=== PATIENT | female | born 1985 | race Caucasian/White ===

== ENCOUNTER 2022-03-28 14:36 | Outpatient (CLI) | payer MEDICAID, SELFPAY ==
[2022-03-28 21:49] LABS: Albumin* 4.8 g/dL (3.3-5.0); Chloride* 103 mmol/L (96-114)
[2022-03-28 21:50] LABS: Potassium* 4.4 mmol/L (3.6-5.1); Sodium* 138 mmol/L (135-149)
[2022-03-28 21:52] LABS: Alanine Aminotransferase* 16 U/L (4-35); Alkaline Phosphatase* 58 U/L (40-150); Aspartate Amino Transferase* 19 U/L (12-35); Bilirubin Total* 0.3 mg/dL (0.1-1.5); Blood Urea Nitrogen* 13 mg/dL (5-24); Carbon Dioxide* 23 mmol/L (20-32); Creatinine* 0.5 mg/dL (0.5-1.5); Estimated Glomerular Filt Rate 125 ml/min; Glucose* 78 mg/dL (60-115); Total Protein* 7.4 g/dL (6.0-8.3)
[2022-03-28 21:53] LABS: Calcium* 9.5 mg/dL (8.4-10.6)
== END 2022-03-28 14:37 | disposition home or self-care (01) ==
PROVIDERS: PCP Family Medicine; Visit Provider Family Medicine
DX: E03.9 Hypothyroidism, unspecified (principal); Z79.899 Other long term (current) drug therapy
CPT/HCPCS: 80053; 84439; 84443

== ENCOUNTER 2023-05-28 10:12 | Outpatient (CLI) | payer MEDICAID, SELFPAY ==
--- OUTSIDE RECORDS SUMMARY | 2023-05-28 10:17 | XMS_ITS | Encounter Summary ---
Author Name Unknown Organization [facility] Address [address], [place] [address] Care Team Providers Care Ergonomic Specialist Name Role Phone Heydi Sutton MD Primary Care Provider Encounter Details Date Type Department Care Team Description 12/19/2022 hayden Avalos [phone] Social History Tobacco Use Types Packs/Day Years Used Date Smoking Tobacco: Former Cigarettes Smokeless Tobacco: Never Alcohol Use Standard Drinks/Week Comments Yes 0 (1 standard drink = 0.6 oz pur e alcohol) binge drinker Estimated Date of Delivery Comme nts Yes 06/10/2021 Sex and Gender Information Value Date Recorded Sex Assigned at Not on file Gender Identity Not on file Sexual Orientation Not on file documented as of this encounter Progress Notes * HAYDEN HEREDIA PROVIDER - 12/19/2022 8:27 PM CDT hayden Treatment Plan Diagnosis Sinusitis Visit Date December 19, 2022 Ángel Jayson Date of : 87 Provider Grace Moore, Nurse Practitioner Note From Provider Prem Neal, I?? sorry to hear that you are not feeling well. I??e sent a prescription for an antibiotic to your pharmacy. To help relieve your symptoms while your antibiotics start to work, I recommend taking 800 mg of ibuprofen every 8 hours around the clock for the next 3 days. I also recommend taking over the counter Mucinex and drinking extra fluids to promote drainage. Please read through the treatment plan I??e put together for you below for additional instructions. If you have any questions or concerns, please submit a Follow Up Request at any time. Feel better soon! JOHN Edwards Treatment Plan Since you have a bacterial infection, let?? try an antibiotic. I??e also included an antifungal medication in case you develop a yeast infection. I sent your prescriptions to [facility]. I??e also listed a few of the best ways to soothe your discomfort. If your symptoms don't improve after 4 days, or if you have questions, select Help to Request a Follow-up and we'll adjust your treatment for free. Order(s) amoxicillin-pot clavulanate 875-125 mg tablet Take 1 tablet oral twice a day for 7 days Note: Refills: None fluconazole 150 mg tablet Take 1 tablet by mouth single dose as directed Note: Repeat in 3 days if symptoms persist Refills: None Sent To: [facility] [address] [place], [place] [id number] Treatment Plan Self Care Tip Topics Inflammation Relief with Ibuprofen Avoid Decongestants and Antihistamines Warm Packs Steam Therapy Humidify Yeast Infection Next Steps What to Expect Our goal is to treat the infection and to reduce the inflammation of your sinus tissues to promote drainage. This will make you feel better quickly. If you follow the recommendations I made on the Treatment tab, your symptoms should begin to improve in 4 days of following this treatment plan. If your symptoms haven?? improved after 4 days, select Help to Request a Follow-up and we??l discuss nextsteps. What to Watch Out For Give us a call immediately if you experience: ??? Vision changes ??? Redness and swelling of the eyes or face ??? Increasing congestion ??? Worsening pain ??? High fevers My Conditions, Orders, Allergies as of December 19, 2022 Standard condition list Anxiety Underactive Thyroid (Hypothyroid) Current orders fluconazole (fluconazole) amoxicillin-pot clavulanate (amoxicillin-pot clavulanate) fluconazole (fluconazole) Allergies None [facility] Information [facility] We are an online clinic open 08/12. If you have any questions or comments about this visit, please call or email [email or web address] documented in this encounter Plan of Treatment Upcoming Encounters Date Type Department Care Team Description 07/23/2023 10:20 AM HAND STRIPER Appointment [facility] [address] [address] [place] [address] Cyril Stokes, [facility] [address] [address] documented as of this encounter Visit Diagnoses Not on filedocumented in this encounter Care Teams Ergonomic Specialist Relationship Specialty Start Date End Date Heydi Sutton MD [address] [place] [address] PCP - General Family Practice 09/22/11 documented as of this encounter
--- OUTSIDE RECORDS SUMMARY | 2023-05-28 10:17 | XMS_ITS | Encounter Summary ---
Author Name Unknown Organization [facility] Address [address], [place] [address] Care Team Providers Care Philosophy And Religion Instructor Name Role Phone Heydi Sutton MD Primary Care Provider [phone] Reason for Visit * Reason Comments Problem Focused Exam Encounter Details Date Type Department Care Team Description 09/02/2022 Telephone [address] [place] [address] Zakia Bynum, [address] [place] [address] [place] [address] Problem Focused Exam Social History Tobacco Use Types Packs/Day Years [...] on file documented as of this encounter Plan of Treatment Upcoming Encounters Date Type Department Care Team Description 07/23/2023 10:20 AM DRENCHER Appointment [address] [place] [address] Cyril Stokes, [address] [address] documented as of this encounter Visit Diagnoses Not on filedocumented in this encounter Care Teams Philosophy And Religion Instructor Relationship Specialty Start Date End Date Heydi Sutton MD [address] [place] [address] PCP - General Family Practice 09/22/11 documented as of this encounter
--- OUTSIDE RECORDS SUMMARY | 2023-05-28 10:17 | XMS_ITS | Encounter Summary ---
Author Name Unknown Organization [facility] Address [address] [address] Care Team Providers Care Manager Star Name Role Phone Heydi Sutton MD Primary Care Provider [phone] Reason for Visit * Reason Comments Problem Focused Exam Filling fell out lo wer left Encounter Details Date Type Department Care Team Description 09/19/2022 10:50 AM CDT Office Visit [facility] [address] [place] [address] Kamilah Brunner DDS [address] [place] [address] Problem Focused Exam (Filling fell out lower left) Social History Tobacco Use Types Packs/Day Years [...] on file documented as of this encounter Last Filed Vital Signs Vital Sign Reading Time Taken Comments Blood Pressure - - Pulse 72 09/19/2022 10:50 AM CDT Temperature - - Respiratory Rate - - Oxygen Saturation - - Inhaled Oxygen Concentration - - Weight - - Height - - Body Mass Index - - documented in this encounter Progress Notes * Kamilah Brunner DDS - 09/19/2022 10:50 AM CDT DENTAL PROBLEM FOCUS VISIT NOTE Subjective Ángel is a 37 y.o. female who presents for Problem Focused Exam (Filling fell out lower left) Chief Complaint: filling came out lower left gumline Pain Assessment: Current level of pain: 0/10 Worst pain level associated with this problem: 0/10 Location of pain: Mandibular left Nature of pain: N/A Eliciting factors: Cold Duration: N/A Alleviating factors: N/A Swelling: None Objective/Assessment The following information was reviewed with the patient: Medical history, Dental history, and Radiographs Diagnosis: Dental caries extending into inner half of enamel layer (primary encounter diagnosis) Prognosis: #20 Favorable Plan: give pt 2 options: (1) leave #20 as it is (2) op #20. Due to sensitivity, pt elects OP #20. Consent: I discussed the Dental findings, Prognosis, Treatment options, Risks and complications associated with procedure, and Billing/Treatment estimate with the patient. All questions answered and they expressed understanding. Procedural Pause: Patient identify verified: Yes Treatment plan/site verified with the patient Instruments/equipment verified: Yes Any medication/allergy contraindications: No Completed Procedures: ANESTHESIA: Topical with 20% benzocaine 1.0 carpules 2% lidocaine with 1:100,000 epinephrine was administered with infiltration in #20 No adverse side effects observed. Anesthesia was administered by Kamilah Brunner DDS COMPOSITE BAHAI, #20: Prepared with complete caries removal Isolated area with high speed suction and cotton rolls. Liner/Varnish/Base: N/A Bonding with Scotchbond [place] material Preparation filled with composite material : Shade: A2 Polishing adjuncts: richie Verified occlusion, contacts, margins, and aesthetics POST-OP INSTRUCTIONS: Patient was advised of normal post-operative instructions and the need to exercise care because of the risk of fracture Care was assisted by Francine LANE Next Planned Visit: Recall No Medications ordered this encounter Kamilah Brunner DDS 09/19/2022, 12:26 PM documented in this encounter Plan of Treatment Upcoming Encounters Date Type Department Care Team Description 07/23/2023 10:20 AM NONPROFIT DIRECTOR Appointment [facility] [address] [place] [address] [place] [address] Cyril Stokes, [facility] [address] [address] documented as of this encounter Procedures Procedure Name Priority Date/Time Associated Diagnosis Comments 20 B RESIN-BASED COMPOSITE-1 SURFACE-POSTERIO Routine 09/19/2022 10:50 AM CDT Dental caries extending into inner half of enamel layer FILM-PERIAPICAL FIRST Routine 09/19/2022 10:50 AM CDT Dental caries extending into inner half of enamel layer LIMITED ORAL EVALUATION Routine 09/20/19 10:50 AM CDT Dental caries extending into inner half of enamel layer documented in this encounter Visit Diagnoses Diagnosis Dental caries extending into inner half of enamel layer- Primary documented in this encounter Care Teams Manager Star Relationship Specialty Start Date End Date Heydi Sutton MD [address] [place] [address] PCP - General Family Practice 09/22/11 documented as of this encounter
--- OUTSIDE RECORDS SUMMARY | 2023-05-28 10:17 | XMS_ITS | Clinical Summary ---
Author Name Unknown Organization [facility] Address [place], [place] [address] Care Team Providers Care Bedspread Cutter Name Role Phone Flavia Antonio MD Primary Care Provider [phone] Allergies Active Allergy Reactions Criticality Noted Date Comments Fluoxetine Other - Describe In Comment Field 08/23/2018 Makes her very drowsy during the day. Makes her very drowsy during the day. Makes her very drowsy during the day. Medications Medication Sig Dispensed Refills Start Date End Date Status levothyroxine (SYNTHROID) 150 mcg tablet Take 125 mcg by mouth once daily. 0 01/13/2016 Active vit/iron fum/folic ac ( 1 + 1 ORAL) Take 1 tablet by mouth once daily. 0 Active naltrexone (REVIA) 50 mg tablet Take 1 tablet (50 mg total) by mouth daily. 0 09/12/2020 Active ondansetron (ZOFRAN) 4 mg tablet Take 1 tablet (4 mg) by mouth daily as needed for nausea 0 01/07/2021 Active metoclopramide HCl (REGLAN) 5 mg tablet Take 1 tablet by mouth 3 times daily as needed. 0 12/18/2020 Active Drysol 20 % external solution Apply topically At Bedtime 0 07/13/2021 Active labetaloL (TRANDATE) 100 mg tablet Take 100 mg by mouth 2 times daily. 0 05/30/2021 Active omeprazole (PRILOSEC) 40 mg Delayed-Release capsule Take 1 capsule (40 mg) by mouth daily 0 05/09/2021 Active Levothyroxine 125 mcg cap 1 tablet in the morning on an empty stomach 0 Active ondansetron (ZOFRAN ODT) 4 mg disintegrating tabletIndications:Vomi ting, unspecified vomiting type, unspecified whether nausea present Place 1 Tablet (4 mg) on the tongue every 6 hours if needed for Nausea/Vomiting. 10 Tablet 0 08/08/2022 Active fluconazole (DIFLUCAN) 150 mg tabletIndications:Acut e vaginitis Take 1 tablet every 72 hours if symptoms for up to 3 doses 3 Tablet 0 12/30/2022 Active Active Problems Problem Noted Date Diagnosed Date Dichorionic diamniotic twin in second trimester 06/13/2019 Threatened labor, second trimester 06/13 Contraception 10/23/2010 PCOS (polycystic ovarian syndrome) 09/03/2010 Overview: US dated: 08/30/10 showed polycystic ovaries Reports hx of irregular menses Vitamin D deficiency 08/29/2009 Anxiety state, unspecified 06/19/2009 Hypothyroid Cramping affecting , antepartum Encounters Date Type Department Care Team Description 03/07/2023 8:11 AM CDT - 03/07/2023 8:22 AM CDT Emergency [facility] [address] [place] [address] Russ Mancini MD Dysfunction of Eustachian tube, unspecified laterality (Primary Dx) Discharge Disposition: Home Self Care from Last 3 Months Immunizations Name Administration Dates Next Due Human Papilloma Virus Vaccine 09/18/2010, 010,05/19/2009 Influenza, IIV3 (Age >=3 years) 01/18/2009 Tdap 08/28/2009 Family History Medical History Relation Name Comments Diabetes Father Heart Disease Father Other Father CHF Good Health Mother Stroke Paternal Aunt 1 Diabetes Paternal Aunt 2 Heart Disease Paternal Grandfather Thyroid Disease Paternal Grandmother Relation Name Status Comments Father Mother Paternal Aunt 1 Paternal Aunt 2 Paternal Grandfather Paternal Grandmother Social History Tobacco Use Types Packs/Day Years Used Date Smoking Tobacco: Former Cigarettes 0.5 10 Smokeless Tobacco: Never Tobacco Cessation:Counseling Given: Not Answered Comments:not since Alcohol Use Standard Drinks/Week Comments Yes 0 (1 standard drink = 0.6 oz pur e alcohol) Sex and Gender Information Value Date Recorded Sex Assigned at Not on file Gender Identity Not on file Sexual Orientation Not on file Obstetrics History Para Term AB IAB SAB Ectopic Multiple Livin g Live Births 4 3 3 0 0 0 0 0 0 3 3 Date Outcome GA Total Labor Labor/2nd/3rd Weight Sex Delivery Anes PTL Paola A1 A5 Name Cl in 11/25 Term 38w 4d F Vag None N Kristin ng Complications:None 08/27 Term M Vag Epidu ral Kristin ng Complications:None 12/16 Term M Vag Epidu ral Kristin ng Complications:None Comments:adopted out Last Filed Vital Signs Vital Sign Reading Time Taken Comments Blood Pressure 118/82 03/07/2023 8:14 AM CDT Pulse 84 03/07/2023 8:14 AM CDT Temperature 36.8 ??C (98.3 ??F) 03/07/2023 8:14 AM CD T Respiratory Rate 16 03/07/2023 8:14 AM CDT Oxygen Saturation 98% 03/07/2023 8:14 AM CDT Inhaled Oxygen Concentration - - Weight 61.2 kg (135 lb) 03/07/2023 8:14 AM CDT Height 152.4 cm (5') 03/07/2023 8:14 AM CDT Body Mass Index 26.37 03/07/2023 8:14 AM CDT Plan of Treatment Health Maintenance Due Date Last Done Comments Depression screening for age 12+ 1998 HIV for age 15-65 2001 Hepatitis C screening for ag e 18-79 2004 Pap test for age 21-65 05/08/2013 0, 12/07/2009, 08/28/2009 BMI (ht and wt on same day) for age 18+ 01/01/2018 01/01/2017, 07/23/2016, 01/21/2016 Tetanus booster 08/29/2019 08/28/2009 COVID-19 vaccine series ( season) 2023 07/29/2021, 06/26/2021 Influenza for age 9-49 01/16/2023 01/18/2009 Tdap Completed 08/28/2009 Pneumococcal series for age 6-64 Aged Out No longer eligible b ased on patient's age to complete this topic Advance Directives Latest Code Status on File Code Status Date Activated Date Inactivated Comments Full Code 08/27/2008 10:53 PM 08/28/2008 3:49 PM Code Status History Code Status Date Activated Date Inactivated Comments Full Code 08/27/2008 3:00 PM 08/27/2008 7:51 PM Care Teams Bedspread Cutter Relationship Specialty Start Date End Date Flavia Antonio MD [address] [facility] [place] [address] PCP - General 12/30/22
--- OUTSIDE RECORDS SUMMARY | 2023-05-28 10:17 | XMS_ITS | Encounter Summary ---
Author Name Unknown Organization [facility] Address [address], [place] [address] Care Team Providers Care Condenser Setter Name Role Phone Heydi Sutton MD Primary Care Provider [phone] Reason for Visit * Reason Comments Problem Focused Exam Chipped upper front Encounter Details Date Type Department Care Team Description 05/06/2023 3:40 PM EAR FLAP BINDER Office Visit [facility] [address] [place] [address] Kamilah Brunner DDS [address] [place] [address] Problem Focused Exam (Chipped upper front ) Social History Tobacco Use Types Packs/Day Years [...] as of this encounter Progress Notes * Kamilah Brunner DDS - 05/06/2023 3:40 PM CST DENTAL PROBLEM FOCUS VISIT NOTE Eddie Neal is a 37 y.o. female who presents for Problem Focused Exam (Chipped upper front ) Chief Complaint: pt presents with cc of chipped upper front tooth about two weeks ago. No pain justfeels sharp to her tongue Pain Assessment: Current level of pain: 0/10 Worst pain level associated with this problem: 0/10 Location of pain: N/A Nature of pain: N/A Eliciting factors: N/A Duration: N/A Alleviating factors: N/A Swelling: None Objective/Assessment The following information was reviewed with the patient: Medical history, Dental history, and Radiographs. Radiographic Interpretation: #8 Widening of PDL space Clinical Tests Loc Cold Hot Percussion Apical Palp ation Cusps + to Tooth Sleuth Perio Probing (mm) Mobility EPT #8 + N/A - - N/A N/A Grade 0 N/A Diagnosis: Fracture of tooth enamel and dentin (primary encounter diagnosis) Prognosis: #8 Questionable due to fracture risk Plan: Recommend OP for now and ask pt to use this tooth with caution. I discussed the Dental findings, Prognosis, Treatment options, and Risks and complications associated with procedure with the patient. All questions answered and they expressed understanding. Procedural Pause: Patient identity verified: Yes Treatment plan/site verified with the patient: Yes Instruments/equipment verified: Yes Any medication/allergy contraindications: No Completed Procedures: ANESTHESIA: None used, procedure was minimally invasive. COMPOSITE JAINISM, #8: Prepared with minimal removal of tooth structure Isolated area with high speed suction and cotton rolls. Liner/Varnish/Base: N/A Bonding with Scotchbond [place] material Preparation filled with composite material : Shade: A1 Polishing adjuncts: albin burs, soflex discs Verified occlusion, contacts, margins, and aesthetics POST-OP INSTRUCTIONS: Patient was advised of normal post-operative instructions and the need to exercise care because of the risk of fracture Care was assisted by DOMINGO Kaur Next Planned Visit: hygiene recall No Medications ordered this encounter Kamilah Brunner DDS 05/06/2023, 4:56 PM FLAP BINDER documented in this encounter Plan of Treatment Upcoming Encounters Date Type Department Care Team Description 07/23/2023 10:20 AM EAR FLAP BINDER Appointment [facility] [address] [place] [address] Cyril Stokes, [address] [address] documented as of this encounter Procedures Procedure Name Priority Date/Time Associated Diagnosis Comments 8 FI COMPOSITE- ANTERIOR W/ INCISAL ANGLE Routine 05/06/2023 3:40 PM EAR FLAP BINDER Fracture of tooth enamel and dentin FILM-PERIAPICAL FIRST Routine 05/06/2023 3:40 PM EAR FLAP BINDER Fracture of tooth enamel and dentin LIMITED ORAL EVALUATION Routine 05/06/2023 3:40 P M EAR FLAP BINDER Fracture of tooth enamel and dentin documented in this encounter Visit Diagnoses Diagnosis Fracture of tooth enamel and dentin- Primary documented in this encounter Care Teams Condenser Setter Relationship Specialty Start Date End Date Heydi Sutton MD [address] [place] [address] PCP - General Family Practice 09/22/11 documented as of this encounter
--- OUTSIDE RECORDS SUMMARY | 2023-05-28 10:17 | XMS_ITS | Encounter Summary ---
Author Name Unknown Organization [facility] Address [address] [place] [address] Care Team Providers Care Entry Level Financial Analyst Name Role Phone Heyid Sutton MD Primary Care Provider [phone] Reason for Visit * Reason Comments Problem Focused Exam Lower left tooth pa in Encounter Details Date Type Department Care Team Description 10/01/2022 Telephone [address] [address] [place] [address] Unassigned, Provider [address] [place] [address] Problem Focused Exam (Lower left tooth pain) Social History Tobacco Use Types Packs/Day Years [...] Department Care Team Description 07/23/2023 10:20 AM CELL TENDER HELPER Appointment [facility] [address] [place] [address] Cyril Stokes, [address] [address] documented as of this encounter Visit Diagnoses Not on filedocumented in this encounter Care Teams Entry Level Financial Analyst Relationship Specialty Start Date End Date Heydi Sutton MD [address] [place] [address] PCP - General Family Practice 09/22/11 documented as of this encounter
--- OUTSIDE RECORDS SUMMARY | 2023-05-28 10:17 | XMS_ITS | Encounter Summary ---
Author Name Unknown Organization [facility] Address [address], [place] [address] Care Team Providers Care Harvest Worker Fruit Name Role Phone Heydi Sutton MD Primary Care Provider [phone] Reason for Visit * Reason Comments Cosmetic Procedure Panni Encounter Details Date Type Department Care Team Description 11/27/2022 Telephone [facility] [address], [address] [place], [place] [id number] Ector Ambrose MD [address] [place] [id number] Cosmetic Procedure (Panni ) Social History Tobacco Use Types Packs/Day [...] on file documented as of this encounter Nursing Notes * Paola Fam LPN - 11/27/2022 3:56 PM CDT I called Ángel after discussing with Dr. Ambrose. Patient inquired about appeal for diastasis but does not have symptoms per exam with Dr. Ambrose. We wrote a new quote for only the skin removal/panniculectomy. Discussed with patient. She has additional questions about how she might look after surgery. She is considering panniculectomy only verses full abdominoplasty and will let us know. Paola Valadez LPN 11/27/2022, 3:58 PM * Paty Mckeon - 11/27/2022 12:47 PM CDT Patient called back with questions regarding new quote. Please call back when able. Thank you. * Paola Fam LPN - 11/27/2022 12:21 PM CDT LVM for Ángel. Discuss new quote for panni, and see if she has questions about the differences inthe procedures. Of note, insurance has denied both panniculectomy and diastasis recti repair. She will be straight cosmetic for either surgery she selects. Paola Fam LPN 11/27/2022, 12:23 PM documented in this encounter Plan of Treatment Upcoming Encounters Date Type Department Care Team Description 07/23/2023 10:20 AM CAR REPAIRER APPRENTICE Appointment [facility] [address] [place] [address] Cyril Stokes, [address] [address] documented as of this encounter Visit Diagnoses Not on filedocumented in this encounter Care Teams Harvest Worker Fruit Relationship Specialty Start Date End Date Heydi Sutton MD [address] [place] [address] PCP - General Family Practice 09/22/11 documented as of this encounter
--- OUTSIDE RECORDS SUMMARY | 2023-05-28 10:17 | XMS_ITS | Encounter Summary ---
Author Name Unknown Organization [facility] Address [address] [address] Care Team Providers Care Inspector Repairer Name Role Phone Heydi Sutton MD Primary Care Provider [phone] Encounter Details Date Type Department Care Team Description 05/18/2023 hayden Avalos [phone] Social History Tobacco Use Types Packs/Day Years [...] Progress Notes * HAYDEN HEREDIA PROVIDER - 05/18/2023 12:21 PM CST Hayden Treatment Plan Diagnosis Acute Bronchitis Visit Date May 18, 2023 Ángel Tyler Date of : 87 Provider Selina Unger, Nurse Practitioner Note From Provider Derrick Neal. Let?? get you feeling better! Based on your current symptoms, your cough is caused by a virus, otherwise known as bronchitis. This condition can make you feel pretty miserable but the good news is it will go away on its own without antibiotics. I??e listed the best way to help with your symptoms in the treatment plan below. Make sure to read your treatment plan below for instructions to manage your symptoms. If your symptoms don?? start to improve in the next few days, please select Help in your treatment plan to Request a Follow Up and we??l re-evaluate your symptoms. Feel better soon! JOHN Marks Treatment Plan Let?? help you get some relief from your cough with a prescription strength medication to soothe your discomfort. Though a great cough remedy for adults, this prescription is not safe for children and should be kept out of reach. I sent your prescription to [facility]. I??e also listed a few of the best ways to treat your symptoms and some additional self-care tips. Because this infection is viral, an antibiotic won?? be effective at helping your cough or treating the virus. If your symptoms don?? improve after a week, or if you have questions, select Help to Request a Follow-up andwe??l discuss your next steps for free. Order(s) benzonatate 100 mg capsule Take 2 capsule oral at bedtime as needed for 10 days Note: Swallow capsules whole. Keep out of reach of children. Refills: None Sent To: [facility] [address] [place] [id number] Treatment Plan Self Care Tip Topics You??e Contagious Reducing Nasal Pressure and Mucus Relief Cough Expectorant for Thinning Mucus Cough Suppressant for Rest Throat Pain Relief Drink Water to Thin Mucus What to Expect Let?? work to relieve your cough and get you feeling better while your body fights off this viral infection. To manage symptoms, follow the recommendations in the Treatment tab and take the listed medications. Keep in mind, it takes time for your immune system to kick a virus. In most cases, your symptoms should start to improve in about a week, but it can take up to 3 weeks to fully recover. If your symptoms don?? improve after a week, select Help to Request a Follow-up and we??l discuss next steps for free. What to Watch Out For Give us a call immediately if you experience: ??? Shortness of breath ??? Wheezing that affects daily activities (walking, dressing, bathing) ??? Chest tightness or pain with deep breaths ??? High fevers ??? Worsening cough ??? Weakness ??? Loss of appetite ??? Body Aches My Conditions, Orders, Allergies as of May 18, 2023 Standard condition list Anxiety Underactive Thyroid (Hypothyroid) Current orders benzonatate (benzonatate) levothyroxine (levothyroxine) Wellbutrin SR (bupropion HCl) naltrexone (bulk) (naltrexone (bulk)) Allergies None [facility] Information [facility] by [employer] We are an online clinic open 08/12. If you have any questions or comments about this visit, please call or email [email or web address]. RAL DISTRICT LAW CLERK documented in this encounter Plan of Treatment Upcoming Encounters Date Type Department Care Team Description 07/23/2023 10:20 AM FEDERAL DISTRICT LAW CLERK Appointment [place] [address] [place] [address] Cyril Stokes, [address] [address] documented as of this encounter Visit Diagnoses Diagnosis Acute bronchitis, unspecified documented in this encounter Care Teams Inspector Repairer Relationship Specialty Start Date End Date Heydi Sutton MD [address] [place] [address] PCP - General Family Practice 09/22/11 documented as of this encounter
--- OUTSIDE RECORDS SUMMARY | 2023-05-28 10:17 | XMS_ITS | Encounter Summary ---
Author Name Unknown Organization [facility] Address [address], [place] [address] Care Team Providers Care Master [place] Name Role Phone Heydi Sutton MD Primary Care Provider [phone] Reason for Visit * Reason Comments DENTAL FRACTURE--ED UF #8 Encounter Details Date Type Department Care Team Description 05/05/2023 Telephone [facility] [address] [place] [address] [place] [address] Kamilah Brunner DDS [address] [place] [id number] DENTAL FRACTURE--ED (UF #8) Social History Tobacco Use Types Packs/Day Years [...] Department Care Team Description 07/23/2023 10:20 AM ENGRAVER STEEL PLATE Appointment [facility] [address] [place] [address] [place] [address] Cyril Stokes, [address] [address] documented as of this encounter Visit Diagnoses Not on filedocumented in this encounter Care Teams Master [place] Relationship Specialty Start Date End Date Heydi Sutton MD [address] [facility] [place] [address] PCP - General Family Practice 09/22/11 documented as of this encounter
--- OUTSIDE RECORDS SUMMARY | 2023-05-28 10:17 | XMS_ITS | Encounter Summary ---
Author Name Unknown Organization [facility] Address [address], [place] [address] Care Team Providers Care Hyperbaric Nurse Name Role Phone Heydi Sutton MD Primary Care Provider [phone] Reason for Referral * Dental (Routine) - New Request Specialty Diagnoses / Procedures Referred By Les cabrera Referred To Contact Diagnoses Symptomatic irreversible pulpitis Zakia Bynum DDS [address] [place] [address] Referral ID Status Reason Start Date Expiration Date V isits Requested Visits Authorized [id number] New Request 10/03/2022 01/02/2024 1 1 Scheduling Instructions Your clinician has recommended an appointment with an oral surgeon within [facility]. You may call one of the clinics below to schedule an appointment. [place] - [phone] [facility] [phone] [facility] [phone] Question Answer Reason for Visit: Extraction Department: [place] Oral Surgery Appointment Urgency: Urgent Tooth/Teeth 19 Treatment Requested extract #19 Last PA film 10/03/2022 Comments Please extract #19. Zakia Bynum DDS 10/03/2022, 1:20 PM Reason for Visit * Reason Comments Problem Focused Exam Toothache lower lef t Encounter Details Date Type Department Care Team Description 10/03/2022 12:50 PM CDT Office Visit [facility] [address] [place] [address] Zakia Bynum, DDS [address] [place] [address] Problem Focused Exam (Toothache lower left ) Social History Tobacco Use Types Packs/Day [...] as of this encounter Progress Notes * Zakia Bynum, DDChristopher - 10/03/2022 12:50 PM CDT DENTAL PROBLEM FOCUS VISIT NOTE Eddie Neal is a 37 y.o. female who presents for Problem Focused Exam (Toothache lower left ) Chief Complaint: I have had a toothache on the bottom left for a while. It has been waking me up aswell. I can't even touch it on the cheek side at all. Pain Assessment: Current level of pain: 6/10 Worst pain level associated with this problem: 8/10 Location of pain: Mandibular left Nature of pain: Sharp, Throbbing Eliciting factors: Cold, touching Duration: Awake at night Alleviating factors: Taking OTC pain killers Swelling: None Objective/Assessment The following information was reviewed with the patient: Medical history, Dental history, and Radiographs. 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 I discussed the Dental findings, Prognosis, Treatment options, Risks and complications associated with procedure, and Billing/Treatment estimate with the patient. All questions answered and they expressed understanding. Procedural Pause: Patient identity verified: Yes Treatment plan/site verified with the patient: Yes Instruments/equipment verified: Yes Any medication/allergy contraindications: No Completed Procedures: ANESTHESIA: None used, procedure was minimally invasive. Limited Oral Exam #19 painful when touch buccal surface (erosion). Symptoms indicate RCT is needed. Patient opts to have #19 extracted. Referred pt to [facility] to extract #19. Discussed possible future MNRPD to replace missing teeth. Care was assisted by DOMINGO Sheldon 10/03/2022, 1:17 PM Zakia Bynum DDS 10/03/2022, 2:17 PM Next Planned Visit: [facility] extract #19 documented in this encounter Plan of Treatment Upcoming Encounters Date Type Department Care Team Description 07/23/2023 10:20 AM LATHE TURNER Appointment [facility] [address] [place] [address] Cyril Stokes, [address] [address] Scheduled Referrals Name Type Priority Associated Diagnoses Orde r Schedule Oral Surgery Consult Referral Routine Symptomatic irreversible pulpitis Ordered: 10/03/2022 documented as of this encounter Procedures Procedure Name Priority Date/Time Associated Diagnosis Comments 19 FILM-PERIAPICAL FIRST Routine 10/03/2022 12:50 PM CDT Symptomatic irreversible pulpitis 19 LIMITED ORAL EVALUATION Routine 10/03/2022 12:50 PM CDT Symptomatic irreversible pulpitis documented in this encounter Visit Diagnoses Diagnosis Symptomatic irreversible pulpitis- Primary Extraction of tooth needed documented in this encounter Care Teams Hyperbaric Nurse Relationship Specialty Start Date End Date Heydi Sutton MD [address] [place] [address] PCP - General Family Practice 09/22/11 documented as of this encounter
--- OUTSIDE RECORDS SUMMARY | 2023-05-28 10:17 | XMS_ITS | Encounter Summary ---
Author Name Unknown Organization [facility] Address [address], [place] [address] Care Team Providers Care Biztalk Developer Name Role Phone Heydi Sutton MD Primary Care Provider [phone] Reason for Visit * Reason Comments NEW MEMBER VISIT EMILY VS SHER LUONG * Consult/Transfer Care (Routine) - New Request Specialty Diagnoses / Procedures Referred By Les cabrera Referred To Contact Plastic Surgery Diagnoses Excessive and redundant skin and subcutaneous tissue Candidiasis of skin and nail Procedures ABDOMINOPLASTY, MINI (PANNICULECTOMY) Referral ID Status Reason Start Date Expiration Date V isits Requested Visits Authorized [id number] New Request 09/17/2022 12/17/2023 1 1 Encounter Details Date Type Department Care Team Description 11/03/2022 2:30 PM CDT Office Visit [facility] [address], [address] [place], [place] [id number] Ector Ambrose MD [address] [place] [id number] Abdominal pannus (HRC) (Primary Dx) Social History Tobacco Use Types Packs/Day Years [...] Taken Comments Blood Pressure - - Pulse - - Temperature - - Respiratory Rate - - Oxygen Saturation - - Inhaled Oxygen Concentration - - Weight 76.7 kg (169 lb) 11/03/2022 2:37 PM CDT Height 152.4 cm (5') 11/03/2022 2:37 PM CDT Body Mass Index 33.01 11/03/2022 2:37 PM CDT documented in this encounter Patient Instructions * Patient Instructions* Araceli Stokes LPN - 11/03/2022 2:30 PM CDT With any procedure there is a small but inherent risk of acquiring infection including, but not limited to, the novel coronavirus (COVID-19). Please be aware that there is a potential for your procedure or surgery to be postponed, or possibly canceled, if you should test positive for COVID-19. There is also a potential for postponement of your procedure if there is a significant reduction in resources required to safely perform your procedure. Important information to know before your surgery You will be scheduled for abdominoplasty (pending insurance coverage). You will receive a phone call from your surgeon's office regarding the date, and location of your surgery. Please allow up to 6 weeks to be contacted. For certain types of surgeries, such as workers compensation, this may take longer. Once you know your surgery date, please contact your primary care physician to schedule a preoperative history and physical. This must be done within 30 days of your surgery. This will ensure that you are medically ready to have your surgery and anesthesia. If your Primary Physician is located outside of our [facility], please have your PrimaryPhysician fax your Pre-operative History and Physical form to our [facility] as soon as possible. [facility] Fax#: [phone] [facility] [place] Fax#: [phone] The Same Day Surgery Nurses will call you 1-3 days prior to surgery to inform you what time you should arrive for your surgery. If they do not reach you, please call if your surgery isat [facility] or [phone] for the [facility] at [address] [place] [address] on the 4th floor. We prefer that you do not take any ibuprofen, aspirin, naprosyn type products, or vitamin E seven days before your surgery. If you are taking aspirin, Coumadin, Plavix or other blood thinners for medical reasons, please consult with your prescribing physician to ensure that it is safe for you to stop. Do not take any herbal medications two weeks before your surgery. Young children and adults should not smoke, eat, or drink after midnight the night before surgery. This includes chewing gum. If you eat or drink anything after midnight, your surgery will be canceled. For infants under the age of 6 months, consult with the Surgery Nurse. No use of hair products such as hair spray, gel, mousse, etc, on the day of surgery. Please remove all jewelry including piercings. If you are having an outpatient procedure, you will not be able to drive yourself home. Please arrange for transportation and arrange for help at home the day of the surgery. If you are staying in the hospital, please arrange for transportation for the day you will be discharged. Contact Information for Post Operative Care [facility], between the hours of 8am-5pm. After hours call [phone] and ask for the on-call Plastic and Hand Surgery resident or call the [facility] at [phone]. Washing your skin before surgery It???s important to prepare your skin for surgery to reduce the risk of a surgical wound infection. Please take a shower the night before and the morning of your surgery. Please follow these steps during your showers: The night before your surgery: Take a shower, washing your body as usual. Apply plenty of Hibiclens*, a special can cleaner, to a clean, wet washcloth. Wash from your neck to your feet. Be sure to rinse off all the soap. Avoid getting Hibiclens* in your eyes, nose, ears, or mouth. If Hibiclens* is not available, use an antibacterial soap such as Dial instead. Apply plenty of Hibiclens* to a wet washcloth. Gently lather the area of your body where you will have the surgery for 5 minutes. Do not scrub your skin with a brush. Do not shave any hair from your body. Wash your hair with your usual shampoo. You can do this either in the evening or in the morning. Dry your body with a newly washed towel. Wear newly washed clothing and sleep in newly washed bedding. The morning of your surgery: Take another shower following the steps above. Dry your body with a newly washed towel. Do not apply deodorant, lotions, or creams. Wear newly washed clothing. *Hibiclens is Chlorhexidine, an antiseptic that you rub on your skin. It destroys germs on the skin. It is used before surgery to reduce the risk of infection. Before using it, tell your doctor if you have any other medical conditions, especially skin problems or allergies, or if you are or nursing. Department of Plastic and Hand Surgery If you have any questions, please call [phone] PAIN MEDICATION POLICY The Department of Plastic and Hand Surgery recognizes that appropriate pain management is an important part of your surgical and recovery process. It is, therefore, important that you are aware of our policies regarding dispensing prescriptive (narcotic) pain medications. This department does not prescribe narcotic pain medication in anticipation of surgery or for most non-surgical conditions. Your primary care physician should manage your pain medication needs until surgery. Following surgery, you will be discharged with an appropriate prescription for pain medication depending on the severity of your surgery or injury. This prescription should last until your fir st postoperative appointment. Pain medication must be taken as prescribed. Patients should not takemore than the prescribed amount of medication without consulting the nurse practitioner, physician pastoral assistant or physician of [facility]. The amount of narcotic pain medication prescribed is related to your surgical procedure or injury and is only one part of your pain management program. Other important parts of pain control include nonsteroidal anti-inflammatory agents (NSAIDS: ibuprofen, Naprosyn, Celebrex, aspirin), ice, elevation, and rest. Your ability to use NSAIDS may be altered depending on other health conditions and should be discussed with your surgeon. Relaxation techniques such as deep breathing and visualization have been shown to significantly improve pain. A handout is available in our office explaining how to do relaxation techniques. Our Plastic Surgeons will manage your postoperative pain for a period of one to six weeks followingyour surgery depending on the type of the procedure done. If you have a history of chronic pain, consultation with the pain clinic, physical therapist, or pain psychologist may be considered. If you have been receiving narcotic pain medication from another physician prior to your surgery or injury, you will need to return to that physician for further medical management. REFILL Policy for Prescriptions Pain management will be addressed during your physician visit. Should you need a refill between office visits, you will need to allow twenty-four hours for this to occur. Please call during clinic hours only and before noon on Fridays. We do not refill prescriptions over the weekend. Under no circumstances will your prescription be refilled on a walk in basis in the clinic or during weekend hours. Additionally, medications are the patient???s responsibility - we will not replace lost or stolen prescriptions or medications. RISKS of Narcotic Medications We are concerned about your overall health and the potentially negative effects of narcotic medications on it. In addition to lack of effectiveness for some types of pain, the side effects of narcotics include nausea, constipation, upset stomach, sexual dysfunction, depression, fatigue, increased sensitivity to pain, addition, and drug tolerance. Extended Recovery Patient Information What is extended recovery? Extended recovery is ordered by your doctor when the doctor thinks you need more time to safely recover. This recovery may be from an outpatient surgery or a radiology procedure. Your doctor expects that you will need more than 4-6 hours. When would I need extended recovery? The most common reasons for an extended recovery include: Not being able to urinate. Not being able to keep down solid foods or liquids. You need an IV (giving you fluids into a vein). Uncontrolled pain. Unexpected surgical bleeding. Abnormal vital signs such as blood pressure or heart rate. Not being able to safely move around. Cardiac or respiratory monitoring. (Keeping track of your heart and breathing). Your doctor will monitor your recovery and determine a plan of care. Department of Plastic and Hand Surgery documented in this encounter Progress Notes * Ector Ambrose MD - 11/03/2022 2:30 PM CDT SURGICAL CONSULT REASON FOR CONSULTATION: Panniculectomy SUBJECTIVE: Ángel Tyler is a 37 y.o. female who is interested in an panniculectomy to address the excessskin after gastric sleeve procedure. She lost greater than 70 lb after surgery in February 2020. Herweight has been stable. With the weight loss, she is developed rashes in the skin folds. She is interested in improving her abdominal contour. She had f multiple pregnancies, including with twins. She reports some back pain. She recently had a hysterectomy. The following portions of the patient's history were reviewed and updated as appropriate: allergies, current medications, family history, medical history, social history, surgical history and problemlist. Past Medical History: Diagnosis Date Hypothyroidism (HRC) Obesity (HRC) Past Surgical History: Procedure Laterality Date Gastric sleeve 02/2020 HYSTERECTOMY N/A 06/2022 Outpatient Medications Prior to Visit Medication Sig acetaminophen (TYLENOL) 325 MG tablet Take 650 mg by mouth. (Patient not taking: Reported on 12/12/2020) acetaminophen-codeine (TYLENOL NO. 3) 300-30 MG tablet Take 1-2 Tablets by mouth every 4 hours as needed. (Patient not taking: Reported on 12/12/2020) aspirin, enteric-coated 81 MG enteric coated tablet Take 81 mg by mouth. (Patient not taking: Reported on 12/12/2020) buPROPion (WELLBUTRIN XL) 150 MG 24 hour release tablet Take 1 Tablet (150 mg) by mouth daily. buPROPion (WELLBUTRIN XL) 300 MG 24 hour release tablet Take 300 mg by mouth. (Patient not taking: Reported on 12/12/2020) diclofenac (VOLTAREN) 50 MG enteric coated tablet Take 1 Tablet by mouth two times a day. (Patient not taking: Reported on 12/12/2020) divalproex ER (DEPAKOTE ER) 250 MG 24 hour release tablet Take 250 mg by mouth daily at bedtime. atbedtime (Patient not taking: Reported on 12/12/2020) docusate sodium (COLACE) 100 MG capsule Take 100 mg by mouth. (Patient not taking: Reported on 12/12/2020) hydrOXYzine pamoate (VISTARIL) 50 MG capsule Take 50 mg by mouth. (Patient not taking: Reported on 12/12/2020) ibuprofen (MOTRIN) 200 MG tablet Take 400 mg by mouth every 6 hours as needed for Pain. (Patient not taking: Reported on 12/12/2020) levothyroxine (SYNTHROID) 150 MCG tablet Take 1 Tablet by mouth daily. naltrexone (REVIA) 50 MG tablet Take by mouth. ondansetron (ZOFRAN) 8 MG tablet Take by mouth. (Patient not taking: Reported on 01/07/2022) Lnlckmob-Bjd-Zl-FA ( VITAMINS) 0.8 MG Take 1 Each by mouth. (Patient not taking: Reported on 01/07/2022) raNITIdine (ZANTAC) 150 MG tablet Take 150 mg by mouth. (Patient not taking: Reported on 01/07/2022) No facility-administered medications prior to visit. Allergies: Fluoxetine, Hydrocodone, and Tramadol Family History Problem Relation Age of Onset Cataract Paternal Grandmother Hypertension Paternal Grandmother Thyroid Disorder Paternal Grandmother Cancer, Ovary Sister 27 Diabetes, Type II Father Hyperlipidemia Father PGM Hypertension Father Diabetes Father Heart disorder Father Coronary Artery Disease Father 43 Hypertension Mother Heart disorder Paternal Grandfather Glaucoma Negative Family History Macular Degeneration Negative Family History Social History Tobacco Use Smoking status: Former Packs/day: 0.50 Types: Cigarettes Smokeless tobacco: Never Substance Use Topics Alcohol use: Yes Comment: binge drinker Review of Systems: Pertinent items are noted in HPI. PHYSICAL EXAM: Vital Signs: Ht 5' (1.524 m) Wt 169 lb (76.7 kg) BMI 33.01 kg/m?? Gen: 37 y.o. female in NAD. Alert and oriented, normal affect. HEENT: Moist mucous membranes. No thrush. No icterus. Lymphatic: No cervical or supraclavicular lymphadenopathy. Abdomen: Soft, non-distended. The abdominal pannus reaches the top of her mons pubis. There are signs of irritation along the skin folds. Skin quality is fair with bcum-ny-ezkxacgx striae and there are no obvious hernias. There are well healed laparoscopic incisions Skin: No lesions or rashes Extremities: No edema. ASSESSMENT: Mrs. Tyler would benefit from a panniculectomy. We discussed the procedure including the plannedincisions. We also reviewed the typical postoperative course including the possibility of drain placement, activity restrictions for a minimum of 2-4 weeks and the requirement for compression garments. All her questions were answered to the best of my abilities. She is interested in having a rectus plication but is aware this is not typically covered by insurance; therefore, a conley quote will be given to the patient for that portion of the surgery. Discussed the risks, benefits, alternatives, and the necessity of other members of the healthcare team participating in the procedure. All questions answered and consent given. Specific risks and benefits include but are not limited to DVT/PE, bleeding, infection, seroma, and poor wound healing/scarring. Also the possible need for further surgery was also discussed. I personally spent over half of a total 30 minutes face to face with the patient in counseling and discussion and/or coordination of care as described above. Ector Ambrose MD-PhD Follow-up: Pre surgery visit Surgical Procedure: Panniculectomy with possible rectus diastasis repair Anesthesia Planned: General Surgeon: Ector Ambrose MD-PhD Primary Care Provider: Heydi Sutton MD documented in this encounter Nursing Notes * Rose Marie Rahman [facility] - 11/03/2022 2:30 PM CDT Ángel Maria T Tyler [phone] -female - Telephone Information: -Where can patient be contacted during the day? [phone](cell) [facility] - -Regional Education Manager: -H&P Location: [facility] Date: Time: -Allergies: Latex: NO Tape: NO is allergic to fluoxetine, hydrocodone, and tramadol. -Health Issues: SEE EPIC Patient Active Problem List Diagnosis Hypothyroidism (HRC) Class 3 severe obesity due to excess calories without serious comorbidity with body mass index (BMI) of 40.0 to 44.9 in adult (HRC) Hyperhidrosis Methamphetamine abuse (HRC) Sleep disturbance Chronic upper back pain PCOS (polycystic ovarian syndrome) Pre-conception counseling Female infertility associated with anovulation Lower back pain Pain in thoracic spine (HRC) Anxiety (HRC) Screening for malignant neoplasm of cervix CAREPLAN: CONTROLLED SUBSTANCE Chronic nonintractable headache Desire for Irregular menstrual cycle Other specified circulatory system disorders Sprain and strain of other specified sites of shoulder and upper arm Vitamin D deficiency (HRC) Aspiration pneumonia (HRC) Opioid overdose (HRC) -Estimated body mass index is 33.01 kg/m?? as calculated from the following: Height as of this encounter: 5' (1.524 m). Weight as of this encounter: 169 lb (76.7 kg). -Diabetic: No -Sleep Apnea: No -Pacemaker: No -Active TB: No -Blood Thinners: No -Prosthetic Device: no -Any Implantable Devices: no -Has implantable lead system (AICD- automatic implantable cardioverter- defibrillator): no -Cardiac Stent Placed < 1 year: No -Central nervous system/neuromuscular disease: No -Coagulation disorder (Factor V deficiency, Von Willebrand's): No -Difficulty with anesthesia (excluding N/V): No -Emphysema/COPD: No -Heart blocks/uncontrolled hypertension/valvular disease: No -Malignant Hyperthermia History: No -MA/CVA within last 6 months: No - at time of surgery: No -Severe pulmonary disease (home oxygen included): No -Unstable Angina history: No -Vented: No -Does patient require specialized care or equipment: no -PreOp Educated: Yes Initials: JNChristopher Date: 11/03/2022 Photos were obtained today. Rose Marie Rahman CMA 11/03/2022, 3:24 PM documented in this encounter Plan of Treatment Upcoming Encounters Date Type Department Care Team Description 07/23/2023 10:20 AM EAP COUNSELOR Appointment [address] [address] Cyril Stokes, [address] [address] documented as of this encounter Visit Diagnoses Diagnosis Abdominal pannus (HRC)- Primary Localized adiposity documented in this encounter Care Teams Biztalk Developer Relationship Specialty Start Date End Date Heydi Sutton MD [address] [place] [address] PCP - General Family Practice 09/22/11 documented as of this encounter
--- OUTSIDE RECORDS SUMMARY | 2023-05-28 10:17 | XMS_ITS | Encounter Summary ---
Author Name Unknown Organization [facility] Address [address], [place] [address] Care Team Providers Care Inbound Ingredient Logistics Specialist Name Role Phone Heydi Sutton MD Primary Care Provider [phone] Encounter Details Date Type Department Care Team Description 08/27/2022 hayden Avalos [phone] Social History Tobacco Use Types Packs/Day Years [...] Progress Notes * HAYDEN HEREDIA PROVIDER - 08/27/2022 5:56 PM CDT hayden Treatment Plan Diagnosis Bacterial Vaginosis (BV) Visit Date August 27, 2022 Ángel Whitmanon Date of : 87 Provider Stef Nelson, Physician Game Bird Farmer Note From Provider Prem Neal! I am sorry to hear that you are having symptoms of BV. I have sent an antibiotic to your pharmacy for you. If you have any questions or concerns, please do not hesitate to reach out. Takecare, and have a great night!Anthony,MATILDE Finch Treatment Plan Let?? try an oral antibiotic for your bacterial vaginosis. I sent a prescription to [facility]. Make sure to take all of the antibiotic prescribed, according to the directions, even if yoursymptoms resolve after a few doses. I??e also listed a few of the best ways to soothe your discomfort and some additional self-care tips to promote healing. If your symptoms don?? improve after 4 days, or if you have questions, please select Help to Request a Call Back and we'll talk about your next steps for free. Order(s) metronidazole 500 mg tablet Take 1 tablet oral twice a day as directed for 7 days Note: Refills: None Sent To: [facility] [address] [place], [place] [id number] Treatment Plan Self Care Tip Topics Avoid Douching Does My Partner Need Treatment? Get Tested Risk Factors What to Expect If you follow the recommendations I made on the Treatment tab, your symptoms should improve in about 4 days. If your symptoms don?? improve after 4 days, or if you have questions, please select Help to Request a Call Back and we'll help determine your next step for free. What to Watch Out For Give us a call if you experience: ??? Shaking chills ??? High fever ??? Severe pain in your back, abdomen or pelvis ??? Frequent, painful urination ??? Blood in the urine ??? Painful intercourse My Conditions, Orders, Allergies as of August 27, 2022 Standard condition list Anxiety Underactive Thyroid (Hypothyroid) Current orders metronidazole (metronidazole) fluconazole (fluconazole) Allergies None Vital Juice Newsletter Information [facility] [employer] We are an online clinic open 08/12. If you have any questions or comments about this visit, please call or email [email or web address] documented in this encounter Plan of Treatment Upcoming Encounters Date Type Department Care Team Description 07/23/2023 10:20 AM NUTRITION COUNSELOR Appointment [facility] [address] [place] [address] [place] [address] Cyril Stokes, [facility] [address] [place] [id number] documented as of this encounter Visit Diagnoses Not on filedocumented in this encounter Care Teams Inbound Ingredient Logistics Specialist Relationship Specialty Start Date End Date Heydi Sutton MD [address] [facility] [id number] [address] PCP - General Family Practice 09/22/11 documented as of this encounter
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
--- OUTSIDE RECORDS SUMMARY | 2023-05-28 10:18 | XMS_ITS | Encounter Summary ---
Author Name Unknown Organization [facility] Address [address] [address] Care Team Providers Care Dental Assisting Instructor Name Role Phone Heydi Sutton MD Primary Care Provider [phone] Encounter Details Date Type Department Care Team Description 11/02/2017 Emergency Room External to [facility] SINUS CONGESTION Social History Tobacco Use Types Packs/Day Years Used Date Smoking Tobacco: Former Cigarettes Smokeless Tobacco: Never Alcohol Use Standard Drinks/Week Comments Yes 0 (1 standard drink = 0.6 oz pur e alcohol) occ Sex and Gender Information Value Date Recorded Sex Assigned at Not on file Gender Identity Not on file Sexual Orientation Not on file documented as of this encounter Plan of Treatment Upcoming Encounters Date Type Department Care Team Description 07/23/2023 10:20 AM FIELD CONTACT PERSON Appointment [address] [address] Cyril Stokes, [address] [address] documented as of this encounter Visit Diagnoses Not on filedocumented in this encounter Care Teams Dental Assisting Instructor Relationship Specialty Start Date End Date Heydi Sutton MD [address] [place] [address] PCP - General Family Practice 09/22/11 documented as of this encounter
--- OUTSIDE RECORDS SUMMARY | 2023-05-28 10:18 | XMS_ITS | Encounter Summary ---
Author Name Unknown Organization [facility] Address [address], [place] [address] Care Team Providers Care Land Inspector Name Role Phone Heydi Sutton MD Primary Care Provider [phone] Encounter Details Date Type Department Care Team Description 01/01/2017 Emergency Room External to [facility] LEG SWELLING Social History Tobacco Use Types Packs/Day Years [...] Department Care Team Description 07/23/2023 10:20 AM ACQUISITIONS EDITOR Appointment [address] [address] Cyril Stokes, [address] [address] documented as of this encounter Visit Diagnoses Not on filedocumented in this encounter Care Teams Land Inspector Relationship Specialty Start Date End Date Heydi Sutton MD [address] [place] [address] PCP - General Family Practice 09/22/11 documented as of this encounter
--- OUTSIDE RECORDS SUMMARY | 2023-05-28 10:18 | XMS_ITS | Encounter Summary ---
Author Name Unknown Organization [facility] Address [address] [address] Care Team Providers Care Rn Liaison Name Role Phone Heydi Sutton MD Primary Care Provider [phone] Encounter Details Date Type Department Care Team Description 12/17/2015 Outside Hospital External to [facility] HISTORY AND PHYSICAL Social History Tobacco Use Types Packs/Day Years Used Date Smoking Tobacco: Former Cigarettes Smokeless Tobacco: Never Alcohol Use Standard Drinks/Week Comments Yes 0 (1 standard drink = 0.6 oz pur e alcohol) occ Comments Yes Sex and Gender Information Value Date Recorded Sex Assigned at Not on file Gender Identity Not on file Sexual Orientation Not on file documented as of this encounter Plan of Treatment Upcoming Encounters Date Type Department Care Team Description 07/23/2023 10:20 AM DIE FINISHER Appointment [facility] [address] [address] Cyril Stokes, [address] [address] documented as of this encounter Visit Diagnoses Not on filedocumented in this encounter Care Teams Rn Liaison Relationship Specialty Start Date End Date Heydi Sutton MD [address] [place] [address] PCP - General Family Practice 09/22/11 documented as of this encounter
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
--- OUTSIDE RECORDS SUMMARY | 2023-05-28 10:18 | XMS_ITS | Encounter Summary ---
Author Name Unknown [facility] Address [address] [address] Care Team Providers Care Call Center Trainer Name Role Phone Heydi Sutton MD Primary Care Provider Encounter Details Date Type Department Care Team Description 01/21/2016 Emergency Room External to [facility] SINUS PRESSURE Social History Tobacco Use Types Packs/Day Years [...] Department Care Team Description 07/23/2023 10:20 AM NATURAL GAS FIELD PROCESSING SUPERVISOR Appointment [address] [address] Cyril Stokes, [address] [address] documented as of this encounter Visit Diagnoses Not on filedocumented in this encounter Care Teams Call Center Trainer Relationship Specialty Start Date End Date Heydi Sutton MD [address] [place] [address] PCP - General Family Practice 09/22/11 documented as of this encounter
--- OUTSIDE RECORDS SUMMARY | 2023-05-28 10:18 | XMS_ITS | Encounter Summary ---
Author Name Unknown [facility] Address [address], [place] [address] Care Team Providers Care Seo Analyst Name Role Phone Heydi Sutton MD Primary Care Provider [phone] Encounter Details Date Type Department Care Team Description 07/23/2016 Emergency Room External to [facility] EAR PAIN AND SINUS PRESSURE Social History Tobacco Use Types [...] Department Care Team Description 07/23/2023 10:20 AM PLANT EQUIPMENT ENGINEER Appointment [facility] [place] [address] [place] [address] Cyril Stokes, [address] [address] documented as of this encounter Visit Diagnoses Not on filedocumented in this encounter Care Teams Seo Analyst Relationship Specialty Start Date End Date Heydi Sutton MD [address] [place] [address] PCP - General Family Practice 09/22/11 documented as of this encounter
--- OUTSIDE RECORDS SUMMARY | 2023-05-28 10:18 | XMS_ITS | Encounter Summary ---
Author Name Unknown Organization [facility] Address [address], [place] [address] Care Team Providers Care Disability Liaison Officer Name Role Phone Heydi Sutton MD Primary Care Provider [phone] Encounter Details Date Type Department Care Team Description 06/17/2018 Correspondence [facility] [address] [facility] [place], [place] [id number] Heydi Sutton MD [address] [place] [address] [facility] ATTENDING PHYSICIANS STATEMENT Social History Tobacco Use Types Packs/Day Years [...] Department Care Team Description 07/23/2023 10:20 AM CHEF FRENCH Appointment [facility] [address] [place] [address] [place] [address] Cyril Stokes, [address] [address] documented as of this encounter Visit Diagnoses Not on filedocumented in this encounter Care Teams Disability Liaison Officer Relationship Specialty Start Date End Date Heydi Sutton MD [address] [place] [address] PCP - General Family Practice 09/22/11 documented as of this encounter
--- OUTSIDE RECORDS SUMMARY | 2023-05-28 10:18 | XMS_ITS | Encounter Summary ---
Author Name Unknown Organization [facility] Address [address], [place] [address] Care Team Providers Care Tie Binder Name Role Phone Heydi Sutton MD Primary Care Provider [phone] Encounter Details Date Type Department Care Team Description 08/25/2022 hayden Avalos [phone] Social History Tobacco Use Types Packs/Day Years [...] Progress Notes * HAYDEN HEREDIA PROVIDER - 08/25/2022 7:27 AM CDT hayden Treatment Plan Diagnosis Yeast Infection Visit Date August 25, 2022 Ángel Jayson Date of : 87 Provider Lizet Barbour, Physician Telephone Repairer Note From Provider Prem Neal! I sent a prescription for an oral anti-fungal pill to your pharmacy. Your prescription will contain two tablets. Take one tablet today. One pill clears up an infection for most women. If you still have symptoms 72 hours after taking the first pill, take the second pill at that time. Please review the treatment plan for additional care instructions and tips. If you have questions or concerns, select Help from your treatment plan and Request a Callback. Be well! MATILDE Hinds Treatment Plan Let?? treat your yeast infection with an antifungal medication. I sent a prescription to [facility]. Most people?? symptoms will improve with just one pill. If your symptoms haven?? improved within3 days, take the second pill included with your prescription. If you still continue to experience symptoms or have questions, please select Help to Request a Call Back and we??l chat about possible next steps??ree of charge. Order(s) fluconazole 150 mg tablet Take 1 tablet by mouth single dose as directed Note: Repeat in 3 days if symptoms persist Refills: None Sent To: [facility] [address] [place] [address] Treatment Plan Self Care Tip Topics Common Risk Factors for Yeast Infections What to Expect Your symptoms should start to improve over the next 3 days. For more information about how to take your prescribed medication and how to Request a Call Back if needed, follow the recommendations in the Treatment Tab. What to Watch Out For Give us a call if you experience: ??? Shaking chills ??? High fever ??? Odor with vaginal discharge ??? Frequent, painful urination ??? Blood in the urine ??? Severe pain in your back, abdomen or pelvis My Conditions, Orders, Allergies as of August 25, 2022 Standard condition list Anxiety Underactive Thyroid (Hypothyroid) Current orders fluconazole (fluconazole) Allergies None Glassful Information [facility] [employer] We are an online clinic open 08/12. If you have any questions or comments about this visit, please call or email [email or web address] documented in this encounter Plan of Treatment Upcoming Encounters Date Type Department Care Team Description 07/23/2023 10:20 AM CONTRACT GRAPHIC DESIGNER Appointment [facility] [address] [place] [address] [place] [address] Cyril Stokes, [facility] [address] [address] documented as of this encounter Visit Diagnoses Not on filedocumented in this encounter Care Teams Tie Binder Relationship Specialty Start Date End Date Heydi Sutton MD [address] [place] [address] PCP - General Family Practice 09/22/11 documented as of this encounter
--- OUTSIDE RECORDS SUMMARY | 2023-05-28 10:18 | XMS_ITS | Encounter Summary ---
Author Name Unknown Organization [facility] Address [address] [address] Care Team Providers Care Lithograph Press Operator Tinware Name Role Phone Heydi Sutton MD Primary Care Provider [phone] Encounter Details Date Type Department Care Team Description 07/18/2018 Outside Hospital External to CRISIS SOCIAL WORK ASSESSMEN T Social History Tobacco Use Types Packs/Day Years [...] Department Care Team Description 07/23/2023 10:20 AM UNHAIRING MACHINE OPERATOR Appointment [facility] [place] [address] [place] [address] Cyril Stokes, [address] [address] documented as of this encounter Visit Diagnoses Not on filedocumented in this encounter Care Teams Lithograph Press Operator Tinware Relationship Specialty Start Date End Date Heydi Sutton MD [address] [place] [address] PCP - General Family Practice 09/22/11 documented as of this encounter
--- OUTSIDE RECORDS SUMMARY | 2023-05-28 10:18 | XMS_ITS | Encounter Summary ---
Author Name Unknown Organization [facility] Address [address] [address] Care Team Providers Care Hydrology Professor Name Role Phone eHydi Sutton MD Primary Care Provider [phone] Encounter Details Date Type Department Care Team Description 06/07/2015 Emergency Room External to [facility], Provider HEADACHE, SORE THROAT, VAGINAL DISCHARGE Social History Tobacco Use Types Packs/Day Years [...] Department Care Team Description 07/23/2023 10:20 AM FIRE EXTINGUISHER SPRINKLER INSPECTOR Appointment [facility] [address] [place] [address] [place] [address] Cyril Stokes, [address] [address] documented as of this encounter Visit Diagnoses Not on filedocumented in this encounter Care Teams Hydrology Professor Relationship Specialty Start Date End Date Heydi Sutton MD [address] [place] [address] PCP - General Family Practice 09/22/11 documented as of this encounter
--- OUTSIDE RECORDS SUMMARY | 2023-05-28 10:18 | XMS_ITS | Encounter Summary ---
Author Name Unknown Organization [facility] Address [address], [place] [address] Care Team Providers Care Ecommerce Merchandising Manager Name Role Phone Heydi Sutton MD Primary Care Provider [phone] Encounter Details Date Type Department Care Team Description 11/07/2018 Refill Order [facility] [address] [place] [address] Yg Cedillo MD [address] [place] [address] Social History Tobacco Use Types Packs/Day Years [...] Department Care Team Description 07/23/2023 10:20 AM ORDNANCE HANDLER Appointment [facility] [address] [place] [address] [place] [address] Cyril Stokes, [address] [address] documented as of this encounter Visit Diagnoses Diagnosis Encounter for long-term (current) use of medications- Primary Encounter for long-term (current) use of other medications documented in this encounter Care Teams Ecommerce Merchandising Manager Relationship Specialty Start Date End Date Heydi Sutton MD [address] [place] [address] PCP - General Family Practice 09/22/11 documented as of this encounter
--- OUTSIDE RECORDS SUMMARY | 2023-05-28 10:18 | XMS_ITS | Encounter Summary ---
Author Name Unknown Organization [facility] Address [address] [address] Care Team Providers Care Tree Trimming Line Technician Name Role Phone Heydi Sutton MD Primary Care Provider [phone] Encounter Details Date Type Department Care Team Description 12/17/2015 Outside Hospital External to [facility] DELIVERY NOTE Social History Tobacco Use Types Packs/Day Years [...] Care Team Description 07/23/2023 10:20 AM PLANT PHYSIOLOGY TEACHER Appointment [facility] [address] [address] Cyril Stokes, [address] [address] documented as of this encounter Visit Diagnoses Not on filedocumented in this encounter Care Teams Tree Trimming Line Technician Relationship Specialty Start Date End Date Heydi Sutton MD [address] [place] [address] PCP - General Family Practice 09/22/11 documented as of this encounter
--- OUTSIDE RECORDS SUMMARY | 2023-05-28 10:18 | XMS_ITS | Encounter Summary ---
Author Name Unknown Organization [facility] Address [address], [place] [address] Care Team Providers Care Cutter Operator Helper Name Role Phone Heydi Sutton MD Primary Care Provider [phone] Encounter Details Date Type Department Care Team Description 12/17/2015 Outside Hospital External to VAGINAL DELIVERY NOTE Social History Tobacco Use Types [...] Department Care Team Description 07/23/2023 10:20 AM DERRICKMAN HELPER Appointment [facility] [address] [address] Cyril Stokes, [address] [address] documented as of this encounter Visit Diagnoses Not on filedocumented in this encounter Care Teams Cutter Operator Helper Relationship Specialty Start Date End Date Heydi Sutton MD [address] [place] [address] PCP - General Family Practice 09/22/11 documented as of this encounter
--- OUTSIDE RECORDS SUMMARY | 2023-05-28 10:18 | XMS_ITS | Encounter Summary ---
Author Name Unknown Organization [facility] Address [address], [place] [address] Care Team Providers Care Campus Security Director Name Role Phone Heydi Sutton MD Primary Care Provider [phone] Encounter Details Date Type Department Care Team Description 04/07/2016 Emergency Room Security Contact - Dimple Gandhi [facility], Provider PINK EYE Social History Tobacco Use Types Packs/Day Years [...] Department Care Team Description 07/23/2023 10:20 AM WEB DEVELOPMENT DIRECTOR Appointment [facility] [place] [address] [place] [address] Cyril Stokes, [facility] [address] [place] [address] documented as of this encounter Visit Diagnoses Not on filedocumented in this encounter Care Teams Campus Security Director Relationship Specialty Start Date End Date Heydi Sutton MD [address] [place] [address] PCP - General Family Practice 09/22/11 documented as of this encounter
--- OUTSIDE RECORDS SUMMARY | 2023-05-28 10:18 | XMS_ITS | Encounter Summary ---
Author Name Unknown Organization [facility] Address [address] [address] Care Team Providers Care Advertising Inserter Name Role Phone Heydi Sutton MD Primary Care Provider [phone] Encounter Details Date Type Department Care Team Description 12/28/2017 Emergency Room External to [facility] PALPITATIONS Social History Tobacco Use Types Packs/Day Years [...] Department Care Team Description 07/23/2023 10:20 AM SIDING MECHANIC Appointment [address] [address] Cyril Stokes, [address] [address] documented as of this encounter Visit Diagnoses Not on filedocumented in this encounter Care Teams Advertising Inserter Relationship Specialty Start Date End Date Heydi Sutton MD [address] [place] [address] PCP - General Family Practice 09/22/11 documented as of this encounter
--- OUTSIDE RECORDS SUMMARY | 2023-05-28 10:18 | XMS_ITS | Encounter Summary ---
Author Name Unknown Organization [facility] Address [address] [address] Care Team Providers Care Senior Php Web Developer Name Role Phone Heydi Sutton MD Primary Care Provider [phone] Encounter Details Date Type Department Care Team Description 10/09/2015 Emergency Room External to RT GREATER TOE PAIN Social History Tobacco Use Types Packs/Day Years [...] Department Care Team Description 07/23/2023 10:20 AM CERTIFIED BREASTFEEDING EDUCATOR Appointment [facility] [address] [address] Cyril Stokes, [address] [address] documented as of this encounter Visit Diagnoses Not on filedocumented in this encounter Care Teams Senior Php Web Developer Relationship Specialty Start Date End Date Heydi Sutton MD [address] [place] [address] PCP - General Family Practice 09/22/11 documented as of this encounter
--- OUTSIDE RECORDS SUMMARY | 2023-05-28 10:18 | XMS_ITS | Encounter Summary ---
Author Name Unknown Organization [facility] Address [address] [address] Care Team Providers Care Alliance Manager Name Role Phone Heydi Sutton MD Primary Care Provider [phone] Encounter Details Date Type Department Care Team Description 07/15/2022 hayden Avalos [phone] Social History Tobacco Use Types Packs/Day Years [...] Progress Notes * HAYDEN HEREDIA PROVIDER - 07/15/2022 3:19 PM CST hayden Treatment Plan Diagnosis Sinusitis Visit Date July 15, 2022 Ángel Tyler Date of : 87 Provider Stef Nelson, Physician Ram Car Operator Note From Provider Prem Neal! I?? sorry to hear that you are [...] you have any questions or concerns, please Request a Callback at any time. Take care Shalena, and feel better soon!Stef Cruz PA-C Treatment Plan Since you have a bacterial infection, let?? try an antibiotic. I??e prescribed high dose amoxicillin, which the latest evidence recommends as the best and safest antibiotic to clear up your bacterialinfection faster. I??e also included an antifungal medication in case you develop a yeast infection. I sent your prescriptions to [facility]. I??e also listed a few self-care tips to sootheyour symptoms. If your symptoms don't improve after 4 days, or if you have questions, select Help to Request a Call Back and we'll adjust your treatment for free. Order(s) amoxicillin 500 mg capsule Take 2 capsule three times a day as directed for 7 days Note: Refills: None fluconazole 150 mg tablet Take 1 tablet by mouth single dose as directed Note: Repeat in 3 days if symptoms persist Refills: None Sent To: [facility] [address] [place], [place] [id number] Treatment Plan Self Care Tip Topics Inflammation Relief with Ibuprofen Avoid Decongestants and Antihistamines Cough Expectorant Relieve Facial Pressure with Nasal Steroids Warm Packs Steam Therapy Yeast Infection Prescription What to Expect Our goal is to [...] 4 days, select Help to Request a Call Back and we??l call you back to adjust your treatment for free. What to Watch Out For Give us a call immediately if you experience: ??? Vision changes ??? Redness and swelling of the eyes or face ??? Increasing congestion ??? Worsening pain ??? High fevers My Conditions, Orders, Allergies as of July 15, 2022 Standard condition list Anxiety Underactive Thyroid (Hypothyroid) Current orders fluconazole (fluconazole) amoxicillin (amoxicillin) Allergies None [facility] [employer] We are an online clinic open 08/12. If you have any questions or comments about this visit, please call or email [email or web address] ROOM COURIER documented in this encounter Plan of Treatment Upcoming Encounters Date Type Department Care Team Description 07/23/2023 10:20 AM MAILROOM COURIER Appointment [facility] [address] [place] [address] Cyril Stokes, [address] [address] documented as of this encounter Visit Diagnoses Not on filedocumented in this encounter Care Teams Alliance Manager Relationship Specialty Start Date End Date Heydi Sutton MD [address] [place] [address] PCP - General Family Practice 09/22/11 documented as of this encounter
--- OUTSIDE RECORDS SUMMARY | 2023-05-28 10:18 | XMS_ITS | Encounter Summary ---
Author Name Unknown Organization [facility] Address [address], [place] [address] Care Team Providers Care Manager Fiber Name Role Phone Heydi Sutton MD Primary Care Provider [phone] Encounter Details Date Type Department Care Team Description 06/24/2018 Correspondence [facility] [address] [facility]. [place], [place] [phone] Heydi Stuton MD [address] [place], [place] [id number] MEDICAL STATEMENT Social History Tobacco Use Types Packs/Day [...] Department Care Team Description 07/23/2023 10:20 AM UPS DRIVER Appointment [facility] [address] [place] [address] [place] [address] Cyril Stokes, [address] [address] documented as of this encounter Visit Diagnoses Not on filedocumented in this encounter Care Teams Manager Fiber Relationship Specialty Start Date End Date Heydi Sutton MD [address] [facility] [place] [address] PCP - General Family Practice 09/22/11 documented as of this encounter
--- OUTSIDE RECORDS SUMMARY | 2023-05-28 10:18 | XMS_ITS | Encounter Summary ---
Author Name Unknown Organization [facility] Address [address] [address] Care Team Providers Care Software Installer Name Role Phone Heydi Sutton MD Primary Care Provider [phone] Reason for Visit * Reason Comments Dental Hygiene none Dental Exam none Encounter Details Date Type Department Care Team Description 07/07/2022 9:40 AM TREATMENT SUPERVISOR Office Visit [facility] [address] [place] [address] [place] [address] [address] [address] Dental Hygiene (none); Dental Exam (none) Social History Tobacco Use Types Packs/Day Years [...] on file documented as of this encounter Patient Instructions * Patient Instructions* Kanika Willis RDH - 07/07/2022 9:40 AM TREATMENT SUPERVISOR Your next hygiene recall is due 07/07/2023 YOUR PERSONAL DENTAL RISK REPORT CARIES (TOOTH DECAY) PERIODONTAL (GUM) DISEASE ORAL CANCER low MOD high LOW mod high LOW elevated ^ ^ ^ Risk Level: MODERATE Risk Factors: Caries (tooth decay) in the last two years. How to Reduce Your Risk: Hygiene recall at 6 to 12 months. Rinse with fluoride rinse once to twice daily at times other than when brushing. Instruction from dental professional on brushing, flossing, and use of oral hygiene products. Radiographs to detect decay. Risk Level: LOW How to Maintain Your Low Risk: Return visit with the dental hygienist at 6 month intervals to assess periodontal condition and provide necessary treatment. Oral hygiene instruction by the dentist, dental hygienist, or dental catering administrative assistant. Congratulations on your low risk for gum disease. Making healthy life style choices including brushing twice a day; daily flossing; and not using tobacco should help you maintain this low risk. Risk Level: LOW How to Maintain your Low Risk: Congratulations on your low risk for oral cancer. Making healthy life style choices such as not using tobacco and low to moderate alcohol use should help you maintain this low risk. Ángel, we look forward to seeing you at your next visit! Thank you for choosing [facility]. TMENT SUPERVISOR documented in this encounter Progress Notes * Kanika Willis RDH - 07/07/2022 9:40 AM CST HYGIENE PROPHY NOTE PROCEDURAL PAUSE: Patient identity verified: Yes Treatment plan/site verified with the patient: Yes Instruments/equipment verified: Yes Any medication/allergy contraindications: Yes, see med hx PRESENTATION: Plaque: Localized, moderate interproximal Calculus: Localized, light mandibular anterior Stain: None Bleeding: Localized moderate Gingival tissue: Normal Mucogingival concerns: Absent ACTIVITIES: Hand scale, Essential selective polishing, and Flossed all contacts PATIENT EDUCATION: Caries risk, Periodontal risk, OHI, and Demonstrated flossing NEXT PLANNED HYGIENE VISIT: Hygiene Prophy with exam Kanika Willis RDH 07/07/2022, 9:44 AM --End of Note-- TMENT SUPERVISOR * Zakia Bynum DDS - 07/07/2022 9:40 AM CST RECALL EXAM NOTE REASON FOR VISIT/CHIEF COMPLAINT: Ángel is a 36 y.o. female who presents for Dental Hygiene (none) and Dental Exam (none) CHART REVIEW: Reviewed with patient: Medical history, Dental history, Problem list, Periodontal charting, and Radiographs. SOFT TISSUE, HEAD AND NECK EXAMINATION: Lips: Normal Tongue: Normal Palate: Normal Throat: Normal Floor of the mouth: Normal Mucosa: Normal Head and neck: Normal TMD EVALUATION: Palpation Pain: None Joint Sounds: None Pain with Range of Motion: None OCCLUSAL EXAMINATION: Unchanged COSMETIC CONCERNS: Patient's Perception: Acceptable Dentist's Perception: Acceptable TREATMENT REVIEW AND FOLLOW-UP: Discussed the Dental findings, Prognosis, and Treatment options with the patient. All questions answered and informed consent was obtained. Recommended Recall Interval: Examination: 12 months Recall prophy: 12 months Planned Recall Interval: Examination: 12 months Recall prophy: 12 months Plan CONRAD every 5-7 years to monitor impacted #1. Next Planned Visit: recall; CONRAD x-ray Zakia Bynum DDS 07/07/2022, 9:59 AM --End of Note-- TMENT SUPERVISOR documented in this encounter Plan of Treatment Upcoming Encounters Date Type Department Care Team Description 07/23/2023 10:20 AM TREATMENT SUPERVISOR Appointment [facility] [address] [place] [address] Cyril Stokes, [address] [address] Scheduled Orders Name Type Priority Associated Diagnoses Order Schedule PROPHYLAXIS-ADULT RECALL Dental Procedures Routine 1 Occurrences starting 07/07/2022 PERIODIC ORAL EVALUATION Dental Procedures Routine 1 Occurrences starting 07/07/2022 [id number] Dental Procedures Routine 1 Occurrences starting 07/07/2022 TOPICAL FLUORIDE VARNISH Dental Procedures Routine 1 Occurrences starting 07/07/2022 FILM-PANORAMIC Dental Procedures Routine 1 O ccurrences starting 07/07/2022 documented as of this encounter Procedures Procedure Name Priority Date/Time Associated Diagnosis Comments [id number] Routine 07/07/2022 9:40 AM TREATMENT SUPERVISOR Localized gingivitis PERIODIC ORAL EVALUATION Routine 07/07/2022 9:40 AM TREATMENT SUPERVISOR Localized gingivitis PROPHYLAXIS-ADULT RECALL Routine 07/07/2022 9:40 AM TREATMENT SUPERVISOR Localized gingivitis 29 B EXISTING COMPOSITE FILLING Routine 07/07/2022 12:00 AM TREATMENT SUPERVISOR documented in this encounter Visit Diagnoses Diagnosis Localized gingivitis- Primary Completely impacted tooth in bone (disorder) documented in this encounter Care Teams Software Installer Relationship Specialty Start Date End Date Heydi Sutton MD [address] [place] [address] PCP - General Family Practice 09/22/11 documented as of this encounter
--- OUTSIDE RECORDS SUMMARY | 2023-05-28 10:18 | XMS_ITS | Encounter Summary ---
Author Name Unknown Organization [facility] Address [address], [place] [address] Care Team Providers Care Dry House Operator Name Role Phone Heydi Sutton MD Primary Care Provider [phone] Encounter Details Date Type Department Care Team Description 06/17/2018 Correspondence [facility] [address] [facility] [place], [place] [phone] Heydi Sutton MD [address] [place], [place] [id number] ATTENDING PHYSICIAN STATEMENT Social History Tobacco Use Types Packs/Day [...] Department Care Team Description 07/23/2023 10:20 AM IT INFRASTRUCTURE ARCHITECT Appointment [facility] [address] [place] [address] [place] [address] Cyril Stokes, [address] [address] documented as of this encounter Visit Diagnoses Not on filedocumented in this encounter Care Teams Dry House Operator Relationship Specialty Start Date End Date Heydi Sutton MD [address] [facility] [place] [address] PCP - General Family Practice 09/22/11 documented as of this encounter
--- OUTSIDE RECORDS SUMMARY | 2023-05-28 10:18 | XMS_ITS | Encounter Summary ---
Author Name Unknown Organization [facility] Address [address], [place] [address] Care Team Providers Care Textile Chemist Name Role Phone Heydi Sutton MD Primary Care Provider [phone] Encounter Details Date Type Department Care Team Description 06/30/2018 Correspondence [facility] [address] [facility]. [place], [place] [phone] Heydi Sutton MD [address] [place], [place] [phone] SHORT TERM DISABILITY Social History Tobacco Use Types Packs/Day Years [...] Department Care Team Description 07/23/2023 10:20 AM HVAC LEAD Appointment [facility] [address] [place] [address] [place] [address] Cyril Stokes, [address] [address] documented as of this encounter Visit Diagnoses Not on filedocumented in this encounter Care Teams Textile Chemist Relationship Specialty Start Date End Date Heydi Sutton MD [address] [place] [address] PCP - General Family Practice 09/22/11 documented as of this encounter
--- OUTSIDE RECORDS SUMMARY | 2023-05-28 10:19 | XMS_ITS | Encounter Summary ---
Author Name Unknown Organization [facility] Address [address], [place] [address] Care Team Providers Care Timekeeper Name Role Phone Heydi Sutton MD Primary Care Provider [phone] Encounter Details Date Type Department Care Team Description 06/02/2015 Emergency Room External to RT ANKLE PAIN Social History Tobacco Use Types Packs/Day [...] Department Care Team Description 07/23/2023 10:20 AM TROLLEY OPERATOR Appointment [address] [address] Cyril Stokes, [address] [address] documented as of this encounter Visit Diagnoses Not on filedocumented in this encounter Care Teams Timekeeper Relationship Specialty Start Date End Date Heydi Sutton MD [address] [place] [address] PCP - General Family Practice 09/22/11 documented as of this encounter
--- OUTSIDE RECORDS SUMMARY | 2023-05-28 10:19 | XMS_ITS | Encounter Summary ---
Author Name Unknown Organization [facility] Address [address] [address] Care Team Providers Care Primary Products Inspectors Name Role Phone Heydi Sutton MD Primary Care Provider [phone] Encounter Details Date Type Department Care Team Description 11/25/2013 Emergency Room External to [facility] HEAD LICE Social History Tobacco Use Types Packs/Day Years Used Date Smoking Tobacco: Every Day Cigarettes Smokeless Tobacco: Never Alcohol Use Standard Drinks/Week Comments Yes 0 (1 standard drink = 0.6 oz pur e alcohol) occ Sex and Gender Information Value Date Recorded Sex Assigned at Not on file Gender Identity Not on file Sexual Orientation Not on file documented as of this encounter Plan of Treatment Upcoming Encounters Date Type Department Care Team Description 07/23/2023 10:20 AM PULMONARY PHYSICAL THERAPIST Appointment [facility] [address] [address] Cyril Stokes, [address] [address] documented as of this encounter Visit Diagnoses Not on filedocumented in this encounter Care Teams Primary Products Inspectors Relationship Specialty Start Date End Date Heydi Sutton MD [address] [place] [address] PCP - General Family Practice 09/22/11 documented as of this encounter
--- OUTSIDE RECORDS SUMMARY | 2023-05-28 10:19 | XMS_ITS | Encounter Summary ---
Author Name Unknown Organization [facility] Address [address] [address] Care Team Providers Care Associate Professor Of Media Arts Name Role Phone Heydi Sutton MD Primary Care Provider [phone] Encounter Details Date Type Department Care Team Description 04/16/2015 Emergency Room External to COUGH AND SORE THROAT Social History Tobacco Use Types Packs/Day Years [...] Department Care Team Description 07/23/2023 10:20 AM CHILD WATCH ATTENDANT Appointment [facility] [place] [address] [place] [address] Cyril Stokes, [address] [address] documented as of this encounter Visit Diagnoses Not on filedocumented in this encounter Care Teams Associate Professor Of Media Arts Relationship Specialty Start Date End Date Heydi Sutton MD [address] [place] [address] PCP - General Family Practice 09/22/11 documented as of this encounter
--- OUTSIDE RECORDS SUMMARY | 2023-05-28 10:19 | XMS_ITS | Encounter Summary ---
Author Name Unknown Organization [facility] Address [address], [place] [address] Care Team Providers Care Wafer Mounter Name Role Phone Heydi Sutton MD Primary Care Provider [phone] Encounter Details Date Type Department Care Team Description 04/26/2015 Emergency Room External to [facility], Provider URI Social History Tobacco Use Types Packs/Day [...] Department Care Team Description 07/23/2023 10:20 AM AMPOULE WASHING MACHINE OPERATOR Appointment [facility] [address] [address] Cyril Stokes, [address] [address] documented as of this encounter Visit Diagnoses Not on filedocumented in this encounter Care Teams Wafer Mounter Relationship Specialty Start Date End Date Heydi Sutton MD [address] [place] [address] PCP - General Family Practice 09/22/11 documented as of this encounter
--- OUTSIDE RECORDS SUMMARY | 2023-05-28 10:19 | XMS_ITS | Encounter Summary ---
Author Name Unknown Organization [facility] Address [address] [address] Care Team Providers Care Opticianry Teacher Name Role Phone Heydi Sutton MD Primary Care Provider [phone] Encounter Details Date Type Department Care Team Description 04/26/2015 Emergency Room External to [facility] [place], Provider EVAL SOB COUGH Social History Tobacco Use Types Packs/Day Years [...] Department Care Team Description 07/23/2023 10:20 AM MANAGER INVESTMENT BANKING Appointment [facility] [address] [address] [place] [address] Cyril Stokes, [address] [address] documented as of this encounter Visit Diagnoses Not on filedocumented in this encounter Care Teams Opticianry Teacher Relationship Specialty Start Date End Date Heydi Sutton MD [address] [place] [address] PCP - General Family Practice 09/22/11 documented as of this encounter
--- OUTSIDE RECORDS SUMMARY | 2023-05-28 10:19 | XMS_ITS | Encounter Summary ---
Author Name Unknown Organization [facility] Address [address], [place] [address] Care Team Providers Care Evaluation Specialist Name Role Phone Heydi Sutton MD Primary Care Provider [phone] Encounter Details Date Type Department Care Team Description 04/29/2014 Emergency Room External to External, [place] [address] VAGAINAL BLEEDING COMPLETE MISCARRIAGE Social History Tobacco Use Types Packs/Day Years [...] Department Care Team Description 07/23/2023 10:20 AM OPTOMETRIST PRESIDENT/PRACTICE OWNER Appointment [facility] [address] [address] [place] [address] Cyril Stokes, [facility] [address] [address] documented as of this encounter Visit Diagnoses Not on filedocumented in this encounter Care Teams Evaluation Specialist Relationship Specialty Start Date End Date Heydi Sutton MD [address] [place] [address] PCP - General Family Practice 09/22/11 documented as of this encounter
--- OUTSIDE RECORDS SUMMARY | 2023-05-28 10:19 | XMS_ITS | Encounter Summary ---
Author Name Unknown Organization [facility] Address [address] [address] Care Team Providers Care Power Originator Name Role Phone Heydi Sutton MD Primary Care Provider Encounter Details Date Type Department Care Team Description 03/16/2015 Emergency Room External to HP FINGER PAIN Social History Tobacco Use Types Packs/Day [...] Department Care Team Description 07/23/2023 10:20 AM PSYCHOLOGIST DEVELOPMENTAL Appointment [facility] [address] [address] Cyril Stokes, [address] [address] documented as of this encounter Visit Diagnoses Not on filedocumented in this encounter Care Teams Power Originator Relationship Specialty Start Date End Date Heydi Sutton MD [address] [place] [address] PCP - General Family Practice 09/22/11 documented as of this encounter
--- OUTSIDE RECORDS SUMMARY | 2023-05-28 10:19 | XMS_ITS | Encounter Summary ---
Author Name Unknown Organization [facility] Address [address], [place] [address] Care Team Providers Care Regional Director Of Finance Name Role Phone Heydi Sutton MD Primary Care Provider [phone] Encounter Details Date Type Department Care Team Description 03/20/2015 Emergency Room External to [facility] LEG PAIN Social History Tobacco Use Types Packs/Day [...] Department Care Team Description 07/23/2023 10:20 AM BROADCASTING EQUIPMENT MECHANIC Appointment [address] [address] Cyril Stokes, [address] [address] documented as of this encounter Visit Diagnoses Not on filedocumented in this encounter Care Teams Regional Director Of Finance Relationship Specialty Start Date End Date Heydi Sutton MD [address] [place] [address] PCP - General Family Practice 09/22/11 documented as of this encounter
--- OUTSIDE RECORDS SUMMARY | 2023-05-28 10:19 | XMS_ITS | Encounter Summary ---
Author Name Unknown Organization [facility] Address [address] [address] Care Team Providers Care Gas Line Servicer Name Role Phone Heydi Sutton MD Primary Care Provider [phone] Encounter Details Date Type Department Care Team [...] Care Team Description 07/23/2023 10:20 AM PSYCHOLOGIST PERSONNEL Appointment [address] [address] Cyril Stokes, [address] [address] documented as of this encounter Visit Diagnoses Not on filedocumented in this encounter Care Teams Gas Line Servicer Relationship Specialty Start Date End Date Heydi Sutton MD [address] [place] [address] PCP - General Family Practice 09/22/11 documented as of this encounter
--- OUTSIDE RECORDS SUMMARY | 2023-05-28 10:19 | XMS_ITS | Encounter Summary ---
Author Name Unknown Organization [facility] Address [address], [place] [address] Care Team Providers Care Hospice Manager Name Role Phone Heydi Sutton MD Primary Care Provider [phone] Encounter Details Date Type Department Care Team Description 06/07/2015 Emergency Room External to [facility], Provider ED ENCOUNTER SUMMARY Social History Tobacco Use Types Packs/Day Years [...] Department Care Team Description 07/23/2023 10:20 AM DIRECTOR OF PUBLIC RELATIONS Appointment [facility] [address] [address] Cyril Stokes, [address] [address] documented as of this encounter Visit Diagnoses Not on filedocumented in this encounter Care Teams Hospice Manager Relationship Specialty Start Date End Date Heydi Sutton MD [address] [place] [address] PCP - General Family Practice 09/22/11 documented as of this encounter
--- OUTSIDE RECORDS SUMMARY | 2023-05-28 10:19 | XMS_ITS | Encounter Summary ---
Author Name Unknown Organization [facility] Address [address], [place] [address] Care Team Providers Care Frog Shaker Name Role Phone Heydi Sutton MD Primary Care Provider [phone] Encounter Details Date Type Department Care Team Description 08/19/2014 Emergency Room External to [facility], Provider FLU SYMPTOMS Social History Tobacco Use Types Packs/Day Years [...] Department Care Team Description 07/23/2023 10:20 AM CHRISTIAN EDUCATION DIRECTOR Appointment [facility] [address] [address] Cyril Stokes, [address] [address] documented as of this encounter Visit Diagnoses Not on filedocumented in this encounter Care Teams Frog Shaker Relationship Specialty Start Date End Date Heydi Sutton MD [address] [place] [address] PCP - General Family Practice 09/22/11 documented as of this encounter
--- OUTSIDE RECORDS SUMMARY | 2023-05-28 10:19 | XMS_ITS | Encounter Summary ---
Author Name Unknown Organization [facility] Address [address] [address] Care Team Providers Care Laboratory Development Technician Name Role Phone Heydi Sutton MD Primary Care Provider [phone] Encounter Details Date Type Department Care Team Description 05/21/2015 Emergency Room Security Contact - Dimple Gandhi EYE PAIN Social History Tobacco Use Types Packs/Day [...] Department Care Team Description 07/23/2023 10:20 AM BUCKLE SORTER Appointment [facility] [place] [address] [place] [address] Cyril Stokes, [address] [address] documented as of this encounter Visit Diagnoses Not on filedocumented in this encounter Care Teams Laboratory Development Technician Relationship Specialty Start Date End Date Heydi Sutton MD [address] [place] [address] PCP - General Family Practice 09/22/11 documented as of this encounter
--- OUTSIDE RECORDS SUMMARY | 2023-05-28 10:19 | XMS_ITS | Encounter Summary ---
Author Name Unknown Organization [facility] Address [address] [address] Care Team Providers Care Desk Sergeant Name Role Phone Heydi Sutton MD Primary Care Provider [phone] Encounter Details Date Type Department Care Team Description 08/25/2014 Emergency Room External to Emergency, Provider COUGH Social History Tobacco Use Types Packs/Day [...] Team Description 07/23/2023 10:20 AM WEB DEVELOPMENT INSTRUCTOR Appointment [facility] [place] [address] [place] [address] Cyril Stokes, [address] [address] documented as of this encounter Visit Diagnoses Not on filedocumented in this encounter Care Teams Desk Sergeant Relationship Specialty Start Date End Date Heydi Sutton MD [address] [place] [address] PCP - General Family Practice 09/22/11 documented as of this encounter
--- OUTSIDE RECORDS SUMMARY | 2023-05-28 10:19 | XMS_ITS | Encounter Summary ---
Author Name Unknown Organization [facility] Address [address] [address] Care Team Providers Care Destination Sign Repairer Name Role Phone Heydi Sutton MD Primary Care Provider Encounter Details Date Type Department Care Team Description 04/30/2014 Emergency Room External to [facility] MISCARRIAGE Social History Tobacco Use Types Packs/Day [...] Department Care Team Description 07/23/2023 10:20 AM CORK PAINTER AND GRADER Appointment [address] [address] Cyril Stokes, [address] [address] documented as of this encounter Visit Diagnoses Not on filedocumented in this encounter Care Teams Destination Sign Repairer Relationship Specialty Start Date End Date Heydi Sutton MD [address] [place] [address] PCP - General Family Practice 09/22/11 documented as of this encounter
--- OUTSIDE RECORDS SUMMARY | 2023-05-28 10:19 | XMS_ITS | Encounter Summary ---
Author Name Unknown Organization [facility] Address [address] [address] Care Team Providers Care Pallet Sorter Name Role Phone Heydi Sutton MD Primary Care Provider [phone] Encounter Details Date Type Department Care Team Description 04/29/2015 Emergency Room External to [facility] Social History Tobacco Use Types Packs/Day [...] Department Care Team Description 07/23/2023 10:20 AM PROJECT PRODUCTION ENGINEER Appointment [address] [address] Cyril Stokes, [address] [address] documented as of this encounter Visit Diagnoses Not on filedocumented in this encounter Care Teams Pallet Sorter Relationship Specialty Start Date End Date Heydi Sutton MD [address] [place] [address] PCP - General Family Practice 09/22/11 documented as of this encounter
--- OUTSIDE RECORDS SUMMARY | 2023-05-28 10:19 | XMS_ITS | Encounter Summary ---
Author Name Unknown Organization [facility] Address [address] [address] Care Team Providers Care Acting Manager Name Role Phone Heydi Sutton MD Primary Care Provider [phone] Encounter Details Date Type Department Care Team Description 08/19/2014 Emergency Room External to [facility], Provider FLU SYMPTOMS Social History Tobacco Use [...] Department Care Team Description 07/23/2023 10:20 AM TRADER FIXED INCOME Appointment [facility] [address] [address] Cyril Stokes, [address] [address] documented as of this encounter Visit Diagnoses Not on filedocumented in this encounter Care Teams Acting Manager Relationship Specialty Start Date End Date Heydi Sutton MD [address] [place] [address] PCP - General Family Practice 09/22/11 documented as of this encounter
--- OUTSIDE RECORDS SUMMARY | 2023-05-28 10:19 | XMS_ITS | Encounter Summary ---
Author Name Unknown Organization [facility] Address [address], [place] [address] Care Team Providers Care Compressed Gas Equipment Mechanic Name Role Phone Heydi Sutton MD Primary Care Provider [phone] Encounter Details Date Type Department Care Team [...] Department Care Team Description 07/23/2023 10:20 AM SCOWMAN Appointment [address] [address] Cyril Stokes, [address] [address] documented as of this encounter Visit Diagnoses Not on filedocumented in this encounter Care Teams Compressed Gas Equipment Mechanic Relationship Specialty Start Date End Date Heydi Sutton MD [address] [place] [address] PCP - General Family Practice 09/22/11 documented as of this encounter
--- OUTSIDE RECORDS SUMMARY | 2023-05-28 10:19 | XMS_ITS | Encounter Summary ---
Author Name Unknown Organization [facility] Address [address], [place] [address] Care Team Providers Care Hairspring Truer Name Role Phone Heydi Sutton MD Primary Care Provider [phone] Encounter Details Date Type Department Care Team Description 04/27/2015 Outside Hospital External to [facility], Provider ED CONSULT Social History Tobacco Use Types Packs/Day Years [...] Department Care Team Description 07/23/2023 10:20 AM HAT BLOCK BENCH HAND Appointment [facility] [address] [address] Cyril Stokes, [address] [address] documented as of this encounter Visit Diagnoses Not on filedocumented in this encounter Care Teams Hairspring Truer Relationship Specialty Start Date End Date Heydi Sutton MD [address] [place] [address] PCP - General Family Practice 09/22/11 documented as of this encounter
--- OUTSIDE RECORDS SUMMARY | 2023-05-28 10:19 | XMS_ITS | Encounter Summary ---
Author Name Unknown Organization [facility] Address [address] [address] Care Team Providers Care Datastage Developer Name Role Phone Heydi Sutton MD Primary Care Provider [phone] Encounter Details Date Type Department Care Team Description 11/07/2014 Emergency Room External to [facility] THUMB PAIN Social History Tobacco Use Types Packs/Day [...] Department Care Team Description 07/23/2023 10:20 AM QUILL FIXER Appointment [facility] [address] [address] Cyril Stokes, [address] [address] documented as of this encounter Visit Diagnoses Not on filedocumented in this encounter Care Teams Datastage Developer Relationship Specialty Start Date End Date Heydi Sutton MD [address] [place] [address] PCP - General Family Practice 09/22/11 documented as of this encounter
--- OUTSIDE RECORDS SUMMARY | 2023-05-28 10:19 | XMS_ITS | Encounter Summary ---
Author Name Unknown Organization [facility] Address [address] [address] Care Team Providers Care Cafeteria Assistant Name Role Phone Heydi Sutton MD Primary Care Provider [phone] Encounter Details Date Type Department Care Team Description 05/19/2015 Emergency Room Security Contact - Dimple Gandhi [facility], Provider EYE PAIN Social History Tobacco Use Types [...] Department Care Team Description 07/23/2023 10:20 AM MUSICAL INSTRUMENT MAKER Appointment [facility] [address] [place] [address] [place] [address] Cyril Stokes, [facility] [address] [place] [address] documented as of this encounter Visit Diagnoses Not on filedocumented in this encounter Care Teams Cafeteria Assistant Relationship Specialty Start Date End Date Heydi Sutton MD [address] [place] [address] PCP - General Family Practice 09/22/11 documented as of this encounter
--- OUTSIDE RECORDS SUMMARY | 2023-05-28 10:19 | XMS_ITS | Encounter Summary ---
Author Name Unknown Organization [facility] Address [address] [address] Care Team Providers Care Business Support Coordinator Name Role Phone Heydi Sutton MD Primary Care Provider [phone] Encounter Details Date Type Department Care Team Description 11/07/2014 Emergency Room External to [facility], Provider MEDCATION REACTION Social History Tobacco Use Types Packs/Day Years [...] Department Care Team Description 07/23/2023 10:20 AM OUTSIDE ENERGY SALES REPRESENTATIVES Appointment [facility] [place] [address] [place] [address] Cyril Stokes, [facility] [address] [place] [address] documented as of this encounter Visit Diagnoses Not on filedocumented in this encounter Care Teams Business Support Coordinator Relationship Specialty Start Date End Date Heydi Sutton MD [address] [place] [address] PCP - General Family Practice 09/22/11 documented as of this encounter
--- OUTSIDE RECORDS SUMMARY | 2023-05-28 10:19 | XMS_ITS | Encounter Summary ---
Author Name Unknown Organization [facility] Address [address] [address] Care Team Providers Care Floorperson Name Role Phone Heydi Sutton MD Primary Care Provider [phone] Encounter Details Date Type Department Care Team Description 11/07/[address] Room External to [facility], Provider MEDICATION REACTION Social History Tobacco Use Types Packs/Day [...] Department Care Team Description 07/23/2023 10:20 AM BANK RECONCILIATOR Appointment [facility] [address] [address] Cyril Stokes, [address] [address] documented as of this encounter Visit Diagnoses Not on filedocumented in this encounter Care Teams Floorperson Relationship Specialty Start Date End Date Heydi Sutton MD [address] [place] [address] PCP - General Family Practice 09/22/11 documented as of this encounter
--- OUTSIDE RECORDS SUMMARY | 2023-05-28 10:19 | XMS_ITS | Encounter Summary ---
Author Name Unknown Organization [facility] Address [address] [address] Care Team Providers Care Inter Com Installer Name Role Phone Heydi Sutton MD Primary Care Provider [phone] Encounter Details Date Type Department Care Team Description 08/18/2014 Emergency Room External to External, [place] [address] [place] Social History Tobacco Use Types Packs/Day Years [...] Department Care Team Description 07/23/2023 10:20 AM RESEARCH QUALITY ASSURANCE SPECIALIST Appointment [facility] [address] [place] [address] [place] [address] Cyril Stokes, [facility] [address] [address] documented as of this encounter Visit Diagnoses Not on filedocumented in this encounter Care Teams Inter Com Installer Relationship Specialty Start Date End Date Heydi Sutton MD [address] [place] [address] PCP - General Family Practice 09/22/11 documented as of this encounter
--- OUTSIDE RECORDS SUMMARY | 2023-05-28 10:20 | XMS_ITS | Encounter Summary ---
Author Name Unknown Organization [facility] Address [address] [address] Care Team Providers Care Specialty Person Name Role Phone Heydi Sutton MD Primary Care Provider [phone] Encounter Details Date Type Department Care Team Description 04/05/2012 Outside Hospital External to PROGRESS NOTE Social History Tobacco Use Types Packs/Day [...] as of this encounter Progress Notes * [facility], PROVIDER - 04/05/2012 12:00 AM CST ONNEL SECURITY ASSISTANT documented in this encounter Plan of Treatment Upcoming Encounters Date Type Department Care Team Description 07/23/2023 10:20 AM PERSONNEL SECURITY ASSISTANT Appointment [facility] [address] [place] [address] [place] [address] Cyril Stokes, [facility] [address] [place] [address] documented as of this encounter Visit Diagnoses Not on filedocumented in this encounter Care Teams Specialty Person Relationship Specialty Start Date End Date Heydi Sutton MD [address] [place] [address] PCP - General Family Practice 09/22/11 documented as of this encounter
--- OUTSIDE RECORDS SUMMARY | 2023-05-28 10:20 | XMS_ITS | Encounter Summary ---
Author Name Unknown Organization [facility] Address [address] [address] Care Team Providers Care Retail Support Manager Name Role Phone Heydi Sutton MD Primary Care Provider [phone] Encounter Details Date Type Department Care Team Description 04/04/[address] [facility], Provider INJURY TO POSTERIOR SCALP Social History Tobacco Use Types Packs/Day Years [...] as of this encounter Progress Notes * [facility], Provider - 04/04/2012 12:00 AM CST HIATRY PHYSICIAN documented in this encounter Plan of Treatment Upcoming Encounters Date Type Department Care Team Description 07/23/2023 10:20 AM PSYCHIATRY PHYSICIAN Appointment [facility] [address] [place] [address] [place] [address] Cyril Stokes, [address] [address] documented as of this encounter Visit Diagnoses Not on filedocumented in this encounter Care Teams Retail Support Manager Relationship Specialty Start Date End Date Heydi Sutton MD [address] [place] [address] PCP - General Family Practice 09/22/11 documented as of this encounter
--- OUTSIDE RECORDS SUMMARY | 2023-05-28 10:20 | XMS_ITS | Encounter Summary ---
Author Name Unknown Organization [facility] Address [address] [address] Care Team Providers Care Track Subway Repair Supervisor Name Role Phone Heydi Sutton MD Primary Care Provider [phone] Encounter Details Date Type Department Care Team Description 05/07/2012 Emergency Room External to [facility], Provider HEADACHE AND INTRACRANIAL HEMORRHAGE Social History Tobacco Use Types Packs/Day Years [...] as of this encounter Progress Notes * [facility], Provider - 05/07/2012 12:00 AM CST JUMPING INSTRUCTOR documented in this encounter Plan of Treatment Upcoming Encounters Date Type Department Care Team Description 07/23/2023 10:20 AM SHOW JUMPING INSTRUCTOR Appointment [facility] [address] [place] [address] [place] [address] Cyril Stokes, [address] [address] documented as of this encounter Visit Diagnoses Not on filedocumented in this encounter Care Teams Track Subway Repair Supervisor Relationship Specialty Start Date End Date Heydi Sutton MD [address] [place] [address] PCP - General Family Practice 09/22/11 documented as of this encounter
--- OUTSIDE RECORDS SUMMARY | 2023-05-28 10:20 | XMS_ITS | Encounter Summary ---
Author Name Unknown Organization [facility] Address [address] [address] Care Team Providers Care Lead Programmer Analyst Name Role Phone Heydi Sutton MD Primary Care Provider [phone] Encounter Details Date Type Department Care Team Description 04/05/2012 Outside Hospital External to [facility] DISCHARGE Social History Tobacco Use Types Packs/Day [...] as of this encounter Progress Notes * [facility], PROVIDER - 04/05/2012 12:00 AM CST DIRECTOR documented in this encounter Plan of Treatment Upcoming Encounters Date Type Department Care Team Description 07/23/2023 10:20 AM HIM DIRECTOR Appointment [facility] [address] [place] [address] [place] [address] Cyril Stokes, [address] [address] documented as of this encounter Visit Diagnoses Not on filedocumented in this encounter Care Teams Lead Programmer Analyst Relationship Specialty Start Date End Date Heydi Sutton MD [address] [place] [address] PCP - General Family Practice 09/22/11 documented as of this encounter
--- OUTSIDE RECORDS SUMMARY | 2023-05-28 10:20 | XMS_ITS | Encounter Summary ---
Author Name Unknown Organization [facility] Address [address], [place] [address] Care Team Providers Care Cushion Assembler Name Role Phone Heydi Sutton MD Primary Care Provider [phone] Encounter Details Date Type Department Care Team Description 12/11/2012 Emergency Room External to [facility] MEDICATION REF ILL Social History Tobacco Use Types Packs/Day Years [...] as of this encounter Progress Notes * [facility], PROVIDER - 12/11/2012 12:00 AM CDT documented in this encounter Plan of Treatment Upcoming Encounters Date Type Department Care Team Description 07/23/2023 10:20 AM RELIGIOUS EDUCATOR Appointment [facility] [address] [place] [address] [place] [address] Cyril Stokes, [address] [address] documented as of this encounter Visit Diagnoses Not on filedocumented in this encounter Care Teams Cushion Assembler Relationship Specialty Start Date End Date Heydi Sutton MD [address] [facility] [place] [address] PCP - General Family Practice 09/22/11 documented as of this encounter
--- OUTSIDE RECORDS SUMMARY | 2023-05-28 10:20 | XMS_ITS | Encounter Summary ---
Author Name Unknown Organization [facility] Address [address] [address] Care Team Providers Care Director Of Consumer Affairs Name Role Phone Heydi Sutton MD Primary Care Provider [phone] Encounter Details Date Type Department Care Team Description 04/08/2012 Outside Hospital External to PROGRESS NOTE Social [...] as of this encounter Progress Notes * [facility], PROVIDER - 04/08/2012 12:00 AM CST GENCY SERVICES DIRECTOR documented in this encounter Plan of Treatment Upcoming Encounters Date Type Department Care Team Description 07/23/2023 10:20 AM EMERGENCY SERVICES DIRECTOR Appointment [facility] [address] [place] [address] [place] [address] Cyril Stokes, [facility] [address] [place] [address] documented as of this encounter Visit Diagnoses Not on filedocumented in this encounter Care Teams Director Of Consumer Affairs Relationship Specialty Start Date End Date Heydi Sutton MD [address] [place] [address] PCP - General Family Practice 09/22/11 documented as of this encounter
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
--- OUTSIDE RECORDS SUMMARY | 2023-05-28 10:20 | XMS_ITS | Encounter Summary ---
Author Name Unknown Organization [facility] Address [address], [place] [address] Care Team Providers Care Tenter Feeder Name Role Phone Heydi Suttno MD Primary Care Provider [phone] Encounter Details Date Type Department Care Team Description 12/10/2012 Correspondence None No Primary/Referring, Phy PROOF OF DELIVERY Social History Tobacco Use Types Packs/Day Years [...] as of this encounter Progress Notes * No Primary/Referring, Phy - 12/10/2012 12:00 AM CDT documented in this encounter Plan of Treatment Upcoming Encounters Date Type Department Care Team Description 07/23/2023 10:20 AM ROPE TWISTING MACHINE OPERATOR Appointment [facility] [address] [place] [address] [place] [address] Cyril Stokes, [facility] [address] [place] [address] documented as of this encounter Visit Diagnoses Not on filedocumented in this encounter Care Teams Tenter Feeder Relationship Specialty Start Date End Date Heydi Sutton MD [address] [place] [address] PCP - General Family Practice 09/22/11 documented as of this encounter
--- OUTSIDE RECORDS SUMMARY | 2023-05-28 10:20 | XMS_ITS | Encounter Summary ---
Author Name Unknown Organization [facility] Address [address] [address] Care Team Providers Care Roving Marker Name Role Phone Heydi Sutton MD Primary Care Provider [phone] Encounter Details Date Type Department Care Team Description 04/17/2012 Emergency Room External to [facility], Provider GENERALIZED HEADACHE Social History Tobacco Use Types Packs/Day Years [...] of this encounter Progress Notes * [facility], Provider - 04/17/2012 12:00 AM CST HOUSE ATTENDANT documented in this encounter Plan of Treatment Upcoming Encounters Date Type Department Care Team Description 07/23/2023 10:20 AM BATH HOUSE ATTENDANT Appointment [facility] [address] [place] [address] [place] [address] Cyril Stokes, [address] [address] documented as of this encounter Visit Diagnoses Not on filedocumented in this encounter Care Teams Roving Marker Relationship Specialty Start Date End Date Heydi Sutton MD [address] [place] [address] PCP - General Family Practice 09/22/11 documented as of this encounter
--- OUTSIDE RECORDS SUMMARY | 2023-05-28 10:20 | XMS_ITS | Encounter Summary ---
Author Name Unknown Organization [facility] Address [address] [address] Care Team Providers Care Wastewater Treatment Plant Operator Name Role Phone Heydi Sutton MD Primary Care Provider [phone] Encounter Details Date Type Department Care Team Description 04/09/2012 Outside Hospital External to [facility] INSTRUCTIONS Social History Tobacco Use Types Packs/Day Years [...] as of this encounter Progress Notes * [facility], PROVIDER - 04/09/2012 12:00 AM CST ER FIXED INCOME documented in this encounter Plan of Treatment Upcoming Encounters Date Type Department Care Team Description 07/23/2023 10:20 AM TRADER FIXED INCOME Appointment [facility] [address] [place] [address] [place] [address] Cyril Stokes, [facility] [address] [address] documented as of this encounter Visit Diagnoses Not on filedocumented in this encounter Care Teams Wastewater Treatment Plant Operator Relationship Specialty Start Date End Date Heydi Sutton MD [address] [place] [address] PCP - General Family Practice 09/22/11 documented as of this encounter
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
--- OUTSIDE RECORDS SUMMARY | 2023-05-28 10:20 | XMS_ITS | Encounter Summary ---
Author Name Unknown Organization [facility] Address [address] [address] Care Team Providers Care Foam Charger Name Role Phone Heydi Sutton MD Primary Care Provider [phone] Encounter Details Date Type Department Care Team Description 04/13/2012 Outside Hospital External to DISCHARGE SUMMARY Social History Tobacco Use Types Packs/Day [...] as of this encounter Progress Notes * [facility], PROVIDER - 04/13/2012 12:00 AM CST ER LAPPER documented in this encounter Plan of Treatment Upcoming Encounters Date Type Department Care Team Description 07/23/2023 10:20 AM SLIVER LAPPER Appointment [facility] [address] [place] [address] [place] [address] Cyril Stokes, [facility] [address] [place] [address] documented as of this encounter Visit Diagnoses Not on filedocumented in this encounter Care Teams Foam Charger Relationship Specialty Start Date End Date Heydi Sutton MD [address] [place] [address] PCP - General Family Practice 09/22/11 documented as of this encounter
--- OUTSIDE RECORDS SUMMARY | 2023-05-28 10:20 | XMS_ITS | Encounter Summary ---
Author Name Unknown Organization [facility] Address [address] [address] Care Team Providers Care Fire Lookout Name Role Phone Heydi Sutton MD Primary Care Provider Encounter Details Date Type Department Care Team Description 10/01/2012 Emergency Room External to [facility] Social History Tobacco Use Types Packs/Day Years [...] as of this encounter Progress Notes * [facility] PROVIDER - 10/01/2012 12:00 AM CDT documented in this encounter Plan of Treatment Upcoming Encounters Date Type Department Care Team Description 07/23/2023 10:20 AM PRIMARY CARE SALES REPRESENTATIVE Appointment [facility] [address] [address] [place] [address] Cyril Stokes, [facility] [address] [address] documented as of this encounter Visit Diagnoses Not on filedocumented in this encounter Care Teams Fire Lookout Relationship Specialty Start Date End Date Heydi Sutton MD [address] [place] [address] PCP - General Family Practice 09/22/11 documented as of this encounter
--- OUTSIDE RECORDS SUMMARY | 2023-05-28 10:20 | XMS_ITS | Encounter Summary ---
Author Name Unknown Organization [facility] Address [address], [place] [address] Care Team Providers Care Material Chaser Name Role Phone Heydi Sutton MD Primary Care Provider [phone] Encounter Details Date Type Department Care Team Description 04/09/2012 Outside Hospital External to DISCHARGE SUMMARY Social [...] as of this encounter Progress Notes * [facility], PROVIDER - 04/09/2012 12:00 AM CST D OPERATOR documented in this encounter Plan of Treatment Upcoming Encounters Date Type Department Care Team Description 07/23/2023 10:20 AM SPEED OPERATOR Appointment [facility] [address] [place] [address] [place] [address] Cyril Stokes, [facility] [address] [place] [address] documented as of this encounter Visit Diagnoses Not on filedocumented in this encounter Care Teams Material Chaser Relationship Specialty Start Date End Date Heydi Sutton MD [address] [place] [address] PCP - General Family Practice 09/22/11 documented as of this encounter
--- OUTSIDE RECORDS SUMMARY | 2023-05-28 10:20 | XMS_ITS | Encounter Summary ---
Author Name Unknown Organization [facility] Address [address] [address] Care Team Providers Care Insurance Office Manager Name Role Phone Heydi Sutton MD Primary Care Provider [phone] Encounter Details Date Type Department Care Team Description 04/06/2012 Outside Hospital External to PROGRESS NOTE Social [...] as of this encounter Progress Notes * [facility], PROVIDER - 04/06/2012 12:00 AM CST NING TECHNICIAN documented in this encounter Plan of Treatment Upcoming Encounters Date Type Department Care Team Description 07/23/2023 10:20 AM PLANNING TECHNICIAN Appointment [facility] [address] [place] [address] [place] [address] Cyril Stokes, [facility] [address] [place] [address] documented as of this encounter Visit Diagnoses Not on filedocumented in this encounter Care Teams Insurance Office Manager Relationship Specialty Start Date End Date Heydi Sutton MD [address] [place] [address] PCP - General Family Practice 09/22/11 documented as of this encounter
--- OUTSIDE RECORDS SUMMARY | 2023-05-28 10:20 | XMS_ITS | Encounter Summary ---
Author Name Unknown Organization [facility] Address [address] [address] Care Team Providers Care Toolroom Keeper Name Role Phone Heydi Sutton MD Primary Care Provider [phone] Encounter Details Date Type Department Care Team Description 04/11/2012 Emergency Room External to [facility] Social History Tobacco Use Types Packs/Day Years [...] as of this encounter Progress Notes * [facility], PROVIDER - 04/11/2012 12:00 AM CST AN/WOMAN documented in this encounter Plan of Treatment Upcoming Encounters Date Type Department Care Team Description 07/23/2023 10:20 AM DOGMAN/WOMAN Appointment [facility] [address] [place] [address] [place] [address] Cyril Stokes, [address] [address] documented as of this encounter Visit Diagnoses Not on filedocumented in this encounter Care Teams Toolroom Keeper Relationship Specialty Start Date End Date Heydi Sutton MD [address] [facility] [place] [address] PCP - General Family Practice 09/22/11 documented as of this encounter
--- OUTSIDE RECORDS SUMMARY | 2023-05-28 10:20 | XMS_ITS | Encounter Summary ---
Author Name Unknown Organization [facility] Address [address] [address] Care Team Providers Care Loader Demolder Name Role Phone Heydi Sutton MD Primary Care Provider [phone] Encounter Details Date Type Department Care Team Description 04/11/2012 Outside Hospital External to [facility] HISTORY AND [...] as of this encounter Progress Notes * [facility], PROVIDER - 04/11/2012 12:00 AM CST TH AND SAFETY DIRECTOR documented in this encounter Plan of Treatment Upcoming Encounters Date Type Department Care Team Description 07/23/2023 10:20 AM HEALTH AND SAFETY DIRECTOR Appointment [facility] [address] [place] [address] [place] [address] Cyril Stokes, [facility] [address] [address] documented as of this encounter Visit Diagnoses Not on filedocumented in this encounter Care Teams Loader Demolder Relationship Specialty Start Date End Date Heydi Sutton MD [address] [place] [address] PCP - General Family Practice 09/22/11 documented as of this encounter
--- OUTSIDE RECORDS SUMMARY | 2023-05-28 10:20 | XMS_ITS | Encounter Summary ---
Author Name Unknown Organization [facility] Address [address] [address] Care Team Providers Care Report Writer Name Role Phone Heydi Sutton MD Primary Care Provider [phone] Encounter Details Date Type Department Care Team Description 04/09/2012 Outside Hospital External to DISCHARGE INSTRUCTIONS Social History Tobacco Use Types Packs/Day [...] as of this encounter Progress Notes * [facility], PROVIDER - 04/09/2012 12:00 AM CST QUE REFINISHER documented in this encounter Plan of Treatment Upcoming Encounters Date Type Department Care Team Description 07/23/2023 10:20 AM ANTIQUE REFINISHER Appointment [facility] [address] [place] [address] [place] [address] Cyril Stokes, [facility] [address] [place] [address] documented as of this encounter Visit Diagnoses Not on filedocumented in this encounter Care Teams Report Writer Relationship Specialty Start Date End Date Heydi Sutton MD [address] [place] [address] PCP - General Family Practice 09/22/11 documented as of this encounter
--- OUTSIDE RECORDS SUMMARY | 2023-05-28 10:20 | XMS_ITS | Encounter Summary ---
Author Name Unknown Organization [facility] Address [address], [place] [address] Care Team Providers Care Lunch Counter Manager Name Role Phone Heydi Sutton MD Primary Care Provider [phone] Encounter Details Date Type Department Care Team Description 03/22/2013 Emergency Room External to [facility] Social History [...] Progress Notes * [facility], PROVIDER - 03/22/2013 12:00 AM CST DER MACHINE OPERATOR documented in this encounter Plan of Treatment Upcoming Encounters Date Type Department Care Team Description 07/23/2023 10:20 AM SPEEDER MACHINE OPERATOR Appointment [facility] [address] [place] [address] [place] [address] Cyril Stokes, [facility] [address] [place] [address] documented as of this encounter Visit Diagnoses Not on filedocumented in this encounter Care Teams Lunch Counter Manager Relationship Specialty Start Date End Date Heydi Sutton MD [address] [place] [address] PCP - General Family Practice 09/22/11 documented as of this encounter
--- OUTSIDE RECORDS SUMMARY | 2023-05-28 10:20 | XMS_ITS | Encounter Summary ---
Author Name Unknown Organization [facility] Address [address], [place] [address] Care Team Providers Care Explosive Ordnance Manager Name Role Phone Heydi Sutton MD Primary Care Provider [phone] Encounter Details Date Type Department Care Team Description 04/09/2012 Outside Hospital External to [facility] DISCHARGE Social [...] of this encounter Progress Notes * [facility], PROVIDER - 04/09/2012 12:00 AM CST ATED GUARD documented in this encounter Plan of Treatment Upcoming Encounters Date Type Department Care Team Description 07/23/2023 10:20 AM ELEVATED GUARD Appointment [facility] [address] [place] [address] [place] [address] Cyril Stokes, [address] [address] documented as of this encounter Visit Diagnoses Not on filedocumented in this encounter Care Teams Explosive Ordnance Manager Relationship Specialty Start Date End Date Heydi Sutton MD [address] [place] [address] PCP - General Family Practice 09/22/11 documented as of this encounter
--- OUTSIDE RECORDS SUMMARY | 2023-05-28 10:21 | XMS_ITS | Encounter Summary ---
Author Name Unknown Organization [facility] Address [address], [place] [address] Care Team Providers Care Cloth Examiner Name Role Phone Heydi Sutton MD Primary Care Provider [phone] Encounter Details Date Type Department Care Team Description 04/04/2012 Outside Hospital External to H AND P Social History Tobacco Use Types Packs/Day Years [...] as of this encounter Progress Notes * [facility], PROVIDER - 04/04/2012 12:00 AM CST GER RETAIL SALES documented in this encounter Plan of Treatment Upcoming Encounters Date Type Department Care Team Description 07/23/2023 10:20 AM MANAGER RETAIL SALES Appointment [facility] [address] [place] [address] [place] [address] Cyril Stokes, [facility] [address] [address] documented as of this encounter Visit Diagnoses Not on filedocumented in this encounter Care Teams Cloth Examiner Relationship Specialty Start Date End Date Heydi Sutton MD [address] [place] [address] PCP - General Family Practice 09/22/11 documented as of this encounter
--- OUTSIDE RECORDS SUMMARY | 2023-05-28 10:21 | XMS_ITS | Referral Summary ---
Author Name Unknown Organization [place] Address [address] [place] [address]. [place] [address] Care Team Providers Care Form Setter Name Role Phone Ellen Marinomustapha Castillo APRN DEALER SALES REP Unavailable [phone] Olga Aguila DNP Unavailable Martin Stevens [facility] Unavailable [phone] Flavia Antonio MD Primary Care Provider [phone] Marlene Bustamante [facility] Unavailable [phone] Encounters Date Type Department Care Team Description 04/30/2023 MyC Medical Advice [facility] and Infectious Diseases [facility] [place] [phone] Marlene Bustamante [facility] 03/23/2023 Orders Only [facility] [address] [phone] Deo Wood MD Gastroesophageal reflux disease, unspecified whether esophagitis present (Primary Dx) 03/12/2023 8:00 AM CDT Virtual Visit [facility] [address] [address] Deo Wood MD Postoperative malabsorption (Primary Dx); Gastroesophageal reflux disease, unspecified whether esophagitis present; History of sleeve gastrectomy; History of morbid obesity from Last 3 Months Allergies Active Allergy Reactions Criticality Noted Date Comments Fluoxetine Other (See Comments) 08/23/2018 Makes her very drowsy during the day. Hydrocodone Diarrhea Low 08/25/2014 Other reaction(s): Gastrointestinal Medications Medication Sig Dispensed Refills Start Date End Date Status levothyroxine (SYNTHROID) 150 MCG tabletIndications:Hy pothyroidism, unspecified type [LEVOTHYROXINE (SYNTHROID) 150 MCG TABLET] Take 1 tablet (150 mcg total) by mouth daily. 30 tablet 11 02/10/2020 Active tranexamic acid (LYSTEDA) 650 MG tablet TAKE 2 TABLETS BY MOUTH 3 TIMES DAILY FOR UP TO 5 DAYS DURING MONTHLY MENSTRUATION. 0 02/28/2022 Active traZODone (DESYREL) 50 MG tablet TAKE 1/2 TO 2 TABLETS BY MOUTH ONCE DAILY NEEDED FOR INSOMNIA. 0 02/22/2022 Active multivitamin, therapeutic (THERA-VIT) TABS tablet Take 2 tablets by mouth daily 0 Active vitamin B-12 (CYANOCOBALAMIN) 2500 MCG sublingual tablet Take 5,000 mcg by mouth once a week 0 Active cholecalciferol (VITAMIN D3) 125 mcg (5000 units) capsule Take 125 mcg by mouth daily 0 Active DRYSOL 20 % external solutionIndications: Generalized hyperhidrosis Apply topically At Bedtime 60 mL 0 02/22/2023 Active hydrOXYzine (ATARAX) 25 MG tabletIndications:An xiety Take 1 tablet by mouth 3 times daily as needed for itching. 30 tablet 0 02/22/2023 Active ondansetron (ZOFRAN) 4 MG tabletIndications:Na usea Take 1 tablet (4 mg) by mouth every 8 hours as needed for nausea 30 tablet 0 02/22/2023 Active Additional Information Patient not taking.Reported on 03/12/2023 amoxicillin (AMOXIL) 500 MG capsule TAKE 2 CAPSULES BY MOUTH THREE TIMES DAILY DIRECTED 0 Active busPIRone (BUSPAR) 10 MG tablet 0 03/06/2023 Active BINAXNOW COVID-19 AG HOME TEST KIT TEST DIRECTED TODAY 0 01/30/2023 Active cyclobenzaprine (FLEXERIL) 5 MG tablet Take 5-10 mg by mouth at bedtime 0 02/16/2023 Active FLUARIX QUADRIVALENT 0.5 ML injection 0 05/07/2022 Active ondansetron (ZOFRAN ODT) [address] 1 Tablet on the tongue every 6 hours if needed for Nausea/Vomiting. 0 08/08/2022 Active WEGOVY 1 MG/0.5ML pen INJECT 1 PEN UNDER THE SKIN ONCE WEEKLY 0 02/18/2023 Active famotidine (PEPCID) 20 MG tabletIndications:Ga stroesophageal reflux disease, unspecified whether esophagitis present Take 1 tablet (20 mg) by mouth 2 times daily as needed (dyspepsia/heartb urn) 60 tablet 2 03/23/2023 06/21/2023 Active Active Problems Problem Noted Date Diagnosed Date Asthma 10/29/2021 Breast feeding status of mother 08/21/2021 Encounter for induction of labor 05/28/2021 Gestational hypertension, third trimester 2021 Encounter for triage in patient 021 Supervision of high risk in third trim diana 08/29/2019 Anxiety 05/23/2014 Hypothyroidism 05/20/2011 PCOS (polycystic ovarian syndrome) 09/03/2010 Overview: Overview: US dated: 08/30/10 showed polycystic ovaries Reports hx of irregular menses Resolved Problems Problem Noted Date Diagnosed Date Resolved Date Morbid (severe) obesity due to excess calories 03/12/2020 06/04/2020 Morbid obesity 02/27/2020 06/04/2020 Overview: Added automatically from request for surgery [id number] Cramping affecting , antepartum 11/14/2019 11/15/2019 Threatened labor, second trimester 06/13/2019 11/15/2019 Dichorionic diamniotic twin in second trimester 06/13/2019 11/15/2019 Opioid overdose 11/26/2018 10/26/2020 Overview: 11/25/2018 - required two minutes of CPR Vaginal delivery 12/18/2015 12/07/2018 12/17/2015 12/18/2015 Methamphetamine abuse 07/18/20112018 Overview: Overview: Methamphetamine abuse, in remission x 2 years Immunizations Name Administration Dates Next Due COVID-19 MONOVALENT 12+ (Pfizer) 06/26/2021 DTAP (<7y) 10/11/2015 DTaP, Unspecified 10/11/2015 HPV Quadrivalent 09/18/2010,08/03/2009, 0 Hepatitis B, Adult 12/15/2012,07/16/2011 Hepatitis B, Peds 02/12/1999 Historical DTP/aP 02/19/1987,1986,10/10/18 87 Influenza (IIV3) PF 04/09/2012, 2,01/18/2009,2007,04/13/2006 Influenza Vaccine >6 months,quad, PF ,03/26/2015,05/23/2014,2011,06/03/2011,01/18/2009 Influenza Vaccine, 6+MO IM (QUADRIVALENT W/PRESERVATIVES) 04/09/2012,06/03/2011,01/18/2009,2007,04/13/2006 MMR 02/12/1999,01/15/1989 OPV, trivalent, live 01/15/1989,1986,10/08 Pneumococcal 23 valent 04/07/2012,07/16/2011 TDAP (Adacel,Boostrix) 08/30/2019,2015,12/12/2012,2009 Td (Adult), Adsorbed 02/12/1999 Social History Tobacco Use Types Packs/Day Years Used Date Smoking Tobacco: Former Cigarettes 1 13 Q uit: 05/02/2019 Smokeless Tobacco: Never Tobacco Cessation:Counseling Given: Not Answered Alcohol Use Standard Drinks/Week Comments Not Currently 0 (1 standard drink = 0.6 oz pure alcohol) Alcoholic Drinks/day: currently on antibuse PHQ-2 Answer Date Recorded PHQ-2 Score 0 10/29/2021 [place] Depression Scale Answer Date Recorded [place] Depression Score 3 07/11/2021 Last EPDS Self Harm Result Not on file 07/11 Adolescent Education Answer Date Record ed Getting School Help Needed Not on file 02/06 Sex and Gender Information Value Date Recorded Sex Assigned at Not on file Gender Identity Not on file Sexual Orientation Not on file Last Filed Vital Signs Vital Sign Reading Time Taken Comments Blood Pressure 140/70 07/02/2022 2:00 PM BOND CLERK Pulse 92 07/02/2022 3:00 PM BOND CLERK Temperature 36.2 ??C (97.1 ??F) 07/02/2022 12:[address] Respiratory Rate 16 07/02/2022 12:29 PM BOND CLERK Oxygen Saturation 94% 07/02/2022 3:00 PM BOND CLERK Inhaled Oxygen Concentration - - Weight 69.9 kg (154 lb) 03/12/2023 7:55 AM CDT Height 152.4 cm (5') 03/12/2023 7:55 AM CDT Body Mass Index 30.08 03/12/2023 7:55 AM CDT Plan of Treatment Upcoming Encounters Date Type Department Care Team (Late st Contact Info) Description 03/10/2024 8:00 AM CDT Virtual Visit [facility] [address] [place] [phone] Deo Wood MD [address] [place] [address] [address] [place] [address] Medical Devices Implanted Type Area Residential Case Manager Device Identifier Shelf Expiration Date Model / Serial / Lot [id number]-11/21 Implanted:Qty : 1 on 11/22/2019 Contraceptive Device Left: Arm 12/21/2021 / / [id number] Advance Directives For more information, please contact: [phone] Latest Code Status on File Code Status Date Activated Date Inactivated Comments Full Code 05/28/2021 8:11 PM 05/30/2021 3:57 PM All b asic and advanced life-sustaining interventions are performed as appropriate Question Answer Comments Code status determined by: Discussion with patient/ legal decision maker Care Teams Form Setter Relationship Specialty Start Date End Date Herlinda Marino, CUT OUT OPERATOR DEALER SALES REP [facility] [address] [place], [place] [address] [place] [address] PCP - Obstetrics/Gynecology 02/03/19 Flavia Antonio MD [address] [address] PCP - General Family Medicine 03/12/23 Olga Aguila DNP [facility] [place] [address] Assigned PCP 02/22/22 Martin Stevens [facility] [address] [place] [address] [phone] Pharmacist Pharmacist 02/20/23 Marlene Bustamante [facility] [address] [place] [phone] Pharmacist Pharmacist Experimental Psychologist 04/30/23
--- OUTSIDE RECORDS SUMMARY | 2023-05-28 10:21 | XMS_ITS | Encounter Summary ---
Author Name Unknown Organization [place] Address [facility] [place] [address] Care Team Providers Care Business Development Executive Name Role Phone Ellen Marinomustapha Castillo APRN SERVICE TRANSFORMER REPAIR SUPERVISOR Unavailable [phone] Olga Aguila DNP Unavailable [phone] Arjun Pruitt MD Primary Care Provide r Encounter Details Date Type Department Care Team (Latest Contact Info) Description 02/18/2023 Travel Social History Tobacco Use Types Packs/Day Years Used Date Smoking Tobacco: Former Cigarettes 1 13 Q uit: 05/02/2019 Smokeless Tobacco: Never Alcohol Use Standard Drinks/Week Comments Not Currently 0 (1 standard drink = 0.6 oz pure alcohol) Alcoholic Drinks/day: currently on antibuse PHQ-2 Answer Date Recorded PHQ-2 Score 0 10/29/2021 [place] Depression Scale Answer Date Recorded [place] Depression Score 3 07/11/2021 Last EPDS Self Harm Result Not on file 07/11 Adolescent Education Answer Date Record ed Getting School Help Needed Not on file 02/06 Sex and Gender Information Value Date Recorded Sex Assigned at Not on file Gender Identity Not on file Sexual Orientation Not on file COVID-19 Exposure Response Date Recorded In the last 10 days, have yo u been in contact with someone who was confirmed or suspected to have Coronavirus/COVID-19? No / Unsure 02/18/2023 7:21 AM CDT documented as of this encounter Plan of Treatment Upcoming Encounters Date Type Department Care Team (Late st Contact Info) Description 03/10/2024 8:00 AM CDT Virtual Visit [facility] [place] [address] [place] [address] 200 [place] [address] Deo Wood MD [address] [facility] [address] [place] [address] documented as of this encounter Visit Diagnoses Not on filedocumented in this encounter Additional Health Concerns Assessment Noted Time PHQ-9 Depression Total Score: 9 10/09/19 11:57 AM CDT documented as of this encounter Care Teams Business Development Executive Relationship Specialty Start Date End Date Herlinda Marino, CAR CHECKER SERVICE TRANSFORMER REPAIR SUPERVISOR [facility] [id number] [place] [address] PCP - Obstetrics/Gynecology 02/03/19 Arjun Pruitt MD [facility] [address] [facility] [address] [place] [address] PCP - General cloud consultant 06/25/22 03/11/23 Olga Aguila DNP [address] [place] [address] Assigned PCP 02/22/22 documented as of this encounter
--- OUTSIDE RECORDS SUMMARY | 2023-05-28 10:21 | XMS_ITS | Encounter Summary ---
Author Name Unknown Organization [place] Address [address] [facility] [place] [address] Care Team Providers Care Bulk Gas Specialist Name Role Phone Herlinda Marino Jonathan PLANNING DIVISION SUPERINTENDENT ELECTRICIAN SECOND Unavailable Olga Aguila DNP Unavailable Arjun Pruitt MD Primary Care Provide r Martin Stevens [facility] Unavailable [phone] Reason for Visit * Reason Comments Medication Refill Encounter Details Date Type Department Care Team (Late st Contact Info) Description 02/19/2023 Refill [facility] [address] [place] [address] [address] [place] [address] Flavia Antonio MD [facility] AND [address] [address] Medication Refill Social History Tobacco Use Types Packs/Day Years Used Date Smoking Tobacco: Former Cigarettes 1 13 Q uit: 05/02/2019 Smokeless Tobacco: Never Alcohol Use Standard Drinks/Week Comments Not Currently 0 (1 standard drink = 0.6 oz pure alcohol) Alcoholic Drinks/day: currently on antibuse PHQ-2 Answer Date Recorded PHQ-2 Score 0 10/29/2021 [place] Depression Scale Answer Date Recorded [place] Depression Score 3 07/11/2021 Last EPDS Self [...] Description 03/10/2024 8:00 AM CDT Virtual Visit [facility] [address] [place] [phone] Deo Wood MD [address] [facility] 200 [place], [place] [phone] documented as of this encounter Visit Diagnoses Diagnosis Generalized hyperhidrosis Nausea Nausea alone documented in this encounter Additional Health Concerns Assessment Noted Time PHQ-9 Depression Total Score: 9 10/09/19 22 11:57 AM CDT documented as of this encounter Care Teams Bulk Gas Specialist Relationship Specialty Start Date End Date Herlinda Marino APRN ELECTRICIAN SECOND [facility] [address] [place] [address] PCP - Obstetrics/Gynecology 02/03/19 Arjun Pruitt MD [facility] [address] [place] [address] PCP - General service worker 06/25/22 03/11/23 Olga Aguila DNP [address] [place] [id number] Assigned PCP 02/22/22 Martin Stevens RPH [address] [place] [id number] Pharmacist Pharmacist 02/20/23 documented as of this encounter
--- OUTSIDE RECORDS SUMMARY | 2023-05-28 10:21 | XMS_ITS | Encounter Summary ---
Author Name Unknown Organization [place] Address [facility] [place] [address] Care Team Providers Care Medical Service Representative Name Role Phone Herlinda Marino Jonathan GARZA MEDICAL TECHNICIAN Unavailable [phone] Olga Aguila DNP Unavailable Arjun Pruitt MD Primary Care Provide r Martin Stevens [facility] Unavailable [phone] Flavia Antonio MD Primary Care Provider [phone] Marlene Bustamante [facility] Unavailable [phone] Reason for Visit * Reason Onset Date Comments Call To Schedule Appointment 02/20/2023 Encounter Details Date Type Department Care Team (Late st Contact Info) Description 02/20/2023 Telephone [facility] Diabetes [facility] [address] [place] [address] Martin Stevens, [facility] [address] [place] [address] Call To Schedule Appointment Social History Tobacco Use Types Packs/Day Years Used Date Smoking Tobacco: Former Cigarettes 1 13 Q uit: 05/02/2019 Smokeless Tobacco: Never Alcohol Use Standard Drinks/Week Comments Not Currently 0 (1 standard drink = 0.6 oz pure alcohol) Alcoholic Drinks/day: currently on antibuse PHQ-2 Answer Date Recorded PHQ-2 Score 0 10/29/2021 [place] Depression Scale Answer Date Recorded [place] Depression Score 3 07/11/2021 Last EPDS Self [...] AM CDT documented as of this encounter Miscellaneous Notes * Telephone Encounter - Marlene Bustamante RPH - 04/30/2023 2:19 PM CST Called to offer an MTM appointment. No answer, LVM with information to schedule if interested at [phone]. Marlene Bustamante PharmD, AAHIVP Medication Therapy Management Pharmacist April 30, 2023 HIKER * Telephone Encounter - Martin Stevens RPH - 02/20/2023 3:43 PM CDT Left voice message for patient to call back: Derrick, my name is Martin and I am a pharmacist calling from [facility]. I work with your doctor/provider at the [facility]. You have been identified as someone who would benefit from a visit with a pharmacist. This is an appointment with a specially trained pharmacist to review your medications to make sure they are working for you, safe, affordable and easy to take. This appointment is covered under your insurance plan. Please call the [phone] to schedule a time that works wellfor you. Martin Stevens PharmD, [facility] MTM Pharmacist documented in this encounter Plan of Treatment Upcoming Encounters Date Type Department Care Team (Late st Contact Info) Description 03/10/2024 8:00 AM CDT Virtual Visit [facility] Surgery [facility] and B[facility]rics Care [address] [address] Deo Wood MD [address] [facility] [address] [place] [address] documented as of this encounter Visit Diagnoses Not on filedocumented in this encounter Additional Health Concerns Assessment Noted Time PHQ-9 Depression Total Score: 9 10/09/19 22 11:57 AM CDT documented as of this encounter Care Teams Medical Service Representative Relationship Specialty Start Date End Date Herlinda Marino, APPLIED SCIENCE AND TECHNOLOGIES DEAN MEDICAL TECHNICIAN [facility] [address] [place] [address] PCP - Obstetrics/Gynecology 02/03/19 Arjun Pruitt MD [address] [facility] [address] [place] [address] PCP - General production assistant 06/25/22 03/11/23 Flavia Antonio MD [facility] AND [address] [address] PCP - General Family Medicine 03/12/23 Olga Aguila DNP [address] [place] [address] Assigned PCP 02/22/22 Martin Stevens [facility] [address] [place] [address] [id number] Pharmacist Pharmacist 02/20/23 Marlene Bustamante [facility] [address] [place] [address] [phone] Pharmacist Pharmacist Reverberatory Furnace Supervisor 04/30/23 documented as of this encounter
--- OUTSIDE RECORDS SUMMARY | 2023-05-28 10:21 | XMS_ITS | Clinical Summary ---
Author Name Unknown Organization [facility] Address [address] [place] [address]. [place] [address] Care Team Providers Care Chief Privacy Officer Name Role Phone Herlinda Marino Jonathan GARZA OVERLOCK COLLAR SETTER Unavailable [phone] Olga Aguila DNP Unavailable Martin Stevens [facility] Unavailable [phone] Flavia Antonio MD Primary Care Provider [phone] Marlene Bustamante [facility] Unavailable [phone] Allergies Active Allergy Reactions Criticality Noted Date [...] Overview: Added automatically from request for surgery [id number] Cramping affecting , antepartum 11/14/2019 11/15/2019 Threatened labor, second trimester 06/13/2019 11/15/2019 Dichorionic diamniotic twin in second trimester 06/13/2019 11/15/2019 Opioid overdose 11/26/2018 10/26/2020 Overview: 11/25/2018 - required two minutes of CPR Vaginal delivery 12/18/2015 12/07/2018 12/17/2015 12/18/2015 Methamphetamine abuse 07/18/20112018 Overview: Overview: Methamphetamine abuse, in remission x 2 years Encounters Date Type Department Care Team Description 04/30/2023 MyC Medical Advice [facility] [address] [id number] Marlene Bustamante [facility] 03/23/2023 Orders Only [facility] Surgery [facility] Care [address] [phone] Deo Wood MD Gastroesophageal reflux disease, unspecified whether esophagitis present (Primary Dx) 03/12/2023 8:00 AM CDT Virtual Visit [facility] Surgery [facility] [address] [phone] Deo Wood MD Postoperative malabsorption (Primary Dx); Gastroesophageal reflux disease, unspecified whether esophagitis present; History of sleeve gastrectomy; History of morbid obesity from Last 3 Months Immunizations Name Administration Dates Next Due COVID-19 [...] TDAP (Adacel,Boostrix) 08/30/2019,2015,12/12/2012,2009 Td (Adult), Adsorbed 02/12/1999 Family History Medical History Relation Comments No Known Problems Daughter 1 No Known Problems Daughter 2 No Known Problems Daughter 3 Coronary Artery Disease Father Diabetes Father Heart Disease Father Hyperlipidemia Father Hypertension Father Hypertension Mother Cerebrovascular Disease Paternal Aunt Seizure Disorder Paternal Aunt Heart Disease Paternal Grandfather Hyperlipidemia Paternal Grandmother Hypertension Paternal Grandmother No Known Problems Sister No Known Problems Son 1 No Known Problems Son 2 Relation Status Comments Daughter 1 Daughter 2 Daughter 3 Father Mother Paternal Aunt Paternal Grandfather Paternal Grandmother Sister Son 1 Son 2 Social History Tobacco Use Types Packs/Day Years Used Date Smoking Tobacco: Former Cigarettes 1 13 Q uit: 05/02/2019 Smokeless Tobacco: Never Tobacco Cessation:Counseling Given: Not Answered Alcohol Use Standard Drinks/Week Comments Not Currently 0 (1 standard drink = 0.6 oz pure alcohol) Alcoholic Drinks/day: currently on antibuse PHQ-2 Answer Date Recorded PHQ-2 Score 0 10/29/2021 [place] Depression Scale Answer Date Recorded [place] Depression Score 3 07/11/2021 Last EPDS Self [...] Comments Blood Pressure 140/70 07/02/2022 2:00 PM GEOSPATIAL SYSTEMS INTEGRATOR Pulse 92 07/02/2022 3:00 PM GEOSPATIAL SYSTEMS INTEGRATOR Temperature 36.2 ??C (97.1 ??F) 07/02/2022 12:[address] Respiratory Rate 16 07/02/2022 12:29 PM GEOSPATIAL SYSTEMS INTEGRATOR Oxygen Saturation 94% 07/02/2022 3:00 PM GEOSPATIAL SYSTEMS INTEGRATOR Inhaled Oxygen Concentration - - Weight 69.9 kg (154 lb) 03/12/2023 7:55 AM CDT Height 152.4 cm (5') 03/12/2023 7:55 AM CDT Body Mass Index 30.08 03/12/2023 7:55 AM CDT Plan of Treatment Upcoming Encounters Date Type Department Care Team (Late st Contact Info) Description 03/10/2024 8:00 AM CDT Virtual Visit [facility] Care [address] [phone] Deo Wood MD [address] [place] [address] [id number] Health Maintenance Due Date Last Done Comments ASTHMA ACTION PLAN 1986 IPV IMMUNIZATION (4 of 4 - 4-dose series) 1990 01/15/1989, 1986, 1986 YEARLY PREVENTIVE VISIT 02/06/2021 02/07/20 20, 02/07/2020, 02/07/2020, Additional history exists ASTHMA CONTROL TEST 06/19/2022 12/17/2021 ANNUAL REVIEW OF HM ORDERS 10/29/2022 10/29/2021 TSH W/FREE T4 REFLEX 10/29/2022 10/29/2021, 10/17/2020, 10/17/2020, Additional history exists COVID-19 Vaccine ( season) 2023 07/29/2021, 06/26/2021 PHQ-2 (once per calendar year) 2023 10/29/2021, 10/08/2021, 10/08/2021, Additional history exists HPV TEST 11/08/2024 11/09/2019, 09/16, 10/11/2019, Additional history exists PAP 11/08/2024 11/09/2019, 09/16, 10/11/2019, Additional history exists ADVANCE CARE PLANNING 02/06/2025 02/07/2020, 019 DTAP/TDAP/TD IMMUNIZATION (11 - Td or Tdap) 08/29/2029 08/30/2019, 10/11/2015, 10/11/2015, Additional history exists HPV IMMUNIZATION Completed 09/18/2010, , 05/28/2009 Pneumococcal Vaccine: Pediatrics (0 to 5 Years) and At-Risk Patients (6 to 64 Years) Aged Out 04/07/2012, 07/16/2011 No longer eligibl e based on patient's age to complete this topic HEPATITIS B IMMUNIZATION Completed 013, 07/16/2011, 02/12/1999 HEPATITIS C SCREENING Completed 12/07/2018 HIV SCREENING Completed 10/26/2020, 12/07/2018 INFLUENZA VACCINE Completed 01/30/2023, , 02/07/2020, Additional history exists MENINGITIS IMMUNIZATION Aged Out No l onger eligible based on patient's age to complete this topic RSV MONOCLONAL ANTIBODY Aged Out No l onger eligible based on patient's age to complete this topic Medical Devices Implanted Type Area Proofer Apprentice Device Identifier Shelf Expiration Date Model / Serial / Lot [id number]-11/21 Implanted:Qty : 1 on 11/22/2019 Contraceptive Device Left: Arm 12/21/2021 / / [id number] Advance Directives For more information, please contact: [phone] Latest Code Status on File Code Status Date Activated Date Inactivated Comments Full Code 05/28/2021 8:11 PM 05/30/2021 3:57 PM All b asic and advanced life-sustaining interventions are performed as appropriate Question Answer Comments Code status determined by: Discussion with patient/ legal decision maker Care Teams Chief Privacy Officer Relationship Specialty Start Date End Date Herlinda Marino, SOLID WASTE MANAGER OVERLOCK COLLAR SETTER [facility] [address] [place] [address] [phone] PCP - Obstetrics/Gynecology 02/03/19 Flavia Antonio MD [address] [address] PCP - General Family Medicine 03/12/23 Olga Aguila DNP [address] [place] [phone] Assigned PCP 02/22/22 Martin Stevens [facility] [address] [place] [address] [phone] Pharmacist Pharmacist 02/20/23 Marlene Bustamante [facility] [address] [place] [phone] Pharmacist Pharmacist Steward Dishwasher 04/30/23
--- OUTSIDE RECORDS SUMMARY | 2023-05-28 10:21 | XMS_ITS | Encounter Summary ---
Author Name Unknown Organization [facility] Address [address] [facility] [place] [address] Care Team Providers Care Adult Neurologist Name Role Phone Herlinda aMrino Jonathan [facility] Unavailable Olga Aguila DNP Unavailable Martin Stevens [facility] Unavailable [phone] Flavia Antonio MD Primary Care Provider [phone] Reason for Visit * Reason Comments 3YR PO LSG Pt is having a small amount of heart burn that started about 3 months ago. Encounter Details Date Type Department Care Team (Latest Contact Info) Description 03/12/2023 8:00 AM CDT Virtual Visit [facility] [address] [phone] Deo Wood MD [address] [place] [phone] Postoperative malabsorption (Primary Dx); Gastroesophageal reflux disease, unspecified whether esophagitis present; History of sleeve gastrectomy; History of morbid obesity Social History Tobacco Use Types Packs/Day Years Used Date Smoking Tobacco: Former Cigarettes 1 13 Q uit: 05/02/2019 Smokeless Tobacco: Never Alcohol Use Standard Drinks/Week Comments Not Currently 0 (1 standard drink = 0.6 oz pure alcohol) Alcoholic Drinks/day: currently on antibuse PHQ-2 Answer Date Recorded PHQ-2 Score 0 10/29/2021 Mobile Depression Scale Answer Date Recorded Mobile Depression Score 3 07/11/2021 Last EPDS Self [...] AM CDT documented as of this encounter Last Filed Vital Signs Vital Sign Reading Time Taken Comments Blood Pressure - - Pulse - - Temperature - - Respiratory Rate - - Oxygen Saturation - - Inhaled Oxygen Concentration - - Weight 69.9 kg (154 lb) 03/12/2023 7:55 AM CDT Height 152.4 cm (5') 03/12/2023 7:55 AM CDT Body Mass Index 30.08 03/12/2023 7:55 AM CDT documented in this encounter Patient Instructions * Patient Instructions* Deo Wood MD - 03/12/2023 8:00 AM CDT Plan: Continue mindful bariatric methods and getting minimum of 55-65 grams of lean protein daily to prevent muscle wasting while on Wegovy. Wegovy managed by Dr. Antonio at your regular clinic. Zantac for increased heart burn. If severe, you can switch to omeprazole. Avoid eating within 3 hours of planned bed time ideally. Given slightly weaker multivitamin that recommended but with normal labs currently, you can rechecklabs in 5-6 months to make sure not trending down into deficiency states. Lower iron needs now s/p hysterectomy. Levels look perfect and no anemia or iron deficiency evident. Continue annual checks/labs. .[facility] Nutritional Guidelines Gastric Sleeve 18 Months Post Op and Beyond eneral Guidelines and Helpful Hints: Eat 3 meals per day + protein supplement(s). No snacks between meals. Do not skip meals. This can cause overeating at the next meal and will prevent adequate protein andnutritional intake. Aim for 60-80 grams of protein per day. Always eat your protein first. This assists with optimal nutrition and helps you stay full longer. Depending on your portion size, you may need to drink approved protein supplement between meals to achieve protein goals. Follow recommendations of your Dietitian. Eat your protein first, and then follow with fiber. It is not necessary to count your fiber, but 15-25 grams per day is recommended. Add fiber by including fruits, vegetables, whole grains, and beans. Portions should remain about 1 cup per meal. Use measuring cups to be accurate. Continue to use saucer/salad plates, /toddler silverware to keep portion sizes small and takesmall bites. Eat S-L-O-W-L-Y to make each meal last 20-30 minutes. Always stop eating when satisfied. Continue to use caution with foods containing skins, peels or membranes. Chew well! Aim for 64 oz. of calorie-free fluids daily. Continue to avoid caffeine and carbonation. If you choose to drink alcohol, do so in moderation. Remember to avoid drinking during meals, 15-30 minutes before and 30 minutes after. Exercise is phillips for continued weight loss and weight maintenance. 150 minutes weekly of moderate aerobic activity or 75 minutes of vigorous with 2 days or more a week of strength training. Try to get20% or more of your steps each day at a brisk pace, as though hurrying to a bus stop. Look to get stronger this year. If having trouble tolerating meat, try using a crock-pot, tinfoil tent, steamer or other moist cooking method to create tender meats. Add broth or low-fat gravy to help meat stay moist. Avoid high sugar and high fat foods to prevent dumping syndrome. Check nutrition labels for less than 10 grams of sugar and less than 10 grams of fat per serving. Continue Taking Vitamins/Minerals: 1000 mcg of Sublingual B-12 at least 3 days weekly to average 350-500mcg/day. If using 2500mcg lozenges, 2 weekly. If 5000 mcg, once weekly dosing works. 1 Complete Multivitamin with 18mg Iron twice daily (chewable or swallow tabs). Often sold as women's one a day if tablet but take twice daily. 500-600 mg Calcium Citrate twice daily (chewable or swallow tabs). 5000 IU Vitamin D3 daily. If menstruating, you may need closer to 60mg of iron daily to prevent iron deficiency. An occasional boost of extra iron supplement during/after is reasonable if heavy flow. Sample Grocery List Protein: Fat free Swazi or light yogurt (less than 10 grams sugar) Fat free or low-fat cottage cheese String cheese or reduced fat cheese slices Tuna, salmon, crab, egg, or chicken salad made with light or fat free mayonnaise Egg or Egg Substitute Lean/extra lean turkey, beef, bison, venison (ground, sirloin, round, flank) Pork loin or tenderloin (grilled, baked, broiled) Fish such as salmon, tuna, trout, tilapia, etc. (grilled, baked, broiled) Tender cuts of lean (skinless) turkey or chicken Lean deli meats: turkey, lean ham, chicken, lean roast beef Beans such as kidney, garbanzo, black, martinez, or low-fat/fat free refried beans Peanut butter (natural preferred). Limit to 1 Tbsp. per day. Low-fat meatloaf (made with lean ground beef or turkey) [place] made with low-sugar ketchup and lean ground beef or turkey Soy or vegetable protein (i.e. vegan crumbles, soy/veggie burger, tofu) Hummus Vegetables: Fresh: cooked or raw (as tolerated) Frozen vegetables Canned vegetables (low sodium or no salt added, rinse before cooking/eating) (Ok to have skins/peels/membranes/seeds - just chew well) Fruits: Fresh fruit Frozen fruit (no sugar added) Canned fruit (packed in its own juice, NOT syrup) (Ok to have skins/peels/membranes/seeds - just chew well) Starch: Unsweetened whole-grain hot cereal (or high fiber cold cereal, dry) Toasted whole wheat bread or Andrews Thins Whole grain crackers Baked /boiled/mashed potato/sweet potato Cooked whole grain pasta, brown rice, or other cooked whole grains Starchy vegetables: corn, peas, winter squash Protein Supplement: Ready to drink protein shake with: 15-30 grams protein per serving Less than 10 grams total carbohydrate per serving Protein powder mixed with: Skim or 1% milk Low fat or fat free Lactaid milk, plain or no sugar added soymilk Water Fats: (use in moderation) 1 teaspoon of soft tub margarine 1 teaspoon olive oil, canola oil, or peanut oil 1 tablespoon of low-fat zuñiga or salad dressing Sample Menu for 18+ months after Gastric Sleeve You do NOT need to eat/drink the full portion sizes listed below Always stop when you are satisfied Breakfast ?? cup 1% cottage cheese ?? cup mixed berries Lunch 2 oz lean roast beef on ?? Andrews Thin with 1 tsp. light zuñiga ?? small tomato, chopped, mixed with 1 tsp. light vinaigrette dressing Supplement Approved protein supplement (if needed between meals) Dinner 2 oz grilled salmon ?? cup salad greens with 1 tsp. light salad dressing and 1 tsp. ground flax seed ?? cup quinoa or brown rice Breakfast ?? cup egg substitute with ?? cup saut??ed chopped vegetables 2 light Sunset Krisp crackers Lunch Tuna Melt: ?? cup tuna mixed with 1 tsp. light zuñiga over ?? Andrews Thin. Top with 2-3 slices cucumber and 1 oz slice of low fat cheese Supplement 1 cup skim milk (if needed between meals) Dinner 3 oz grilled, broiled, or baked seasoned skinless chicken breast ?? cup asparagus Breakfast ?? cup plain oatmeal made with skim or 1% milk with 1 Tbsp. flavored/unflavored protein powder added 1 mozzarella string cheese Lunch 2 oz deli turkey breast 1/3 cup salad with 1 tsp. light salad dressing, 1/8 of a whole avocado and 1 Tbsp. sunflower seeds Dinner 3 oz. pork loin made in a crock pot, seasoned with a spice rub ?? cup cooked carrots Supplement Approved protein supplement (if needed between meals) Breakfast 1 cup breakfast casserole made with egg substitute, turkey sausage, and steamed, chopped toro peppers Supplement 1 cup light Swazi yogurt (if needed between meals) Lunch 2 oz. teriyaki turkey ?? cup mashed sweet potato with 1-2 spritzes of spray butter (like Parkay) ?? cup fresh pineapple Dinner 3 oz low fat meatloaf ?? cup roasted garlic zucchini Breakfast ?? cup leftover breakfast casserole ?? cup no sugar added applesauce with 1 Tbsp. unflavored protein powder and a sprinkle of cinnamon Lunch 3 oz shrimp with 1-2 Tbsp. low-sugar cocktail sauce for dipping ?? c. whole wheat pasta drizzled with ?? tsp. olive oil Supplement 1 cup skim/1% milk with scoop of protein powder (if needed between meals) Dinner Grilled, seasoned kebob with 2 oz lean beef and ?? cup vegetables Breakfast Breakfast pizza: ?? [place] Thin spread with 1 Tbsp. low sugar spaghetti sauce, ?? cup shredded low fat cheese, melted and 1 slice of [place] murphy ?? cup fresh fruit mixed with chopped almonds Lunch ?? cup black maher soup 4-5 whole grain crackers Dinner 3 oz tilapia with lemon pepper seasoning ?? cup stewed tomatoes Supplement 1 string cheese (if needed between meals) Breakfast 2 hard boiled eggs (discard 1 egg yolk) ?? whole wheat Nigerien Muffin with 1 tsp. low sugar jelly Lunch ?? cup leftover black maher soup topped with 1-2 Tbsp. low fat cheese 2-3 light Sunset Krisp crackers Supplement Approved protein supplement (if needed between meals) Dinner 3 oz sirloin steak ?? cup steamed broccoli LEAN PROTEIN SOURCES Getting 20-30 grams of protein, 3 meals daily, is appropriate for most people, some need more but more than about 40 grams per meal is not useful. General rule is drinking one ounce of water per gram of protein eaten over the course of the day: 70 grams of protein each day, drink 70 oz of water. Protein Source Portion Calories Grams of Protein Nonfat, plain Swazi yogurt (10 grams sugar or less) 3/4 cup (6 oz) 80-100 12-17 Light Yogurt (10 grams sugar or less) 3/4 cup (6 oz) 80-100 6-8 Protein Shake 1 shake 110-180 15-30 Skim/1% Milk or lactose-free milk 1 cup ( 8 oz) 90-100 8 Plain or light, flavored soymilk 1 cup 90-100 7-8 Plain or light, hemp milk 1 cup 110 6 Fat Free or 1% Cottage Cheese 1/2 cup 90 15 Part skim ricotta cheese 1/2 cup 100 14 Part skim or reduced fat cheese slices 1 ounce 65-80 8 Mozzarella String Cheese 1 80 8 Canned tuna, chicken, crab or salmon (canned in water) 1/2 cup 100 15-20 White fish (broiled, grilled, baked) 3 ounces 100 21 Mize/Tuna (broiled, grilled, baked) 3 ounces 150-180 21 Shrimp, Scallops, Lobster, Crab 3 ounces 100 21 Pork loin, Pork Tenderloin 3 ounces 150 21 Boneless, skinless chicken /turkey breast (broiled, grilled, baked) 3 ounces 120 21 [place], [place], [place], and Venison 3 ounces 120 21 Lean cuts of red meat and pork (sirloin, round, tenderloin, flank, ground 93%-96%) 3 ounces 170 21 Lean or Extra Lean Ground [place] 1/2 cup 150 20 90-95% Lean [place] Burger 1 ash 140-180 21 Low-fat casserole with lean meat 3/4 cup 200 17 Luncheon Meats (turkey, lean ham, roast beef, chicken) 3 ounces 100 21 Egg (boiled, poached, scrambled) 1 Egg 60 7 Egg Substitute 1/2 cup 70 10 Nuts (limit to 1 serving per day) 3 Tbsp. 150 7 Nut [place] (peanut, almond) Limit to 1 serving or less daily 1 Tbsp. 90 4 Soy Burger (varies) 1 90-130 15 Garbanzo, Black, [place] Beans 1/2 cup 110 7 Refried Beans 1/2 cup 100 7 Kidney and [place] beans 1/2 cup 110 7 Tempeh 3 oz 175 18 Vegan crumbles 1/2 cup 100 14 Tofu 1/2 cup 110 14 [place] (beans and extra lean beef or turkey) 1 cup 200 23 Lentil Stew/Soup 1 cup 150 12 Black Maher Soup 1 cup 175 12 On-the-Go Breakfast Ideas As of 2015, the latest research shows what a huge impact eating breakfast has on losing weight and feeling your best. People lose more weight when they make breakfast their biggest meal of the day compared to Dinner, but even if you cannot go to that degree, getting a breakfast that has at least 20grams of protein and even a moderate amount of fat is ideal for maintaining good energy through theday and limits overeating in the evening hours. The following are some quick and easy suggestions for at least getting something of substance into your body in the morning. Enjoy! Eating breakfast within 90 minutes of waking up is an important part of taking care of your body staci restricted calorie diet plan. After sleeping for hours, your body is in need of fuel. An ideal breakfast is a combination of protein, whole-grain carbohydrates, or fruit. Here???s why: -Protein digests very slowly in the body, helping you feel more satisfied. -Whole grains provide dietary fiber, which also digests slowly and helps keep your gut clean. -Fruit is a great source of vitamins, minerals, and fiber. Each one of these breakfast combinations has between 200-300 calories and 15-20 grams of protein. Feel free to mix and match! Bone Broth (chicken bone broth or beef bone broth) is a great way to boost protein content. 8oz of bone broth will typically have 9-12grams of protein for 40kcal of energy. Protein: Choose -1/2 cup low-fat cottage cheese -2 hard boiled eggs , or one cooked in olive oil (low/slow heat). -1 low fat string cheese stick -1 Tablespoon natural peanut butter -Punch Bowl Social vegetarian sausage ash (found in freezer section) -1 slice lowfat cheese -6 oz 2% or lowfat Swazi yogurt, such as Fage or Oikos. PLUS Whole Grains: Choose??? -1 whole wheat Nigerien muffin -1 whole wheat erika, half -1/2 Fiber One frozen muffin, thawed -1/2 Fiber One toaster pastry -1 whole wheat bagel thin -1/2 cup Kashi cereal -1 Kashi waffle (or other whole grain high-fiber waffle) Aim for whole grain/sprouted breads with at least 3g of fiber/slice if having bread. Silver Arora is one such brand. OR Fruit: Choose -1/3 cup blueberries -1/2 banana (or a plantain- similar to a banana, yet smaller) -1/2 cup cantaloupe cubes -1 small apple -1 small orange -1/2 cup strawberries -handful raspberries/blackberries (each kauffman is about 1 calorie). *Adapted from Diabetes , fall Ten Breakfasts Under 250 calories Ideally, getting between 350-600 calories (depending on starting height and weight)for breakfast isideal for avoiding hunger later in the day, adjust/add to the following accordingly: One- 250 calories, 8.5 g protein 1 slice whole-grain toast 1 Tbsp peanut butter ?? banana Two- 250 calories, 8 g protein ?? cup nonfat/lowfat yogurt 1/3rd cup diced no-sugar peaches 1/3rd cup cereal (like Special K, Cheerios, or bran flakes) Three- 250 calories, 25 g protein 1 egg scrambled with 1 oz skim milk ?? cup shredded cheddar ?? whole grain Nigerien muffin 1 oz [place] murphy 1 tsp margarine spread Four- 225 calories, 25 g protein 1/2 cup Kashi Go-Lean cereal ?? cup skim milk mixed with 1 scoop Bariatric Advantage protein powder ?? cup no-sugar diced pears Five- 250 calories, 20 g protein ?? cup oatmeal prepared with skim milk, 1 scoop protein powder, and sugar-free maple syrup Six- 200 calories, 5 g protein 1 whole grain waffle, toasted 1 tablespoon creamy peanut or almond butter Seven- 250 calories, 19 g protein Breakfast sandwich: 1 slice whole grain toast, cut in half. Add 1 scrambled egg and one slice cheddar cheese. Eight- 250 calories, 15 g protein 2 eggs scrambled with 1/3 cup frozen spinach (heat before adding to eggs) and 2 tablespoons low fatcream cheese. Nine- 150 calories, 15 g protein 2/3rd cup cottage cheese ?? cup cantaloupe Ten- 200 calories, 20 g protein Fruit smoothie made with 4 oz. nonfat Swazi yogurt, ?? cup berries, 1 scoop protein powder, and 4 oz skim milk. Ten Lunches Under 250 Calories Aim for lunch to be around 300-400 calories a day when trying to lose weight and get that protein in! One- 200 calories, 11 g protein 1/3 cup tuna salad made with light zuñiga on 1 slice whole grain bread 1 small peeled apple Two- 250 calories, 16 g protein 1/3 cup lowfat cottage cheese ?? cup cooked green beans ?? small fruit cocktail (in natural juice) Three- 200 calories, 11 g protein ?? grilled cheese sandwich on whole grain bread with lowfat cheese 2/3rd cup of tomato soup Four- 250 calories, 22 g protein Deli wrap: 1 oz sliced turkey, 1 oz sliced ham, 1 oz sliced chicken rolled up with 1 slice low-fat cheese 1 small orange Five- 250 calories, 28 g protein 2/3rd cup chili with 1 oz shredded cheese 4 saltine crackers Six- 250 calories, 22 g protein 1 cup fresh spinach with 2 oz chicken, 1/3rd cup mandarin oranges, and 2 tablespoons sliced almondswith 1 tablespoon vinaigrette dressing Seven- 200 calories, 11 g protein 1 Tbsp sugar-free preserves and 1 Tbsp peanut butter on 1 slice whole grain toast ?? cup nonfat/lowfat Swazi yogurt Eight- 250 calories, 18 g protein 1 small soft-shell chicken taco with 1 oz shredded cheese, lettuce, tomato, salsa, and 1 Tbsp lightsour cream ?? cup black beans Nine- 225 calories, 13 g protein 2 ounces baked chicken 1/4 cup mashed potatoes ?? cup green beans Ten- 200 calories, 21 g protein Deli erika: 2 oz roast beef or other deli meat with 1 tsp Abhishek mayonnaise and sliced tomato, onion,and lettuce 1/3rd cup cottage cheese Ten Dinners Under 300 calories If you're eating a large breakfast and medium lunch, keep dinner small. 300-400 calories is ideal for most people depending on their caloric needs. One- 300 calories, 12 g protein 1-inch thick slice of turkey meatloaf ?? cup baked butternut squash Two- 200 calories, 9 g protein Bread-less BLT: 3 slices turkey murphy, sliced tomato, wrapped in a large lettuce leaf ?? cup peeled fruit Three- 275 calories, 36 g protein 3 oz roasted chicken ?? cup cooked broccoli ?? cup shredded cheddar cheese ?? cup unsweetened applesauce Four- 200 calories, 25 g protein 3 oz baked tilapia 1/3rd cup cooked carrots ?? cup yogurt Five- 250 calories, 20 g protein Grilled ham ???n??? Nigerien: spread 2 tsp ghee or butter on 1 slice of whole grain bread. Cut bread in half, layer 2 oz deli ham with 1 piece of Nigerien cheese and grill until cheese is melted. ?? cup cooked vegetables Six- 250 calories, 18 g protein Vegetarian cheeseburger: 1 [place] cheeseburger topped with lettuce, onion, tomato, and ketchup/mustard ?? cup sweet potato fries Seven- 250 calories, 18 g protein Pork pot roast: 2 oz roasted pork loin, 1/3rd cup roasted carrots, ?? medium potato, cooked with ??cup gravy Eight- 330 calories, 25 g protein 2 oz meatballs (about 2 small meatballs) ?? cup spaghetti sauce 1/2 piece toast topped with 1 tsp ghee or butterand topped with garlic powder, toasted in oven Nine- 250 calories, 16 g protein Haitian pizza: one 8?? corn tortilla topped with 2 oz chicken, ?? cup salsa, 2 tablespoons black beans, 2 tablespoons shredded cheese. Bake until cheese is melted. Ten- 250 calories, 22 g protein Shrimp stir-hearn: 3 oz cooked shrimp, 1/6th onion, ?? pepper, ?? cup chopped carrots saut??ed in 1 tablespoon olive oil, topped with 2 tablespoons stir hearn sauce and a pinch of sesame seeds 150 Calories or Less Snack Ideas 1 hardboiled egg with ?? cup berries 1 small apple with 1 hardboiled egg 10 almonds with ?? cup berries 2 clementines with 1 light string cheese 1 light string cheese with ?? sliced apple 1 light string cheese wrapped in 2 slices of turkey 4 100% whole wheat crackers (e.g. Triscuit) with 1 light string cheese ?? c. cottage cheese with ?? cup fruit and 1 Tbsp sunflower seeds ?? cup cottage cheese with ?? of an avocado ?? can tuna fish with 1 cup sliced cucumbers ?? cup roasted garbanzo beans with paprika and cayenne pepper ?? baked sweet potato with ?? cup chili beans or ?? cup cottage cheese 2 oz. nitrate free turkey slices with 1 cup carrots 1 container (6 oz) of low sugar (less than 10 grams of sugar) indian yogurt 3 Tablespoons of hummus with 1 cup sliced toro peppers 2 Tablespoons of hummus with 15 baby carrots 4 Tablespoons ranch dip made with plain Swazi Yogurt and 3 mini cucumbers 1/4 cup nuts (any kind) 1 Tablespoon peanut butter with 1 stalk celery 1 dill pickle wrapped in 1-2 slices of deli ham with 1 tsp of mayonnaise/mustard. documented in this encounter Progress Notes * Deo Wood MD - 03/12/2023 8:00 AM CDT Images from the original note were not included. Bariatric Follow Up Visit with a History of Previous Bariatric Surgery Date of visit: 03/11/2023 Physician: Deo Wood MD, MD Primary Care Provider: Arjun Pruitt 37 year old female Date of Surgery: 03/12/20 Initial Weight: 220 lbs Initial BMI: 43 Today's Weight: Wt Readings from Last 1 Encounters: 03/12/23 69.9 kg (154 lb) Weight history: Wt Readings from Last 4 Encounters: 03/12/23 69.9 kg (154 lb) 07/02/22 75.9 kg (167 lb 4.8 oz) 03/12/22 79.4 kg (175 lb) 01/16/22 77.1 kg (170 lb) Body mass index is 30.08 kg/m??. Assessment and Plan Assessment: Ángel is a 37 year old year old female who is 3 years s/p Sleeve Gastrectomy with . 02/18/23 labs show good vitamin support. Her vitamin D level is fine in the 50s. Weight is down 66 lbs, a 30% total body weight reduction and she's at the cusp of dropping BMI below 30 at current weight of 154 lbs. She's been using some Wegovy this year and has bupropion (no longer on naltrexone) as well, all of which can help appetite and satiety, these are being managed by her PCP. Ángel Tyler feels as if she has achieved the goals she hoped to accomplish through bariatricsurgery and weight loss. Encounter Diagnoses Name Primary? Gastroesophageal reflux disease, unspecified whether esophagitis present Yes Postoperative malabsorption Current Outpatient Medications: amoxicillin (AMOXIL) 500 MG capsule, TAKE 2 CAPSULES BY MOUTH THREE TIMES DAILY DIRECTED, Disp: , Rfl: BINAXNOW COVID-19 AG HOME TEST KIT, TEST DIRECTED TODAY, Disp: , Rfl: cholecalciferol (VITAMIN D3) 125 mcg (5000 units) capsule, Take 125 mcg by mouth daily, Disp: , Rfl: cyclobenzaprine (FLEXERIL) 5 MG tablet, Take 5-10 mg by mouth at bedtime, Disp: , Rfl: DRYSOL 20 % external solution, Apply topically At Bedtime, Disp: 60 mL, Rfl: 0 FLUARIX QUADRIVALENT 0.5 ML injection, , Disp: , Rfl: hydrOXYzine (ATARAX) 25 MG tablet, Take 1 tablet by mouth 3 times daily as needed for itching., Disp: 30 tablet, Rfl: 0 levothyroxine (SYNTHROID) 150 MCG tablet, [LEVOTHYROXINE (SYNTHROID) 150 MCG TABLET] Take 1 tablet (150 mcg total) by mouth daily., Disp: 30 tablet, Rfl: 11 multivitamin, therapeutic (THERA-VIT) TABS tablet, Take 2 tablets by mouth daily, Disp: , Rfl: ondansetron (ZOFRAN ODT) 4 MG ODT tab, Place 1 Tablet on the tongue every 6 hours if needed for Nausea/Vomiting., Disp: , Rfl: ranitidine (ZANTAC) 150 MG capsule, Take 1 capsule (150 mg) by mouth 2 times daily, Disp: 90 capsule, Rfl: 3 traZODone (DESYREL) 50 MG tablet, TAKE 1/2 TO 2 TABLETS BY MOUTH ONCE DAILY NEEDED FOR INSOMNIA., Disp: , Rfl: vitamin B-12 (CYANOCOBALAMIN) 2500 MCG sublingual tablet, Take 5,000 mcg by mouth once a week, Disp: , Rfl: WEGOVY 1 MG/0.5ML pen, INJECT 1 PEN UNDER THE SKIN ONCE WEEKLY, Disp: , Rfl: busPIRone (BUSPAR) 10 MG tablet, , Disp: , Rfl: ondansetron (ZOFRAN) 4 MG tablet, Take 1 tablet (4 mg) by mouth every 8 hours as needed for nausea (Patient not taking: Reported on 03/12/2023), Disp: 30 tablet, Rfl: 0 oxyCODONE (ROXICODONE) 5 MG tablet, Take 1-2 tablets (5-10 mg) by mouth every 4 hours as needed formoderate to severe pain, Disp: 12 tablet, Rfl: 0 tranexamic acid (LYSTEDA) 650 MG tablet, TAKE 2 TABLETS BY MOUTH 3 TIMES DAILY FOR UP TO 5 DAYS DURING MONTHLY MENSTRUATION., Disp: , Rfl: Plan: Continue mindful bariatric methods and getting minimum of 55-65 grams of lean protein daily to prevent muscle wasting while on Wegovy. Wegovy managed by Dr. Antonio at your regular clinic. Zantac for increased heart burn. If severe, you can switch to omeprazole. Avoid eating within 3 hours of planned bed time ideally. Given slightly weaker multivitamin that recommended but with normal labs currently, you can rechecklabs in 5-6 months to make sure not trending down into deficiency states. Lower iron needs now s/p hysterectomy. Levels look perfect and no anemia or iron deficiency evident. Continue annual checks/labs. Return in about 1 year (around 03/12/2024) for Follow up, with me. Bariatric Surgery Review Interim History/LifeChanges: hysterectomy in Jun Patient Concerns: no Appetite (1-10): on wegovy. GERD: some, will rx zantac that she's started up on Wegovy 1mg. Reviewed whether any need/indication for screening EGD today and we will deferred. Typically, a screening EGD is recommend post op year 2-3 if no symptoms to assess health of esophagus/bariatric surgery and sooner if difficult to control GERD or persistent pain/dysphagia sx despite behavior modification. Medication changes: wegovy, off bupropion/naltrexone. Vitamin Intake: B-12 yes MVI New Chapter: iron 3mg, zinc 5.5mg Vitamin D yes Calcium From dairy Other Folic acid occasionally. Hysterectomy in June. LABS: Reviewed Nausea no Vomiting no Constipation no Diarrhea no Rashes no Hair Loss no Reactive Hypoglycemia n/a Light Headedness no Moods good Most recent labs: Lab Results Component Value Date WBC 3.7 (L) 02/18/2023 HGB 14.2 02/18/2023 HCT 41.4 02/18/2023 MCV 92 02/18/2023 PLT 220 02/18/2023 Lab Results Component Value Date CHOL 199 02/18/2023 Lab Results Component Value Date HDL 64 02/18/2023 No components found for: LDLCALC Lab Results Component Value Date TRIG 90 02/18/2023 No results found for: CHOLHDL Lab Results Component Value Date ALT 27 02/18/2023 AST 21 02/18/2023 ALKPHOS 38 02/18/2023 No results found for: HGBA1C Lab Results Component Value Date B12 1,114 02/18/2023 No components found for: VITDT1 Lab Results Component Value Date TONY 109 02/18/2023 Lab Results Component Value Date PTHI 40 02/18/2023 Lab Results Component Value Date ZN 76.0 02/18/2023 Lab Results Component Value Date VIB1WB 153 02/18/2023 Lab Results Component Value Date TSH 0.97 10/29/2021 Had viral illness at time of lab draw likely explains her depressed WBC No results found for: TEST Habits: Tobacco/Nicotine/THC exposure? no NSAID use? no Alcohol use? no Caffeine Habits? One sugar free red bull. Exercise Routine: day care business. No gym work. 3 meals/day? yes Protein 60-80g/day? She thinks so. Aiming for good 55-65g/day at current weight. Water Separate from meals? yes Calorie Containing Beverages: no Restaurant eating/wk: n/a Sleep Habits: shit the last 2 weeks. 6-8 hours. Sick kid can contribute. Trazodone once weekly ifneeded. Can have trouble falling back to sleep. CPAP Use? no Contraception: hysterectomy DEXA:n/a. Discussed annual screening to start at age 45 and continue to age 55 if scoring low risk. DEXA scan recommended at age 55 regardless as long as at least 2 years have transpired from theirbariatric surgery. Social History Social History Socioeconomic History Marital status: Single Spouse name: Not on file Number of children: Not on file Years of education: Not on file Highest education level: Not on file Occupational History Not on file Tobacco Use Smoking status: Former Packs/day: 1.00 Years: 13.00 Additional pack years: 0.00 Total pack years: 13.00 Types: Cigarettes Quit date: 05/02/2019 Years since quittin.8 Smokeless tobacco: Never Substance and Sexual Activity Alcohol use: Not Currently Comment: Alcoholic Drinks/day: currently on antibuse Drug use: Not Currently Types: Methamphetamines, Morphine Sexual activity: Yes Partners: Male Other Topics Concern Not on file Social History Narrative Not on file Social Determinants of Health Financial Resource Strain: Not on file Food Insecurity: Not on file Transportation Needs: Not on file Physical Activity: Not on file Stress: Not on file Social Connections: Not on file Interpersonal Safety: Not on file Housing Stability: Not on file Past Medical History Past Medical History: Diagnosis Date Anxiety Asthma 10/29/2021 Breast feeding status of mother 08/21/2021 Encounter for induction of labor 05/28/2021 Encounter for triage in patient 05/10/2021 Gestational hypertension, third trimester 05/20/2021 Hypertension Hypothyroidism Methamphetamine use (H) Clean for 10 years Morbid obesity (H) PCOS (polycystic ovarian syndrome) 09/03/2010 Overview: US dated: 08/30/10 showed polycystic ovaries Reports hx of irregular menses Pneumonia 12/2019 Supervision of high risk in third trimester 08/29/2019 Vitamin D deficiency Past Surgical History: Procedure Laterality Date LAPAROSCOPIC HYSTERECTOMY Bilateral 07/02/2022 Procedure: ROBOTIC ASSISTED HYSTERECTOMY WITH BILATERAL SALPINGECTOMY; Surgeon: Arjun Pruitt MD; Location: [facility] [place] LAP, PATRICA RESTRICT PROC, LONGITUDINAL GASTRECTOMY N/A 03/12/2020 Procedure: GASTRECTOMY, SLEEVE, LAPAROSCOPIC; Surgeon: Hussain Man MD; Location: [facility]; Service: General TONSILLECTOMY Problem List Patient Active Problem List Diagnosis Hypothyroidism PCOS (polycystic ovarian syndrome) Supervision of high risk in third trimester Anxiety Encounter for triage in patient Gestational hypertension, third trimester Encounter for induction of labor Breast feeding status of mother Asthma Medications @MEDSCURRENTNOTES@ Surgical History Past Surgical History She has a past surgical history that includes Tonsillectomy; Pr Lap, Patrica Restrict Proc, Longitudinal Gastrectomy (N/A, 03/12/2020); and Laparoscopic Hysterectomy (Bilateral, 07/02/2022). Objective-Exam Constitutional: Ht 1.524 m (5') Wt 69.9 kg (154 lb) BMI 30.08 kg/m?? @WEIGHT1@ General: Pleasant and in no acute distress Eyes: EOMI ENT: Airway patent Neck: Respiratory: Normal respiratory effort, no cough, . CV: Gastrointestinal: Musculoskeletal: muscle mass WNL Skin: color without pallor hair thick, Psychiatric: alert and oriented X3, mood and affect normal Counseling We reviewed the important post op bariatric recommendations: -eating 3 meals daily -eating protein first, getting >60gm protein daily -eating slowly, chewing food well -avoiding/limiting calorie containing beverages -drinking water 15-30 minutes before or after meals -limiting restaurant or cafeteria eating to twice a week or less We discussed the importance of restorative sleep and stress management in maintaining a healthy weight. We discussed the National Weight Control Registry healthy weight maintenance strategies and ways tooptimize metabolism. We discussed the importance of physical activity including cardiovascular and strength training in maintaining a healthier weight. We discussed the importance of life-long vitamin supplementation and life-long follow-up. Ángel was reminded that, to avoid marginal ulcers she should avoid tobacco at all, alcohol in excess, caffeine in excess, and NSAIDS (unless indicated for cardioprotection or othewise and opposed by a PPI). Deo Wood MD [facility]. 03/11/2023 3:54 PM [phone] (clinic phone) [phone] (fax) No images are attached to the encounter. Medical Decision Making: Ángel Tyler is 37 year old female who presents for a billable video visit today. How would you like to obtain your AVS? MyChart If dropped from the video visit, the video invitation should be resent by: Text to cell phone: [phone] Will anyone else be joining your video visit? No Video Start Time: 7:58am Are there any specific questions or needs that you would like addressed at your visit today? Pt is having a small amount of heart burn that started about 3 months ago. Video-Visit Details Type of service: Video Visit Platform used for Video Visit: BugBuster Video End Time (time video stopped): 8:30 AM Originating Location (pt. Location): Home Distant Location (provider location): On-site Distant Location (provider location): [facility] [place] 30 minutes spent by me on the date of the encounter doing chart review, history and exam, documentation and further activities per the note documented in this encounter Plan of Treatment Upcoming Encounters Date Type Department Care Team (Late st Contact Info) Description 03/10/2024 8:00 AM CDT Virtual Visit [facility] and Bariatrics [address] [address] Deo Wood MD [address] [place] [address] [id number] Scheduled Orders Name Type Priority Associated Diagnoses Orde r Schedule Ferritin Lab Routine Postoperative malabsorption Expected: 08/17/2023 (Approximate), Expires: 02/16/2024 Zinc Lab Routine Postoperative malabsorption Expected: 08/17/2023 (Approximate), Expires: 02/16/2024 Vitamin B1 whole blood Lab Routine Postoperative malabsorption Expected: 08/17/2023 (Approximate), Expires: 02/16/2024 Parathyroid Hormone Intact Lab Routine Postoperative malabsorption Expected: 08/17/2023 (Approximate), Expires: 02/16/2024 25- [place]-Vitamin D Lab Routine Postoperative malabsorption Expected: 08/17/2023 (Approximate), Expires: 02/16/2024 Vitamin A Lab Routine Postoperative malabsorption Expected: 08/17/2023 (Approximate), Expires: 02/16/2024 documented as of this encounter Visit Diagnoses Diagnosis Postoperative malabsorption- Primary Other and unspecified postsurgical nonabsorption Gastroesophageal reflux disease, unspecified whether esophagitis present History of sleeve gastrectomy History of morbid obesity documented in this encounter Additional Health Concerns Assessment Noted Time PHQ-9 Depression Total Score: 9 10/09/19 22 11:57 AM CDT documented as of this encounter Care Teams Adult Neurologist Relationship Specialty Start Date End Date Herlinda Marino, WOODEN TANK ERECTOR AVIATION MEDICINE SPECIALIST [place] [address] [place] [address] PCP - Obstetrics/Gynecology 02/03/19 Flavia Antonio MD [address] [address] PCP - General Family Medicine 03/12/23 Olga Aguila DNP [address] [place] [address] Assigned PCP 02/22/22 Martin Stevens RPH [address] [place] [address] Pharmacist Pharmacist 02/20/23 documented as of this encounter
--- OUTSIDE RECORDS SUMMARY | 2023-05-28 10:21 | XMS_ITS | Encounter Summary ---
Author Name Unknown Organization [facility] Address [address] [facility] [place] [address] Care Team Providers Care Bottler Name Role Phone Ellen Marinomustapha Castillo APRN NUTRITION TECHNICIAN Unavailable Olga Aguila DNP Unavailable Martin Stevens [facility] Unavailable [phone] Flavia Antonio MD Primary Care Provider [phone] Encounter Details Date Type Department Care Team (Late st Contact Info) Description 03/23/2023 [facility] and Bariatrics Care [address] [address] Deo Wood MD [address] [place] [address] Gastroesophageal reflux disease, unspecified whether esophagitis present (Primary Dx) Social History Tobacco Use Types Packs/Day Years Used Date Smoking Tobacco: Former Cigarettes 1 13 Q uit: 05/02/2019 Smokeless Tobacco: Never Alcohol Use Standard Drinks/Week Comments Not Currently 0 (1 standard drink = 0.6 oz pure alcohol) Alcoholic Drinks/day: currently on antibuse PHQ-2 Answer Date Recorded PHQ-2 Score 0 10/29/2021 Bristol Depression Scale Answer Date Recorded Bristol Depression Score 3 07/11/2021 Last EPDS Self [...] Description 03/10/2024 8:00 AM CDT Virtual Visit [facility] and Bariatrics Care [place] [address] [facility] [address] [place] [phone] Deo Wood MD [address] [facility] [address] [place] [address] documented as of this encounter Visit Diagnoses Diagnosis Gastroesophageal reflux disease, unspecified whether esophagitis present- Primary documented in this encounter Additional Health Concerns Assessment Noted Time PHQ-9 Depression Total Score: 9 10/09/19 22 11:57 AM CDT documented as of this encounter Care Teams Bottler Relationship Specialty Start Date End Date Herlinda Marino, GLUING MACHINE FEEDER NUTRITION TECHNICIAN [facility] [address] [place] [address] [address] PCP - Obstetrics/Gynecology 02/03/19 Flavia Antonio MD [facility] [address] [address] PCP - General Family Medicine 03/12/23 Olga Aguila DNP [address] [place] [address] Assigned PCP 02/22/22 Martin Stevens RPH [address] [place] [address] Pharmacist Pharmacist 02/20/23 documented as of this encounter
--- OUTSIDE RECORDS SUMMARY | 2023-05-28 10:21 | XMS_ITS | Encounter Summary ---
Author Name Unknown Organization [facility] Address [address] [place] [address]. [place] [address] Care Team Providers Care Strickler Attendant Name Role Phone Ellen Marinomustapha Castillo APRN DOWEL PIN WORKER Unavailable Olga Aguila DNP Unavailable Martin Stevens [facility] Unavailable [phone] Flavia Antonio MD Primary Care Provider [phone] Marlene Bustamante [facility] Unavailable [phone] Encounter Details Date Type Department Care Team (Late st Contact Info) Description 04/30/2023 [facility] Medical Advice Maria T [facility] and Infectious Diseases [facility] [address] [place] [address] Marlene Bustamante, [address] [address] Social History Tobacco Use Types Packs/Day Years Used Date Smoking Tobacco: Former Cigarettes 1 13 Q uit: 05/02/2019 Smokeless Tobacco: Never Alcohol Use Standard Drinks/Week Comments Not Currently 0 (1 standard drink = 0.6 oz pure alcohol) Alcoholic Drinks/day: currently on antibuse PHQ-2 Answer Date Recorded PHQ-2 Score 0 10/29/2021 Ledbetter Depression Scale Answer Date Recorded Ledbetter Depression Score 3 07/11/2021 Last EPDS Self [...] Description 03/10/2024 8:00 AM CDT Virtual Visit [facility] Care [place] [address] [facility] [address] [place] [address] Deo Wood MD [address] [facility] [address] [place] [address] documented as of this encounter Visit Diagnoses Not on filedocumented in this encounter Additional Health Concerns Assessment Noted Time PHQ-9 Depression Total Score: 9 10/09/19 22 11:57 AM CDT documented as of this encounter Care Teams Strickler Attendant Relationship Specialty Start Date End Date Herlinda Marino APRN DOWEL PIN WORKER [facility] [address] [place] [address] [address] PCP - Obstetrics/Gynecology 02/03/19 Flavia Antonio MD [address] [address] PCP - General Family Medicine 03/12/23 Olga Aguila DNP [address] [place] [address] Assigned PCP 02/22/22 Martin Stevens [facility] [address] [place] [id number] Pharmacist Pharmacist 02/20/23 Marlene Bustamante [facility] [address] [place] [id number] Pharmacist Pharmacist Director Of Retail Analytics 04/30/23 documented as of this encounter
--- OUTSIDE RECORDS SUMMARY | 2023-05-28 10:21 | XMS_ITS | Encounter Summary ---
Author Name Unknown Organization [facility] Address [address], [place] [address] Care Team Providers Care Net Finisher Name Role Phone Heydi Sutton MD Primary Care Provider [phone] Encounter Details Date Type Department Care Team Description 11/12/2011 Consent for Procedure/Treatment [facility] INFORMED CONSENT RECORD Social History Tobacco Use Types Packs/Day Years [...] as of this encounter Progress Notes * [facility], PROVIDER - 11/12/2011 12:00 AM CDT documented in this encounter Plan of Treatment Upcoming Encounters Date Type Department Care Team Description 07/23/2023 10:20 AM TURNER MACHINE Appointment [facility] [address] [place] [address] [place] [address] Cyril Stokes, [address] [address] documented as of this encounter Visit Diagnoses Not on filedocumented in this encounter Care Teams Net Finisher Relationship Specialty Start Date End Date Heydi Sutton MD [address] [facility] [place] [address] PCP - General Family Practice 09/22/11 documented as of this encounter
--- OUTSIDE RECORDS SUMMARY | 2023-05-28 10:21 | XMS_ITS | Encounter Summary ---
Author Name Unknown Organization [facility] Address [address], [place] [address] Care Team Providers Care Jewelry Model Maker Name Role Phone Heydi Sutton MD Primary Care Provider [phone] Encounter Details Date Type Department Care Team Description 11/18/2011 Emergency Room External to [facility], Provider DISCHARGE SUMMARY Social History Tobacco Use Types [...] this encounter Progress Notes * [facility], Provider - 11/18/2011 12:00 AM CDT documented in this encounter Plan of Treatment Upcoming Encounters Date Type Department Care Team Description 07/23/2023 10:20 AM OCEANIC SCIENCES PROFESSOR Appointment [facility] [address] [place] [address] [place] [address] Cyril Stokes, [address] [address] documented as of this encounter Visit Diagnoses Not on filedocumented in this encounter Care Teams Jewelry Model Maker Relationship Specialty Start Date End Date Heydi Sutton MD [address] [place] [address] PCP - General Family Practice 09/22/11 documented as of this encounter
--- OUTSIDE RECORDS SUMMARY | 2023-05-28 10:21 | XMS_ITS | Encounter Summary ---
Author Name Unknown Organization [place] Address [facility] [place] [address] Care Team Providers Care Cryptologist Name Role Phone Herlinda Marino Jonathan SUPPLY CATALOGUER CONTROL INSPECTOR Unavailable Olga Aguila DNP Unavailable Arjun Pruitt MD Primary Care Provide r Martin Stevens [facility] Unavailable [phone] Reason for Visit * Reason Comments Medication Refill Encounter Details Date Type Department Care Team (Late st Contact Info) Description 02/19/2023 Refill M [facility] [address] [facility] [address] [place] [phone] Shirley Mcneal, SUPPLY CATALOGUER CONTROL INSPECTOR [address] [facility] [address] [place] [address] Medication Refill Social History Tobacco Use Types Packs/Day Years Used Date Smoking Tobacco: Former Cigarettes 1 13 Q uit: 05/02/2019 Smokeless Tobacco: Never Alcohol Use Standard Drinks/Week Comments Not Currently 0 (1 standard drink = 0.6 oz pure alcohol) Alcoholic Drinks/day: currently on antibuse PHQ-2 Answer Date Recorded PHQ-2 Score 0 10/29/2021 Simpson Depression Scale Answer Date Recorded Simpson Depression Score 3 07/11/2021 Last EPDS Self [...] Description 03/10/2024 8:00 AM CDT Virtual Visit [facility] Care [address] [place] [phone] Deo Wood MD [facility] [address] [place], [place] [phone] documented as of this encounter Visit Diagnoses Diagnosis Anxiety Anxiety state, unspecified documented in this encounter Additional Health Concerns Assessment Noted Time PHQ-9 Depression Total Score: 9 10/09/19 22 11:57 AM CDT documented as of this encounter Care Teams Cryptologist Relationship Specialty Start Date End Date Herlinda Marino APRN CONTROL INSPECTOR [facility] [id number] [place] [address] PCP - Obstetrics/Gynecology 02/03/19 Arjun Pruitt MD [facility] [address] [facility] [address] [place] [address] PCP - General cafeteria food server 06/25/22 03/11/23 Olga Aguila DNP [address] [place] [id number] Assigned PCP 02/22/22 Martin Stevens RPH [address] [place] [address] Pharmacist Pharmacist 02/20/23 documented as of this encounter
--- OUTSIDE RECORDS SUMMARY | 2023-05-28 10:22 | XMS_ITS | Encounter Summary ---
Author Name Unknown Organization [facility] Address Formerly [facility]0 [facility] [place] [address] Care Team Providers Care Neurological Surgeon Name Role Phone Herlinda Marino APRN GED TUTOR Unavailable [phone] Xochitl Smith MD Unavailable Olga Aguila DNP Unavailable Arjun Pruitt MD Primary Care Provide r Reason for Visit * Auth/Cert (Routine) Specialty Diagnoses / Procedures Referred By Les cabrera Referred To Contact Surgery Diagnoses Excessive and frequent menstruation with regular cycle Excessive and frequent menstruation with regular cycle [N92.0] Procedures NC LAP, SUPRACERVIAL HYSTERECTOMY, <250G NC LAP, SUPRACERVIAL HYSTERECTOMY, >250G NC LAPAROSCOPY, SURGICAL; W/ VAGINAL HYSTERECTOMY W/WO REMOVAL OVARY(S)/TUBES NC LAP,VAG HYST,UTERUS >250GMS NC LAPAROSCOPY W TOT HYSTERECT UTERUS 250 GRAM OR LESS NC LAPAROSCOPY TOTAL HYSTERECTOMY UTERUS > 250 GRAM ROBOTIC ASSISTED HYSTERECTOMY WITH BILATERAL SALPINGECTOMY [facility] [address] [place] [address] Referral ID Status Reason Start Date Expiration Date Visits Re quested Visits Authorized [id number] 1 1 Encounter Details Date Type Department Care Team (Late st Contact Info) Description 07/02/2022 9:41 AM ELECTRICAL CONTINUITY TESTER Anesthesia Event [facility] [address] [place] [address] Helen Mims MD [address] [place] [address] Anesthesia Record Procedure Summary Procedure Name Responsible Anesthesiologist Anesthesia Start Time Anesthesia Stop Time ROBOTIC ASSISTED HYSTERECTOMY WITH BILATERAL SALPINGECTOMY (Bilateral: Abdomen) Helen Mims MD 07/02/22 0941 07/02/22 1101 Events Date Time Event Comment 07/02/2022 0911 0941 An Start 0943 AN REASSESS I attest that I have identified and re-evaluated the patient immediately before the induction of anesthesia and I am satisfied that the anesthetic plan is suitable for the patient's condition and procedure. The first vital signs recorded are pre- induction. Yane Hall, PEDIATRIC ONCOLOGIST, SECTION HAND HELPER PEDIATRIC ONCOLOGIST 0943 An Start Data 0949 An Induction 0951 An Intubation 0953 Anesthesia Ready for Procedu re 1057 AN Extubation All extubation criteria met prior to removal. 1058 an stop data 1101 An Stop Electronically signed by Helen Mims MD on July 02, 2022 12:33 PM Meds Name Total midazolam 1 mg/mL 2 mg fentaNYL 50 mcg/mL 150 mcg lidocaine 1% 30 mg propofol 10 mg/mL 200 mg rocuronium 10 mg/mL 50 mg dexamethasone (DECADRON) 10 mg/mL 10 mg ondansetron 2 mg/mL 4 mg glycopyrrolate 0.2 mg/mL 0.2 mg sugammadex (BRIDION) 200mg/2mL 200 mg ceFAZolin Sodium (ANCEF) injection 2 g 2 g lactated ringers infusion 1,300 mL * Agents Name NO HELIOX O2 N2O Air Exp Sevoflurane Exp Isoflurane Exp Desflurane Exp N2O O2 Delivery Device Ins Sevoflurane Ins Isoflurane Ins Desflurane O2 Auxiliary * Blood No blood administrations on file. Lines, Drains, and Airways Type Details Placement Removal Incision/Surgical Site 07/02/22; 1003; Bilateral; Abdomen; 4 abdominal port sites 07/02/22 1003 by Gracie Finn RN RETIRE: Peripheral IV 07/02/22; 09; 20 G; Anterior, Left; Lower forearm; Chlorhexidine; None; 1; Tolerated well 07/02/22 0909 by Brigitte Wen RN 07/02/22 1558 by Jeannine Noland RN ETT Placement Date: 07/02/22; Placement Time: 09 (created via procedure documentation); Mask Ventilation: 1; Induction Type: Intravenous; Ease of Intubation: Easy; Technique: Direct laryngoscopy; ETT Type: Single; Tube Size: 7 mm; DL Blade Size: Bundy 2; Grade View: 1; Adjucts: Stylet; Placement Person: PEDIATRIC ONCOLOGIST; Attempts: 1; Depth: 22 cm 07/02/22 0951 by Yane Hall APRN PEDIATRIC ONCOLOGIST 07/02/22 1057 by Yane Hall APRN PEDIATRIC ONCOLOGIST Urethral Catheter 07/02/22; 1012; /GI/INSURANCE INVESTIGATOR Pelvic Procedure; 16 fr 07/02/22 1012 by Gracie Finn RN 07/02/22 1054 by Gracie Finn RN documented in this encounter Social History Tobacco Use Types Packs/Day Years Used Date Smoking Tobacco: Former Cigarettes 1 13 Q uit: 05/02/2019 Smokeless Tobacco: Never Alcohol Use Standard Drinks/Week Comments Not Currently 0 (1 standard drink = 0.6 oz pure alcohol) Alcoholic Drinks/day: currently on antibuse PHQ-2 Answer Date Recorded PHQ-2 Score 0 10/29/2021 [place] Depression Scale Answer Date Recorded [place] Depression Score 3 07/11/2021 Last EPDS Self Harm Result Not on file 07/11 Sex and Gender Information Value Date Recorded Sex Assigned at Not on file Gender Identity Not on file Sexual Orientation Not on file documented as of this encounter OR Notes * Anesthesia Postprocedure Evaluation - Helen Mims MD - 07/02/2022 12:33 PM CST Patient: Ángel Tyler Procedure: Procedure(s): ROBOTIC ASSISTED HYSTERECTOMY WITH BILATERAL SALPINGECTOMY Anesthesia Type: General Note: Disposition: Outpatient Postop Pain Control: Uneventful Sign Out: Well controlled pain PONV: No Neuro/Psych: Uneventful Sign Out: Acceptable/Baseline neuro status Airway/Respiratory: Uneventful Sign Out: Acceptable/Baseline resp. status CV/Hemodynamics: Uneventful Sign Out: Acceptable CV status; No obvious hypovolemia; No obvious fluid overload Other NRE: DID A NON-ROUTINE EVENT OCCUR? Last vitals: Vitals Value Taken Time BP 127/60 07/02/22 1210 Temp 36.2 ??C (97.1 ??F) 07/02/22 1104 Pulse 92 07/02/22 1213 Resp 15 07/02/22 1211 SpO2 95 % 07/02/22 1213 Vitals shown include unvalidated device data. Electronically Signed By: Helen Mims MD July 02, 2022 12:33 PM TRICAL CONTINUITY TESTER * Anesthesia Procedure Notes - Yane Hall APRN PEDIATRIC ONCOLOGIST - 07/02/2022 9:59 AM CSTAssociated Order(s): Airway Airway Patient location during procedure: OR Procedure Start/Stop Times: 07/02/2022 9:51 AM Staff - PEDIATRIC ONCOLOGIST: Yane Hall APRN CRNA Performed By: PEDIATRIC ONCOLOGIST Consent for Airway Urgency: elective Indications and Patient Condition Indications for airway management: amarilis-procedural Induction type:intravenous Mask difficulty assessment: 1 - vent by mask Final Airway Details Final airway type: endotracheal airway Successful airway: ETT - single Endotracheal Airway Details ETT size (mm): 7.0 Cuffed: yes Successful intubation technique: direct laryngoscopy DL Blade Type: Bundy 2 Grade View of Cords: 1 Adjucts: stylet Position: Right Measured from: lips Secured at (cm): 22 Bite block used: None Post intubation assessment Placement verified by: capnometry, equal breath sounds and chest rise Number of attempts at approach: 1 Number of other approaches attempted: 0 Secured with: silk tape Ease of procedure: easy Dentition: Unchanged Dental guard used and removed. Dental Guard Type: Proguard Red. Medication(s) Administered Medication Administration Time: 07/02/2022 9:51 AM TRICAL CONTINUITY TESTER * Anesthesia Preprocedure Evaluation - Helen Mims MD - 07/02/2022 9:10 AM CST Anesthesia Pre-Procedure Evaluation Patient: Ángel Tyler : 1985 Procedure : Procedure(s): ROBOTIC ASSISTED HYSTERECTOMY WITH BILATERAL SALPINGECTOMY Past Medical History: Diagnosis Date ??? Anxiety ??? Hypertension ??? Hypothyroidism ??? Methamphetamine use (H) Clean for 10 years ??? Morbid obesity (H) ??? PCOS (polycystic ovarian syndrome) 09/03/2010 Overview: US dated: 08/30/10 showed polycystic ovaries Reports hx of irregular menses ??? Pneumonia 12/2019 ??? Vitamin D deficiency Past Surgical History: Procedure Laterality Date ??? NC LAP, PATRICA RESTRICT PROC, LONGITUDINAL GASTRECTOMY N/A 03/12/2020 Procedure: GASTRECTOMY, SLEEVE, LAPAROSCOPIC; Surgeon: Hussain Man MD; Location: [facility] OR; Service: General ??? TONSILLECTOMY Allergies Allergen Reactions ??? Fluoxetine Other (See Comments) Makes her very drowsy during the day. ??? Hydrocodone Diarrhea Other reaction(s): Gastrointestinal Social History Tobacco Use ??? Smoking status: Former Packs/day: 1.00 Years: 13.00 Pack years: 13.00 Types: Cigarettes Quit date: 05/02/2019 Years since quittin.1 ??? Smokeless tobacco: Never Substance Use Topics ??? Alcohol use: Not Currently Comment: Alcoholic Drinks/day: currently on antibuse Wt Readings from Last 1 Encounters: 07/02/22 75.9 kg (167 lb 4.8 oz) Anesthesia Evaluation ROS/MED HX ENT/Pulmonary: (+) asthma (-) recent URI Neurologic: Cardiovascular: (+) hypertension----- METS/Exercise Tolerance: Hematologic: - neg hematologic ROS Musculoskeletal: GI/Hepatic: - neg GI/hepatic ROS Renal/Genitourinary: - neg Renal ROS Endo: (+) thyroid problem, Obesity (BMI 34), Psychiatric/Substance Use: Infectious Disease: Malignancy: Other: Physical Exam Airway Mallampati: II TM distance: > 3 FB Neck ROM: full Mouth opening: > 3 cm Respiratory Devices and Support Dental (+) Minor Abnormalities - some fillings, tiny chips Cardiovascular Rhythm and rate: regular and normal Pulmonary breath sounds clear to auscultation OUTSIDE LABS: CBC: Lab Results Component Value Date WBC 4.3 07/02/2022 WBC 6.2 03/05/2022 HGB 13.3 07/02/2022 HGB 14.2 03/05/2022 HCT 39.5 07/02/2022 HCT 41.6 03/05/2022 PLT 199 07/02/2022 PLT 321 03/05/2022 BMP: Lab Results Component Value Date NA 140 03/05/2022 NA 139 01/16/2022 POTASSIUM 4.3 03/05/2022 POTASSIUM 3.7 01/16/2022 CHLORIDE 106 03/05/2022 CHLORIDE 102 01/16/2022 CO2 25 03/05/2022 CO2 26 01/16/2022 BUN 12 03/05/2022 BUN 7 (L) 01/16/2022 CR 0.68 03/05/2022 CR 0.64 01/16/2022 GLC 89 03/05/2022 GLC 100 01/16/2022 COAGS: Lab Results Component Value Date PTT 28 03/08/2020 INR 0.96 03/08/2020 POC: Lab Results Component Value Date HCG Negative 07/02/2022 HEPATIC: Lab Results Component Value Date ALBUMIN 4.5 03/05/2022 PROTTOTAL 7.4 03/05/2022 ALT 13 03/05/2022 AST 14 03/05/2022 ALKPHOS 66 03/05/2022 BILITOTAL 0.5 03/05/2022 OTHER: Lab Results Component Value Date A1C 5.2 03/05/2022 KIKE 9.8 03/05/2022 MAG 1.6 (L) 10/04/2021 LIPASE 21 10/04/2021 TSH 0.97 10/29/2021 Anesthesia Plan ASA Status: 2 NPO Status: NPO Appropriate Anesthesia Type: General. - Airway: ETT Consents Anesthesia Plan(s) and associated risks, benefits, and realistic alternatives discussed. Questions answered and patient/contracts representative(s) expressed understanding. - Discussed: Risks, Benefits and Alternatives for BOTH SEDATION and the PROCEDURE were discussed - Discussed with: Patient Postoperative Care Pain management: Multi-modal analgesia. Comments: Helen Mims MD TRICAL CONTINUITY TESTER documented in this encounter Miscellaneous Notes * Anesthesia Care Transfer Note - Yane Hall APRN PEDIATRIC ONCOLOGIST - 07/02/2022 11:05 AM CST Patient: Ángel Tyler Procedure: Procedure(s): ROBOTIC ASSISTED HYSTERECTOMY WITH BILATERAL SALPINGECTOMY Diagnosis: Excessive and frequent menstruation with regular cycle [N92.0] Diagnosis Additional Information: No value filed. Anesthesia Type: General Note: Oropharynx: oropharynx clear of all foreign objects Level of Consciousness: awake Oxygen Supplementation: face mask Level of Supplemental Oxygen (L/min / FiO2): 8 Independent Airway: airway patency satisfactory and stable Dentition: dentition unchanged Vital Signs Stable: post-procedure vital signs reviewed and stable Report to RN Given: handoff report given Patient transferred to: PACU Handoff Report: Identifed the Patient, Identified the Reponsible Provider, Reviewed the pertinent medical history, Discussed the surgical course, Reviewed Intra-OP anesthesia mangement and issues during anesthesia, Set expectations for post-procedure period and Allowed opportunity for questions andacknowledgement of understanding Vitals: Vitals Value Taken Time BP Temp Pulse 95 07/02/22 1104 Resp SpO2 100 % 07/02/22 1104 Vitals shown include unvalidated device data. Electronically Signed By: Yane Hall CRNA, APRN CRNA July 02, 2022 11:05 AM TRICAL CONTINUITY TESTER documented in this encounter Plan of Treatment Upcoming Encounters Date Type Department Care Team (Late st Contact Info) Description 03/10/2024 8:00 AM CDT Virtual Visit [facility] [address] [address] Deo Wood MD [address] [place] [id number] documented as of this encounter Procedures Procedure Name Priority Date/Time Associated Diagnosis Comments ANE AIRWAY ETT PERFORMABLE Routine 07/02/2022 9:51 AM ELECTRICAL CONTINUITY TESTER documented in this encounter Results * ANE AIRWAY ETT PERFORMABLE (07/02/2022 9:51 AM ELECTRICAL CONTINUITY TESTER) Narrative Yane Hall APRN CRNA - 07/02/2022 9:51 AM ELECTRICAL CONTINUITY TESTER Yane Hall APRN CRNA ? 07/02/2022 ??9:59 AM Airway ? Patient location during procedure: OR ? Procedure Start/Stop Times: 07/02/2022 9:51 AM Staff - ? PEDIATRIC ONCOLOGIST: Yane Hall APRN PEDIATRIC ONCOLOGIST ? Performed By: PEDIATRIC ONCOLOGIST Consent for Airway ? Urgency: elective Indications and Patient Condition ? Indications for airway management: amarilis-procedural ? Induction type:intravenous ? Mask difficulty assessment: 1 - vent by mask Final Airway Details ? Final airway type: endotracheal airway ? Successful airway: ETT - single Endotracheal Airway Details ? ETT size (mm): 7.0 ? Cuffed: yes ? Successful intubation technique: direct laryngoscopy ? DL Blade Type: Bundy 2 ? Grade View of Cords: 1 ? Adjucts: stylet ? Position: Right ? Measured from: lips ? Secured at (cm): 22 ? Bite block used: None Post intubation assessment ? Placement verified by: capnometry, equal breath sounds and chest rise ? Number of attempts at approach: 1 ? Number of other approaches attempted: 0 ? Secured with: silk tape ? Ease of procedure: easy ? Dentition: Unchanged ? Dental guard used and removed. Dental Guard Type: Proguard Red. Medication(s) Administered Medication Administration Time: 07/02/2022 9:51 AM Helen Mims MD NC ANESTHESIA documented in this encounter Visit Diagnoses Not on filedocumented in this encounter Administered Medications Inactive Administered Medications - up to 3 most recent administrations Medication Order MAR Action Action Date Dose Rate Site ceFAZolin Sodium (ANCEF) injection 2 g Routine, 2 g, Intravenous, PRE-OP/PRE-PROCEDURE, Starting on Thu07/02/22 at 0813, For 1 dose, Give first dose within 1 hour PRIOR to incision. If patient weight is greater than or equal to 120 kg increase dose to 3 g., Indications: Perioperative Pharmacoprophylaxis, Pre-procedure $Given 07/02/2022 9:47 AM ELECTRICAL CONTINUITY TESTER 2 g dexamethasone PF (DECADRON) injection Intravenous, PRN, Administer over 1 Minutes, Starting on Thu07/02/22 at 0949, Anesthesia Intra-op $Given 07/02/2022 9:49 AM ELECTRICAL CONTINUITY TESTER 10 mg fentaNYL (PF) (SUBLIMAZE) injection Intravenous, PRN, Administer over 3-5 Minutes, Starting on Thu07/02/22 at 0949, Anesthesia Intra-op $Given 07/02/2022 10:27 AM ELECTRICAL CONTINUITY TESTER 50 mcg $Given 07/02/2022 9:49 AM ELECTRICAL CONTINUITY TESTER 100 mcg glycopyrrolate (ROBINUL) injection Intravenous, PRN, Administer over 1-2 Minutes, Starting on Thu07/02/22 at 0949, Anesthesia Intra-op $Given 07/02/2022 9:49 AM ELECTRICAL CONTINUITY TESTER 0.2 mg lactated ringers infusion at 100 mL/hr, Intravenous, CONTINUOUS, Pre-procedure, Starting on Thu07/02/22 at 0900, Until Thu07/02/22 at 1101 $New Bag 07/02/2022 10:21 AM ELECTRICAL CONTINUITY TESTER Restarted 07/02/2022 9:41 AM ELECTRICAL CONTINUITY TESTER $New Bag 07/02/2022 9:10 AM ELECTRICAL CONTINUITY TESTER 100 mLs 100 mL/hr lidocaine 1 % injection Intravenous, PRN, Starting on Thu07/02/22 at 0949, Anesthesia Intra-op $Given 07/02/2022 9:49 AM ELECTRICAL CONTINUITY TESTER 30 mg midazolam (VERSED) injection Intravenous, Administer over 2 Minutes, PRN, Starting on Thu07/02/22 at 0941, Anesthesia Intra-op $Given 07/02/2022 9:41 AM ELECTRICAL CONTINUITY TESTER 2 mg ondansetron (ZOFRAN) injection Intravenous, PRN, Administer over 2-5 Minutes, Starting on Thu07/02/22 at 1036, Anesthesia Intra-op $Given 07/02/2022 10:36 AM ELECTRICAL CONTINUITY TESTER 4 mg propofol (DIPRIVAN) injection 10 mg/mL vial Intravenous, PRN, Starting on Thu07/02/22 at 0949, Anesthesia Intra-op $Given 07/02/2022 9:49 AM ELECTRICAL CONTINUITY TESTER 200 mg rocuronium injection Intravenous, PRN, Starting on Thu07/02/22 at 0950, Anesthesia Intra-op $Given 07/02/2022 9:50 AM ELECTRICAL CONTINUITY TESTER 50 mg sugammadex (BRIDION) injection Intravenous, PRN, Starting on Thu07/02/22 at 1051, Anesthesia Intra-op $Given 07/02/2022 10:51 AM ELECTRICAL CONTINUITY TESTER 200 mg documented in this encounter Additional Health Concerns Assessment Noted Time PHQ-9 Depression Total Score: 9 10/09/19 22 11:57 AM CDT documented as of this encounter Care Teams Neurological Surgeon Relationship Specialty Start Date End Date Herlinda Marino, SECTION HAND HELPER GED TUTOR [facility] [address] [place] [address] PCP - Obstetrics/Gynecology 02/03/19 Arjun Pruitt MD [facility] [address] [place] [address] PCP - General legal executive 06/25/22 03/11/23 Xochitl Smith MD [address] [address] Assigned OBGYN Provider 04/14/21 Olga Aguila DNP [address] [place] [address] Assigned PCP 02/22/22 documented as of this encounter
--- OUTSIDE RECORDS SUMMARY | 2023-05-28 10:22 | XMS_ITS | Encounter Summary ---
Author Name Unknown Organization [place] Address [facility] [place] [address] Care Team Providers Care Coil Winding Supervisor Name Role Phone Flavia Antonio MD Primary Care Provider [phone] Herlinda Marino GAS PUMPER BOILER INSPECTOR Unavailable Flavia Antonio MD Unavailable [phone] Xochitl Smith MD Unavailable Deysi Greenwood GAS PUMPER BOILER INSPECTOR Unavailable Flavia Antonio MD Primary Care Provider Flavia Antonio MD Unavailable Olga Aguila DNP Unavailable [phone] Arjun Pruitt MD Primary Care Provide r Martin Stevens [facility] Unavailable [phone] Flavia Antonio MD Primary Care Provider Marlene Bustamante [facility] Unavailable [phone] Encounter Details Date Type Department Care Team (Late st Contact Info) Description 11/15/2021 Jose Live [facility] [address] [address] Allie Hernandez Social History Tobacco Use Types Packs/Day Years Used Date Smoking Tobacco: Former Cigarettes 1 13 Q uit: 05/02/2019 Smokeless Tobacco: Never Alcohol Use Standard Drinks/Week Comments Not Currently 0 (1 standard drink = 0.6 oz pure alcohol) Alcoholic Drinks/day: currently on antibuse PHQ-2 Answer Date Recorded PHQ-2 Score 0 10/29/2021 [place] Depression Scale Answer Date Recorded [place] Depression Score 3 07/11/2021 Last EPDS Self [...] suspected to have Coronavirus/COVID-19? No / Unsure 10/29/2021 6:57 AM CDT documented as of this encounter Plan of Treatment Upcoming Encounters Date Type Department Care Team (Late st Contact Info) Description 03/10/2024 8:00 AM CDT Virtual Visit [facility] [address] [place] [address] Deo Wood MD [address] [place] [address] [address] [place], [place] [id number] documented as of this encounter Visit Diagnoses Not on filedocumented in this encounter Additional Health Concerns Assessment Noted Time PHQ-9 Depression Total Score: 9 10/09/19 22 11:57 AM CDT documented as of this encounter Care Teams Coil Winding Supervisor Relationship Specialty Start Date End Date Flavia Antonio MD PCP - General 12/07/18 01/15/22 Herlinda Marino APRN BOILER INSPECTOR [facility] [id number] [place] [address] PCP - Obstetrics/Gynecology 02/03/19 Flavia Antonio MD [address] [facility] [address] [place] [address] PCP - General Family Medicine 01/16/22 06/06/22 Arjun Pruitt MD [address] [place] [address] PCP - General child nutrition assistant 06/25/22 03/11/23 Flavia Antonio MD [address] [address] PCP - General Family Medicine 03/12/23 Flavia Antonio MD [address] [address] Assigned PCP 10/31/20 12/13/21 Xochitl Smith MD [facility] [address] Assigned OBGYN Provider 04/14/21 Deysi Greenwood APRN [facility] [address] [address] Assigned PCP 12/14/21 01/24/22 Flavia Antonio MD [address] [address] Assigned PCP 01/25/22 02/21/22 Olga Aguila DNP [address] [place] [address] Assigned PCP 02/22/22 Martin Stevens, [facility] [address] [place] [address] Pharmacist Pharmacist 02/20/23 Marlene Bustamante RPH [address] [place] [address] Pharmacist Pharmacist Data Manager 04/30/23 documented as of this encounter
--- OUTSIDE RECORDS SUMMARY | 2023-05-28 10:22 | XMS_ITS | Encounter Summary ---
Author Name Unknown Organization [place] Address [facility] [place] [address] Care Team Providers Care Scrap Kettle Tender Name Role Phone Herlinda Marino APRN BAR CATCHER Unavailable [phone] Xochitl Smith MD Unavailable Olga Aguila DNP Unavailable Arjun Pruitt MD Primary Care Provide r Reason for Visit * Auth/Cert (Routine) Specialty Diagnoses / Procedures Referred By Les cabrera Referred To Contact Surgery Diagnoses Excessive and frequent menstruation with regular cycle Excessive and frequent menstruation with regular cycle [N92.0] Procedures VA LAP, SUPRACERVIAL HYSTERECTOMY, <250G VA LAP, SUPRACERVIAL HYSTERECTOMY, >250G VA LAPAROSCOPY, SURGICAL; W/ VAGINAL HYSTERECTOMY W/WO REMOVAL OVARY(S)/TUBES VA LAP,VAG HYST,UTERUS >250GMS VA LAPAROSCOPY W TOT HYSTERECT UTERUS 250 GRAM OR LESS VA LAPAROSCOPY TOTAL HYSTERECTOMY UTERUS > 250 GRAM ROBOTIC ASSISTED HYSTERECTOMY WITH BILATERAL SALPINGECTOMY n [facility] [address] [place] [address] Referral ID Status Reason Start Date Expiration Date Visits Re quested Visits Authorized [id number] 1 1 Encounter Details Date Type Department Care Team (Late st Contact Info) Description 07/02/2022 7:52 AM EMPLOYEE OPERATIONS EXAMINER - 07/02/2022 3:57 PM EMPLOYEE OPERATIONS EXAMINER Hospital Encounter [facility] Phase II [address] [place] [id number] Arjun Pruitt MD [address] [place] [address] DR RAMOS [address] [place] [address] [phone] Menorrhagia with regular cycle (Primary Dx) Discharge Disposition: Home or Self Care Social History Tobacco Use Types Packs/Day Years Used Date Smoking Tobacco: Former Cigarettes 1 13 Q uit: 05/02/2019 Smokeless Tobacco: Never Tobacco Cessation:Counseling Given: Not Answered Alcohol Use Standard Drinks/Week Comments Not Currently 0 (1 standard drink = 0.6 oz pure alcohol) Alcoholic Drinks/day: currently on antibuse PHQ-2 Answer Date Recorded PHQ-2 Score 0 10/29/2021 [place] Depression Scale Answer Date Recorded [place] Depression Score 3 07/11/2021 Last EPDS Self Harm Result Not on file 07/11 Sex and Gender Information Value Date Recorded Sex Assigned at Not on file Gender Identity Not on file Sexual Orientation Not on file documented as of this encounter Last Filed Vital Signs Vital Sign Reading Time Taken Comments Blood Pressure 140/70 07/02/2022 2:00 PM EMPLOYEE OPERATIONS EXAMINER Pulse 92 07/02/2022 3:00 PM EMPLOYEE OPERATIONS EXAMINER Temperature 36.2 ??C (97.1 ??F) 07/02/2022 12:[address] Respiratory Rate 16 07/02/2022 12:29 PM EMPLOYEE OPERATIONS EXAMINER Oxygen Saturation 94% 07/02/2022 3:00 PM EMPLOYEE OPERATIONS EXAMINER Inhaled Oxygen Concentration - - Weight 75.9 kg (167 lb 4.8 oz) 07/02/2022 7:00 A M EMPLOYEE OPERATIONS EXAMINER Height - - Body Mass Index 32.67 03/12/2022 8:05 AM CDT documented in this encounter Discharge Instructions * Attachments The following attachments cannot be sent through Care Everywhere. * After Your Surgery: Discharge Instructions (Argentine) documented in this encounter Medications at Time of Discharge Medication Sig Dispensed Refills Start Date End Date cholecalciferol (VITAMIN D3) 125 mcg (5000 units) capsule Take 125 mcg by mouth daily 0 levothyroxine (SYNTHROID) 150 MCG tabletIndications:Hypoth yroidism, unspecified type [LEVOTHYROXINE (SYNTHROID) 150 MCG TABLET] Take 1 tablet (150 mcg total) by mouth daily. 30 tablet 11 02/10/2020 multivitamin, therapeutic (THERA-VIT) TABS tablet Take 2 tablets by mouth daily 0 traZODone (DESYREL) 50 MG tablet TAKE 1/2 TO 2 TABLETS BY MOUTH ONCE DAILY NEEDED FOR INSOMNIA. 0 02/22/2022 vitamin B-12 (CYANOCOBALAMIN) 2500 MCG sublingual tablet Take 5,000 mcg by mouth once a week 0 FLUARIX QUADRIVALENT 0.5 ML injection 0 05/07/2022 tranexamic acid (LYSTEDA) 650 MG tablet TAKE 2 TABLETS BY MOUTH 3 TIMES DAILY FOR UP TO 5 DAYS DURING MONTHLY MENSTRUATION. 0 02/28/2022 buPROPion (WELLBUTRIN XL) 150 MG 24 hr tablet Take 150 mg by mouth daily 0 02/22/2022 03/12/2023 oxyCODONE (ROXICODONE) 5 MG tabletIndications:Menorr hagia with regular cycle Take 1-2 tablets (5-10 mg) by mouth every 4 hours as needed for moderate to severe pain 12 tablet 0 07/02/2022 03/12/2023 aluminum chloride (DRYSOL) 20 % external solutionIndications:Gene ralized hyperhidrosis Apply topically At Bedtime 60 mL 3 07/11/2021 02/22/2023 naltrexone (DEPADE/REVIA) 50 MG tabletIndications:Alcoho l related disorder (H24) Take 1 tablet (50 mg) by mouth daily 30 tablet 1 12/30/2021 03/12/2023 documented as of this encounter H&P Notes * Arjun Pruitt MD - 07/02/2022 9:14 AM CST History and Physical NAME: Ángel Tyler : 1985 [facility] ADMISSION DATE: 07/02/2022 PCP: Arjun Pruitt CHIEF COMPLAINT: vaginal bleeding HPI: Ángel Tyler is admitted for hysterectomy for menorraghia.. Patient is a 36 year old @GP@ Female. History is obtained through the patient and chart review. Patient reports that she has bleeding in between her periods. Patient states that these symptoms began several months ago. Patientreports a previous history of adenomyosis. Patient denies a history of menorrhagia. Patient states that she has been evaluated for this previously. Patient has not required a transfusion previously secondary to this type of bleeding. She denies lightheaded, chest pain or shortness of breath. Previous treatment for this has included: OCP,hormonal therapy. [employer]/Menstral History: patient states that she started menarche at the age of 11. States that her cycle is 29 days apart and that her periods last approximately 7 days. She characterizes them as heavy. She is not using oral contraceptive pills. Patient states that she is sexually active. Patient states that she has no pain with intercourse. Patient is not at increased risk for sexually transmitteddisease. No LMP recorded. PAST MEDICAL HISTORY: Past Medical History: Diagnosis Date ??? Anxiety ??? Hypertension ??? Hypothyroidism ??? Methamphetamine use (H) Clean for 10 years ??? Morbid obesity (H) ??? PCOS (polycystic ovarian syndrome) 09/03/2010 Overview: US dated: 08/30/10 showed polycystic ovaries Reports hx of irregular menses ??? Pneumonia 12/2019 ??? Vitamin D deficiency PAST SURGICAL HISTORY: Past Surgical History: Procedure Laterality Date ??? VA LAP, PATRICA RESTRICT PROC, LONGITUDINAL GASTRECTOMY N/A 03/12/2020 Procedure: GASTRECTOMY, SLEEVE, LAPAROSCOPIC; Surgeon: Hussain Man MD; Location: [facility]; Service: General ??? TONSILLECTOMY SOCIAL HISTORY: Social History Socioeconomic History ??? Marital status: Single Spouse name: Not on file ??? Number of children: Not on file ??? Years of education: Not on file ??? Highest education level: Not on file Occupational History ??? Not on file Tobacco Use ??? Smoking status: Former Packs/day: 1.00 Years: 13.00 Pack years: 13.00 Types: Cigarettes Quit date: 05/02/2019 Years since quittin.1 ??? Smokeless tobacco: Never Substance and Sexual Activity ??? Alcohol use: Not Currently Comment: Alcoholic Drinks/day: currently on antibuse ??? Drug use: Not Currently Types: Methamphetamines, Morphine ??? Sexual activity: Yes Partners: Male Other Topics Concern ??? Not on file Social History Narrative ??? Not on file Social Determinants of Health Financial Resource Strain: Not on file Food Insecurity: Not on file Transportation Needs: Not on file Physical Activity: Not on file Stress: Not on file Social Connections: Not on file Intimate Partner Violence: Not on file Housing Stability: Not on file MEDICATIONS: Current Facility-Administered Medications Medication ??? acetaminophen (TYLENOL) tablet 975 mg ??? ceFAZolin Sodium (ANCEF) injection 2 g ??? ceFAZolin Sodium (ANCEF) injection 2 g ??? fentaNYL (PF) (SUBLIMAZE) injection 25 mcg ??? lactated ringers infusion ??? lidocaine (LMX4) cream ??? lidocaine 1 % 0.1-1 mL ??? naloxone (NARCAN) injection 0.2 mg Or ??? naloxone (NARCAN) injection 0.4 mg Or ??? naloxone (NARCAN) injection 0.2 mg Or ??? naloxone (NARCAN) injection 0.4 mg ??? oxyCODONE (ROXICODONE) tablet 10 mg ??? oxyCODONE (ROXICODONE) tablet 5 mg ??? scopolamine (TRANSDERM) 72 hr patch 1 patch And ??? scopolamine (TRANSDERM-SCOP) Patch in Place ??? sodium chloride (PF) 0.9% PF flush 3 mL ??? sodium chloride (PF) 0.9% PF flush 3 mL ALLERGIES: Allergies Allergen Reactions ??? Fluoxetine Other (See Comments) Makes her very drowsy during the day. ??? Hydrocodone Diarrhea Other reaction(s): Gastrointestinal REVIEW OF SYSTEMS Negative except what is stated in the HPI PHYSICAL EXAM: BP 131/79 (BP Location: Right arm) Pulse 71 Temp 97.9 ??F (36.6 ??C) (Oral) Resp 18 Wt 75.9kg (167 lb 4.8 oz) SpO2 100% No BMI 32.67 kg/m?? General Appearance: Alert, appropriate appearance for age. No acute distress, HEENT : Grossly normal Chest/Respiratory: Normal chest wall and respirations. Clear to auscultation., Cardiovascular: Regular rate and rhythm Gastrointestinal: Soft,NT Pelvic Exam Female: Deferred, Musculoskeletal Exam: Back IS non-tender, no cva tenderness, moving all four extremities Skin: no rash or abnormalities, Neurologic: Normal gait and speech, no tremor Psychiatric: Alert and oriented, appropriate affect. LABS Lab Results Component Value Date HGB 13.3 07/02/2022 @LASTCHEM@ Lab Results: personally reviewed. IMAGING: @CONSULTATION@ Radiology Results: Personally reviewed impression/s IMPRESSION: 36 year old year old female with adenomyosis noted on US RECOMMENDATIONS: - Discussed options with the patient - hgb and vitals signs are stable - would recommend hysterectomy, patient states that she is no longer desiring to conceive Arjun Pruitt MD CC: Arjun Pruitt Kevin A Hallman MD Fellow, Female Pelvic Medicine and Reconstructive Surgery OYEE OPERATIONS EXAMINER documented in this encounter Miscellaneous Notes * Op Note - Arjun Pruitt MD - 07/02/2022 3:57 PM CST Procedure Date: 07/02/2022 PREOPERATIVE DIAGNOSES: Menorrhagia, pelvic pain with dysmenorrhea. POSTOPERATIVE DIAGNOSES: Menorrhagia, pelvic pain with dysmenorrhea. PROCEDURE: Robotic-assisted total hysterectomy with bilateral salpingectomy. SURGEON: Arjun Pruitt MD ACADEMIC COMPUTING DIRECTOR: Alicia Schaefer. ANESTHESIA: General. ESTIMATED BLOOD LOSS: 10 mL, replaced with lactated Ringer's. DRAINS: None. COMPLICATIONS: None. INDICATIONS FOR PROCEDURE: This is a 36-year-old female with the above symptoms. She has tried multiple attempts at control of her bleeding with hormonal therapy without success. She desired definitive treatment. She was given informed consent for the above. The risks, benefits and alternatives were discussed. She expressed understanding and wished to proceed. DESCRIPTION OF PROCEDURE: The patient was brought to the operating room and after induction of general anesthesia, was prepped and draped in the dorsal lithotomy position. A timeout was called and the patient and the procedure were verified. A NORBERTO catheter was attached to the cervix. A Green was placed and attention was directed to the abdomen where a small infraumbilical incision was made. A Veress needle was inserted and the abdomen was insufflated with 3 liters of CO2. An 8 mm trocar and trocar sheath was inserted under direct visualization and the pelvis was inspected with findings as noted above. Both ureters were identified transperitoneally. Two additional incisions were then made to the right and one to the left. The appropriate robotic trocars were placed and I took my place at the console. The ureters were identified transperitoneally again and the vessel sealer was used to come across each mesosalpinx each round and broad ligaments and then a series of parametrial bites were obtained. Bladder flap was taken down in the usual manner and a colpotomy was performed using themonopolar scissors. Specimen was then removed vaginally and the cuff was closed in 2 layers of V-Loc suture in a running manner and the same suture was used to reapproximate the uterosacral ligaments. Copious amounts of irrigation were then used. Good hemostasis was noted and the decision was made t o terminate the procedure. The instruments were removed. Sponge and instrument counts were correct.The incisions were closed with nylon. The patient tolerated the procedure well and was taken to therecovery room in good condition. Arjun Pruitt MD MT: sia Name: ÁNGEL TYLER MRN: [id number] Account: [id number] : 1985 Procedure Date: 07/02/2022 Document: [id number] OYEE OPERATIONS EXAMINER * Brief Op Note - Arjun Pruitt MD - 07/02/2022 10:57 AM EMPLOYEE OPERATIONS EXAMINER [facility] Brief Operative Note Pre-operative diagnosis: Excessive and frequent menstruation with regular cycle [N92.0] Post-operative diagnosis Same as pre-operative diagnosis Procedure: Procedure(s): ROBOTIC ASSISTED HYSTERECTOMY WITH BILATERAL SALPINGECTOMY Surgeon: Surgeon(s) and Role: * Arjun Pruitt MD - Primary Anesthesia: General Estimated Blood Loss: Less than 10 ml Drains: None Specimens: ID Type Source Tests Collected by Time Destination 1 : Uterus, cervix, bilateral fallopian tubes Tissue Uterus, Cervix, Bilateral Fallopian Tubes SURGICAL PATHOLOGY EXAM Arjun Pruitt MD 07/02/2022 10:48 AM Findings: None. Complications: None. Implants: * No implants in log * OYEE OPERATIONS EXAMINER documented in this encounter Plan of Treatment Upcoming Encounters Date Type Department Care Team ([facility] Info) Description 03/10/2024 8:00 AM CDT Virtual Visit [facility] [place] [address] [facility] [address] [place] [address] Deo Wood MD [address] [facility] [address] [place], [place] [id number] documented as of this encounter Procedures Procedure Name Priority Date/Time Associated Diagnosis Comments SURGICAL PATHOLOGY EXAM Routine 07/02/2022 10:48 AM EMPLOYEE OPERATIONS EXAMINER HYSTERECTOMY, ROBOT-ASSISTED, LAPAROSCOPIC, USING DA KHANH XI 07/02/2022 9:43 AM EMPLOYEE OPERATIONS EXAMINER Excessive and frequent menstruation with regular cycle Special Needs Alicia to Assist CBC WITH PLATELETS AND DIFFERENTIAL STAT 07/02/2022 8:47 AM EMPLOYEE OPERATIONS EXAMINER TYPE AND SCREEN, ADULT STAT 07/02/2022 8:47 AM EMPLOYEE OPERATIONS EXAMINER CBC WITH PLATELETS & DIFFERENTIAL STAT 07/02/2022 8:47 AM EMPLOYEE OPERATIONS EXAMINER ABO/RH TYPE AND SCREEN STAT 07/02/2022 8:47 AM EMPLOYEE OPERATIONS EXAMINER EXTRA TUBE Routine 07/02/2022 8:45 AM EMPLOYEE OPERATIONS EXAMINER EXTRA RED TOP TUBE Routine 07/02/2022 8: 45 AM EMPLOYEE OPERATIONS EXAMINER HCG QUALITATIVE URINE STAT 07/02/2022 8:36 AM EMPLOYEE OPERATIONS EXAMINER documented in this encounter Results * Surgical Pathology Exam (07/02/2022 10:48 AM EMPLOYEE OPERATIONS EXAMINER) Case Report Surgical Pathology Report ? Case: [id number] ? Authorizing Provider: ??Arjun Pruitt, ??Collected: ? 07/02/2022 10:48 AM ? MD ? Ordering Location: ? [facility] ?Received: ?07/02/2022 11:11 AM ? [facility] ? Pathologist: ? Nabor Ramachandran MD ? Specimen: ?Uterus, Cervix, Bilateral Fallopian Tubes, Uterus, cervix, bilateral fallopian tubes 07/06/2022 9:32 PM [facility] Final Diagnosis UTERUS, CERVIX, RIGHT AND LEFT FALLOPIAN TUBES; HYSTERECTOMY, BILATERAL SALPINGECTOMY: CERVIX: SQUAMOUS METAPLASIA, NABOTHIAN CYSTS; NO EVIDENCE OF DYSPLASIA OR CARCINOMA ENDOMETRIUM: ATROPHY; NO EVIDENCE OF ENDOMETRIAL HYPERPLASIA OR CARCINOMA MYOMETRIUM: FOCAL SUPERFICIAL ADENOMYOSIS RIGHT FALLOPIAN TUBE: CROSS-SECTIONS OF BENIGN FALLOPIAN TUBE WITH PARATUBAL CYSTS, ENDOSALPINGOSIS LEFT FALLOPIAN TUBE: CROSS-SECTIONS OF BENIGN FALLOPIAN TUBE WITH ENDOSALPINGOSIS NO EVIDENCE OF MALIGNANCY 07/06/2022 9:32 PM [facility] Clinical Information Procedure: ROBOTIC ASSISTED HYSTERECTOMY WITH BILATERAL SALPINGECTOMY - Bilateral Pre-op Diagnosis: Excessive and frequent menstruation with regular cycle [N92.0] Post-op Diagnosis: N92.0 - Excessive and frequent menstruation with regular cycle [ICD-10-CM] 07/06/2022 9:32 PM EMPLOYEE OPERATIONS EXAMINER [facility] Gross Description A(1). Uterus, Cervix, Bilateral Fallopian Tubes, Uterus, cervix, bilateral fallopian tubes: Specimen: Uterus, cervix, bilateral fallopian tubes. Time in formalin 1115 hrs., 07/02/2022. Submitted in formalin in a container labeled with the patient's name and designated uterus, cervix, bilateral fallopian tubes is the product of a hysterectomy and bilateral salpingectomy. The specimen weight is 90 grams. The uterus and cervix together measure 8.2 cm from superior to inferior, 4 cm from cornu to cornu, and 4.2 cm from anterior to posterior. The right congested and fimbriated fallopian tube measures 8.5 cm in length and 0.8 cm in diameter. It has one distinct benign-appearing paratubal cyst (0.4 cm in greatest dimension) attached to the tube by a 1 cm stalk. The left congested and fimbriated fallopian tube measures 8 cm in length and 0.5 cm in diameter. It has a 0.4 cm benign-appearing cyst at the fimbria. The specimen weight is 90 g. Blue ink is applied to the left fallopian tube for orientation purposes. The right fallopian tube also has an attached 0.3 cm paratubal cyst in the midportion. The uterus is bisected into an anterior half and a posterior half to reveal an endometrial cavity (4 x 2.2 cm) lined by erythematous pink-buck to ram mucosa (0.1 to 0.4 cm in thickness). The myometrium ranges in thickness from 1 to 2.2 cm. Sectioning of the uterine wall reveals no distinct myometrial lesions. Mucosa lining the endocervical canal is pink-buck and smooth, without focal lesions. Sections are submitted as follows: SUMMARY OF SECTIONS: A1) Anterior cervix; A2) Posterior cervix; A3-A4) Anterior and posterior endomyometrium; A5-A6) Right fallopian tube and left fallopian tube, respectively. Gross description by Christopher:[email or web address] 07/06/2022 9:32 PM EMPLOYEE OPERATIONS EXAMINER [facility] Microscopic Description Microscopic examination performed, substantiating the above diagnosis. 07/06/2022 9:[address] [facility] Performing Labs The technical component of this testing was completed at [facility] 07/06/2022 9:32 PM EMPLOYEE OPERATIONS EXAMINER [facility] Case Images 07/06/2022 9:32 PM EMPLOYEE OPERATIONS EXAMINER [facility] Tissue UTERUS AND FALLOPIAN TUBES, CS / Unknown 07/02/2022 10:48 AM EMPLOYEE OPERATIONS EXAMINER 07/02/2022 11:11 AM EMPLOYEE OPERATIONS EXAMINER Arjun Pruitt MD LAB - BEAKER AP Performing Organization Address City/[facility] Co de Phone Number [facility] [address] [facility] [place], [place] [address] [phone] [facility] [address] [place], [place] [id number] [place] [address] * Adult Type and Screen (07/02/2022 8:47 AM EMPLOYEE OPERATIONS EXAMINER) ABO/RH(D) B POS 07/02/2022 8:[address] [facility] Antibody Screen Negative Negative 07/02/2022 8:[address] [facility] SPECIMEN EXPIRATION DATE [id number] 07/02/2022 8:[address] [facility] Blood STRUCTURE OF LEFT UPPER LIMB / Unknown Venipuncture / Unknown 07/02/2022 8:47 AM EMPLOYEE OPERATIONS EXAMINER 07/02/2022 8:51 AM EMPLOYEE OPERATIONS EXAMINER Martinez Olvera PA-C LAB - BLOOD BAN K TEST ORDER Performing Organization Address [facility]/ZIP Co de Phone Number [facility] [address] [place] [address], [facility] * CBC with platelets and differential (07/02/2022 8:47 AM EMPLOYEE OPERATIONS EXAMINER) WBC Count 4.3 4.0 - 11.0 10e3/uL 07/02/2022 9:04 AM EMPLOYEE OPERATIONS EXAMINER [facility] RBC Count 4.35 3.80 - 5.20 10e6/uL 07/02/2022 9:04 AM EMPLOYEE OPERATIONS EXAMINER [facility] Hemoglobin 13.3 11.7 - 15.7 g/dL 07/02/2022 9:04 AM EMPLOYEE OPERATIONS EXAMINER [facility] Hematocrit 39.5 35.0 - 47.0 % 07/02/2022 9:04 AM EMPLOYEE OPERATIONS EXAMINER [facility] MCV 91 78 - 100 fL 07/02/2022 9:04 AM EMPLOYEE OPERATIONS EXAMINER [facility] MCH 30.6 26.5 - 33.0 pg 07/02/2022 9:04 AM EMPLOYEE OPERATIONS EXAMINER [facility] MCHC 33.7 31.5 - 36.5 g/dL 07/02/2022 9:04 AM EMPLOYEE OPERATIONS EXAMINER [facility] RDW 11.5 10.0 - 15.0 % 07/02/2022 9:04 AM EMPLOYEE OPERATIONS EXAMINER [facility] Platelet Count 199 150 - 450 10e3/uL 07/02/2022 9:04 AM EMPLOYEE OPERATIONS EXAMINER [facility] % Neutrophils 42 % 07/02/2022 9:04 AM EMPLOYEE OPERATIONS EXAMINER [facility] % Lymphocytes 45 % 07/02/2022 9:04 AM EMPLOYEE OPERATIONS EXAMINER [facility] % Monocytes 8 % 07/02/2022 9:04 AM EMPLOYEE OPERATIONS EXAMINER [facility] % Eosinophils 4 % 07/02/2022 9:04 AM EMPLOYEE OPERATIONS EXAMINER [facility] % Basophils 1 % 07/02/2022 9:04 AM EMPLOYEE OPERATIONS EXAMINER [facility] % Immature Granulocytes 0 % 07/02/2022 9:04 AM EMPLOYEE OPERATIONS EXAMINER [facility] NRBCs per 100 WBC 0 <1 /100 023 9:04 AM EMPLOYEE OPERATIONS EXAMINER [facility] Absolute Neutrophils 1.8 1.6 - 8.3 10e3/uL 07/02/2022 9:04 AM EMPLOYEE OPERATIONS EXAMINER [facility] Absolute Lymphocytes 1.9 0.8 - 5.3 10e3/uL 07/02/2022 9:04 AM EMPLOYEE OPERATIONS EXAMINER [facility] Absolute Monocytes 0.3 0.0 - 1.3 10e3/uL 07/02/2022 9:04 AM EMPLOYEE OPERATIONS EXAMINER [facility] Absolute Eosinophils 0.2 0.0 - 0.7 10e3/uL 07/02/2022 9:04 AM EMPLOYEE OPERATIONS EXAMINER [facility] Absolute Basophils 0.0 0.0 - 0.2 10e3/uL 07/02/2022 9:04 AM EMPLOYEE OPERATIONS EXAMINER [facility] Absolute Immature Granulocytes 0.0 <=0.4 10e3/uL 07/02/2022 9:04 AM EMPLOYEE OPERATIONS EXAMINER [facility] Absolute NRBCs 0.0 10e3/uL 07/02/2022 9:04 AM EMPLOYEE OPERATIONS EXAMINER [facility] Blood STRUCTURE OF LEFT UPPER LIMB / Unknown Venipuncture / Unknown 07/02/2022 8:47 AM EMPLOYEE OPERATIONS EXAMINER 07/02/2022 8:50 AM EMPLOYEE OPERATIONS EXAMINER Martinez Olvera PA-C LAB - BLOOD ORD ERABLES Performing Organization Address City/[facility]/ZIP Co de Phone Number [facility] [address] [place] [address], [facility] [phone] * Extra Red Top Tube (07/02/2022 8:45 AM EMPLOYEE OPERATIONS EXAMINER) Hold Specimen JIC 07/02/2022 10:18 AM EMPLOYEE OPERATIONS EXAMINER [facility] Blood STRUCTURE OF RIGHT UPPER LIMB / Unknown Venipuncture / Unknown 07/02/2022 8:45 AM EMPLOYEE OPERATIONS EXAMINER 07/02/2022 9:07 AM EMPLOYEE OPERATIONS EXAMINER Arjun Pruitt MD LAB - BLOOD O RDERABLES Performing Organization Address [facility]/ZIP Co de Phone Number [facility] [address] [place] [address], [facility] [phone] * HCG qualitative urine (07/02/2022 8:36 AM EMPLOYEE OPERATIONS EXAMINER) hCG Urine Qualitative Negative Negative SOREN 07/02/2022 8:44 AM EMPLOYEE OPERATIONS EXAMINER [facility] Comment:This test is for scr eening purposes. Results should be interpreted along with the clinical picture. Confirmation testing is available if warranted by ordering [id number], HCG Quantitative . Urine MID-STREAM URINE SPECIMEN / Unknown Non-blood Collection / Unknown 07/02/2022 8:36 AM EMPLOYEE OPERATIONS EXAMINER 07/02/2022 8:40 AM EMPLOYEE OPERATIONS EXAMINER Martinez Olvera PA-C LAB - URINE ORD ERABLES [facility] [address] [place], [place] [address] [phone] documented in this encounter Visit Diagnoses Diagnosis Menorrhagia with regular cycle- Primary Excessive or frequent menstruation documented in this encounter Administered Medications Inactive Administered Medications - up to 3 most recent administrations Medication Order MAR Action Action Date Dose Rate Site acetaminophen (TYLENOL) tablet 975 mg 975 mg, Oral, ONCE, On Thu07/02/22 at 0830, For 1 dose, Give within 60 min of procedure. Hold if patient has taken acetaminophen within 4 hours. Maximum acetaminophen dose from all sources = 75 mg/kg/day not to exceed 4 grams/day., Pre-procedure $Given 07/02/2022 9:03 AM EMPLOYEE OPERATIONS EXAMINER 975 mg acetaminophen (TYLENOL) tablet 975 mg 975 mg, Oral, ONCE PRN, mild pain, fever, Starting on Thu07/02/22 at 0831, For 1 dose, Maximum acetaminophen dose from all sources = 75 mg/kg/day not to exceed 4 grams/day. acetaminophen (TYLENOL) tablet 975 mg 975 mg, Oral, ONCE, On Thu07/02/22 at 1900, For 1 dose, Administer 6 hours after pre-op dose, if given. Maximum acetaminophen dose from all sources = 75 mg/kg/day not to exceed 4 grams/day. $Given 07/02/2022 3:00 PM EMPLOYEE OPERATIONS EXAMINER 975 mg fentaNYL (PF) (SUBLIMAZE) injection 25 mcg 25 mcg, Intravenous, EVERY 15 MIN PRN, other, acute pain while in Phase II, Starting on Thu07/02/22 at 0831, Up to a total of 100 mcg. Use as a short acting IV agent for acute pain control. Patient must be monitored a minimum of 30 minutes before leaving the facility and meet all Phase II discharge criteria. fentaNYL (PF) (SUBLIMAZE) injection 50 mcg 50 mcg, Intravenous, EVERY 5 MIN PRN, severe pain, Give fentaNYL (SUBLIMAZE) first if HYDROmorphone (DILAUDID) also ordered., Starting on Thu07/02/22 at 1115, Administer fentaNYL (SUBLIMAZE) for acute pain control. Move to HYDROmorphone (DILAUDID): - IF patient has received up to 200 mcg of fentaNYL (SUBLIMAZE), OR - IF patient has received 2 doses of fentaNYL (SUBLIMAZE) AND continues to have severe pain (pain score greater than or equal to seven (7) or is unable to participate in post op recovery due to pain. Wait 5 minutes AFTER last fentaNYL (SUBLIMAZE) dose before administering HYDROmorphone (DILADUDID). Postop Anesthesia Phase I only. Notify Provider to assess for uncontrolled pain or analgesic side effects. DO NOT revert back to fentanyl (SUBLIMAZE) after moving to HYDROmorphone (DILAUDID)., PACU $Given 07/02/2022 11:57 AM EMPLOYEE OPERATIONS EXAMINER 50 mcg $Given 07/02/2022 11:51 AM EMPLOYEE OPERATIONS EXAMINER 50 mcg $Given 07/02/2022 11:45 AM EMPLOYEE OPERATIONS EXAMINER 50 mcg lactated ringers infusion at 100 mL/hr, Intravenous, CONTINUOUS, Pre-procedure, Starting on Thu07/02/22 at 0900, Until Thu07/02/22 at 1101 $New Bag 07/02/2022 10:21 AM EMPLOYEE OPERATIONS EXAMINER Restarted 07/02/2022 9:41 AM EMPLOYEE OPERATIONS EXAMINER $New Bag 07/02/2022 9:10 AM EMPLOYEE OPERATIONS EXAMINER 100 mLs 100 mL/hr naloxone (NARCAN) injection 0.2 mg 0.2 mg, Intravenous, EVERY 2 MIN PRN, opioid reversal, Starting on Thu07/02/22 at 0841, Administer intravenous route when available and notify provider when administered. For unintended sedation or respiratory depression if all of the below criteria are met: ~ respiratory rate LESS than or EQUAL to 8. ~SaO2 less than 92% and or/end-tidal CO2 is greater than 50. ~ the patient is receiving an opioid, has unintended sedations assessed as RASS (-3), and is currently not on mechanical ventilation. RASS scale moderate (-3) is movement or eye opening to voice but no eye contact. Patient Monitoring Once the patient has demonstrated a response to the naloxone, continue to monitor respiratory rate, depth, oxygen saturation and end-tidal CO2 (if available) every 15 minutes x 2, then every 30 minutes x 2, then every 1 hour x 1 after each naloxone dose. Consider transfer to ICU if patient respiratory parameters have not improved after 4 naloxone doses. naloxone (NARCAN) injection 0.2 mg 0.2 mg, Intramuscular, EVERY 2 MIN PRN, opioid reversal, Starting on Thu07/02/22 at 0841, Administer intramuscular if an intravenous route is not available and notify provider when administered. For unintended sedation or respiratory depression if all of the below criteria are met: ~ respiratory rate LESS than or EQUAL to 8. ~SaO2 less than 92% and or/end-tidal CO2 is greater than 50. ~ the patient is receiving an opioid, has unintended sedations assessed as RASS (-3), and is currently not on mechanical ventilation. RASS scale moderate (-3) is movement or eye opening to voice but no eye contact. Patient Monitoring Once the patient has demonstrated a response to the naloxone, continue to monitor respiratory rate, depth, oxygen saturation and end-tidal CO2 (if available) every 15 minutes x 2, then every 30 minutes x 2, then every 1 hour x 1 after each naloxone dose. Consider transfer to ICU if patient respiratory parameters have not improved after 4 naloxone doses. naloxone (NARCAN) injection 0.4 mg 0.4 mg, Intravenous, EVERY 2 MIN PRN, opioid reversal, Starting on Thu07/02/22 at 0841, Administer intravenous route when available and notify provider when administered. For unintended sedation or respiratory depression if all of the below criteria are met: ~ respiratory rate LESS than or EQUAL to 8. ~ SaO2 less than 92% and or/end-tidal CO2 is greater than 50. ~ the patient is receiving an opioid, has unintended sedation assessed as RASS (-4) or (-5) and patient is currently not on mechanical ventilation. RASS scale (-4) is deep sedation with no response to voice but movement or eye opening to physical stimulation. RASS scale (-5) is unarousable. Patient Monitoring Once the patient has demonstrated a response to the naloxone, continue to monitor respiratory rate, depth, oxygen saturation and end-tidal CO2 (if available) every 15 minutes x 2, then every 30 minutes x 2, then every 1 hour x 1 after each naloxone dose. Consider transfer to ICU if patient respiratory parameters have not improved after 4 naloxone doses. naloxone (NARCAN) injection 0.4 mg 0.4 mg, Intramuscular, EVERY 2 MIN PRN, opioid reversal, Starting on Thu07/02/22 at 0841, Administer intramuscular if an intravenous route is not available and notify provider when administered. For unintended sedation or respiratory depression if all of the below criteria are met: ~ respiratory rate LESS than or EQUAL to 8. ~ SaO2 less than 92% and or/end-tidal CO2 is greater than 50. ~ the patient is receiving an opioid, has unintended sedation assessed as RASS (-4) or (-5) and patient is currently not on mechanical ventilation. RASS scale (-4) is deep sedation with no response to voice but movement or eye opening to physical stimulation. RASS scale (-5) is unarousable. Patient Monitoring Once the patient has demonstrated a response to the naloxone, continue to monitor respiratory rate, depth, oxygen saturation and end-tidal CO2 (if available) every 15 minutes x 2, then every 30 minutes x 2, then every 1 hour x 1 after each naloxone dose. Consider transfer to ICU if patient respiratory parameters have not improved after 4 naloxone doses. oxyCODONE (ROXICODONE) tablet 10 mg 10 mg, Oral, EVERY 4 HOURS PRN, severe pain, Starting on Thu07/02/22 at 0831, Max: 5 mg for opioid-na??ve patient. Use caution with patient Age GREATER than 65 years, COPD, or CrCl LESS than 50 mL/min. oxyCODONE (ROXICODONE) tablet 5 mg 5 mg, Oral, EVERY 4 HOURS PRN, moderate pain, Starting on Thu07/02/22 at 0831, Max: 5 mg for opioid-na??ve patient. $Given 07/02/2022 2:23 PM EMPLOYEE OPERATIONS EXAMINER 5 mg oxyCODONE (ROXICODONE) tablet 5 mg 5 mg, Oral, ONCE PRN, other, pain control or improvement in physical function.??, Starting on Thu07/02/22 at 1231, For 1 dose, Hold oral PRN dose for analgesic side effects. Notify provider to assess for uncontrolled pain or analgesic side effects. Hold while on IV MANAGER EDITORIAL or with regular IV opioid dosing. $Given 07/02/2022 12:34 PM EMPLOYEE OPERATIONS EXAMINER 5 mg oxyCODONE (ROXICODONE) tablet 5 mg 5 mg, Oral, ONCE PRN, other, pain control or improvement in physical function.??, Starting on Thu07/02/22 at 1417, For 1 dose, Hold oral PRN dose for analgesic side effects. Notify provider to assess for uncontrolled pain or analgesic side effects. Hold while on IV MANAGER EDITORIAL or with regular IV opioid dosing. scopolamine (TRANSDERM) 72 hr patch 1 patch 1 patch, Transdermal, ONCE, Administer over 72 Hours, On Thu07/02/22 at 0900, For 1 dose, Apply patch to skin, behind ear. Remove every 72 hours. DO NOT CUT PATCH. If dose is for a half or quarter patch, RN to remove only half or quarter of the backing. Each 1.5 mg patch delivers 1 mg of scopolamine. Reminder: Remove previous patch before applying new patch., Pre-procedure $Patch/Med Applied 07/02/2022 9:04 AM EMPLOYEE OPERATIONS EXAMINER 1 patch Behind Right Ear documented in this encounter Active and Recently Administered Medications Times are shown in EMPLOYEE OPERATIONS EXAMINER. Scheduled Medication Order 06/30/2022 07/01/2022 07/02/2022 acetaminophen (TYLENOL) tablet 975 mg (COMPLETED) 975 mg, Oral, ONCE, On Thu07/02/22 at 0830, For 1 dose, Give within 60 min of procedure. Hold if patient has taken acetaminophen within 4 hours. Maximum acetaminophen dose from all sources = 75 mg/kg/day not to exceed 4 grams/day., Pre-procedure 0903 ($Given - Provi herbert: Brigitte Wen RN) acetaminophen (TYLENOL) tablet 975 mg (COMPLETED) 975 mg, Oral, ONCE, On Thu07/02/22 at 1900, For 1 dose, Administer 6 hours after pre-op dose, if given. Maximum acetaminophen dose from all sources = 75 mg/kg/day not to exceed 4 grams/day. 1500 ($Given - Provi herbert: Jeannine Noland RN)1900 (Due) ceFAZolin Sodium (ANCEF) injection 2 g (COMPLETED) Routine, 2 g, Intravenous, PRE-OP/PRE-PROCEDURE, Starting on Thu07/02/22 at 0813, For 1 dose, Give first dose within 1 hour PRIOR to incision. If patient weight is greater than or equal to 120 kg increase dose to 3 g., Indications: Perioperative Pharmacoprophylaxis, Pre-procedure 0947 ($Given - Provi herbert: Yane Hall APRN CRNA) ibuprofen (ADVIL/MOTRIN) tablet 800 mg 800 mg, Oral, ONCE, On Thu07/02/22 at 1900, For 1 dose, Administer when patient tolerating oral intake AND 6 hours after last ketorolac (TORADOL) dose, if given. Give with food. scopolamine (TRANSDERM) 72 hr patch 1 patch(Linked Group 1) 1 patch, Transdermal, ONCE, Administer over 72 Hours, On Thu07/02/22 at 0900, For 1 dose, Apply patch to skin, behind ear. Remove every 72 hours. DO NOT CUT PATCH. If dose is for a half or quarter patch, RN to remove only half or quarter of the backing. Each 1.5 mg patch delivers 1 mg of scopolamine. Reminder: Remove previous patch before applying new patch., Pre-procedure 0904 ($Patch/Med Danial lied - Provider: Brigitte Wen RN)1557 (Due: Patch/Med Removed - Provider: Orders Generic Provider - Comment: Time automatically adjusted from order being discontinued) Continuous Medication Order 06/30/2022 07/01/2022 07/02/2022 lactated ringers infusion (CANCELED) at 100 mL/hr, Intravenous, CONTINUOUS, Pre-procedure, Starting on Thu07/02/22 at 0900, Until Thu07/02/22 at 1101 0910 ($New Bag - Pro vider: Brigitte Wen RN)0940 (Paused - Provider: Yane Hall APRN CRNA - Comment: Switch to gravity)0941 (Restarted - Provider: Yane Hall APRN CRNA)1021 ($New Bag - Provider: Yane Hall APRN CRNA)1105 (Anesthesia Volume Adjustment - Provider: Yane Hall APRN CRNA) PRN Medication Order 06/30/2022 07/01/2022 07/02/2022 acetaminophen (TYLENOL) tablet 975 mg 975 mg, Oral, ONCE PRN, mild pain, fever, Starting on Thu07/02/22 at 0831, For 1 dose, Maximum acetaminophen dose from all sources = 75 mg/kg/day not to exceed 4 grams/day. 1459 (Canceled Entry - Provider: Orders Generic Provider - Comment: Automatically canceled at discontinue of medication order) bupivacaine (MARCAINE) 0.25% preservative free injection (CANCELED) PRN, Starting on Thu07/02/22 at 1036, Intra-procedure 1050 ($Given - Provi herbert: Arjun Pruitt MD) fentaNYL (PF) (SUBLIMAZE) injection 25 mcg 25 mcg, Intravenous, EVERY 15 MIN PRN, other, acute pain while in Phase II, Starting on Thu07/02/22 at 0831, Up to a total of 100 mcg. Use as a short acting IV agent for acute pain control. Patient must be monitored a minimum of 30 minutes before leaving the facility and meet all Phase II discharge criteria. fentaNYL (PF) (SUBLIMAZE) injection 50 mcg (CANCELED) 50 mcg, Intravenous, EVERY 5 MIN PRN, severe pain, Give fentaNYL (SUBLIMAZE) first if HYDROmorphone (DILAUDID) also ordered., Starting on Thu07/02/22 at 1115, Administer fentaNYL (SUBLIMAZE) for acute pain control. Move to HYDROmorphone (DILAUDID): - IF patient has received up to 200 mcg of fentaNYL (SUBLIMAZE), OR - IF patient has received 2 doses of fentaNYL (SUBLIMAZE) AND continues to have severe pain (pain score greater than or equal to seven (7) or is unable to participate in post op recovery due to pain. Wait 5 minutes AFTER last fentaNYL (SUBLIMAZE) dose before administering HYDROmorphone (DILADUDID). Postop Anesthesia Phase I only. Notify Provider to assess for uncontrolled pain or analgesic side effects. DO NOT revert back to fentanyl (SUBLIMAZE) after moving to HYDROmorphone (DILAUDID)., PACU 1127 ($Given - Provi herbert: Mei Montalvo RN)1145 ($Given - Provider: Mei Montalvo RN)1151 ($Given - Provider: Mei Montalvo RN)1157 ($Given - Provider: Mei Montalvo RN) lactated ringers (bag) irrigation SOLN (CANCELED) PRN, Starting on Thu07/02/22 at 1045, Intra-procedure 1045 ($Given - Provi herbert: Arjun Pruitt MD) naloxone (NARCAN) injection 0.2 mg(Linked Group 2) 0.2 mg, Intravenous, EVERY 2 MIN PRN, opioid reversal, Starting on Thu07/02/22 at 0841, Administer intravenous route when available and notify provider when administered. For unintended sedation or respiratory depression if all of the below criteria are met: ~ respiratory rate LESS than or EQUAL to 8. ~SaO2 less than 92% and or/end-tidal CO2 is greater than 50. ~ the patient is receiving an opioid, has unintended sedations assessed as RASS (-3), and is currently not on mechanical ventilation. RASS scale moderate (-3) is movement or eye opening to voice but no eye contact. Patient Monitoring Once the patient has demonstrated a response to the naloxone, continue to monitor respiratory rate, depth, oxygen saturation and end-tidal CO2 (if available) every 15 minutes x 2, then every 30 minutes x 2, then every 1 hour x 1 after each naloxone dose. Consider transfer to ICU if patient respiratory parameters have not improved after 4 naloxone doses. naloxone (NARCAN) injection 0.2 mg(Linked Group 2) 0.2 mg, Intramuscular, EVERY 2 MIN PRN, opioid reversal, Starting on Thu07/02/22 at 0841, Administer intramuscular if an intravenous route is not available and notify provider when administered. For unintended sedation or respiratory depression if all of the below criteria are met: ~ respiratory rate LESS than or EQUAL to 8. ~SaO2 less than 92% and or/end-tidal CO2 is greater than 50. ~ the patient is receiving an opioid, has unintended sedations assessed as RASS (-3), and is currently not on mechanical ventilation. RASS scale moderate (-3) is movement or eye opening to voice but no eye contact. Patient Monitoring Once the patient has demonstrated a response to the naloxone, continue to monitor respiratory rate, depth, oxygen saturation and end-tidal CO2 (if available) every 15 minutes x 2, then every 30 minutes x 2, then every 1 hour x 1 after each naloxone dose. Consider transfer to ICU if patient respiratory parameters have not improved after 4 naloxone doses. naloxone (NARCAN) injection 0.4 mg(Linked Group 2) 0.4 mg, Intravenous, EVERY 2 MIN PRN, opioid reversal, Starting on Thu07/02/22 at 0841, Administer intravenous route when available and notify provider when administered. For unintended sedation or respiratory depression if all of the below criteria are met: ~ respiratory rate LESS than or EQUAL to 8. ~ SaO2 less than 92% and or/end-tidal CO2 is greater than 50. ~ the patient is receiving an opioid, has unintended sedation assessed as RASS (-4) or (-5) and patient is currently not on mechanical ventilation. RASS scale (-4) is deep sedation with no response to voice but movement or eye opening to physical stimulation. RASS scale (-5) is unarousable. Patient Monitoring Once the patient has demonstrated a response to the naloxone, continue to monitor respiratory rate, depth, oxygen saturation and end-tidal CO2 (if available) every 15 minutes x 2, then every 30 minutes x 2, then every 1 hour x 1 after each naloxone dose. Consider transfer to ICU if patient respiratory parameters have not improved after 4 naloxone doses. naloxone (NARCAN) injection 0.4 mg(Linked Group 2) 0.4 mg, Intramuscular, EVERY 2 MIN PRN, opioid reversal, Starting on Thu07/02/22 at 0841, Administer intramuscular if an intravenous route is not available and notify provider when administered. For unintended sedation or respiratory depression if all of the below criteria are met: ~ respiratory rate LESS than or EQUAL to 8. ~ SaO2 less than 92% and or/end-tidal CO2 is greater than 50. ~ the patient is receiving an opioid, has unintended sedation assessed as RASS (-4) or (-5) and patient is currently not on mechanical ventilation. RASS scale (-4) is deep sedation with no response to voice but movement or eye opening to physical stimulation. RASS scale (-5) is unarousable. Patient Monitoring Once the patient has demonstrated a response to the naloxone, continue to monitor respiratory rate, depth, oxygen saturation and end-tidal CO2 (if available) every 15 minutes x 2, then every 30 minutes x 2, then every 1 hour x 1 after each naloxone dose. Consider transfer to ICU if patient respiratory parameters have not improved after 4 naloxone doses. oxyCODONE (ROXICODONE) tablet 10 mg 10 mg, Oral, EVERY 4 HOURS PRN, severe pain, Starting on Thu07/02/22 at 0831, Max: 5 mg for opioid-na??ve patient. Use caution with patient Age GREATER than 65 years, COPD, or CrCl LESS than 50 mL/min. oxyCODONE (ROXICODONE) tablet 5 mg 5 mg, Oral, EVERY 4 HOURS PRN, moderate pain, Starting on Thu07/02/22 at 0831, Max: 5 mg for opioid-na??ve patient. 1233 (Canceled Entry - Provider: Orders Generic Provider - Comment: Automatically canceled at discontinue of medication order)1423 ($Given - Provider: Jeannine Noland RN) oxyCODONE (ROXICODONE) tablet 5 mg (COMPLETED) 5 mg, Oral, ONCE PRN, other, pain control or improvement in physical function.??, Starting on Thu07/02/22 at 1231, For 1 dose, Hold oral PRN dose for analgesic side effects. Notify provider to assess for uncontrolled pain or analgesic side effects. Hold while on IV MANAGER EDITORIAL or with regular IV opioid dosing. 1234 ($Given - Provi herbert: Jeannine Noland RN) oxyCODONE (ROXICODONE) tablet 5 mg 5 mg, Oral, ONCE PRN, other, pain control or improvement in physical function.??, Starting on Thu07/02/22 at 1417, For 1 dose, Hold oral PRN dose for analgesic side effects. Notify provider to assess for uncontrolled pain or analgesic side effects. Hold while on IV MANAGER EDITORIAL or with regular IV opioid dosing. Linked Groups Order Group 1: scopolamine (TRANSDERM) 72 hr patch 1 patchJump to med 1 patch, Transdermal, ONCE, Administer over 72 Hours, On Thu07/02/22 at 0900, For 1 dose, Apply patch to skin, behind ear. Remove every 72 hours. DO NOT CUT PATCH. If dose is for a half or quarter patch, RN to remove only half or quarter of the backing. Each 1.5 mg patch delivers 1 mg of scopolamine. Reminder: Remove previous patch before applying new patch., Pre-procedure And scopolamine (TRANSDERM-SCOP) Patch in Place (CANCELED) First dose on Thu07/02/22 at 0900, Chart every shift, confirming that patch is still in place on patient (no barcode scan needed). See patch order for dose information., Pre-procedure Group 2: naloxone (NARCAN) injection 0.2 mgJump to med 0.2 mg, Intravenous, EVERY 2 MIN PRN, opioid reversal, Starting on Thu07/02/22 at 0841, Administer intravenous route when available and notify provider when administered. For unintended sedation or respiratory depression if all of the below criteria are met: ~ respiratory rate LESS than or EQUAL to 8. ~SaO2 less than 92% and or/end-tidal CO2 is greater than 50. ~ the patient is receiving an opioid, has unintended sedations assessed as RASS (-3), and is currently not on mechanical ventilation. RASS scale moderate (-3) is movement or eye opening to voice but no eye contact. Patient Monitoring Once the patient has demonstrated a response to the naloxone, continue to monitor respiratory rate, depth, oxygen saturation and end-tidal CO2 (if available) every 15 minutes x 2, then every 30 minutes x 2, then every 1 hour x 1 after each naloxone dose. Consider transfer to ICU if patient respiratory parameters have not improved after 4 naloxone doses. Or naloxone (NARCAN) injection 0.4 mgJump to med 0.4 mg, Intravenous, EVERY 2 MIN PRN, opioid reversal, Starting on Thu07/02/22 at 0841, Administer intravenous route when available and notify provider when administered. For unintended sedation or respiratory depression if all of the below criteria are met: ~ respiratory rate LESS than or EQUAL to 8. ~ SaO2 less than 92% and or/end-tidal CO2 is greater than 50. ~ the patient is receiving an opioid, has unintended sedation assessed as RASS (-4) or (-5) and patient is currently not on mechanical ventilation. RASS scale (-4) is deep sedation with no response to voice but movement or eye opening to physical stimulation. RASS scale (-5) is unarousable. Patient Monitoring Once the patient has demonstrated a response to the naloxone, continue to monitor respiratory rate, depth, oxygen saturation and end-tidal CO2 (if available) every 15 minutes x 2, then every 30 minutes x 2, then every 1 hour x 1 after each naloxone dose. Consider transfer to ICU if patient respiratory parameters have not improved after 4 naloxone doses. Or naloxone (NARCAN) injection 0.2 mgJump to med 0.2 mg, Intramuscular, EVERY 2 MIN PRN, opioid reversal, Starting on Thu07/02/22 at 0841, Administer intramuscular if an intravenous route is not available and notify provider when administered. For unintended sedation or respiratory depression if all of the below criteria are met: ~ respiratory rate LESS than or EQUAL to 8. ~SaO2 less than 92% and or/end-tidal CO2 is greater than 50. ~ the patient is receiving an opioid, has unintended sedations assessed as RASS (-3), and is currently not on mechanical ventilation. RASS scale moderate (-3) is movement or eye opening to voice but no eye contact. Patient Monitoring Once the patient has demonstrated a response to the naloxone, continue to monitor respiratory rate, depth, oxygen saturation and end-tidal CO2 (if available) every 15 minutes x 2, then every 30 minutes x 2, then every 1 hour x 1 after each naloxone dose. Consider transfer to ICU if patient respiratory parameters have not improved after 4 naloxone doses. Or naloxone (NARCAN) injection 0.4 mgJump to med 0.4 mg, Intramuscular, EVERY 2 MIN PRN, opioid reversal, Starting on Thu07/02/22 at 0841, Administer intramuscular if an intravenous route is not available and notify provider when administered. For unintended sedation or respiratory depression if all of the below criteria are met: ~ respiratory rate LESS than or EQUAL to 8. ~ SaO2 less than 92% and or/end-tidal CO2 is greater than 50. ~ the patient is receiving an opioid, has unintended sedation assessed as RASS (-4) or (-5) and patient is currently not on mechanical ventilation. RASS scale (-4) is deep sedation with no response to voice but movement or eye opening to physical stimulation. RASS scale (-5) is unarousable. Patient Monitoring Once the patient has demonstrated a response to the naloxone, continue to monitor respiratory rate, depth, oxygen saturation and end-tidal CO2 (if available) every 15 minutes x 2, then every 30 minutes x 2, then every 1 hour x 1 after each naloxone dose. Consider transfer to ICU if patient respiratory parameters have not improved after 4 naloxone doses. documented in this encounter Additional Health Concerns Assessment Noted Time PHQ-9 Depression Total Score: 9 10/09/19 22 11:57 AM CDT documented as of this encounter Care Teams Scrap Kettle Tender Relationship Specialty Start Date End Date Herlinda Marino, LEGAL RESEARCH ANALYST BAR CATCHER [facility] [id number] [place], [place] [address] PCP - Obstetrics/Gynecology 02/03/19 Arjun Pruitt MD [address] [place] [address] PCP - General deblocker 06/25/22 03/11/23 Xochitl Smith MD [address] [facility] 100 [place] [address] Assigned OBGYN Provider 04/14/21 Olga Aguila DNP [address] [place] [address] Assigned PCP 02/22/22 documented as of this encounter
--- OUTSIDE RECORDS SUMMARY | 2023-05-28 10:22 | XMS_ITS | Encounter Summary ---
Author Name Unknown Organization [place] Address [facility] [place] [address] Care Team Providers Care Product Advisor Name Role Phone JamilaEllenmustapha Castillo APRN RETAIL SEASONAL SPECIALIST Unavailable [phone] Olga Aguila DNP Unavailable [phone] Arjun Pruitt MD Primary Care Provide r Encounter Details Date Type Department Care Team (Late st Contact Info) Description 02/18/2023 7:30 AM CDT Lab [facility] Laboratory [address] [place] [address] Postoperative malabsorption; History of sleeve gastrectomy; Postgastrectomy malabsorption Social History Tobacco Use Types Packs/Day Years Used Date Smoking Tobacco: Former Cigarettes 1 13 Q uit: 05/02/2019 Smokeless Tobacco: Never Alcohol Use Standard Drinks/Week Comments Not Currently 0 (1 standard drink = 0.6 oz pure alcohol) Alcoholic Drinks/day: currently on antibuse PHQ-2 Answer Date Recorded PHQ-2 Score 0 10/29/2021 [place] Depression Scale Answer Date Recorded [place] Depression Score 3 07/11/2021 Last EPDS Self [...] [facility] [place] [address] [facility] 200 [place] [address] Deo Wood MD [address] [facility] 200 [place] [address] documented as of this encounter Procedures Procedure Name Priority Date/Time Associated Diagnosis Comments ZINC Routine 02/18/2023 7:45 AM CDT 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 VITAMIN D DEFICIENCY SCREENING Routine 02/18/2023 7:45 AM CDT 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 VITAMIN B1 WHOLE BLOOD Routine 02/18/2023 7:45 AM CDT 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 VITAMIN A Routine 02/18/2023 7:45 AM CDT 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 PARATHYROID HORMONE INTACT Routine 02/18/2023 7:45 AM CDT 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 LIPID PROFILE Routine 02/18/2023 7:45 AM CDT 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 HEMOGLOBIN A1C Routine 02/18/2023 7:45 AM CDT 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 FOLATE Routine 02/18/2023 7:45 AM CDT 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 FERRITIN Routine 02/18/2023 7:45 AM CDT 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 COMPREHENSIVE METABOLIC PANEL Routine 02/18/2023 7:45 AM CDT 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 VITAMIN B12 Routine 02/18/2023 7:45 AM CDT 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 CBC WITH PLATELETS Routine 02/18/2023 7: 45 AM CDT 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 documented in this encounter Results * (ABNORMAL) CBC with platelets (02/18/2023 7:45 AM CDT) [facility] WBC Count 3.7(L) 4.0 - 11.0 10e3/uL 02/18/2023 7:59 AM CDT [facility] RBC Count 4.52 3.80 - 5.20 10e6/uL 02/18/2023 7:59 AM CDT [facility] Hemoglobin 14.2 11.7 - 15.7 g/dL 02/18/2023 7:59 AM CDT [facility] Hematocrit 41.4 35.0 - 47.0 % 02/18/2023 7:59 AM CDT [facility] MCV 92 78 - 100 fL 02/18/2023 7:59 AM CDT [facility] MCH 31.4 26.5 - 33.0 pg 02/18/2023 7:59 AM CDT [facility] MCHC 34.3 31.5 - 36.5 g/dL 02/18/2023 7:59 AM CDT [facility] RDW 12.0 10.0 - 15.0 % 02/18/2023 7:59 AM CDT [facility] Platelet Count 220 150 - 450 10e3/uL 02/18/2023 7:59 AM CDT [facility] Blood STRUCTURE OF LEFT UPPER LIMB / Unknown Venipuncture / Unknown 02/18/2023 7:45 AM CDT 02/18/2023 7:47 AM CDT Deo Wood MD LAB - BLOOD ORDERABL ES [facility] [address] [place] [address], [facility] [phone] * Comprehensive metabolic panel (02/18/2023 7:45 AM CDT) Sodium 139 135 - 145 mmol/L 02/18/2023 8:10 AM CDT [facility] Comment:Reference intervals for this test were updated on 02/10/2023 to more accurately reflect our healthy population. There may be differences in the flagging of prior results with similar values performed with this method. Interpretation of those prior results can be made in the context of the updated reference intervals. Potassium 3.8 3.4 - 5.3 mmol/L 02/18/2023 8:10 AM [facility] Carbon Dioxide (CO2) 26 22 - 29 mmol/L 02/18/2023 8:10 AM [facility] Anion Gap 8 7 - 15 mmol/L 02/18/2023 8:10 AM [facility] Urea Nitrogen 8.2 6.0 - 20.0 mg/dL 02/18/2023 8:10 AM T [facility] Creatinine 0.60 0.51 - 0.95 mg/dL 02/18/2023 8:10 AM [facility] GFR Estimate >90 >60 mL/min/1. 73m2 02/18/2023 8:10 AM T [facility] Calcium 9.1 8.6 - 10.0 mg/dL 02/18/2023 8:10 AM T [facility] Chloride 105 98 - 107 mmol/L 02/18/2023 8:10 AM T [facility] Glucose 83 70 - 99 mg/dL 02/18/2023 8:10 AM CDT [facility] Alkaline Phosphatase 38 35 - 104 U/L 02/18/2023 8:10 AM CDT [facility] AST 21 0 - 45 U/L 02/18/2023 8:10 AM T [facility] Comment:Reference intervals for this test were updated on 10/27/2022 to more accurately reflect our healthy population. There may be differences in the flagging of prior results with similar values performed with this method. Interpretation of those prior results can be made in the context of the updated reference intervals. ALT 27 0 - 50 U/L 02/18/2023 8:10 AM CDT [facility] Comment:Reference intervals for this test were updated on 10/27/2022 to more accurately reflect our healthy population. There may be differences in the flagging of prior results with similar values performed with this method. Interpretation of those prior results can be made in the context of the updated reference intervals. Protein Total 6.9 6.4 - 8.3 g/dL 02/18/2023 8:10 AM CDT [facility] Albumin 4.7 3.5 - 5.2 g/dL 02/18/2023 8:10 AM CDT [facility] Bilirubin Total 0.5 <=1.2 mg/dL 02/18/2023 8:10 AM CDT [facility] Blood STRUCTURE OF LEFT UPPER LIMB / Unknown Venipuncture / Unknown 02/18/2023 7:45 AM CDT 02/18/2023 7:47 AM CDT Deo Wood MD LAB - BLOOD ORDERABL ES [facility] [address] [place] [address], [facility] [phone] * Ferritin (02/18/2023 7:45 AM CDT) Ferritin 109 6 - 175 ng/mL 02/18/2023 5:51 PM CDT LABORATORY Blood STRUCTURE OF LEFT UPPER LIMB / Unknown Venipuncture / Unknown 02/18/2023 7:45 AM CDT 02/18/2023 7:47 AM CDT Deo Wood MD LAB - BLOOD ORDERABL ES LABORATORY [facility] [address] [facility], [address] [place] [address], [facility] [phone] * Folate (02/18/2023 7:45 AM CDT) Folic Acid 28.8 4.6 - 34.8 ng/mL 02/18/2023 1:11 PM CDT [facility] Blood STRUCTURE OF LEFT UPPER LIMB / Unknown Venipuncture / Unknown 02/18/2023 7:45 AM CDT 02/18/2023 7:47 AM CDT Deo Wood MD LAB - BLOOD ORDERABL ES U LABORATORY [facility] [address] [facility] [place] [address], [facility] [phone] * Hemoglobin A1c (02/18/2023 7:45 AM CDT) Hemoglobin A1C 4.9 <5.7 % 02/18/2023 10:27 AM CDT [facility] Comment: Normal <5.7% Prediabetes 5.7-6.4% ?? Diabetes 6.5% or higher Note: Adopted from ADA consensus guidelines. Blood STRUCTURE OF LEFT UPPER LIMB / Unknown Venipuncture / Unknown 02/18/2023 7:45 AM CDT 02/18/2023 7:47 AM CDT Deo Wood MD LAB - BLOOD ORDERABL ES [facility] [address] [facility] [place], [place] [address] [phone] * (ABNORMAL) Lipid Profile (02/18/2023 7:45 AM CDT) Cholesterol 199 <200 mg/dL 02/18/2023 4:45 PM CDT [facility] Triglycerides 90 <150 mg/dL 02/18/2023 4:45 PM CDT [facility] Direct Measure HDL 64 >=50 mg/dL 02/18/2023 4:45 PM CDT [facility] LDL Cholesterol Calculated 117(H) <=100 mg/dL 02/18/2023 4:45 PM CDT [facility] Non HDL Cholesterol 135(H) <130 mg/dL 02/18/2023 4:45 PM CDT [facility] Blood STRUCTURE OF LEFT UPPER LIMB / Unknown Venipuncture / Unknown 02/18/2023 7:45 AM CDT 02/18/2023 7:47 AM CDT Narrative [facility] - 02/18/2023 4:45 PM CDT Cholesterol Desirable: ??<200 mg/dL Triglycerides Normal: ??Less than 150 mg/dL Borderline High: ??150-199 mg/dL High: ??200-499 mg/dL Very High: ??Greater than or equal to 500 mg/dL Direct Measure HDL Female: ??Greater than or equal to 50 mg/dL Male: ??Greater than or equal to 40 mg/dL LDL Cholesterol Desirable: ??<100mg/dL Above Desirable: ??100-129 mg/dL Borderline High: ??130-159 mg/dL High: ??160-189 mg/dL Very High: ??>= 190 mg/dL Non HDL Cholesterol Desirable: ??130 mg/dL Above Desirable: ??130-159 mg/dL Borderline High: ??160-189 mg/dL High: ??190-219 mg/dL Very High: ??Greater than or equal to 220 mg/dL Deo Wood MD LAB - BLOOD ORDERABL ES [facility] [address] [facility], [address] [place] [address], [facility] [phone] * Zinc (02/18/2023 7:45 AM CDT) Zinc, Serum/Plasma 76.0 60.0 - 120.0 ug/dL 02/20/2023 12:22 PM CDT [facility] Comment: INTERPRETIVE INFORMATION: Zinc, Serum or Plasma Elevated results may be due to skin or collection-related contamination, including the use of a noncertified metal-free collection/transport tube. If contamination concerns exist due to elevated levels of serum/plasma zinc, confirmation with a second specimen collected in a certified metal-free tube is recommended. Circulating zinc concentrations are dependent on albumin status and are depressed with malnutrition. ??Zinc may also be lowered with infection, inflammation, stress, oral contraceptives, and . ??Zinc may be elevated with zinc supplementation or fasting. ??Elevated zinc concentrations may interfere with copper absorption. This test was developed and its performance characteristics determined by [employer]. It has not been cleared or approved by the US Food and Drug Administration. This test was performed in a CLIA certified laboratory and is intended for clinical purposes. Performed By: [facility] [address] [place] [address] Meat Carrier: Ramon Sexton MD, PhD CLIA Number: [id number] Blood STRUCTURE OF LEFT UPPER LIMB / Unknown Venipuncture / Unknown 02/18/2023 7:45 AM CDT 02/18/2023 7:47 AM CDT Deo Wood MD LAB - BLOOD ORDERABL ES [employer] [address] [place] [address], [facility] [phone] * (ABNORMAL) Vitamin D Deficiency (02/18/2023 7:45 AM CDT) Vitamin D, Total (25-Hydroxy) 54(H) 20 - 50 ng/mL 02/18/2023 5:51 PM CDT [facility] Comment:indicates supplement ation, with increased risk of hypercalciuria Blood STRUCTURE OF LEFT UPPER LIMB / Unknown Venipuncture / Unknown 02/18/2023 7:45 AM CDT 02/18/2023 7:47 AM CDT Narrative [facility] - 02/18/2023 5:51 PM CDT Season, race, dietary intake, and treatment affect the concentration of 38-diaamqk-Rgvrvlk D. Values may decrease during winter months and increase during summer months. Vitamin D determination is routinely performed by an immunoassay specific for 25 hydroxyvitamin D3. ??If an individual is on vitamin D2(ergocalciferol) supplementation, please specify 25 [place] vitamin D2 and D3 level determination by LCMSMS test VITD23. Deo Wood MD LAB - BLOOD ORDERABL ES Performing Organization Address City/[facility]/ZIP Co de Phone Number LABORATORY [facility] [address] [place] [address], [address] [phone], [facility] [phone] * Vitamin B12 (02/18/2023 7:45 AM CDT) Vitamin B12 1,114 232 - 1,245 pg/mL 02/18/2023 5:51 PM CDT U [facility]ORATORY Blood STRUCTURE OF LEFT UPPER LIMB / Unknown Venipuncture / Unknown 02/18/2023 7:45 AM CDT 02/18/2023 7:47 AM CDT Deo Wood MD LAB - BLOOD ORDERABL ES Performing Organization Address [facility] Co de Phone Number LABORATORY [facility] [address] [place] [address], [facility] [address] [address], [facility] [phone] * Vitamin A (02/18/2023 7:45 AM CDT) Vitamin A 0.76 0.30 - 1.20 mg/L 02/21/2023 1:37 PM CDT [facility] Retinol Palmitate <0.02 0.00 - 0.10 mg/L 02/21/2023 1:37 PM CDT [facility] Vitamin A Interp Normal 02/22/20 23 1:37 PM CDT [facility] Comment: This test was developed and its performance characteristics determined by [employer]. It has not been cleared or approved by the US Food and Drug Administration. This test was performed in a CLIA certified laboratory and is intended for clinical purposes. Performed By: [facility] [address] [place] [address] Meat Carrier: Ramon Sexton MD, PhD CLIA Number: [id number] Blood STRUCTURE OF LEFT UPPER LIMB / Unknown Venipuncture / Unknown 02/18/2023 7:45 AM CDT 02/18/2023 7:47 AM CDT Deo Wood MD LAB - BLOOD ORDERABL ES Performing Organization Address [facility] Co de Phone Number [address] [address], [facility] [phone] * Vitamin B1 whole blood (02/18/2023 7:45 AM CDT) Vitamin B1 Whole Blood Level 153 70 - 180 nmol/L 02/22/2023 12:53 AM CDT [facility] Comment: INTERPRETIVE INFORMATION: Vitamin B1, Whole Blood This assay measures the concentration of thiamine diphosphate (TDP), the primary active form of vitamin B1. Approximately 90 percent of vitamin B1 present in whole blood is TDP. Thiamine and thiamine monophosphate, which comprise the remaining 10 percent, are not measured. This test was developed and its performance characteristics determined by [employer]. It has not been cleared or approved by the US Food and Drug Administration. This test was performed in a CLIA certified laboratory and is intended for clinical purposes. Performed By: [facility] [address] [place], [place] [id number] Meat Carrier: Ramon Sexton MD, PhD CLIA Number: [id number] Blood STRUCTURE OF LEFT UPPER LIMB / Unknown Venipuncture / Unknown 02/18/2023 7:45 AM CDT 02/18/2023 7:47 AM CDT Deo Wood MD LAB - BLOOD ORDERABL ES Performing Organization Address City/[facility] Co de Phone Number [address] [address], [facility] [phone] * Parathyroid Hormone Intact (02/18/2023 7:45 AM CDT) Parathyroid Hormone Intact 40 15 - 65 pg/mL 02/18/2023 5:33 PM CDT [facility] Blood STRUCTURE OF LEFT UPPER LIMB / Unknown Venipuncture / Unknown 02/18/2023 7:45 AM CDT 02/18/2023 7:47 AM CDT Narrative [facility] - 02/18/2023 5:33 PM CDT This result was obtained with the [employer] PTH STAT assay. This reference range differs from PTH assays used in other [facility] laboratories. Deo Wood MD LAB - BLOOD ORDERABL ES [facility] [address] [facility], [address] [address], [facility] [phone] documented in this encounter Visit Diagnoses Diagnosis Postoperative malabsorption Other and unspecified postsurgical nonabsorption History of sleeve gastrectomy Postgastrectomy malabsorption documented in this encounter Additional Health Concerns Assessment Noted Time PHQ-9 Depression Total Score: 9 10/09/19 22 11:57 AM CDT documented as of this encounter Care Teams Product Advisor Relationship Specialty Start Date End Date Herlinda Marino APRN RETAIL SEASONAL SPECIALIST [facility] [address] [place] [address] PCP - Obstetrics/Gynecology 02/03/19 [facility] [address] [place] [address] PCP - General balloon maker 06/25/22 03/11/23 Olga Aguila DNP [facility] [place] [address] Assigned PCP 02/22/22 documented as of this encounter
--- OUTSIDE RECORDS SUMMARY | 2023-05-28 10:22 | XMS_ITS | Encounter Summary ---
Author Name Unknown Organization [facility] Address [address] [place] [address]. [place] [address] Care Team Providers Care Nursing Executive Name Role Phone Jamila Herlinda Castillo APRN SALES SUPERINTENDENT Unavailable Olga Aguila DNP Unavailable Arjun Pruitt MD Primary Care Provide r Reason for Referral * Rehab Therapy Integrated Services (Routine) - Closed Specialty Diagnoses / Procedures Referred By Contac t Referred To Contact Diagnoses Pain in right shoulder Other specified disorders of tendon, right shoulder [address] [address] Referral ID Status Reason Start Date Expiration Date Visits Re quested Visits Authorized [id number] Closed 03/03/2023 05/17/2023 365 365 Question Answer Preferred Location: [facility] Scheduling Instructions: If you have not heard from the scheduling office within 2 business days, please call [phone] for [facility], for [employer] and [phone] for [place]. Course of Action Evaluation and Treatment Adult or Pediatrics Adult Specialty Services: Per Associated Diagnosis Comments Please be aware that coverage of these services is subject to the terms and limitations of your health insurance plan. Call member services at your health plan with any benefit or coverage questions. If you have not heard from the scheduling office within 2 business days, please call [phone] for [facility], for [place] and [phone] for [place]. Encounter Details Date Type Department Care Team (Late st Contact Info) Description 02/06/2023 Transcribe Orders GENERIC EXTERNAL DATA DEPARTMENT Flavia Antonio MD [place] [id number] Pain in right shoulder (Primary Dx); Other specified disorders of tendon, right shoulder Social History Tobacco Use Types Packs/Day Years Used Date Smoking Tobacco: Former Cigarettes 1 13 Q uit: 05/02/2019 Smokeless Tobacco: Never Alcohol Use Standard Drinks/Week Comments Not Currently 0 (1 standard drink = 0.6 oz pure alcohol) Alcoholic Drinks/day: currently on antibuse PHQ-2 Answer Date Recorded PHQ-2 Score 0 10/29/2021 [place] Depression Scale Answer Date Recorded [place] Depression Score 3 07/11/2021 Last EPDS Self [...] Description 03/10/2024 8:00 AM CDT Virtual Visit [facility] [address] [address] Deo Wood MD [address] [place] [phone] Scheduled Referrals Name Type Priority Associated Diagnoses Orde r Schedule Physical Therapy Referral Referral Routine Pain in right shoulder Other specified disorders of tendon, right shoulder Ordered: 02/06/2023 documented as of this encounter Visit Diagnoses Diagnosis Pain in right shoulder- Primary Pain in joint, shoulder region Other specified disorders of tendon, right shoulder documented in this encounter Additional Health Concerns Assessment Noted Time PHQ-9 Depression Total Score: 9 10/09/19 11:57 AM CDT documented as of this encounter Care Teams Nursing Executive Relationship Specialty Start Date End Date Herlinda Marino, DIELECTRIC MACHINE OPERATOR SALES SUPERINTENDENT [place] [facility] [address] [place] [address] PCP - Obstetrics/Gynecology 02/03/19 Arjun Pruitt MD [address] [place] [address] PCP - General patient relations liaison 06/25/22 03/11/23 Olga Aguila DNP [address] [place] [address] Assigned PCP 02/22/22 documented as of this encounter
--- OUTSIDE RECORDS SUMMARY | 2023-05-28 10:22 | XMS_ITS | Encounter Summary ---
Author Name Unknown Organization [place] Address [facility] [place] [address] Care Team Providers Care Stay Cutter Name Role Phone Flavia Antonio MD Primary Care Provider [phone] Herlinda Marino ROUTE DELIVERY CLERK LINE INSTALLATION SUPERVISOR Unavailable Xochitl Smith MD Unavailable Deysi Greenwood ROUTE DELIVERY CLERK LINE INSTALLATION SUPERVISOR Unavailable Flavia Antonio MD Primary Care Provider [phone] Flavia Antonio MD Unavailable [phone] Olga Aguila [facility] Unavailable [phone] Arjun Pruitt MD Primary Care Provide r Martin Stevens [facility] Unavailable [phone] Flavia Antonio MD Primary Care Provider Marlene Bustamante [facility] Unavailable [phone] Encounter Details Date Type Department Care Team (Late st Contact Info) Description 01/03/2022 [facility] Medical Advice [facility] [address] [facility] [address] [place] [address] Yoli Manuel, BENIGNO Social History Tobacco Use Types Packs/Day Years Used Date Smoking Tobacco: Former Cigarettes 1 13 Q uit: 05/02/2019 Smokeless Tobacco: Never Alcohol Use Standard Drinks/Week Comments Not Currently 0 (1 standard drink = 0.6 oz pure alcohol) Alcoholic Drinks/day: currently on antibuse PHQ-2 Answer Date Recorded PHQ-2 Score 0 10/29/2021 [place] Depression Scale Answer Date Recorded [place] Depression Score 3 07/11/2021 Last EPDS Self [...] suspected to have Coronavirus/COVID-19? No / Unsure 12/17/2021 7:42 AM CDT documented as of this encounter Plan of Treatment Upcoming Encounters Date Type Department Care Team (Late st Contact Info) Description 03/10/2024 8:00 AM CDT Virtual Visit [facility] [address] [place] [phone] Deo Wood MD [address] [place] [address] 200 [place] [address] documented as of this encounter Visit Diagnoses Not on filedocumented in this encounter Additional Health Concerns Assessment Noted Time PHQ-9 Depression Total Score: 9 10/09/19 22 11:57 AM CDT documented as of this encounter Care Teams Stay Cutter Relationship Specialty Start Date End Date Flavia Antonio MD PCP - General 12/07/18 01/15/22 Herlinda Marino APRN LINE INSTALLATION SUPERVISOR [facility] [id number] [place] [id number] PCP - Obstetrics/Gynecology 02/03/19 Flavia Antonio MD [address] [facility] 100 [place] [address] PCP - General Family Medicine 01/16/22 06/06/22 Arjun Pruitt MD [address] [place] [address] PCP - General thread winder 06/25/22 03/11/23 Flavia Antonio MD [address] [address] PCP - General Family Medicine 03/12/23 Xochitl Smith MD [address] [place] [address] Assigned OBGYN Provider 04/14/21 Deysi Greenwood APRN [facility] [address] [address] Assigned PCP 12/14/21 01/24/22 Flavia Antonio MD [address] [address] Assigned PCP 01/25/22 02/21/22 Olga Aguila DNP [facility] [place] [address] Assigned PCP 02/22/22 Martin Stevens RPH [address] [place] [address] Pharmacist Pharmacist 02/20/23 Marlene Bustamante RPH [address] [place] [address] Pharmacist Pharmacist Senior Compensation Analyst 04/30/23 documented as of this encounter
--- OUTSIDE RECORDS SUMMARY | 2023-05-28 10:22 | XMS_ITS | Encounter Summary ---
Author Name Unknown Organization [place] Address [address] [place] [address]. [place] [address] Care Team Providers Care Fiberglasser Name Role Phone Flavia Antonio MD Primary Care Provider [phone] Herlinda Marino MOLDER VACUUM HOLTER TECHNICIAN Unavailable [phone] Flavia Antonio MD Unavailable Xochitl Smith MD Unavailable Deysi Greenwood APRN HOLTER TECHNICIAN Unavailable Flavia Antonio MD Primary Care Provider Flavia Antonio MD Unavailable Olga Aguila DNP Unavailable Arjun Pruitt MD Primary Care Provide r Martin Stevens [facility] Unavailable [phone] Flavia Antonio MD Primary Care Provider Marlene Bustamante [facility] Unavailable [phone] Encounter Details Date Type Department Care Team (Late st Contact Info) Description 10/17/2021 [facility] [address] [address] Allie Hernandez Social History Tobacco Use Types Packs/Day Years Used Date Smoking Tobacco: Former Cigarettes 1 13 Q uit: 05/02/2019 Smokeless Tobacco: Never Alcohol Use Standard Drinks/Week Comments Not Currently 0 (1 standard drink = 0.6 oz pure alcohol) Alcoholic Drinks/day: currently on antibuse PHQ-2 Answer Date Recorded PHQ-2 Score 2 10/08/2021 [place] Depression Scale Answer Date Recorded [place] Depression Score 3 07/11/2021 Last EPDS Self Harm Result Not on file 07/11 Sex and Gender Information Value Date Recorded Sex Assigned at Not on file Gender Identity Not on file Sexual Orientation Not on file COVID-19 Exposure Response Date Recorded In the last 10 days, have yo u been in contact with someone who was confirmed or suspected to have Coronavirus/COVID-19? Unable to assess 10/18/2021 11:55 AM CDT documented as of this encounter Plan of Treatment Upcoming Encounters Date Type Department Care Team (Late st Contact Info) Description 03/10/2024 8:00 AM CDT Virtual Visit [facility] [address] [place] [address] Deo Wood MD [address] [place] [address] 200 [place], [place] [id number] documented as of this encounter Visit Diagnoses Not on filedocumented in this encounter Additional Health Concerns Assessment Noted Time PHQ-9 Depression Total Score: 9 10/09/19 22 11:57 AM CDT documented as of this encounter Care Teams Fiberglasser Relationship Specialty Start Date End Date Flavia Antonio MD PCP - General 12/07/18 01/15/22 Herlinda Marino APRN HOLTER TECHNICIAN [facility] [address] [place], [place] [id number] PCP - Obstetrics/Gynecology 02/03/19 Flavia Antonio MD [address] [address] PCP - General Family Medicine 01/16/22 06/06/22 Arjun Pruitt MD [facility] CANDICE REBOLLAR [address] [address] PCP - General epidemiologist 06/25/22 03/11/23 Flavia Antonio MD [address] [address] PCP - General Family Medicine 03/12/23 Flavia Antonio MD [address] [address] Assigned PCP 10/31/20 12/13/21 Xochitl Smith MD [address] [place] [address] Assigned OBGYN Provider 04/14/21 Deysi Greenwood APRN [facility] [address] Jessica Castillo [address] [address] Assigned PCP 12/14/21 01/24/22 Flavia Antonio MD [address] [address] Assigned PCP 01/25/22 02/21/22 Olga Aguila DNP [address] [place] [address] Assigned PCP 02/22/22 Martin Stevens, [facility] 909 [place] [address] Pharmacist Pharmacist 02/20/23 Marlene Bustamante RPH [address] [place] [address] Pharmacist Pharmacist Tube Sorter 04/30/23 documented as of this encounter
--- OUTSIDE RECORDS SUMMARY | 2023-05-28 10:22 | XMS_ITS | Encounter Summary ---
Author Name Unknown Organization [place] Address [facility] [place] [address] Care Team Providers Care Physics Technical Officer Name Role Phone Flavia Antonio MD Primary Care Provider [phone] Herlinda Marino PROGRAM MANAGEMENT PROFESSIONAL APPLIANCE ADJUSTER Unavailable [phone] Flavia Antonio MD Unavailable Xochitl Smith MD Unavailable Deysi Greenwood PROGRAM MANAGEMENT PROFESSIONAL APPLIANCE ADJUSTER Unavailable Flavia Antonio MD Primary Care Provider Flavia Antonio MD Unavailable Olga Aguila [facility] Unavailable Arjun Pruitt MD Primary Care Provide r Martin Stevens [facility] Unavailable [phone] Flavia Antonio MD Primary Care Provider Marlene Bustamante [facility] Unavailable [phone] Reason for Visit * Reason Onset Date Comments appointment request 10/05/2021 Encounter Details Date Type Department Care Team (Late st Contact Info) Description 10/05/2021 [facility] Medical Advice [facility] [address] [facility] [address] [place] [phone] Flavia Antonio MD [address] [address] appointment request Social History Tobacco Use Types Packs/Day Years Used Date Smoking Tobacco: Former Cigarettes 1 13 Q uit: 05/02/2019 Smokeless Tobacco: Never Alcohol Use Standard Drinks/Week Comments Not Currently 0 (1 standard drink = 0.6 oz pure alcohol) Alcoholic Drinks/day: currently on antibuse PHQ-2 Answer Date Recorded PHQ-2 Score 2 10/08/2021 [place] Depression Scale Answer Date Recorded [place] Depression Score 3 07/11/2021 Last EPDS Self [...] suspected to have Coronavirus/COVID-19? No / Unsure 10/04/2021 10:25 PM CDT documented as of this encounter Miscellaneous Notes * Telephone Encounter - Ayde Ring RN - 10/07/2021 8:13 AM CDT Inquiring if patient would like a triage phone call due to depression possibility or if she would simply like to be seen by a provider on Thursday. Ayde Ring RN on 10/07/2021 at 8:17 AM documented in this encounter Plan of Treatment Upcoming Encounters Date Type Department Care Team (Late st Contact Info) Description 03/10/2024 8:00 AM CDT Virtual Visit [facility] Care [address] [place] [phone] Deo Wood MD [address] [place] [address] documented as of this encounter Visit Diagnoses Not on filedocumented in this encounter Care Teams Physics Technical Officer Relationship Specialty Start Date End Date Flavia Antonio MD PCP - General 12/07/18 01/15/22 Herlinda Marino APRN APPLIANCE ADJUSTER [facility] [address] [address] PCP - Obstetrics/Gynecology 02/03/19 Flavia Antonio MD [address] [address] PCP - General Family Medicine 01/16/22 06/06/22 Arjun Pruitt MD [facility] CANDICE REBOLLAR [facility] 100 [place] [address] PCP - General associate principal 06/25/22 03/11/23 Flavia Antonio MD [address] [id number] PCP - General Family Medicine 03/12/23 Flavia Antonio MD [address] [id number] Assigned PCP 10/31/20 12/13/21 Xochitl Smith MD [address] [id number] Assigned OBGYN Provider 04/14/21 Deysi Greenwood APRN APPLIANCE ADJUSTER [address] [place] [address] Assigned PCP 12/14/21 01/24/22 Flavia Antonio MD [address] [address] Assigned PCP 01/25/22 02/21/22 Olga Aguila DNP [address]1 [place] [address] Assigned PCP 02/22/22 Martin Stevens [facility] [address] [place] [id number] Pharmacist Pharmacist 02/20/23 Marlene Bustamante [facility] [address] [place] [address] Pharmacist Pharmacist New Home Sales Consultant 04/30/23 documented as of this encounter
--- OUTSIDE RECORDS SUMMARY | 2023-05-28 10:22 | XMS_ITS | Encounter Summary ---
Author Name Unknown Organization [place] Address [facility]0 [facility] [place] [address] Care Team Providers Care Intelligence Senior Sergeant Name Role Phone Herlinda Marino Jonathan [employer] Unavailable Olga Aguila DNP Unavailable [phone] Arjun Pruitt MD Primary Care Provide r Reason for Visit * Reason Onset Date Comments Orders 02/11/2023 Post Bariatric S urgery labs. Encounter Details Date Type Department Care Team (Late st Contact Info) Description 02/11/2023 [facility] [address] [phone] Deo Wood MD [address] [place] [phone] Orders (Post Bariatric Surgery labs. ) Social History Tobacco Use Types Packs/Day Years Used Date Smoking Tobacco: Former Cigarettes 1 13 Q uit: 05/02/2019 Smokeless Tobacco: Never Alcohol Use Standard Drinks/Week Comments Not Currently 0 (1 standard drink = 0.6 oz pure alcohol) Alcoholic Drinks/day: currently on antibuse PHQ-2 Answer Date Recorded PHQ-2 Score 0 10/29/2021 Mont[place] Depression Scale Answer Date Recorded [place] Depression Score 3 07/11/2021 Last EPDS Self Harm Result Not on file 07/11 Adolescent Education Answer Date Record ed Getting School Help Needed Not on file 02/06 Sex and Gender Information Value Date Recorded Sex Assigned at Not on file Gender Identity Not on file Sexual Orientation Not on file documented as of this encounter Miscellaneous Notes * Telephone Encounter - Therese Sargent, RN - 02/11/2023 4:16 PM CDT 3 yrs post op lab orders placed for patient in preparation for appointment with in February. Therese Sargent RN, CBN [facility] P [phone] F [phone] documented in this encounter Plan of Treatment Upcoming Encounters Date Type Department Care Team (Late st Contact Info) Description 03/10/2024 8:00 AM CDT Virtual Visit [facility] [address] [place] [phone] Deo Wood MD [address] [place] [phone] documented as of this encounter Results * Parathyroid Hormone Intact (02/18/2023 7:45 AM [...] differs from PTH assays used in other [facility] laboratories. Deo Wood MD LAB - BLOOD ORDERABL ES [facility] [address] [facility], [address] [place] [phone], [facility] [phone] * Vitamin B1 whole blood (02/18/2023 7:45 AM CDT) Pathologist [facility] Vitamin B1 Whole Blood Level 153 70 - 180 nmol/L 02/22/2023 12:53 AM CDT [facility] Comment: INTERPRETIVE INFORMATION: Vitamin B1, Whole Blood This assay measures the concentration of thiamine diphosphate (TDP), the primary active form of vitamin B1. Approximately 90 percent of vitamin B1 present in whole blood is TDP. Thiamine and thiamine monophosphate, which comprise the remaining 10 percent, are not measured. This test was developed and its performance characteristics determined by [facility]. It has not been cleared or approved by the [place] Food and Drug Administration. This test was performed in a CLIA certified laboratory and is intended for clinical purposes. Performed By: [facility] [address] [place] [address] [employer] Supervisor: Ramon Sexton MD, PhD CLIA Number: [id number] Blood STRUCTURE OF LEFT UPPER LIMB / Unknown Venipuncture / Unknown 02/18/2023 7:45 AM CDT 02/18/2023 7:47 AM CDT Deo Wood MD LAB - BLOOD ORDERABL ES [address] [address], [facility] [phone] * Vitamin A (02/18/2023 7:45 AM CDT) Pathologist [facility] Vitamin A 0.76 0.30 - 1.20 mg/L 02/21/2023 1:37 PM CDT [facility] Retinol Palmitate <0.02 0.00 - 0.10 mg/L 02/21/2023 1:37 PM CDT [facility] Vitamin A Interp Normal 02/22/20 23 1:37 PM CDT [facility] Comment: This test was developed and its performance characteristics determined by [facility]. It has not been cleared or approved by the US Food and Drug Administration. This test was performed in a CLIA certified laboratory and is intended for clinical purposes. Performed By: [facility] [address] [place] [address] Catalyst Supervisor: Ramon Sexton MD, PhD CLIA Number: [id number] Blood STRUCTURE OF LEFT UPPER LIMB / Unknown Venipuncture / Unknown 02/18/2023 7:45 AM CDT 02/18/2023 7:47 AM CDT Deo Wood MD LAB - BLOOD ORDERABL ES Performing Organization Address City/[facility]/ZIP Co de Phone Number [facility] LAB[facility] [address] [place] [address], [facility] [phone] * Vitamin B12 (02/18/2023 7:45 AM CDT) Vitamin B12 1,114 232 - 1,245 pg/mL 02/18/2023 5:51 PM CDT [facility] Blood STRUCTURE OF LEFT UPPER LIMB / Unknown Venipuncture / Unknown 02/18/2023 7:45 AM CDT 02/18/2023 7:47 AM CDT Deo Wood MD LAB - BLOOD ORDERABL ES Performing Organization Address City/[facility]/ZIP Co de Phone Number [facility] [address] [facility], [address] [address], [facility] [phone] * (ABNORMAL) Vitamin D Deficiency (02/18/2023 7:45 [...] intake, and treatment affect the concentration of 13-sefvrly-Bdghhhe D. Values may decrease during winter months and increase during summer months. Vitamin D determination is routinely performed by an immunoassay specific for 25 hydroxyvitamin D3. ??If an individual is on vitamin D2(ergocalciferol) supplementation, please specify 25 [place] vitamin D2 and D3 level determination by LCMSMS test VITD23. Deo Wood MD LAB - BLOOD ORDERABL ES Performing Organization Address City/[facility]/ZIP Co de Phone Number LABORATORY [facility] [address] [facility], [address] [phone] [phone] * Zinc (02/18/2023 7:45 AM CDT) [facility] Zinc, Serum/Plasma 76.0 60.0 - 120.0 ug/dL 02/20/2023 12:22 PM CDT [facility] Comment: INTERPRETIVE INFORMATION: Zinc, Serum or Plasma [...] developed and its performance characteristics determined by [facility]. It has not been cleared or approved by the US Food and Drug Administration. This test was performed in a CLIA certified laboratory and is intended for clinical purposes. Performed By: [facility] [address] [place] [address] [employer] Supervisor: Ramon Sexton MD, PhD CLIA Number: [id number] Blood STRUCTURE OF LEFT UPPER LIMB / Unknown Venipuncture / Unknown 02/18/2023 7:45 AM CDT 02/18/2023 7:47 AM CDT Deo Wood MD LAB - BLOOD ORDERABL ES Performing Organization Address City/[facility]/ZIP Co de Phone Number [facility] [address] [place] [address], [facility] [phone] * (ABNORMAL) Lipid Profile (02/18/2023 7:45 AM [...] LAB - BLOOD ORDERABL ES [facility] [address] [facility] [address], [address] [place] [address], [facility] [phone] * Hemoglobin A1c (02/18/2023 7:45 AM CDT) Hemoglobin A1C 4.9 <5.7 % 02/18/2023 10:[address] [facility] Comment: Normal <5.7% Prediabetes 5.7-6.4% ?? Diabetes 6.5% or higher Note: Adopted from ADA consensus guidelines. Blood STRUCTURE OF LEFT UPPER LIMB / Unknown Venipuncture / Unknown 02/18/2023 7:45 AM CDT 02/18/2023 7:47 AM CDT Deo Wood MD LAB - BLOOD ORDERABL ES [facility] [address] [facility] [place] [address], [facility] [phone] * Folate (02/18/2023 7:45 AM CDT) Pathologist [facility] Folic Acid 28.8 4.6 - 34.8 ng/mL 02/18/2023 1:11 PM CDT [facility] Blood STRUCTURE OF LEFT UPPER LIMB / Unknown Venipuncture / Unknown 02/18/2023 7:45 AM CDT 02/18/2023 7:47 AM CDT Deo Wood MD LAB - BLOOD ORDERABL ES [facility] [address] [facility], [address] [place] [address], [facility] [phone] * Ferritin (02/18/2023 7:45 AM CDT) Pathologist [facility] Ferritin 109 6 - 175 ng/mL 02/18/2023 5:51 PM CDT [facility] Blood STRUCTURE OF LEFT UPPER LIMB / Unknown Venipuncture / Unknown 02/18/2023 7:45 AM CDT 02/18/2023 7:47 AM CDT Deo Wood MD LAB - BLOOD ORDERABL ES [facility] [address] [facility], [address] [place] [address], [facility] [phone] * Comprehensive metabolic panel (02/18/2023 7:45 AM CDT) [facility] Sodium 139 135 - 145 mmol/L 02/18/2023 8:10 AM [facility] Comment:Reference intervals for this test were updated on 02/10/2023 to more accurately reflect our healthy population. There may be differences in the flagging of prior results with similar values performed with this method. Interpretation of those prior results can be made in the context of the updated reference intervals. Potassium 3.8 3.4 - 5.3 mmol/L 02/18/2023 8:10 AM [facility] Carbon Dioxide (CO2) 26 22 - 29 mmol/L 02/18/2023 8:10 AM [facility] Anion Gap 8 7 - 15 mmol/L 02/18/2023 8:10 AM [facility] Urea Nitrogen 8.2 6.0 - 20.0 mg/dL 02/18/2023 8:10 AM [facility] Creatinine 0.60 0.51 - 0.95 mg/dL 02/18/2023 8:10 AM [facility] GFR Estimate >90 >60 mL/min/1. 73m2 02/18/2023 8:10 AM [facility] Calcium 9.1 8.6 - 10.0 mg/dL 02/18/2023 8:10 AM [facility] Chloride 105 98 - 107 mmol/L 02/18/2023 8:10 AM [facility] Glucose 83 70 - 99 mg/dL 02/18/2023 8:10 AM [facility] Alkaline Phosphatase 38 35 - 104 U/L 02/18/2023 8:10 AM [facility] AST 21 0 - 45 U/L 02/18/2023 8:10 AM [facility] Comment:Reference intervals for this test were updated on 10/27/2022 to more accurately reflect our healthy population. There may be differences in the flagging of prior results with similar values performed with this method. Interpretation of those prior results can be made in the context of the updated reference intervals. ALT 27 0 - 50 U/L 02/18/2023 8:[address] [facility] Comment:Reference intervals for this test were updated on 10/27/2022 to more accurately reflect our healthy population. There may be differences in the flagging of prior results with similar values performed with this method. Interpretation of those prior results can be made in the context of the updated reference intervals. Protein Total 6.9 6.4 - 8.3 g/dL 02/18/2023 8:[address] [facility] Albumin 4.7 3.5 - 5.2 g/dL 02/18/2023 8:[address] [facility] Bilirubin Total 0.5 <=1.2 mg/dL 02/18/2023 8:[address] [facility] Blood STRUCTURE OF LEFT UPPER LIMB / Unknown Venipuncture / Unknown 02/18/2023 7:45 AM CDT 02/18/2023 7:47 AM CDT Deo Wood MD LAB - BLOOD ORDERABL ES [facility] [address] [facility] [place] [address], [facility] [phone] * (ABNORMAL) CBC with platelets (02/18/2023 7:45 AM CDT) WBC Count 3.7(L) 4.0 - 11.0 10e3/uL 02/18/2023 7:[address] [facility] RBC Count 4.52 3.80 - 5.20 10e6/uL 02/18/2023 7:[address] [facility] Hemoglobin 14.2 11.7 - 15.7 g/dL 02/18/2023 7:[address] [facility] Hematocrit 41.4 35.0 - 47.0 % 02/18/2023 7:[address] [facility] MCV 92 78 - 100 fL 02/18/2023 7:[address] [facility] MCH 31.4 26.5 - 33.0 pg 02/18/2023 7:[address] [facility] MCHC 34.3 31.5 - 36.5 g/dL 02/18/2023 7:[address] [facility] RDW 12.0 10.0 - 15.0 % 02/18/2023 7:[address] [facility] Platelet Count 220 150 - 450 10e3/uL 02/18/2023 7:[address] [facility] Blood STRUCTURE OF LEFT UPPER LIMB / Unknown Venipuncture / Unknown 02/18/2023 7:45 AM CDT 02/18/2023 7:47 AM CDT Deo Wood MD LAB - BLOOD ORDERABL ES 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 documented in this encounter Additional Health Concerns Assessment Noted Time PHQ-9 Depression Total Score: 9 10/09/19 22 11:57 AM CDT documented as of this encounter Care Teams Intelligence Senior Sergeant Relationship Specialty Start Date End Date Herlinda Marino, [employer] DIRECTOR ID [facility] [id number] [place], [place] [address] [address] PCP - Obstetrics/Gynecology 02/03/19 [facility] [address] [place] [id number] PCP - General classified copy control clerk 06/25/22 03/11/23 Olga Aguila DNP [address] [place] [address] Assigned PCP 02/22/22 documented as of this encounter
--- OUTSIDE RECORDS SUMMARY | 2023-05-28 10:22 | XMS_ITS | Encounter Summary ---
Author Name Unknown Organization [place] Address [facility] [address] Care Team Providers Care Multimedia Services Coordinator Name Role Phone Herlinda Marino APRN CUSTOMER AGENT Unavailable [phone] Xochitl Smith MD Unavailable Olga Aguila DNP Unavailable Arjun Pruitt MD Primary Care Provide r Reason for Visit * Auth/Cert (Routine) Specialty Diagnoses / Procedures Referred By Les cabrera Referred To Contact Surgery Diagnoses Excessive and frequent menstruation with regular cycle Excessive and frequent menstruation with regular cycle [N92.0] Procedures WA LAP, SUPRACERVIAL HYSTERECTOMY, <250G WA LAP, SUPRACERVIAL HYSTERECTOMY, >250G WA LAPAROSCOPY, SURGICAL; W/ VAGINAL HYSTERECTOMY W/WO REMOVAL OVARY(S)/TUBES WA LAP,VAG HYST,UTERUS >250GMS WA LAPAROSCOPY W TOT HYSTERECT UTERUS 250 GRAM OR LESS WA LAPAROSCOPY TOTAL HYSTERECTOMY UTERUS > 250 GRAM ROBOTIC ASSISTED HYSTERECTOMY WITH BILATERAL SALPINGECTOMY [facility] Periop Services [address] [place] [address] Referral ID Status Reason Start Date Expiration Date Visits Re quested Visits Authorized [id number] 1 1 Encounter Details Date Type Department Care Team (Late st Contact Info) Description 07/02/2022 9:30 AM NUTRITION SERVICES ASSISTANT - 07/02/2022 11:20 AM [facility] Surgery [address] [address] [facility] [place] [address] ROBOTIC ASSISTED HYSTERECTOMY WITH BILATERAL SALPINGECTOMY Surgery Details Date/Time Status Location OR Service Patient Class Case Class Case Type Trauma Case? 07/02/22 9:30 AM Posted [facility] [place] OR [facility] OR Gynecology Same Day Surgery Elective Panel 1 Procedure LRB Anes Op Region Wound Class Comments ROBOTIC ASSISTED HYSTERECTOMY WITH BILATERAL SALPINGECTOMY Bilateral General Abdomen II-Clean Contamin ated Surgeon Surgeon Role Service Panel Arjun Pruitt MD Primary Gynecology 1 Special Needs Alicia to Assist documented in this encounter Social History Tobacco Use Types Packs/Day Years Used Date Smoking Tobacco: Former Cigarettes 1 13 Q uit: 05/02/2019 Smokeless Tobacco: Never Tobacco Cessation:Counseling Given: Not Answered Alcohol Use Standard Drinks/Week Comments Not Currently 0 (1 standard drink = 0.6 oz pure alcohol) Alcoholic Drinks/day: currently on antibuse PHQ-2 Answer Date Recorded PHQ-2 Score 0 10/29/2021 Tyner Depression Scale Answer Date Recorded Tyner Depression Score 3 07/11/2021 Last EPDS Self Harm Result Not on file 07/11 Sex and Gender Information Value Date Recorded Sex Assigned at Not on file Gender Identity Not on file Sexual Orientation Not on file documented as of this encounter Last Filed Vital Signs Vital Sign Reading Time Taken Comments Blood Pressure 147/65 07/02/2022 11:10 AM NUTRITION SERVICES ASSISTANT Pulse 84 07/02/2022 11:20 AM NUTRITION SERVICES ASSISTANT Temperature 36.2 ??C (97.1 ??F) 07/02/2022 11:[address] Respiratory Rate 16 07/02/2022 11:20 AM NUTRITION SERVICES ASSISTANT Oxygen Saturation 97% 07/02/2022 11:20 AM NUTRITION SERVICES ASSISTANT Inhaled Oxygen Concentration - - Weight 75.9 kg (167 lb 4.8 oz) 07/02/2022 7:00 A M NUTRITION SERVICES ASSISTANT Height - - Body Mass Index 32.67 03/12/2022 8:05 AM CDT documented in this encounter Discharge Instructions * Attachments The following attachments cannot be sent through Care Everywhere. * After Your Surgery: Discharge Instructions (Yemeni) documented in this encounter Medications at Time [...] and Physical NAME: Ángel Tyler : 1985 [facility] ADMISSION DATE: 07/02/2022 PCP: Arjun Pruitt CHIEF COMPLAINT: vaginal bleeding HPI: Ángel Tyler is admitted for hysterectomy for menorraghia.. Patient is a 36 year old @[facility]@ Female. History is obtained through the patient [...] treatment for this has included: OCP,hormonal therapy. HANDY WORKER/Menstral History: patient states that she started menarche [...] Past Surgical History: Procedure Laterality Date ??? WA LAP, PATRICA RESTRICT PROC, LONGITUDINAL GASTRECTOMY N/A 03/12/2020 Procedure: GASTRECTOMY, SLEEVE, LAPAROSCOPIC; Surgeon: Hussain Man MD; Location: [facility]; Service: General ??? TONSILLECTOMY SOCIAL HISTORY: Social [...] desiring to conceive Arjun Pruitt MD CC: rAjun Pruitt Kevin A Hallman MD Fellow, Female Pelvic Medicine and Reconstructive Surgery ITION SERVICES ASSISTANT documented in this encounter Miscellaneous Notes * Op Note - Arjun Pruitt MD - 07/02/2022 3:57 PM CST Procedure Date: 07/02/2022 PREOPERATIVE DIAGNOSES: Menorrhagia, pelvic pain with dysmenorrhea. POSTOPERATIVE DIAGNOSES: Menorrhagia, pelvic pain with dysmenorrhea. PROCEDURE: Robotic-assisted total hysterectomy with bilateral salpingectomy. SURGEON: Arjun Pruitt MD DOCUMENT IMPROVEMENT SPECIALIST: Alicia Schaefer. ANESTHESIA: General. ESTIMATED BLOOD LOSS: [...] sia Name: ÁNGEL TYLER MRN: [id number] Account: [id number] : 1985 Procedure Date: 07/02/2022 Document: [id number] ITION SERVICES ASSISTANT * Brief Op Note - Arjun Pruitt MD - 07/02/2022 10:57 AM NUTRITION SERVICES ASSISTANT [facility] Brief Operative Note Pre-operative diagnosis: [...] Implants: * No implants in log * ITION SERVICES ASSISTANT documented in this encounter Plan of Treatment Upcoming Encounters Date Type Department Care Team (Late st Contact Info) Description 03/10/2024 8:00 AM CDT Virtual Visit [facility] Surgery Clinic and Bariatrics Care [address] [place] [id number] Deo Wood MD [address] [place] [address] [address] [place] [address] documented as of this encounter Procedures Procedure Name Priority Date/Time Associated Diagnosis Comments SURGICAL PATHOLOGY EXAM Routine 07/02/2022 10:48 AM NUTRITION SERVICES ASSISTANT HYSTERECTOMY, ROBOT-ASSISTED, LAPAROSCOPIC, USING DA KHANH XI 07/02/2022 9:43 AM NUTRITION SERVICES ASSISTANT Excessive and frequent menstruation with regular cycle Special Needs Alicia to Assist CBC WITH PLATELETS AND DIFFERENTIAL STAT 07/02/2022 8:47 AM NUTRITION SERVICES ASSISTANT TYPE AND SCREEN, ADULT STAT 07/02/2022 8:47 AM NUTRITION SERVICES ASSISTANT CBC WITH PLATELETS & DIFFERENTIAL STAT 07/02/2022 8:47 AM NUTRITION SERVICES ASSISTANT ABO/RH TYPE AND SCREEN STAT 07/02/2022 8:47 AM NUTRITION SERVICES ASSISTANT EXTRA TUBE Routine 07/02/2022 8:45 AM NUTRITION SERVICES ASSISTANT EXTRA RED TOP TUBE Routine 07/02/2022 8: 45 AM NUTRITION SERVICES ASSISTANT HCG QUALITATIVE URINE STAT 07/02/2022 8:36 AM NUTRITION SERVICES ASSISTANT documented in this encounter Results * Surgical Pathology Exam (07/02/2022 10:48 AM NUTRITION SERVICES ASSISTANT) Case Report Surgical Pathology Report ? Case: [id number] ? Authorizing Provider: ??Arjun Pruitt, ??Collected: ? 07/02/2022 10:48 AM ? MD ? Ordering Location: ? [facility] St. ?Received: ?07/02/2022 11:11 AM ? [facility] ? Pathologist: ? Nabor Ramachandran MD ? Specimen: ?Uterus, Cervix, Bilateral Fallopian Tubes, Uterus, cervix, bilateral fallopian tubes 07/06/2022 9:32 PM NUTRITION SERVICES ASSISTANT [facility] Final Diagnosis UTERUS, CERVIX, RIGHT AND [...] NO EVIDENCE OF MALIGNANCY 07/06/2022 9:32 PM NUTRITION SERVICES ASSISTANT [facility] Clinical Information Procedure: ROBOTIC ASSISTED HYSTERECTOMY WITH BILATERAL SALPINGECTOMY - Bilateral Pre-op Diagnosis: Excessive and frequent menstruation with regular cycle [N92.0] Post-op Diagnosis: N92.0 - Excessive and frequent menstruation with regular cycle [ICD-10-CM] 07/06/2022 9:32 PM NUTRITION SERVICES ASSISTANT N LABORATORY Gross Description A(1). Uterus, Cervix, Bilateral [...] left fallopian tube, respectively. Gross description by [facility]:[email or web address] 07/06/2022 9:32 PM [facility] Microscopic Description Microscopic examination performed, substantiating the above diagnosis. 07/06/2022 9:32 PM [facility] Performing Labs The technical component of this testing was completed at [facility] 07/06/2022 9:32 PM [facility] Case Images 07/06/2022 9:32 PM [facility] Tissue UTERUS AND FALLOPIAN TUBES, CS / Unknown 07/02/2022 10:48 AM NUTRITION SERVICES ASSISTANT 07/02/2022 11:11 AM NUTRITION SERVICES ASSISTANT Arjun BYRNES - BEAKER AP [facility] [address] [place] [address], [facility] [phone] [facility] [address] [place] [address], [facility] [phone] * Adult Type and Screen (07/02/2022 8:47 AM NUTRITION SERVICES ASSISTANT) ABO/RH(D) B POS 07/02/2022 8:14 AM [facility] Antibody Screen Negative Negative 07/02/2022 8:14 AM [facility] SPECIMEN EXPIRATION DATE [id number] 07/02/2022 8:14 AM [facility] Blood STRUCTURE OF LEFT UPPER LIMB / Unknown Venipuncture / Unknown 07/02/2022 8:47 AM NUTRITION SERVICES ASSISTANT 07/02/2022 8:51 AM NUTRITION SERVICES ASSISTANT Martinez Olvera PA-C LAB - BLOOD BAN K TEST ORDER [facility] [address] * CBC with platelets and differential (07/02/2022 8:47 AM [facility]) WBC Count 4.3 4.0 - 11.0 10e3/uL 07/02/2022 9:04 AM NUTRITION SERVICES ASSISTANT [facility] RBC Count 4.35 3.80 - 5.20 10e6/uL 07/02/2022 9:04 AM NUTRITION SERVICES ASSISTANT [facility] Hemoglobin 13.3 11.7 - 15.7 g/dL 07/02/2022 9:04 AM NUTRITION SERVICES ASSISTANT [facility] Hematocrit 39.5 35.0 - 47.0 % 07/02/2022 9:04 AM NUTRITION SERVICES ASSISTANT N LABORATORY MCV 91 78 - 100 fL 07/02/2022 9:04 AM NUTRITION SERVICES ASSISTANT N LABORATORY MCH 30.6 26.5 - 33.0 pg 07/02/2022 9:04 AM NUTRITION SERVICES ASSISTANT [facility] MCHC 33.7 31.5 - 36.5 g/dL 07/02/2022 9:04 AM NUTRITION SERVICES ASSISTANT N LABORATORY RDW 11.5 10.0 - 15.0 % 07/02/2022 9:04 AM NUTRITION SERVICES ASSISTANT N LABORATORY Platelet Count 199 150 - 450 10e3/uL 07/02/2022 9:04 AM NUTRITION SERVICES ASSISTANT [facility] % Neutrophils 42 % 07/02/2022 9:04 AM NUTRITION SERVICES ASSISTANT [facility] % Lymphocytes 45 % 07/02/2022 9:04 AM NUTRITION SERVICES ASSISTANT [facility] % Monocytes 8 % 07/02/2022 9:04 AM NUTRITION SERVICES ASSISTANT [facility] % Eosinophils 4 % 07/02/2022 9:04 AM NUTRITION SERVICES ASSISTANT [facility] % Basophils 1 % 07/02/2022 9:04 AM NUTRITION SERVICES ASSISTANT [facility] % Immature Granulocytes 0 % 07/02/2022 9:04 AM NUTRITION SERVICES ASSISTANT [facility] NRBCs per 100 WBC 0 <1 /100 023 9:04 AM NUTRITION SERVICES ASSISTANT [facility] Absolute Neutrophils 1.8 1.6 - 8.3 10e3/uL 07/02/2022 9:04 AM NUTRITION SERVICES ASSISTANT [facility] Absolute Lymphocytes 1.9 0.8 - 5.3 10e3/uL 07/02/2022 9:04 AM NUTRITION SERVICES ASSISTANT [facility] Absolute Monocytes 0.3 0.0 - 1.3 10e3/uL 07/02/2022 9:04 AM NUTRITION SERVICES ASSISTANT [facility] Absolute Eosinophils 0.2 0.0 - 0.7 10e3/uL 07/02/2022 9:04 AM NUTRITION SERVICES ASSISTANT N LABORATORY Absolute Basophils 0.0 0.0 - 0.2 10e3/uL 07/02/2022 9:04 AM [facility] Absolute Immature Granulocytes 0.0 <=0.4 10e3/uL 07/02/2022 9:04 AM NUTRITION SERVICES ASSISTANT [facility] Absolute NRBCs 0.0 10e3/uL 07/02/2022 9:04 AM [facility] Blood STRUCTURE OF LEFT UPPER LIMB / Unknown Venipuncture / Unknown 07/02/2022 8:47 AM NUTRITION SERVICES ASSISTANT 07/02/2022 8:50 AM NUTRITION SERVICES ASSISTANT Martinez Olvera PA-C LAB - BLOOD ORD ERABLES Performing Organization Address City/[facility]/ZIP Co de Phone Number [facility] [address] [place] [address], [facility] [phone] * Extra Red Top Tube (07/02/2022 8:45 AM NUTRITION SERVICES ASSISTANT) Hold Specimen JIC 07/02/2022 10:18 AM NUTRITION SERVICES ASSISTANT [facility] Blood STRUCTURE OF RIGHT UPPER LIMB / Unknown Venipuncture / Unknown 07/02/2022 8:45 AM NUTRITION SERVICES ASSISTANT 07/02/2022 9:07 AM NUTRITION SERVICES ASSISTANT Arjun Pruitt MD LAB - BLOOD O RDERABLES [facility] [address] [place] [address], [facility] [phone] * HCG qualitative urine (07/02/2022 8:36 AM NUTRITION SERVICES ASSISTANT) hCG Urine Qualitative Negative Negative SOREN 07/02/2022 8:44 AM NUTRITION SERVICES ASSISTANT [facility] Comment:This test is for scr eening purposes. Results should be interpreted along with the clinical picture. Confirmation testing is available if warranted by ordering [id number], HCG Quantitative . Urine MID-STREAM URINE SPECIMEN / Unknown Non-blood Collection / Unknown 07/02/2022 8:36 AM NUTRITION SERVICES ASSISTANT 07/02/2022 8:40 AM NUTRITION SERVICES ASSISTANT Martinez Olvera PA-C LAB - URINE ORD ERABLES [facility] [address] [phone] documented in this encounter Visit Diagnoses Diagnosis Menorrhagia with regular cycle- Primary Excessive or frequent menstruation Excessive and frequent menstruation with regular cycle Excessive or frequent menstruation documented in this [...] 4 grams/day., Pre-procedure $Given 07/02/2022 9:03 AM NUTRITION SERVICES ASSISTANT 975 mg acetaminophen (TYLENOL) tablet 975 mg [...] exceed 4 grams/day. $Given 07/02/2022 3:00 PM NUTRITION SERVICES ASSISTANT 975 mg bupivacaine (MARCAINE) 0.25% preservative free injection PRN, Starting on Thu07/02/22 at 1036, Intra-procedure $Given 07/02/2022 10:50 AM NUTRITION SERVICES ASSISTANT 50 mLs Operative Site/Surgical Site fentaNYL (PF) (SUBLIMAZE) injection 25 mcg 25 [...] HYDROmorphone (DILAUDID)., PACU $Given 07/02/2022 11:57 AM NUTRITION SERVICES ASSISTANT 50 mcg $Given 07/02/2022 11:51 AM NUTRITION SERVICES ASSISTANT 50 mcg $Given 07/02/2022 11:45 AM NUTRITION SERVICES ASSISTANT 50 mcg lactated ringers (bag) irrigation SOLN PRN, Starting on Thu07/02/22 at 1045, Intra-procedure $Given 07/02/2022 10:45 AM NUTRITION SERVICES ASSISTANT 500 mLs Operative Site/Surgi ian Site lactated ringers infusion at 100 mL/hr, Intravenous, CONTINUOUS, Pre-procedure, Starting on Thu07/02/22 at 0900, Until Thu07/02/22 at 1101 $New Bag 07/02/2022 10:21 AM NUTRITION SERVICES ASSISTANT Restarted 07/02/2022 9:41 AM NUTRITION SERVICES ASSISTANT $New Bag 07/02/2022 9:10 AM NUTRITION SERVICES ASSISTANT 100 mLs 100 mL/hr naloxone (NARCAN) injection [...] for opioid-na??ve patient. $Given 07/02/2022 2:23 PM NUTRITION SERVICES ASSISTANT 5 mg oxyCODONE (ROXICODONE) tablet 5 mg 5 mg, Oral, ONCE PRN, other, pain control or improvement in physical function.??, Starting on Thu07/02/22 at 1231, For 1 dose, Hold oral PRN dose for analgesic side effects. Notify provider to assess for uncontrolled pain or analgesic side effects. Hold while on IV HIGH SCHOOL FOOTBALL COACH or with regular IV opioid dosing. $Given 07/02/2022 12:34 PM NUTRITION SERVICES ASSISTANT 5 mg oxyCODONE (ROXICODONE) tablet 5 mg 5 mg, Oral, ONCE PRN, other, pain control or improvement in physical function.??, Starting on Thu07/02/22 at 1417, For 1 dose, Hold oral PRN dose for analgesic side effects. Notify provider to assess for uncontrolled pain or analgesic side effects. Hold while on IV HIGH SCHOOL FOOTB[employer] COACH or with regular IV opioid dosing. scopolamine [...] patch., Pre-procedure $Patch/Med Applied 07/02/2022 9:04 AM NUTRITION SERVICES ASSISTANT 1 patch Behind Right Ear documented in this encounter Active and Recently Administered Medications Times are shown in NUTRITION SERVICES ASSISTANT. Scheduled Medication Order 06/30/2022 07/01/2022 07/02/2022 acetaminophen [...] PACU 1127 ($Given - Provi herbert: Mei Montalvo, RN)1145 ($Given - Provider: Mei Montalvo, RN)1151 ($Given - Provider: Mei Montalvo RN)1157 ($Given - Provider: Mei Montalvo, RN) lactated ringers (bag) irrigation SOLN (CANCELED) [...] analgesic side effects. Hold while on IV [employer] COACH or with regular IV opioid dosing. 1234 ($Given - Provi herbert: Jeannine Noland RN) oxyCODONE (ROXICODONE) tablet 5 mg 5 mg, Oral, ONCE PRN, other, pain control or improvement in physical function.??, Starting on Thu07/02/22 at 1417, For 1 dose, Hold oral PRN dose for analgesic side effects. Notify provider to assess for uncontrolled pain or analgesic side effects. Hold while on IV H[employer] COACH or with regular IV opioid dosing. Linked [...] documented as of this encounter Care Teams Multimedia Services Coordinator Relationship Specialty Start Date End Date Jamila Herlinda N, GREG CUSTOMER AGENT [facility] [id number] [place] [address] PCP - Obstetrics/Gynecology 02/03/19 Arjun Pruitt MD [address] [facility] [address] [place] [address] PCP - General buzzsaw operator 06/25/22 03/11/23 Xochitl Smith MD [address] [facility] [address] [place] [address] Assigned OBGYN Provider 04/14/21 Olga Aguila DNP [address] [place] [address] Assigned PCP 02/22/22 documented as of this encounter
--- OUTSIDE RECORDS SUMMARY | 2023-05-28 10:23 | XMS_ITS | Encounter Summary ---
Author Name Unknown Organization [place] Address [address] [place] [address]. [place] [address] Care Team Providers Care Cargo Tank Mechanic Name Role Phone Flavia Antonio MD Primary Care Provider Herlinda Marino APRN FIRE PREVENTION FORESTER Unavailable [phone] Hussain Man MD Unavailable [phone] Cheo Thakkar MD Unavailable [phone] Flavia Antonio MD Unavailable [phone] Xochitl Smith MD Unavailable Patricia Smiley MD Unavailable Nicko Puga PhD Unavailable Deysi Greenwood APRN FIRE PREVENTION FORESTER Unavailable [phone] Flavia Antonio MD Primary Care Provider Flavia Antonio MD Unavailable [phone] Olga Aguila DNP Unavailable [phone] Arjun Pruitt MD Primary Care Provide r Martin Stevens [facility] Unavailable [phone] Flavia Antonio MD Primary Care Provider Marlene Bustamante [facility] Unavailable [phone] Reason for Referral * Rehab Therapy Physical Therapy (Routine) - Closed Specialty Diagnoses / Procedures Referred By Les cabrera Referred To Contact Physical Therapy Diagnoses Chronic pain of right knee Flavia Antonio MD [facility] AND [address] [address] Helen Velazco, PT [address] [address] Referral ID Status Reason Start Date Expiration Date Visits Re quested Visits Authorized [id number] Closed 11/27/2020 11/27/2021 1 1 Comments Helen Velazco Order-Specific Questions: Location for physical therapy->[facility] Preferred [facility] Location->[place] Reason for Visit * Reason Comments Care Encounter Details Date Type Department Care Team (Late st Contact Info) Description 11/22/2020 Office Visit - [facility] [address] [place] [phone] Flavia Antonio MD [address] [address] Chronic pain of right knee; Supervision of high risk in first trimester Social History Tobacco Use Types Packs/Day Years Used Date Smoking Tobacco: Former Cigarettes 1 13 Q uit: 05/02/2019 Smokeless Tobacco: Never Alcohol Use Standard Drinks/Week Comments Not Currently 0 (1 standard drink = 0.6 oz pure alcohol) Alcoholic Drinks/day: currently on antibuse PHQ-2 Answer Date Recorded PHQ-2 Score 0 02/07/2020 Comments Yes Sex and Gender Information Value Date Recorded Sex Assigned at Not on file Gender Identity Not on file Sexual Orientation Not on file documented as of this encounter Last Filed Vital Signs Vital Sign Reading Time Taken Comments Blood Pressure 106/82 11/22/2020 7:42 AM CDT Pulse - - Temperature - - Respiratory Rate - - Oxygen Saturation - - Inhaled Oxygen Concentration - - Weight 76.2 kg (168 lb) 11/22/2020 7:42 AM CDT Height - - Body Mass Index 32.81 06/12/2020 9:00 AM PARCEL POST CARRIER documented in this encounter Progress Notes * Flavia Antonio MD - 11/22/2020 7:50 AM CDT Progress Notes by Flavia Antonio MD at 11/22/2020 7:50 AM Author: Flavia Antonio MD Service: -- Author Type: Physician Filed: 11/22/2020 12:33 PM Encounter Date: 11/22/2020 Status: Signed Synoptic Meteorologist: Flavia Antonoi MD (Physician) Patient is a 35 y.o. at 10w4d here for routine OB visit. Patient's OB course has thus far been complicated by history of delivery with twins complicated by preeclampsia developing , history of gestational hypertension at the end of her x1. She also has hypothyroidism and is followed by endocrinology. Subjective: Specific concerns: none Endorses: fatigue, headaches, issues with knees Objective: BP 106/82 Wt 168 lb (76.2 kg) LMP 09/03/2020 (Exact Date) BMI 32.81 kg/m?? Fundal height: n/a FHTs: present, confirmed with ultrasound Edema: absent Cervical exam: n/a Assessment: 35 y.o. at 10w4d here for routine OB visit. Do not believe pt is a good candidate for [place] 2/2 delivery due to twin gestation previously. Plan: Routine care Discussed today: comanagement with endocrinology, M for 20 week ultrasound Orders placed: - NIPT Routine labor/ROM/bleeding/decreased movement precautions given in AVS handout. Return to clinic in 4 week(s). documented in this encounter Plan of Treatment Upcoming Encounters Date Type Department Care Team (Late st Contact Info) Description 03/10/2024 8:00 AM CDT Virtual Visit [facility] Surgery Clinic and Bariatrics Care [address] [address] Deo Wood MD [address] [place] [address] Scheduled Referrals Name Type Priority Associated Diagnoses Orde r Schedule Physical Therapy Referral Referral Routine Chronic pain of right knee Ordered: 11/22/2020 documented as of this encounter Procedures Procedure Name Priority Date/Time Associated Diagnosis Comments LABORATORY MISCELLANEOUS ORDER Routine 11/22/2020 8:31 AM CDT documented in this encounter Results * (Laboratory Miscellaneous Order) (11/22/2020 8:31 AM CDT) [facility] Miscellaneous Test Dept. Chemistry Reference Test 12/06/2020 8:01 AM CDT [facility] Test Name NIPS to [facility] 12/06/2020 8:01 AM CDT [facility] Performing Lab [facility] [address] [place] [address] 12/06/2020 8:01 AM CDT [facility] See Scanned Result See Scanned Report 12/06/2020 8:01 AM CDT MISCELLANEOUS TESTING LAB Blood specimen (specimen) Venipuncture / Unknown 11/22/2020 8:31 AM CDT 11/23/2020 12:53 PM CDT Flavia Antonio MD LAB - BLOOD ORDER OFELIA MISCELLANEOUS TESTING [facility] [address] [place] [address] MISCELLANEOUS TESTING LAB documented in this encounter Visit Diagnoses Diagnosis Chronic pain of right knee Supervision of high risk in first trimester Unspecified high-risk documented in this encounter Additional Health Concerns Infection Onset Date Last Indicated Resolved Time Rule Out COVID-19 05/16/2021 05/16/2021 05/17/2021 2:14 PM PARCEL POST CARRIER documented as of this encounter Care Teams Cargo Tank Mechanic Relationship Specialty Start Date End Date Flavia Antonio MD PCP - General 12/07/18 01/15/22 Herlinda Marino APRN FIRE PREVENTION FORESTER [facility] [id number] [place] [address] PCP - Obstetrics/Gynecology 02/03/19 Flavia Antonio [facility] [address] [facility] 100 [place] [address] PCP - General Family Medicine 01/16/22 06/06/22 Arjun Pruitt MD [address] [facility] 100 [place] [address] PCP - General international logistics manager 06/25/22 03/11/23 Flavia Antonio MD [address] [address] PCP - General Family Medicine 03/12/23 Hussain Man MD [address] [place] [address] Assigned Surgical Provider 11/30/20 09/28/21 Cheo Thakkar MD [address] [address] Assigned OBGYN Provider 11/30/20 Flavia Antonio MD [address] [id number] Assigned PCP 10/31/20 12/13/21 Xochilt Smith MD [address] [place] [address] Assigned OBGYN Provider 04/14/21 Patricia Smiley MD [facility] 2635 [facility], [address] [place] [address] Assigned OBGYN Provider 04/07/2104/13 Nicko Puga, PhD [employer] [address] [place] [address] Assigned Behavioral Health Provider 04/07/21 07/06/21 Deysi Greenwood APRN FIRE PREVENTION FORESTER 1099 [facility] [address] [place] [address] Assigned PCP 12/14/21 01/24/22 Flavia Antonio MD [facility] AND [address] [address] Assigned PCP 01/25/22 02/21/22 Olga Aguila DNP 1151 [place] [address] Assigned PCP 02/22/22 Martin Stevens [facility] [address] [place] [address] Pharmacist Pharmacist 02/20/23 Marlene Bustamante [facility] [address] [place] [address] Pharmacist Pharmacist Naturopath 04/30/23 documented as of this encounter
--- OUTSIDE RECORDS SUMMARY | 2023-05-28 10:23 | XMS_ITS | Encounter Summary ---
Author Name Unknown Organization [place] Address Critical access hospital0 [facility] [place] [address] Care Team Providers Care Wound Care Rn Name Role Phone Flavia Antonio MD Primary Care Provider [phone] Herlinda Marino LAND RESOURCE SPECIALIST LANDSCAPER Unavailable Hussain Man MD Unavailable [phone] Flavia Antonio MD Unavailable Xochitl Smith MD Unavailable Patricia Smiley MD Unavailable Nicko Puga PhD Unavailable Deysi Greenwood LAND RESOURCE SPECIALIST LANDSCAPER Unavailable Flavia Antonio MD Primary Care Provider Flavia Antonio MD Unavailable [phone] Olga Aguila DNP Unavailable [phone] Arjun Pruitt MD Primary Care Provide r Martin Stevens [facility] Unavailable [phone] Flavia Antonio MD Primary Care Provider Marlene Bustamante [facility] Unavailable [phone] Encounter Details Date Type Department Care Team (Late st Contact Info) Description 04/02/2021 [facility] Surgery Clinic and Bariatrics Care [address] 200 [place] [address] Deo Wood MD [address] [place] [address] 200 [place] [address] Social History Tobacco Use Types Packs/Day Years [...] Exposure Response Date Recorded In the last month, have you been in contact with someone who was confirmed or suspected to have Coronavirus / COVID-19? No / Unsure 04/05/2021 3:02 PM MORTGAGE ORIGINATOR documented as of this encounter Plan of Treatment Upcoming Encounters Date Type Department Care Team (Late st Contact Info) Description 03/10/2024 8:00 AM CDT [facility] and Bariatrics [address] [address] Deo Wood MD [address] [place] [address] documented as of this encounter Visit Diagnoses Not on filedocumented in this encounter Additional Health Concerns Infection Onset Date Last Indicated Resolved Time Rule Out COVID-19 05/16/2021 05/16/2021 05/17/2021 2:14 PM MORTGAGE ORIGINATOR documented as of this encounter Care Teams Wound Care Rn Relationship Specialty Start Date End Date Flavia Antonio MD PCP - General 12/07/18 01/15/22 Herlinda Marino, LAND RESOURCE SPECIALIST LANDSCAPER [facility] [id number] [place] [address] PCP - Obstetrics/Gynecology 02/03/19 Flavia Antonio MD [address] Luisrony Castillo [facility] 100 [place] [address] PCP - General Family Medicine 01/16/22 06/06/22 Arjun Pruitt MD [facility] [address] [facility] 100 [place] [address] PCP - General field auto appraiser 06/25/22 03/11/23 Flavia Antonio MD [address] [address] PCP - General Family Medicine 03/12/23 Hussain Man MD [address] [place] [address] Assigned Surgical Provider 11/30/20 09/28/21 Flavia Antonio MD [address] [address] Assigned PCP 10/31/20 12/13/21 Xochitl Smith MD [address] [place] [address] Assigned OBGYN Provider 04/14/21 Patricia Smiley MD [facility] 2635 [facility], [address] [place] [address] Assigned OBGYN Provider 04/07/2104/13 Nicko Puga, PhD [employer] [address] [facility] 200 [place] [address] Assigned Behavioral Health Provider 04/07/21 07/06/21 Deysi Greenwood APRN LANDSCAPER [address] [facility] 100 [place], [place] [address] Assigned PCP 12/14/21 01/24/22 Flavia Antonio MD [address] [id number] Assigned PCP 01/25/22 02/21/22 Olga Aguila DNP 1151 [place] [address] Assigned PCP 02/22/22 Martin Stevens RPH [address] [place] [address] Pharmacist Pharmacist 02/20/23 Marlene Bustamante RPH [address] [place] [address] Pharmacist Pharmacist Mine Utility Operator 04/30/23 documented as of this encounter
--- OUTSIDE RECORDS SUMMARY | 2023-05-28 10:23 | XMS_ITS | Encounter Summary ---
Author Name Unknown Organization [place] Address [facility] [place] [address] Care Team Providers Care Metal Grader Name Role Phone Flavia Antonio MD Primary Care Provider [phone] Herlinda Marino COMPUTER EDUCATION TEACHER TOOL PLANNER Unavailable Hussain Man MD Unavailable [phone] Flavia Antonio MD Unavailable [phone] Xochitl Smith MD Unavailable Patricia Smiley MD Unavailable Nicko Puga PhD Unavailable [phone] Deysi Greenwood COMPUTER EDUCATION TEACHER TOOL PLANNER Unavailable [phone] Flavia Antonio MD Primary Care Provider Flavia Antonio MD Unavailable [phone] Olga Aguila DNP Unavailable Arujn Pruitt MD Primary Care Provide r Martin Stevens [facility] Unavailable [phone] Flavia Antonio MD Primary Care Provider Marlene Bustamante [facility] Unavailable [phone] Encounter Details Date Type Department Care Team (Late st Contact Info) Description 01/26/2021 [facility] Surgery Clinic and Bariatrics Care [address] 200 [place] [address] Deo Wood MD [address] [place] [address] 200 [place] [address] Social History Tobacco Use Types Packs/Day Years [...] have Coronavirus / COVID-19? No / Unsure 01/18/2021 7:57 AM CDT documented as of this encounter Plan of Treatment Upcoming Encounters Date Type Department Care Team (Late st Contact Info) Description 03/10/2024 8:00 AM CDT Virtual Visit [facility] and Bariatrics [address] [address] Deo Wood MD [address] [place] [address] documented as of this encounter Visit Diagnoses Not on filedocumented in this encounter Additional Health Concerns Infection Onset Date Last Indicated Resolved Time Rule Out COVID-19 05/16/2021 05/16/2021 05/17/2021 2:14 PM OPTICIANRY TEACHER documented as of this encounter Care Teams Metal Grader Relationship Specialty Start Date End Date Flavia Antonio MD PCP - General 12/07/18 01/15/22 Herlinda Marino, COMPUTER EDUCATION TEACHER TOOL PLANNER [id number] [place] [address] PCP - Obstetrics/Gynecology 02/03/19 Flavia Antonio MD [address] Luisron[address] Castillo [facility] 100 [place] [address] PCP - General Family Medicine 01/16/22 06/06/22 Arjun Pruitt MD [facility] [address] [facility] 100 [place] [address] PCP - General neuropsychology medical consultant 06/25/22 03/11/23 Flavia Antonio MD [address] [address] PCP - General Family Medicine 03/12/23 Hussain Man MD [address] [place] [address] Assigned Surgical Provider 11/30/20 09/28/21 Flavia Antonio MD [address] [id number] Assigned PCP 10/31/20 12/13/21 Xochitl Smith MD [address] [place] [address] Assigned OBGYN Provider 04/14/21 Patricia Smiley MD [facility] [address] [place] [address], [address] [place] [address] Assigned OBGYN Provider 04/07/2104/13 Nicko Puga, PhD [employer] [facility] [address] [facility] 200 [place] [address] Assigned Behavioral Health Provider 04/07/21 07/06/21 Deysi Greenwood APRN TOOL PLANNER [address] [place], [place] [id number] Assigned PCP 12/14/21 01/24/22 Flavia Antonio MD [address] 1143724 Assigned PCP 01/25/22 02/21/22 Olga Aguila DNP 1151 [place] [address] Assigned PCP 02/22/22 Martin Stevens RPH [address] [place] [phone] Pharmacist Pharmacist 02/20/23 Marlene Bustamante RPH [address] [place] [phone] Pharmacist Pharmacist Assignment Editor 04/30/23 documented as of this encounter
--- OUTSIDE RECORDS SUMMARY | 2023-05-28 10:23 | XMS_ITS | Encounter Summary ---
Author Name Unknown Organization [place] Address [facility] [place] [address] Care Team Providers Care Horse Racing Manager Name Role Phone Flavia Antonio MD Primary Care Provider [phone] Herlinda Marino RADIO SCRIPT WRITER COMMUNICATIONS LEAD Unavailable Hussain Man MD Unavailable [phone] Flavia Antonio MD Unavailable [phone] Xochitl Smith MD Unavailable Nicko Puga PhD Unavailable [phone] Deysi Greenwood RADIO SCRIPT WRITER COMMUNICATIONS LEAD Unavailable Flavia Antonio MD Primary Care Provider Flavia Antonio MD Unavailable Olga Aguila DNP Unavailable [phone] Arjun Pruitt MD Primary Care Provide r Martin Stevens [facility] Unavailable [phone] Flavia Antonio MD Primary Care Provider Marlene Bustamante [facility] Unavailable [phone] Encounter Details Date Type Department Care Team (Late st Contact Info) Description 06/10/2021 [facility] 1099 [facility] [address] [place] [address] Flavia Antonio MD [address] [address] Social History Tobacco Use Types Packs/Day Years Used Date Smoking Tobacco: Former Cigarettes 1 13 Q uit: 05/02/2019 Smokeless Tobacco: Never Alcohol Use Standard Drinks/Week Comments Not Currently 0 (1 standard drink = 0.6 oz pure alcohol) Alcoholic Drinks/day: currently on antibuse PHQ-2 Answer Date Recorded PHQ-2 Score 0 02/07/2020 [place] Depression Scale Answer Date Recorded [place] Depression Score 3 05/29/2021 Last EPDS Self Harm Result Not on file 05/29 Sex and Gender Information Value Date Recorded Sex Assigned at Not on file Gender Identity Not on file Sexual Orientation Not on file COVID-19 Exposure Response Date Recorded In the last month, have you been in contact with someone who was confirmed or suspected to have Coronavirus / COVID-19? No / Unsure 05/28/2021 7:37 PM CROP RANCH HAND documented as of this encounter Plan of Treatment Upcoming Encounters Date Type Department Care Team (Late st Contact Info) Description 03/10/2024 8:00 AM CDT Virtual Visit [facility] Surgery Clinic and Bariatrics Care [address] [phone] Deo Wood MD [address] [place] [address] documented as of this encounter Visit Diagnoses Not on filedocumented in this encounter Care Teams Horse Racing Manager Relationship Specialty Start Date End Date Flavia Antonio MD PCP - General 12/07/18 01/15/22 Herlinda Marino APRN COMMUNICATIONS LEAD [facility] [address] [place], [place] [address] [place] [address] PCP - Obstetrics/Gynecology 02/03/19 Flavia Antonio MD [address] [address] PCP - General Family Medicine 01/16/22 06/06/22 Arjun Pruitt MD [address] [place] [address] PCP - General spud grader 06/25/22 03/11/23 Flavia Antonio MD [address] [id number] PCP - General Family Medicine 03/12/23 Hussain Man MD [address] [place] [id number] Assigned Surgical Provider 11/30/20 09/28/21 Flavia Antonio MD [address] [id number] Assigned PCP 10/31/20 12/13/21 Xochitl Smith MD [address] [place] [address] Assigned OBGYN Provider 04/14/21 Nicko Puga, PhD [facility] [employer] [facility] [address] [facility] 200 [place] [address] Assigned Behavioral Health Provider 04/07/21 07/06/21 Deysi Greenwood APRN COMMUNICATIONS LEAD [address] [facility] 100 [place] [address] Assigned PCP 12/14/21 01/24/22 Flavia Antonio MD [address] [address] Assigned PCP 01/25/22 02/21/22 Olga Aguila DNP [address] [place] [address] Assigned PCP 02/22/22 Martin Stevens [facility] [address] [place] [address] [phone] Pharmacist Pharmacist 02/20/23 Marlene Bustamante RPH [address] [place] [address] Pharmacist Pharmacist Process Automation Engineer 04/30/23 documented as of this encounter
--- OUTSIDE RECORDS SUMMARY | 2023-05-28 10:23 | XMS_ITS | Encounter Summary ---
Author Name Unknown Organization [place] Address [facility] [place] [address] Care Team Providers Care Study Assistant Name Role Phone Flavia Antonio MD Primary Care Provider [phone] Herlinda Marino COMMUNICATIONS DEPARTMENT CHAIRPERSON SALES CONSULTANT INSURANCE Unavailable Hussain Man MD Unavailable Flavia Antonio MD Unavailable Xochitl Smith MD Unavailable Nicko Puga PhD Unavailable Deysi Greenwood COMMUNICATIONS DEPARTMENT CHAIRPERSON SALES CONSULTANT INSURANCE Unavailable Flavia Antonio MD Primary Care Provider Flavia Antonio MD Unavailable [phone] Olga Aguila DNP Unavailable [phone] Arjun Pruitt MD Primary Care Provide r Martin Stevens [facility] Unavailable [phone] Flavia Antonio MD Primary Care Provider Marlene Bustamante [facility] Unavailable [phone] Encounter Details Date Type Department Care Team (Late st Contact Info) Description 05/14/2021 [facility] 1099 [facility] [address] [place] [address] Flavia Antonio MD [address] [address] Social History Tobacco Use Types Packs/Day Years [...] or suspected to have Coronavirus / COVID-19? Yes 05/16/2021 2:50 PM TOW TRUCK DISPATCHER documented as of this encounter Plan of Treatment Upcoming Encounters Date Type Department Care Team (Late st Contact Info) Description 03/10/2024 8:00 AM CDT Virtual Visit [facility] Surgery Clinic and Bariatrics Care [address] [phone] Deo Wood MD [address] [place] [address] 200 [place] [address] documented as of this encounter Visit Diagnoses Not on filedocumented in this encounter Additional Health Concerns Infection Onset Date Last Indicated Resolved Time Rule Out COVID-19 05/16/2021 05/16/2021 05/17/2021 2:14 PM TOW TRUCK DISPATCHER documented as of this encounter Care Teams Study Assistant Relationship Specialty Start Date End Date Flavia Antonio MD PCP - General 12/07/18 01/15/22 Herlinda Marino APRN SALES CONSULTANT INSURANCE [facility] [address] [place], [place] [address] [facility] [place] [address] PCP - Obstetrics/Gynecology 02/03/19 Flavia Antonio MD [address] Cast[address] [address] PCP - General Family Medicine 01/16/22 06/06/22 Arjun Pruitt MD [address] [place] [address] PCP - General food supervisor 06/25/22 03/11/23 Flavia Antonio MD [address] [address] PCP - General Family Medicine 03/12/23 Hussain Man MD [address] [place] [address] Assigned Surgical Provider 11/30/20 09/28/21 Flavia Antonio MD [address] [id number] Assigned PCP 10/31/20 12/13/21 Xochitl Smith MD [address] [place] [address] Assigned OBGYN Provider 04/14/21 Nicko Puga, PhD [facility] [employer] [facility] [address] [facility] 200 [place] [address] Assigned Behavioral Health Provider 04/07/21 07/06/21 Deysi Greenwood APRN SALES CONSULTANT INSURANCE [address] [place] [address] Assigned PCP 12/14/21 01/24/22 Flavia Antonio MD [address] [address] Assigned PCP 01/25/22 02/21/22 Olga Aguila DNP 1151 [place] [address] Assigned PCP 02/22/22 Martin Stevens RP [address] [place] [address] [phone] Pharmacist Pharmacist 02/20/23 Marlene Bustamante RPH [address] [place] [address] Pharmacist Pharmacist Senior Sales Representative 04/30/23 documented as of this encounter
--- OUTSIDE RECORDS SUMMARY | 2023-05-28 10:23 | XMS_ITS | Encounter Summary ---
Author Name Unknown Organization [place] Address [facility] [place] [address] Care Team Providers Care Carpenter Form Name Role Phone Flavia Antonio MD Primary Care Provider [phone] Herlinda Marino FILTER HELPER HAT FORMER Unavailable Hussain Man MD Unavailable [phone] Flavia Antonio MD Unavailable [phone] Xochitl Smith MD Unavailable Nicko Puga PhD Unavailable [phone] Deysi Greenwood FILTER HELPER HAT FORMER Unavailable Flavia Antonio MD Primary Care Provider Flavia Antonio MD Unavailable Olga Aguila DNP Unavailable [phone] Arjun Pruitt MD Primary Care Provide r Martin Stevens [facility] Unavailable [phone] Flavia Antonio MD Primary Care Provider [phone] Marlene Bustamante [facility] Unavailable [phone] Encounter Details Date Type Department Care Team (Late st Contact Info) Description 05/22/2021 [facility] [address] [facility] [address] [place] [address] Flavia Antonio MD [address] [address] Social History Tobacco Use Types Packs/Day Years [...] suspected to have Coronavirus / COVID-19? Yes 05/24/2021 10:02 AM WEB SIZER documented as of this encounter Plan of Treatment Upcoming Encounters Date Type Department Care Team (Late st Contact Info) Description 03/10/2024 8:00 AM CDT Virtual Visit [facility] [address] [phone] Deo Wood MD [address] [place] [address] documented as of this encounter Visit Diagnoses Not on filedocumented in this encounter Care Teams Carpenter Form Relationship Specialty Start Date End Date Flavia Antonio MD PCP - General 12/07/18 01/15/22 Herlinda Marino APRN HAT FORMER [place] [facility] [id number] [place] [address] PCP - Obstetrics/Gynecology 02/03/19 Flavia Antonio MD [address] Cast[address] [facility] 100 [place] [address] PCP - General Family Medicine 01/16/22 06/06/22 Arjun Pruitt MD [address] [place] [address] 100 [place] [address] PCP - General sample maker hand 06/25/22 03/11/23 Flavia Antonio MD [address] [address] PCP - General Family Medicine 03/12/23 Hussain Man MD [address] [place] [address] Assigned Surgical Provider 11/30/20 09/28/21 Flavia Antonio MD [address] [address] Assigned PCP 10/31/20 12/13/21 Xochitl Smith MD [address] [place] [address] Assigned OBGYN Provider 04/14/21 Nicko Puga, PhD [facility] [address] [facility] 200 [place], [place] [address] Assigned Behavioral Health Provider 04/07/21 07/06/21 Deysi Greenwood APRN HAT FORMER [address] [facility] 100 [place] [address] Assigned PCP 12/14/21 01/24/22 Flavia Antonio MD [address] [address] Assigned PCP 01/25/22 02/21/22 Olga Aguila DNP [address] [place] [address] Assigned PCP 02/22/22 Martin Stevens [facility] [address] [place] [address] [phone] Pharmacist Pharmacist 02/20/23 Marlene Bustamante [facility] [address] [place] [address] Pharmacist Pharmacist School Examiner 04/30/23 documented as of this encounter
--- OUTSIDE RECORDS SUMMARY | 2023-05-28 10:23 | XMS_ITS | Encounter Summary ---
Author Name Unknown Organization [place] Address [address] [place] [address]. [place] [address] Care Team Providers Care Filter Plant Operator Name Role Phone Flavia Antonio MD Primary Care Provider [phone] Herlinda Marino LAMINATION BUILDER MARINE RADIO INSTALLER AND SERVICER Unavailable Hussain Man MD Unavailable [phone] Flavia Antonio MD Unavailable Xochitl Smith MD Unavailable Patricia Smiley MD Unavailable Nicko Puga PhD Unavailable Deysi Greenwood LAMINATION BUILDER MARINE RADIO INSTALLER AND SERVICER Unavailable [phone] Flavia Antonio MD Primary Care Provider Flavia Antonio MD Unavailable [phone] Olga Aguila DNP Unavailable Arjun Pruitt MD Primary Care Provide r Martin Stevens [facility] Unavailable [phone] Flavia Antonio MD Primary Care Provider Marlene Bustamante [facility] Unavailable [phone] Encounter Details Date Type Department Care Team (Late st Contact Info) Description 02/14/2021 [facility] [address] [facility] 100 [place] [address] Flavia Antonio MD [address] [address] Social History Tobacco Use Types Packs/Day Years [...] have Coronavirus / COVID-19? No / Unsure 02/05/2021 8:35 AM CDT documented as of this encounter Plan of Treatment Upcoming Encounters Date Type Department Care Team (Late st Contact Info) Description 03/10/2024 8:00 AM CDT Virtual Visit [facility] [address] 200 [place] [address] Deo Wood MD [address] [place] [address] 200 [place], [place] [id number] documented as of this encounter Visit Diagnoses Not on filedocumented in this encounter Additional Health Concerns Infection Onset Date Last Indicated Resolved Time Rule Out COVID-19 05/16/2021 05/16/2021 05/17/2021 2:14 PM ACCOUNTANT SUPERVISOR documented as of this encounter Care Teams Filter Plant Operator Relationship Specialty Start Date End Date Flavia Antonio MD PCP - General 12/07/18 01/15/22 Herlinda Marino, LAMINATION BUILDER MARINE RADIO INSTALLER AND SERVICER [facility] [id number] [place] [address] PCP - Obstetrics/Gynecology 02/03/19 Flavia Antonio MD [address] Jessica Castillo [facility] 100 [place] [address] PCP - General Family Medicine 01/16/22 06/06/22 Arjun Pruitt MD [facility] CANDICE REBOLLAR [facility] 100 [place] [address] PCP - General foreclosure specialist 06/25/22 03/11/23 Flavia Antonio MD [address] [address] PCP - General Family Medicine 03/12/23 [place] [address] [place] [address] Assigned Surgical Provider 11/30/20 09/28/21 Flavia Antonio MD [address] [address] Assigned PCP 10/31/20 12/13/21 [place] [address] [place] [address] 100 [place] [address] Assigned OBGYN Provider 04/14/21 Patricia Smiley MD [facility] [address] [place] [address], [address] [place] [address] Assigned OBGYN Provider 04/07/2104/13 Nicko Puga, PhD [facility] [address] [place] 200 [place] [address] Assigned Behavioral Health Provider 04/07/21 07/06/21 Deysi Greenwood APRN MARINE RADIO INSTALLER AND SERVICER [address] 100 [place], [place] [address] Assigned PCP 12/14/21 01/24/22 Flavia Antonio MD [address] 7031624 Assigned PCP 01/25/22 02/21/22 Olga Aguila DNP 1151 [place] [address] Assigned PCP 02/22/22 Martin Stevens RPH [address] [place] [address] 157015 Pharmacist Pharmacist 02/20/23 Marlene Bustamante RPH [address] [place] [phone] Pharmacist Pharmacist Classification Counselor 04/30/23 documented as of this encounter
--- OUTSIDE RECORDS SUMMARY | 2023-05-28 10:23 | XMS_ITS | Encounter Summary ---
Author Name Unknown Organization [place] Address [facility] [place] [address] Care Team Providers Care Boat Rigger Name Role Phone Flavia Antonio MD Primary Care Provider Herlinda Marino APRN CUFF MATCHER Unavailable [phone] Hussain Man MD Unavailable [phone] Cheo Thakkar MD Unavailable [phone] Flavia Antonio MD Unavailable [phone] Xochitl Smith MD Unavailable Patricia Smliey MD Unavailable Nicko Puga PhD Unavailable [phone] Deysi Greenwood APRN CUFF MATCHER Unavailable [phone] Flavia Antonio MD Primary Care Provider Flavia Antonio MD Unavailable [phone] Olga Aguila DNP Unavailable Arjun Pruitt MD Primary Care Provide r Martin Stevens [facility] Unavailable [phone] Flavia Antonio MD Primary Care Provider Marlene Bustamante [facility] Unavailable [phone] Encounter Details Date Type Department Care Team (Late st Contact Info) Description 12/05/2020 MyC Medical Advice M [facility] [address] [facility] 100 [place] [address] Flavia Antonio MD [address] [address] Social History Tobacco Use Types Packs/Day Years [...] have Coronavirus / COVID-19? No / Unsure 11/29/2020 3:37 PM CDT documented as of this encounter Plan of Treatment Upcoming Encounters Date Type Department Care Team (Late Contact Info) Description 03/10/2024 8:00 AM CDT Virtual Visit [facility] and Bariatrics Care [address] [phone] Deo Wood MD [address] [place] [address] documented as of this encounter Visit Diagnoses Not on filedocumented in this encounter Additional Health Concerns Infection Onset Date Last Indicated Resolved Time Rule Out COVID-19 05/16/2021 05/16/2021 05/17/2021 2:14 PM BUDGET SPECIALIST documented as of this encounter Care Teams Boat Rigger Relationship Specialty Start Date End Date Flavia Antonio MD PCP - General 12/07/18 01/15/22 Herlinda Marino, WINE STEWARD/STEWARDESS CUFF MATCHER [facility] [id number] [place] [address] PCP - Obstetrics/Gynecology 02/03/19 Flavia Antonio MD [address] Jessica Castillo [facility] 100 [place] [address] PCP - General Family Medicine 01/16/22 06/06/22 Arjun Pruitt MD [address] [facility] 100 [place] [address] PCP - General plating stripper 06/25/22 03/11/23 Flavia Antonio MD [address] [id number] PCP - General Family Medicine 03/12/23 [place] [address] [place] [address] Assigned Surgical Provider 11/30/20 09/28/21 Cheo Thakkar MD [address] [facility] 400 [place] [address] Assigned OBGYN Provider 11/30/20 Flavia Antonio MD [address] 4308124 Assigned PCP 10/31/20 12/13/21 Xochitl Smith MD [address] [address] Assigned OBGYN Provider 04/14/21 Patricia Smiley MD [facility] [address] [facility], [address] [place] [address] Assigned OBGYN Provider 04/07/2104/13 Nicko Puga, PhD [facility] [employer] [facility] [address] [place] 200 [place] [address] Assigned Behavioral Health Provider 04/07/21 07/06/21 Deysi Greenwood APRN CUFF MATCHER 1099 [facility] [address] 100 [place] [address] Assigned PCP 12/14/21 01/24/22 Flavia Antonio MD [facility] [address] [address] Assigned PCP 01/25/22 02/21/22 Olga Aguila DNP 1151 [place] [address] Assigned PCP 02/22/22 Martin Stevens [facility] [address] [place] [address] Pharmacist Pharmacist 02/20/23 Marlene Bustamante [facility] [address] [place] [address] Pharmacist Pharmacist Melangeur Operator 04/30/23 documented as of this encounter
--- OUTSIDE RECORDS SUMMARY | 2023-05-28 10:23 | XMS_ITS | Encounter Summary ---
Author Name Unknown Organization [place] Address [facility] [place] [address] Care Team Providers Care Automotive Service Advisor Name Role Phone Flavia Antonio MD Primary Care Provider Herlinda Marino APRN FILLING LAYER UP Unavailable [phone] Hussain Man MD Unavailable [phone] Cheo Thakkar MD Unavailable [phone] Flavia Antonio MD Unavailable [phone] Xochitl Smith MD Unavailable Patricia Smiley MD Unavailable Nicko Puga PhD Unavailable [phone] Deysi Greenwood APRN FILLING LAYER UP Unavailable [phone] Flavia Antonio MD Primary Care Provider Flavia Antonio MD Unavailable [phone] Olga Aguila DNP Unavailable Arjun Pruitt MD Primary Care Provide r Martin Stevens [facility] Unavailable [phone] Flavia Antonio MD Primary Care Provider Marlene Bustamante [facility] Unavailable [phone] Encounter Details Date Type Department Care Team (Late st Contact Info) Description 12/14/2020 MyC Medical Advice M [facility] [address] N [facility] 100 [place] [address] Flavia Antonio MD [address] [address] Social History Tobacco Use Types Packs/Day Years [...] have Coronavirus / COVID-19? No / Unsure 12/13/2020 3:51 PM CDT documented as of this encounter Plan of Treatment Upcoming Encounters Date Type Department Care Team (Late Contact Info) Description 03/10/2024 8:00 AM CDT Virtual [facility] Surgery [facility] and Bariatrics Care [address] [phone] Deo Wood MD [address] [place] [address] documented as of this encounter Visit Diagnoses Not on filedocumented in this encounter Additional Health Concerns Infection Onset Date Last Indicated Resolved Time Rule Out COVID-19 05/16/2021 05/16/2021 05/17/2021 2:14 PM CARDIOVASCULAR SONOGRAPHER documented as of this encounter Care Teams Automotive Service Advisor Relationship Specialty Start Date End Date Flavia Antonio MD PCP - General 12/07/18 01/15/22 Herlinda Marino, PROGRAM MANAGER RN FILLING LAYER UP [facility] [address] [id number] [place] [address] PCP - Obstetrics/Gynecology 02/03/19 Flavia Antonio MD [address] Jessica Castillo [facility] 100 [place] [address] PCP - General Family Medicine 01/16/22 06/06/22 Arjun Pruitt MD [address] [facility] 100 [place] [address] PCP - General machine molder squeeze 06/25/22 03/11/23 Flavia Antonio MD [address] [id number] PCP - General Family Medicine 03/12/23 [place] [address] [place] [address] Assigned Surgical Provider 11/30/20 09/28/21 Cheo Thakkar MD [address] [facility] 400 [place] [address] Assigned OBGYN Provider 11/30/20 Flavia Antonio MD [address] 384[address] Assigned PCP 10/31/20 12/13/21 Xochitl Smith MD [address] [address] Assigned OBGYN Provider 04/14/21 Patricia Smiley MD [facility] 2635 [facility], [address] [place] [address] Assigned OBGYN Provider 04/07/2104/13 Nicko Puga, PhD [facility] [employer] [facility] [address] [place] 200 [place] [address] Assigned Behavioral Health Provider 04/07/21 07/06/21 Deysi Greenwood APRN FILLING LAYER UP 1099 [facility] [address] 100 [place] [address] Assigned PCP 12/14/21 01/24/22 Flavia Antonio MD [facility] [address] [address] Assigned PCP 01/25/22 02/21/22 Olga Aguila DNP 1151 [place] [address] Assigned PCP 02/22/22 Martin Stevens [facility] [address] [place] [address] Pharmacist Pharmacist 02/20/23 Marlene Bustamante [facility] [address] [place] [address] Pharmacist Pharmacist Administrative Services Officer 04/30/23 documented as of this encounter
--- OUTSIDE RECORDS SUMMARY | 2023-05-28 10:23 | XMS_ITS | Encounter Summary ---
Author Name Unknown Organization [place] Address [address] [place] [address]. [place] [address] Care Team Providers Care Thread Laster Name Role Phone Flavia Antonio MD Primary Care Provider [phone] Herlinda Marino MANAGER SPA DIGITAL FORENSIC ANALYST Unavailable Hussain Man MD Unavailable [phone] Flavia Antonio MD Unavailable [phone] Xochitl Smith MD Unavailable Patricia Smiley MD Unavailable Nicko Puga PhD Unavailable Deysi Greenwood MANAGER SPA DIGITAL FORENSIC ANALYST Unavailable Flavia Antonio MD Primary Care Provider Flavia Antonio MD Unavailable [phone] Olga Aguila DNP Unavailable Arjun Pruitt MD Primary Care Provide r Martin Stevens [facility] Unavailable [phone] Flavia Antonio MD Primary Care Provider Marlene Bustamante [facility] Unavailable [phone] Encounter Details Date Type Department Care Team (Late st Contact Info) Description 12/29/[address] [facility] [address] N [facility] 100 [place] [address] Flavia Antonio MD [address] [address] Social History Tobacco Use Types Packs/Day Years [...] have Coronavirus / COVID-19? No / Unsure 12/24/2020 10:11 AM CDT documented as of this encounter Plan of Treatment Upcoming Encounters Date Type Department Care Team (Late st Contact Info) Description 03/10/2024 8:00 AM CDT Virtual Visit [facility] and Bariatrics Care [address] 200 [place] [address] Deo Wood MD [address] [place] [address] 200 [place] [address] documented as of this encounter Visit Diagnoses Not on filedocumented in this encounter Additional Health Concerns Infection Onset Date Last Indicated Resolved Time Rule Out COVID-19 05/16/2021 05/16/2021 05/17/2021 2:14 PM DIRECTOR OF RECRUITMENT AND ADMISSIONS documented as of this encounter Care Teams Thread Laster Relationship Specialty Start Date End Date Flavia Antonio MD PCP - General 12/07/18 01/15/22 Herlinda Marino, MANAGER SPA DIGITAL FORENSIC ANALYST [facility] [id number] [place] [address] PCP - Obstetrics/Gynecology 02/03/19 Flavia Antonio MD [address] Jessica Castillo [facility] 100 [place] [address] PCP - General Family Medicine 01/16/22 06/06/22 Arjun Pruitt MD [facility] CANDICE REBOLLAR [facility] 100 [place] [address] PCP - General real estate teacher 06/25/22 03/11/23 Flavia Antonio MD [address] [address] PCP - General Family Medicine 03/12/23 [place] [address] [place] [address] Assigned Surgical Provider 11/30/20 09/28/21 Flavia Antonio MD [address] [address] Assigned PCP 10/31/20 12/13/21 [place] [address] [place] [address] 100 [place] [address] Assigned OBGYN Provider 04/14/21 Patricia Smiley MD [facility] [address] [place] [address], [address] [place] [address] Assigned OBGYN Provider 04/07/2104/13 Nicko Puga, PhD [facility] [address] [place] [address] Assigned Behavioral Health Provider 04/07/21 07/06/21 Deysi Greenwood APRN DIGITAL FORENSIC ANALYST [address] [place], [place] [address] Assigned PCP 12/14/21 01/24/22 Flavia Antonio MD [address] 988[address] Assigned PCP 01/25/22 02/21/22 Olga Aguila DNP 1151 [place] [address] Assigned PCP 02/22/22 Martin Stevens RPH [address] [place] [phone] Pharmacist Pharmacist 02/20/23 Marlene Bustamante RPH [address] [place] [phone] Pharmacist Pharmacist Senior Electrical Engineer 04/30/23 documented as of this encounter
--- OUTSIDE RECORDS SUMMARY | 2023-05-28 10:23 | XMS_ITS | Encounter Summary ---
Author Name Unknown Organization [place] Address [facility] [place] [address] Care Team Providers Care Pocketbook Maker Name Role Phone Flavia Antonio MD Primary Care Provider [phone] Herlinda Marino HOUSEKEEPING SUPERVISOR HOTEL COMPLAINT MANAGER Unavailable Hussain Man MD Unavailable [phone] Flavia Antonio MD Unavailable Xochitl Smith MD Unavailable Patricia Smiley MD Unavailable Nicko Puga PhD Unavailable Deysi Greenwood HOUSEKEEPING SUPERVISOR HOTEL COMPLAINT MANAGER Unavailable Flavia Antonio MD Primary Care Provider Flavia Antonio MD Unavailable [phone] Olga Aguila DNP Unavailable Arjun Pruitt MD Primary Care Provide r Martin Stevens [facility] Unavailable [phone] Flavia Antonio MD Primary Care Provider Marlene Bustamante [facility] Unavailable [phone] Encounter Details Date Type Department Care Team (Late st Contact Info) Description 03/04/2021 [facility] [address] [facility] 100 [place] [address] Flavia Antonio MD [address] [address] Social History Tobacco Use Types Packs/Day Years [...] [facility] Care [address] 200 [place] [address] Deo Wood MD [address] [place] [address] 200 [place], [place] [address] documented as of this encounter Visit Diagnoses Not on filedocumented in this encounter Additional Health Concerns Infection Onset Date Last Indicated Resolved Time Rule Out COVID-19 05/16/2021 05/16/2021 05/17/2021 2:14 PM WELFARE INVESTIGATOR documented as of this encounter Care Teams Pocketbook Maker Relationship Specialty Start Date End Date Flavia Antonio MD PCP - General 12/07/18 01/15/22 Herlinda Marino, HOUSEKEEPING SUPERVISOR HOTEL COMPLAINT MANAGER [facility] [address] AMW[address] [place] [address] PCP - Obstetrics/Gynecology 02/03/19 Flavia Antonio MD [address] Jessica Castillo [facility] 100 [place] [address] PCP - General Family Medicine 01/16/22 06/06/22 Arjun Pruitt MD [facility] CANDICE REBOLLAR [facility] 100 [place] [address] PCP - General civil engineer in training 06/25/22 03/11/23 Flavia Antonio MD [address] [address] PCP - General Family Medicine 03/12/23 [place] [address] [place] [address] Assigned Surgical Provider 11/30/20 09/28/21 Flavia Antonio MD [address] [address] Assigned PCP 10/31/20 12/13/21 [place] [address] [place] [address] 100 [place] [address] Assigned OBGYN Provider 04/14/21 Patricia Smiley MD [facility] [address] [place] [address], [address] [place] [address] Assigned OBGYN Provider 04/07/2104/13 Nicko Puga, PhD [facility] [address] [place] [address] Assigned Behavioral Health Provider 04/07/21 07/06/21 Deysi Greenwood APRN COMPLAINT MANAGER [address] 100 [place], [place] [address] Assigned PCP 12/14/21 01/24/22 Flavia Antonio MD [address] 5521624 Assigned PCP 01/25/22 02/21/22 Olga Aguila DNP 1151 [place] [address] Assigned PCP 02/22/22 Martin Stevens RPH [address] [place] [phone] Pharmacist Pharmacist 02/20/23 Marlene Bustamante RPH [address] [place] [address] [phone] Pharmacist Pharmacist Operations Accountant 04/30/23 documented as of this encounter
--- OUTSIDE RECORDS SUMMARY | 2023-05-28 10:23 | XMS_ITS | Encounter Summary ---
Author Name Unknown Organization [place] Address [facility] [place] [address] Care Team Providers Care Hat Steamer Name Role Phone Flavia Antonio MD Primary Care Provider [phone] Herlinda Marino LICENSED FUNERAL DIRECTOR AND EMBALMER FIRE AND SAFETY HELPER Unavailable [phone] Hussain Man MD Unavailable Flavia Antonio MD Unavailable Xochitl Smith MD Unavailable Deysi Greenwood LICENSED FUNERAL DIRECTOR AND EMBALMER FIRE AND SAFETY HELPER Unavailable Flavia Antonio MD Primary Care Provider Flavia Antonio MD Unavailable Olga Aguila DNP Unavailable [phone] Arjun Pruitt MD Primary Care Provide r Martin Stevens [facility] Unavailable [phone] Flavia Antonio MD Primary Care Provider [phone] Marlene Bustamante [facility] Unavailable [phone] Encounter Details Date Type Department Care Team (Late st Contact Info) Description 08/24/2021 Jose Villaseñor [facility] and [facility]rics Care [address] 200 [place] [address] Hussain Man MD [address] [place] [address] 300 [place] [address] Social History Tobacco Use Types Packs/Day Years Used Date Smoking Tobacco: Former Cigarettes 1 13 Q uit: 05/02/2019 Smokeless Tobacco: Never Alcohol Use Standard Drinks/Week Comments Not Currently 0 (1 standard drink = 0.6 oz pure alcohol) Alcoholic Drinks/day: currently on antibuse PHQ-2 Answer Date Recorded PHQ-2 Score 0 08/21/2021 [place] Depression Scale Answer Date Recorded [place] Depression Score 3 07/11/2021 Last EPDS Self [...] have Coronavirus / COVID-19? No / Unsure 08/21/2021 6:47 AM CDT documented as of this encounter Plan of Treatment Upcoming Encounters Date Type Department Care Team (Late st Contact Info) Description 03/10/2024 8:00 AM CDT Virtual Visit [facility] and Bariatrics Care [address] 200 [place] [address] Deo Wood MD [address] [place] [address] documented as of this encounter Visit Diagnoses Not on filedocumented in this encounter Care Teams Hat Steamer Relationship Specialty Start Date End Date Flavia Antonio MD PCP - General 12/07/18 01/15/22 Herlinda Marino APRN FIRE AND SAFETY HELPER [facility] Leatha [address] [place] [address] PCP - Obstetrics/Gynecology 02/03/19 Flavia Antonio MD [address] [address] PCP - General Family Medicine 01/16/22 06/06/22 Arjun Pruitt MD [address] [place] [address] PCP - General solid tire finisher 06/25/22 03/11/23 Flavia Antonio MD [address] [address] PCP - General Family Medicine 03/12/23 Hussain Man MD [address] [place] [address] Assigned Surgical Provider 11/30/20 09/28/21 Flavia Antonio MD [address] [address] Assigned PCP 10/31/20 12/13/21 Xochitl Smith MD [address] [place] [address] Assigned OBGYN Provider 04/14/21 Deysi Greenwood APRN FIRE AND SAFETY HELPER [address] Castillo [address] [address] Assigned PCP 12/14/21 01/24/22 Flavia Antonio MD [address] [id number] Assigned PCP 01/25/22 02/21/22 Olga Aguila DNP 1151 [place] [address] Assigned PCP 02/22/22 Martin Stevens RPH [address] [place] [address] Pharmacist Pharmacist 02/20/23 Marlene Bustamante [facility] [address] [place] [address] Pharmacist Pharmacist Home Staging Specialist 04/30/23 documented as of this encounter
--- OUTSIDE RECORDS SUMMARY | 2023-05-28 10:23 | XMS_ITS | Encounter Summary ---
Author Name Unknown Organization [place] Address [facility] [place] [address] Care Team Providers Care Concrete Layer Name Role Phone Flavia Antonio MD Primary Care Provider [phone] Herlinda Marino BINDER SELECTOR PARKING LOT SUPERVISOR Unavailable [phone] Hussain Man MD Unavailable [phone] Flavia Antonio MD Unavailable Xochitl Smith MD Unavailable Nicko Puga PhD Unavailable [phone] Deysi Greenwood BINDER SELECTOR PARKING LOT SUPERVISOR Unavailable Flavia Antonio MD Primary Care Provider Flavia Antonio MD Unavailable Olga Aguila DNP Unavailable [phone] Arjun Pruitt MD Primary Care Provide r Martin Stevens [facility] Unavailable [phone] Flavia Antonio MD Primary Care Provider Marlene Bustamante [facility] Unavailable [phone] Encounter Details Date Type Department Care Team (Late st Contact Info) Description 07/02/2021 [facility] [address] [facility] [address] [place] [address] Flavia Antonio MD [address] [address] Social History Tobacco Use Types Packs/Day Years Used Date Smoking Tobacco: Former Cigarettes 1 13 Q uit: 05/02/2019 Smokeless Tobacco: Never Alcohol Use Standard Drinks/Week Comments Not Currently 0 (1 standard drink = 0.6 oz pure alcohol) Alcoholic Drinks/day: currently on antibuse PHQ-2 Answer Date Recorded PHQ-2 Score 0 02/07/2020 [place] Depression Scale Answer Date Recorded [place] Depression Score 3 05/29/2021 Last EPDS Self Harm Result Not on file 05/29 Sex and Gender Information Value Date Recorded Sex Assigned at Not on file Gender Identity Not on file Sexual Orientation Not on file documented as of this encounter Plan of Treatment Upcoming Encounters Date Type Department Care Team (Late st Contact Info) Description 03/10/2024 8:00 AM CDT Virtual Visit [facility] and Bariatrics Care [address] [address] Deo Wood MD [address] [place] [address] documented as of this encounter Visit Diagnoses Not on filedocumented in this encounter Care Teams Concrete Layer Relationship Specialty Start Date End Date Flavia Antonio MD PCP - General 12/07/18 01/15/22 Herlinda Marino APRN PARKING LOT SUPERVISOR [facility] [address] [facility] [address] [phone] PCP - Obstetrics/Gynecology 02/03/19 Flavia Antonio MD [address] Castillo [facility] 100 [place] [address] PCP - General Family Medicine 01/16/22 06/06/22 Arjun Pruitt MD [address] [place] [address] 100 [place] [address] PCP - General unit technician 06/25/22 03/11/23 Flavia Antonio MD [address] [address] PCP - General Family Medicine 03/12/23 Hussain Man MD [address] [place] [address] Assigned Surgical Provider 11/30/20 09/28/21 Flavia Antonio MD [address] [address] Assigned PCP 10/31/20 12/13/21 Xochitl Smith MD [address] [place] [address] Assigned OBGYN Provider 04/14/21 Nicko Puga, PhD [facility] 200 [place] [address] Assigned Behavioral Health Provider 04/07/21 07/06/21 Deysi Greenwood APRN PARKING LOT SUPERVISOR [address] [address] Assigned PCP 12/14/21 01/24/22 Flavia Antonio MD [address] [address] Assigned PCP 01/25/22 02/21/22 Olga Aguila DNP 1151 [place] [address] Assigned PCP 02/22/22 Martin Stevens [facility] [address] [place] [address] 638305 Pharmacist Pharmacist 02/20/23 Marlene Bustamante RP [address] [place] [address] Pharmacist Pharmacist Rolling Machine Tender 04/30/23 documented as of this encounter
--- OUTSIDE RECORDS SUMMARY | 2023-05-28 10:23 | XMS_ITS | Encounter Summary ---
Author Name Unknown Organization [place] Address [facility] [address] Care Team Providers Care Manager Outreach Name Role Phone Flavia Antonio MD Primary Care Provider [phone] Herlinda Marino SHOP MANAGER PATIENT AMBASSADOR Unavailable Hussain Man MD Unavailable [phone] Flavia Antonio MD Unavailable [phone] Xochitl Smith MD Unavailable Patricia Smiley MD Unavailable Nicko Puga PhD Unavailable Deysi Greenwood SHOP MANAGER PATIENT AMBASSADOR Unavailable Flavia Antonio MD Primary Care Provider Flavia Antonio MD Unavailable [phone] Olga Aguila DNP Unavailable Arjun Pruitt MD Primary Care Provide r Martin Stevens [facility] Unavailable [phone] Flavia Antonio MD Primary Care Provider Marlene Bustamante [facility] Unavailable [phone] Encounter Details Date Type Department Care Team (Late st Contact Info) Description 02/25/2021 [facility] [address] Lopez N [facility] 100 [place] [address] Flavia Antonio MD [address] [address] Social History Tobacco Use Types Packs/Day Years [...] Description 03/10/2024 8:00 AM CDT Virtual Visit [facility] Surgery Clinic and Bariatrics Care [address] 200 [place] [address] Deo Wood MD [address] [place] [address] 200 [place], [place] [phone] documented as of this encounter Visit Diagnoses Not on filedocumented in this encounter Additional Health Concerns Infection Onset Date Last Indicated Resolved Time Rule Out COVID-19 05/16/2021 05/16/2021 05/17/2021 2:14 PM AGRISCIENCE TECHNOLOGY INSTRUCTOR documented as of this encounter Care Teams Manager Outreach Relationship Specialty Start Date End Date Flavia Antonio MD PCP - General 12/07/18 01/15/22 Herlinda Marino, SHOP MANAGER PATIENT AMBASSADOR [facility] [address] [place] [address] PCP - Obstetrics/Gynecology 02/03/19 Flavia Antonio MD [address] Jessica Castillo [facility] 100 [place] [address] PCP - General Family Medicine 01/16/22 06/06/22 Arjun Pruitt MD [facility] [address] [facility] 100 [place] [address] PCP - General condenser setter 06/25/22 03/11/23 Flavia Antonio MD [address] [address] PCP - General Family Medicine 03/12/23 [place] [address] [place] [address] Assigned Surgical Provider 11/30/20 09/28/21 Flavia Antonio MD [address] [address] Assigned PCP 10/31/20 12/13/21 [place] [address] [place] [address] 100 [place] [address] Assigned OBGYN Provider 04/14/21 Patricia Smiley MD [facility] [address] [place] [address], [address] [place] [address] Assigned OBGYN Provider 04/07/2104/13 Nicko Puga, PhD [facility] [address] [place] [address] Assigned Behavioral Health Provider 04/07/21 07/06/21 Deysi Greenwood APRN PATIENT AMBASSADOR [address] 100 [place], [place] [address] Assigned PCP 12/14/21 01/24/22 Flavia Antonio MD [address] 1511[address] Assigned PCP 01/25/22 02/21/22 Olga Aguila DNP 1151 [place] [address] Assigned PCP 02/22/22 Martin Stevens RPH [address] [place] [phone] Pharmacist Pharmacist 02/20/23 Marlene Bustamante RPH [address] [place] [phone] Pharmacist Pharmacist Stock Preparation Operator 04/30/23 documented as of this encounter
--- OUTSIDE RECORDS SUMMARY | 2023-05-28 10:23 | XMS_ITS | Encounter Summary ---
Author Name Unknown Organization [place] Address [facility] [place] [address] Care Team Providers Care Electrical Appliance Servicer Name Role Phone Flavia Antonio MD Primary Care Provider Herlinda Marino APRN CONSTRUCTION TEACHER Unavailable [phone] Hussain Man MD Unavailable [phone] Cheo Thakkar MD Unavailable [phone] Flavia Antonio MD Unavailable [phone] Xcohitl Smith MD Unavailable Patricia Smiley MD Unavailable Nicko Puga PhD Unavailable Deysi Greenwood APRN CONSTRUCTION TEACHER Unavailable [phone] Flavia Antonio MD Primary Care Provider Flavia Antonio MD Unavailable [phone] Olga Aguila DNP Unavailable Arjun Pruitt MD Primary Care Provide r Martin Stevens [facility] Unavailable [phone] Flavia Antonio MD Primary Care Provider Marlene Bustamante [facility] Unavailable [phone] Encounter Details Date Type Department Care Team (Late st Contact Info) Description 12/14/2020 [facility] Medical Advice [facility] Surgery [facility] and Bariatrics Care [address] [phone] Deo Wood MD [address] [place] [address] Social History Tobacco Use Types Packs/Day Years [...] Description 03/10/2024 8:00 AM CDT Virtual Visit [facility] and Bariatrics [address] [address] Deo Wood MD [address] [place] [address] documented as of this encounter Visit Diagnoses Not on filedocumented in this encounter Additional Health Concerns Infection Onset Date Last Indicated Resolved Time Rule Out COVID-19 05/16/2021 05/16/2021 05/17/2021 2:14 PM LOADING MACHINE TOOL SETTER documented as of this encounter Care Teams Electrical Appliance Servicer Relationship Specialty Start Date End Date Flavia Antonio MD PCP - General 12/07/18 01/15/22 Herlinda Marino APRN CONSTRUCTION TEACHER [facility] [address] [place] [address] PCP - Obstetrics/Gynecology 02/03/19 Flavia Antonio MD 1099 [facility] Jessica [address]illo [facility] 100 [place] [address] PCP - General Family Medicine 01/16/22 06/06/22 Arjun Pruitt MD [facility] [address] [facility] 100 [place] [address] PCP - General interactive media designer 06/25/22 03/11/23 Flavia Antonio MD [address] [phone] PCP - General Family Medicine 03/12/23 [place] [address] [place] [address] Assigned Surgical Provider 11/30/20 09/28/21 Cheo Thakkar MD [address] [facility] 400 [place], [place] [address] Assigned OBGYN Provider 11/30/20 Flavia Antonio MD [address] [address] Assigned PCP 10/31/20 12/13/21 [place] [address] [place] [id number] Assigned OBGYN Provider 04/14/21 Patricia Smiley MD [facility] 2635 [facility], [address] [place] [address] Assigned OBGYN Provider 04/07/2104/13 Nicko Puga, PhD [employer] [address] [place] [address] Assigned Behavioral Health Provider 04/07/21 07/06/21 Deysi Greenwood APRN CONSTRUCTION TEACHER 1099 [facility] [address] 100 [place] [address] Assigned PCP 12/14/21 01/24/22 Flavia Antonio MD [facility] [address] [address] Assigned PCP 01/25/22 02/21/22 Olga Aguila DNP 1151 [place] [address] Assigned PCP 02/22/22 Martin Stevens [facility] [address] [place] [phone] Pharmacist Pharmacist 02/20/23 Marlene Bustamante RPH [address] [place] [address] Pharmacist Pharmacist Grain Elevator Motor Starter 04/30/23 documented as of this encounter
--- OUTSIDE RECORDS SUMMARY | 2023-05-28 10:24 | XMS_ITS | Encounter Summary ---
Author Name Unknown Organization [place] Address [facility] [place] [address] Care Team Providers Care Exhibit Specialist Name Role Phone Cross, Marsha Chappell MD Unavailable Unavaila ble Flavia Antonio MD Primary Care Provider Herlinda Marino APRN PAYMENT PROCESSOR Unavailable Hussain Man MD Unavailable [phone] Cheo Thakkar MD Unavailable [phone] Flavia Antonio MD Unavailable Xochitl Smith MD Unavailable Patricia Smiley MD Unavailable Nicko Puga PhD Unavailable Deysi Greenwood LOGISTICS PROGRAM MANAGER PAYMENT PROCESSOR Unavailable Flavia Antonio MD Primary Care Provider Flavia Antonio MD Unavailable [phone] Olga Aguila DNP Unavailable Arjun Pruitt MD Primary Care Provide r Martin Stevens [facility] Unavailable [phone] Flavia Antonio MD Primary Care Provider Marlene Bustamante [facility] Unavailable [phone] Encounter Details Date Type Department Care Team (Late st Contact Info) Description 08/15/2020 Records - [facility] CONVERSION Scan, Non-Provider Social History Tobacco Use Types Packs/Day Years Used Date Smoking Tobacco: Never Assessed PHQ-2 Answer Date Recorded PHQ-2 Score 0 02/07/2020 Sex and Gender Information Value Date Recorded Sex Assigned at Not on file Gender Identity Not on file Sexual Orientation Not on file documented as of this encounter Plan of Treatment Upcoming Encounters Date Type Department Care Team (Late st Contact Info) Description 03/10/2024 8:00 AM CDT Virtual Visit [facility] Surgery Clinic and Bariatrics Care [address] 200 [place] [phone] Deo Wood MD [facility] 200 [place], [place] [address] documented as of this encounter Visit Diagnoses Not on filedocumented in this encounter Additional Health Concerns Infection Onset Date Last Indicated Resolved Time Rule Out COVID-19 05/16/2021 05/16/2021 05/17/2021 2:14 PM DIRECTOR [employer] SAL[employer] documented as of this encounter Care Teams Exhibit Specialist Relationship Specialty Start Date End Date Flavia Antonio MD PCP - General 12/07/18 01/15/22 Herlinda Marino APRN PAYMENT PROCESSOR [facility] [address] [phone] PCP - Obstetrics/Gynecology 02/03/19 Flavia Antonio MD [address] 100 [place] [address] PCP - General Family Medicine 01/16/22 06/06/22 [facility] [address] [facility] 100 [place], [place] [phone] PCP - General pad cutter 06/25/22 03/11/23 Flavia Antonio MD [address] [address] PCP - General Family Medicine 03/12/23 Marsha Gonzalez MD Assigned OBGYN Provider 03/09/20 11/17/20 Hussain Man MD [address] [place] [address] 300 [place] [address] Assigned Surgical Provider 11/30/20 09/28/21 Cheo Thakkar MD [address] [place] [address] 400 [place] [address] Assigned OBGYN Provider 11/30/20 Flavia Antonio MD [address] [address] Assigned PCP 10/31/20 12/13/21 Xochitl Smith MD [address] [place] [address] 100 [place] [address] Assigned OBGYN Provider 04/14/21 Patricia Smiley MD [facility] 2635 [facility], [address] [place], [place] [address] Assigned OBGYN Provider 04/07/2104/13 Nicko Puga, PhD [facility] 200 [place] [address] Assigned Behavioral Health Provider 04/07/21 07/06/21 Deysi Greenwood APRN PAYMENT PROCESSOR [address] 100 [place] [address] Assigned PCP 12/14/21 01/24/22 Flavia Antonio MD [address] [address] Assigned PCP 01/25/22 02/21/22 Olga Aguila DNP [address] [place] [address] Assigned PCP 02/22/22 Martin Stevens RPH [address] [place] [address] [phone] Pharmacist Pharmacist 02/20/23 Marlene Bustamante RPH [address] [place] [phone] Pharmacist Pharmacist Coat Ironer Hand 04/30/23 documented as of this encounter
--- OUTSIDE RECORDS SUMMARY | 2023-05-28 10:24 | XMS_ITS | Encounter Summary ---
Author Name Unknown Organization [place] Address [facility] [place] [address] Care Team Providers Care Public Events Facilities Rental Manager Name Role Phone Cross, Marsha Chappell MD Unavailable Unavaila ble Flavia Antonio MD Primary Care Provider Herlinda Marino APRN HEADLINER INSTALLER Unavailable [phone] Hussain Man MD Unavailable [phone] Cheo Thakkar MD Unavailable Flavia Antonio MD Unavailable Xochitl Smith MD Unavailable Patricia Smiley MD Unavailable Nicko Puga PhD Unavailable [phone] Deysi Greenwood ADJUNCT LECTURER HEADLINER INSTALLER Unavailable Flavia Antonio MD Primary Care Provider Flavia Antonio MD Unavailable Olga Aguila DNP Unavailable Arjun Pruitt MD Primary Care Provide r Martin Stevens [facility] Unavailable [phone] Flavia Antonio MD Primary Care Provider Marlene Bustamante [facility] Unavailable [phone] Encounter Details Date Type Department Care Team (Late st Contact Info) Description 02/21/2020 Records - [facility] CONVERSION Scan, Non-Provider [...] 03/10/2024 8:00 AM CDT Virtual Visit [facility] Surgery Clinic and Bariatrics Care [address] 200 [place] [address] Deo Wood MD [facility]5 [facility] 200 [place], [place] [address] documented as of this encounter Visit Diagnoses Not on filedocumented in this encounter Additional Health Concerns Infection Onset Date Last Indicated Resolved Time Rule Out COVID-19 05/16/2021 05/16/2021 05/17/2021 2:14 PM GUIDE DOG INSTRUCTOR documented as of this encounter Care Teams Public Events Facilities Rental Manager Relationship Specialty Start Date End Date Flavia Antonio MD PCP - General 12/07/18 01/15/22 Herlinda Marino APRN HEADLINER INSTALLER [facility] [address] [phone] PCP - Obstetrics/Gynecology 02/03/19 Flavia Antonio MD [address] Castillo [facility] 100 [place] [address] PCP - General Family Medicine 01/16/22 06/06/22 Arjun Pruitt MD [facility] [address] [facility] 100 [place], [place] [phone] PCP - General communications planner 06/25/22 03/11/23 Flavia Antonio MD [address] [address] PCP - General Family Medicine 03/12/23 Marsha Gonzalez MD Assigned OBGYN Provider 03/09/20 11/17/20 Hussain Man MD [address] [place] [address] 300 [place] [address] Assigned Surgical Provider 11/30/20 09/28/21 Cheo Thakkar MD [address] [place] [address] 400 [place] [address] Assigned OBGYN Provider 11/30/20 Flavia Antonio MD [address] [address] Assigned PCP 10/31/20 12/13/21 Xochitl Smith MD [address] [place] [address] [address] [place] [address] Assigned OBGYN Provider 04/14/21 Patricia Smiley MD [facility] 2635 [facility], [address] [place] [address] Assigned OBGYN Provider 04/07/2104/13 Nicko Puga, PhD [facility] 500 [facility] 200 [place] [address] Assigned Behavioral Health Provider 04/07/21 07/06/21 Deysi Greenwood APRN HEADLINER INSTALLER [address] 100 [place] [address] Assigned PCP 12/14/21 01/24/22 Flavia Antonio MD [address] [address] Assigned PCP 01/25/22 02/21/22 Olga Aguila DNP [address] [place] [address] Assigned PCP 02/22/22 Martin Stevens RP [address] [place] [address] Pharmacist Pharmacist 02/20/23 Marlene Bustamante RPH [address] [place] [address] Pharmacist Pharmacist Deputy Harbormaster 04/30/23 documented as of this encounter
--- OUTSIDE RECORDS SUMMARY | 2023-05-28 10:24 | XMS_ITS | Encounter Summary ---
Author Name Unknown Organization [place] Address [facility] [place] [address] Care Team Providers Care E Business Consultant Name Role Phone Cross, Marsha Chappell MD Unavailable Unavaila ble Flavia Antonio MD Primary Care Provider Herlinda Marino APRN SPEEDBOAT OPERATOR Unavailable Hussain Man MD Unavailable [phone] Cheo Thakkar MD Unavailable Flavia Antonio MD Unavailable Xochitl Smith MD Unavailable Patricia Smiley MD Unavailable Nicko Puga PhD Unavailable Deysi Greenwood PRESSURE TESTER OPERATOR SPEEDBOAT OPERATOR Unavailable Flavia Antonio MD Primary Care Provider Flavia Antonio MD Unavailable Olga Aguila DNP Unavailable [phone] Arjun Pruitt MD Primary Care Provide r Martin Stevens [facility] Unavailable [phone] Flavia Antonio MD Primary Care Provider Marlene Bustamante [facility] Unavailable [phone] Encounter Details Date Type Department Care Team (Late st Contact Info) Description 09/05/2019 Records - [facility] Ani Tyler, RN Social History Tobacco Use Types Packs/Day Years Used Date Smoking Tobacco: Never Assessed Comments Yes Sex and Gender Information Value Date Recorded Sex Assigned at Not on file Gender Identity Not on file Sexual Orientation Not on file documented as of this encounter Miscellaneous Notes * Note - Ani Tyler - 09/05/2019 9:15 AM CDT This note was copied from a baby's chart. This documentation writer met with Ángel to observe Twin A at the breast. By the time this documentation writer entered the room, Ángel had latched infant onto the breast in the cradle hold. was sucking actively and occasional swallows heard. Ángel had softened the areolar tissue prior to latching. Infant became sleepy after 10 minutes at the breast and Ángel states she will bottle feed now. We discussed that most premature infants need a supplement after until they are approximately 38-39 weeks gestation and in the 6# 8 oz range. We discussed that when infant is transferring well at the breast she will hear infant swallowing with every suck or two for several minutes and will be satisfied. Frequent weight checks can also help to determine that is transferring well. She was instructed to follow up at the outpatient clinic prn. Ángel verbalizes understanding of all education given. She denies any further questions. documented in this encounter Plan of Treatment Upcoming Encounters Date Type Department Care Team (Late st Contact Info) Description 03/10/2024 8:00 AM CDT Virtual Visit [facility] [place] [address] [place] [address] [address] [place] [phone] Deo Wood MD [address] [place] [phone] documented as of this encounter Visit Diagnoses Not on filedocumented in this encounter Additional Health Concerns Infection Onset Date Last Indicated Resolved Time Rule Out COVID-19 05/16/2021 05/16/2021 05/17/2021 2:14 PM FIELD REP documented as of this encounter Care Teams E Business Consultant Relationship Specialty Start Date End Date Flavia Antonio MD PCP - General 12/07/18 01/15/22 Herlinda Marino, PRESSURE TESTER OPERATOR SPEEDBOAT OPERATOR [facility] [address] [place] [address] PCP - Obstetrics/Gynecology 02/03/19 Flavia Antonio MD 1099 [facility] Jessica Castillo [facility] 100 [place] [address] PCP - General Family Medicine 01/16/22 06/06/22 Arjun Pruitt MD [address] [place] [address] [facility] 100 [place] [address] PCP - General green marketing specialist 06/25/22 03/11/23 Flavia Antonio MD [address] [address] PCP - General Family Medicine 03/12/23 Marsha Gonzalez MD Assigned OBGYN Provider 03/09/20 11/17/20 Hussain Man MD [facility] [address] [address] Assigned Surgical Provider 11/30/20 09/28/21 Cheo Thakkar MD [address] [place] [address] Assigned OBGYN Provider 11/30/20 Flavia Antonio MD [address] [address] Assigned PCP 10/31/20 12/13/21 Xochitl Smith MD 2945 [facility] [address] [place] [address] Assigned OBGYN Provider 04/14/21 Patricia Smiley MD [facility] 2635 [facility] [address] [place] [address] Assigned OBGYN Provider 04/07/2104/13 Nicko Puga, PhD [employer] [facility] 500 [facility] [address] [place] [address] Assigned Behavioral Health Provider 04/07/21 07/06/21 Deysi Greenwood APRN [facility] 1099 [facility] 100 [place] [address] Assigned PCP 12/14/21 01/24/22 Flavia Antonio MD [address] [address] Assigned PCP 01/25/22 02/21/22 Olga Aguila DNP 1151 [place] [address] Assigned PCP 02/22/22 Martin Stevens, [facility] 909 [place] [address] Pharmacist Pharmacist 02/20/23 Marlene Bustamante RPH [address] [place] [phone] Pharmacist Pharmacist Telegraph Inspector 04/30/23 documented as of this encounter
--- OUTSIDE RECORDS SUMMARY | 2023-05-28 10:24 | XMS_ITS | Encounter Summary ---
Author Name Unknown Organization [place] Address [facility] [place] [place] [address] Care Team Providers Care Invoice Clerk Name Role Phone Cross, Marsha Chappell MD Unavailable Unavaila ble Flavia Antonio MD Primary Care Provider Herlinda Marino APRN GLOBAL VP CREATIVE + CONTENT MARKETING Unavailable Hussain Man MD Unavailable [phone] Cheo Thakkar MD Unavailable Flavia Antonio MD Unavailable Xochitl Smith MD Unavailable Patricia Smiley MD Unavailable Nicko Puga PhD Unavailable Deysi Gerenwood MAIN ENTREE COOK [employer] CASHIER GLOBAL VP CREATIVE + CONTENT MARKETING Unavailable [phone] Flavia Antonio MD Primary Care Provider Flavia Antonio MD Unavailable Olga Aguila DNP Unavailable Arjun Pruitt MD Primary Care Provide r Martin Stevens [facility] Unavailable [phone] Flavia Antonio MD Primary Care Provider Marlene Bustamante [facility] Unavailable [phone] Encounter Details Date Type Department Care Team (Late st Contact Info) Description 09/06/2019 Records - [facility] Provider, Historical Social History Tobacco Use Types Packs/Day Years Used Date Smoking Tobacco: Never Assessed Comments Yes Sex and Gender Information Value Date Recorded Sex Assigned at Not on file Gender Identity Not on file Sexual Orientation Not on file documented as of this encounter Miscellaneous Notes * Note - Historical Provider - 09/06/2019 3:41 PM CDT This note was copied from a baby's chart. checked in with Mynormary jane this afternoon. Ángel reports that are well, she plans on following up with a bottle after each feeding until are able to transfer whatthey need from the breast. Discussed that infants usually need a supplement until they reach term about 38-39 weeks. Plan is for to d/c tomorrow, mom is breastfeed infants for 20 min and supplement infants after each feeding. Encouraged mom to watch infant if they are sleepy at the breast and not transferring than she is to end the feeding and supplement infant via bottle. documented in this encounter Plan of Treatment Upcoming Encounters Date Type Department Care Team (Late st Contact Info) Description 03/10/2024 8:00 AM CDT Virtual Visit [facility] [address] [address] Deo Wood MD [address] [place] [address] documented as of this encounter Visit Diagnoses Not on filedocumented in this encounter Additional Health Concerns Infection Onset Date Last Indicated Resolved Time Rule Out COVID-19 05/16/2021 05/16/2021 05/17/2021 2:14 PM BOXING INSPECTOR documented as of this encounter Care Teams Invoice Clerk Relationship Specialty Start Date End Date Flavia Antonio MD PCP - General 12/07/18 01/15/22 Herlinda Marino APRN GLOBAL VP CREATIVE + CONTENT MARKETING [facility] [address] [place] [address] PCP - Obstetrics/Gynecology 02/03/19 Flavia Antonio MD 1099 [facility] Jessica N [facility] 100 [place] [address] PCP - General Family Medicine 01/16/22 06/06/22 Arjun Pruitt MD [facility]5 CANDICE [address] [facility] 100 [place] [address] PCP - General hat block bench hand 06/25/22 03/11/23 Flavia Antonio MD [address] [address] PCP - General Family Medicine 03/12/23 Marsha Gonzalez MD Assigned OBGYN Provider 03/09/20 11/17/20 Hsusain Man MD [address] [place] [address] Assigned Surgical Provider 11/30/20 09/28/21 Cheo Thakkar MD [address] [facility] 400 [place] [address] Assigned OBGYN Provider 11/30/20 Flavia Antonio MD [address] [address] Assigned PCP 10/31/20 12/13/21 Xochitl Smith MD 2945 [facility] [address] [place] [address] Assigned OBGYN Provider 04/14/21 Patricia Smiley MD [facility] 2635 [facility], [address] [place] [address] Assigned OBGYN Provider 04/07/2104/13 Nicko Puga, PhD [facility] [address] [place] [address] Assigned Behavioral Health Provider 04/07/21 07/06/21 Deysi Greenwood APRN GLOBAL VP CREATIVE + CONTENT MARKETING 1099 [facility] Roland 100 [place] [address] Assigned PCP 12/14/21 01/24/22 Flavia Antonio MD [address] [address] Assigned PCP 01/25/22 02/21/22 Olga Aguila DNP 1151 [place] [address] Assigned PCP 02/22/[address] [facility] [address] [place] [phone] Pharmacist Pharmacist 02/20/[address] [facility] [address] [place] [phone] Pharmacist Pharmacist Cigar Sorter 04/30/23 documented as of this encounter
--- OUTSIDE RECORDS SUMMARY | 2023-05-28 10:24 | XMS_ITS | Encounter Summary ---
Author Name Unknown Organization [place] Address [facility] [place] [address] Care Team Providers Care Professional Shopper Name Role Phone Cross, Marsha Chappell MD Unavailable Unavaila ble Flavia Antonio MD Primary Care Provider Herlinda Marino APRN HYDRO MECHANIC Unavailable Hussain Man MD Unavailable [phone] Cheo Thakkar MD Unavailable Flavia Antonio MD Unavailable Xochitl Smith MD Unavailable Patricia Smiley MD Unavailable Nicko Puga PhD Unavailable Deysi Greenwood PAINTER AND BODY MECHANIC APPRENTICE HYDRO MECHANIC Unavailable Flavia Antonio MD Primary Care Provider Flavia Antonio MD Unavailable Olga Aguila DNP Unavailable Arjun Pruitt MD Primary Care Provide r Martin Stevens [facility] Unavailable [phone] Flavia Antonio MD Primary Care Provider Marlene Bustamante [facility] Unavailable Encounter Details Date Type Department Care Team (Late st Contact Info) Description 09/03/2019 Records - [facility] Ani Tyler, RN Social History Tobacco Use Types Packs/Day Years Used Date Smoking Tobacco: Never Assessed Comments Yes Sex and Gender Information Value Date Recorded Sex Assigned at Not on file Gender Identity Not on file Sexual Orientation Not on file documented as of this encounter Miscellaneous Notes * Note - Ani Tyler - 09/03/2019 9:57 AM CDT This note was copied from a baby's chart. This copy writer met with Ángel to observe twin B at the breast. She has infant in the cradle hold with a shallow latch. We discussed hand expressing prior to latching will soften the areolar tissue, allowing to obtain/sustain a deep latch. Hand expression taught. She was also instructedto place in the football hold to allow Ángel's free hand to sandwich /shape the breast tissue, allowing twin B to transfer more milk at the breast with less suction pressures. We also discussed using breast compression to assist with milk transfer, prn, and to watch infant's cues so infant does not become too overwhelmed by the fast flow of milk. We reviewed the use of the breast pump.Ángel states she has a plugged duct that is not resolving. She was given the information below and instructed to call her provider prn. We discussed having the breast pump vacuum up too high will collapse the ducts and hinder the flow. Ángel verbalizes understanding of all education given. She d enies any further questions. Lecithin treatment for recurrent plugged ducts By Mariya Wylie, IBCLC Lecithin has been recommended to combat recurrent plugged ducts. The usual recommended dosage for recurrent plugged ducts is 0427-9767 mg lecithin per day, or 1 capsule (1200 milligram) 3-4 times perday. After a week or two with no blockage, mom can reduce the dosage by one capsule. If there is noblockage within another 2 weeks she can reduce it again by one. Mom may need to continue taking 1-2capsules per day if stopping the lecithin leads to additional plugged ducts. Lecithin is a very common food additive, and is found naturally in many other foods. There are no known contraindications to its use by mothers. The reason why lecithin may help resolve and prevent plugged ducts is not clear. Per Dr. Dave Cole, ???It may do this by decreasing the viscosity (stickiness) of the milk by increasing the percentage of polyunsaturated fatty acids in the milk.?? Lecithin is an emulsifier (used to keep fats/oils dispersed and in suspension): phospholipid molecules (such as lecithin) contain hydrophobic and hydrophilic elements; the hydrophobic portion has an affinity for fats and oils, and the hydrophilic portion has an affinity for water. Additional safety information: Per ???The Doctor???s Vitamin and Mineral Encyclopedia?? by Kalen Kramer MD, Ph.D. (1989,p. 258-269), the maximum dosage of lecithin is 50 grams per day. The maximum dosage recommendation for recurrent plugged ducts is 4.8 grams per day-less than 1/10 of the maximum recommended dosage. Choline is a component of lecithin - the lecithin sold in [employer] stores is about 1-2% choline.Rarely, people who take pure choline can develop a fish odor- this is due to a liver enzyme deficiency that impairs choline metabolism. The form of choline in lecithin (phosphatidylcholine) should not cause this problem. If you develop a fishy body odor, stop taking choline supplements and see your physician. People with liver failure may develop this deficiency, as may those with normal livers who take more than 20 grams of (pure) choline per day. Also, people with a preexisting tendency to depression may become depressed if taking high doses ofcholine or lecithin. These people should be monitored by a physician. Https://[facility]/nutrition/vitamins/lecithin/ Www.ibconline.ca-Information Sheets-Plugged ducts (Dr. Dave Cole's website) documented in this encounter Plan of Treatment Upcoming Encounters Date Type Department Care Team (Late st Contact Info) Description 03/10/2024 8:00 AM CDT Virtual Visit [facility] Surgery Clinic and Bariatrics Care [address] [address] Deo Wood MD 2945 [facility] 200 [place], [place] [address] documented as of this encounter Visit Diagnoses Not on filedocumented in this encounter Additional Health Concerns Infection Onset Date Last Indicated Resolved Time Rule Out COVID-19 05/16/2021 05/16/2021 05/17/2021 2:14 PM DRUG ABUSE WORKER documented as of this encounter Care Teams Professional Shopper Relationship Specialty Start Date End Date Flavia Antonio MD PCP - General 12/07/18 01/15/22 Herlinda Marino APRN HYDRO MECHANIC [facility] [address] [place] [address] PCP - Obstetrics/Gynecology 02/03/19 Flavia Antonio MD 1099 [facility] Jessica Castillo [facility] 100 [place] [address] PCP - General Family Medicine 01/16/22 06/06/22 Arjun Pruitt MD [address] [place], [place] [address] 100 [place] [address] PCP - General forensic audit expert 06/25/22 03/11/23 Flavia Antonio MD [address] [address] PCP - General Family Medicine 03/12/23 Marsha Gonzalez MD Assigned OBGYN Provider 03/09/20 11/17/20 Hussain Man MD [address] [address] Assigned Surgical Provider 11/30/20 09/28/21 Cheo Thakkar MD [address] [place] [address] 400 [place] [address] Assigned OBGYN Provider 11/30/20 Flavia Antonio MD [address] [address] Assigned PCP 10/31/20 12/13/21 Xochitl Smith MD 2945 [facility] 100 [place] [address] Assigned OBGYN Provider 04/14/21 Patricia Smiley MD [facility] 2635 [facility] [address] [place] [address] Assigned OBGYN Provider 04/07/2104/13 Nicko Puga, PhD [facility] [address] [place], [place] [address] Assigned Behavioral Health Provider 04/07/21 07/06/21 Deysi Greenwood APRN HYDRO MECHANIC 1099 [facility] 100 [place] [address] Assigned PCP 12/14/21 01/24/22 Flavia Antonio MD [address] [address] Assigned PCP 01/25/22 02/21/22 Olga Aguila DNP 1151 [place] [address] Assigned PCP 02/22/22 Martin Stevens RPH [address] [place] [phone] Pharmacist Pharmacist 02/20/23 Marlene Bustamante RPH [address] [place] [phone] Pharmacist Pharmacist Corsage Maker 04/30/23 documented as of this encounter
== END 2023-05-28 10:13 | disposition home or self-care (01) ==
LOC: FRMREF 10:14
PROVIDERS: PCP Family Medicine; Visit Provider Family Medicine
DX: Z01.818 Encounter for other preprocedural examination (principal); E03.9 Hypothyroidism, unspecified
CPT/HCPCS: 84439; 84443; 87086

== ENCOUNTER 2023-10-01 14:39 | Outpatient (CLI) | payer MEDICAID, SELFPAY ==
--- OUTSIDE RECORDS SUMMARY | 2023-10-01 14:42 | XMS_ITS | Encounter Summary ---
Author Name Unknown Organization [facility] Address [address], [place] [address] Care Team Providers Care Lpn Home Health Name Role Phone Heydi Sutton MD Primary Care Provider [phone] Reason for Visit * Reason Comments Problem Focused Exam White tongue Encounter Details Date Type Department Care Team (Late st Contact Info) Description 09/08/2023 10:20 AM CDT Office Visit [facility] [address] [address] Kamilah Brunner DDS [address] [place] [address] Problem Focused Exam (White tongue) Social History Tobacco Use Types Packs/Day Years [...] Progress Notes * Kamilah Brunner DDS - 09/08/2023 10:20 AM CDT DENTAL PROBLEM FOCUS VISIT NOTE Eddie Neal is a 38 y.o. female who presents for Problem Focused Exam (White tongue) Chief Complaint: White tongue, hard to swallow, painful, dry mouth that worsens at night. Pain Assessment: Current level of pain: 3/10 Worst pain level associated with this problem: 6/10 Location of pain: Tongue Nature of pain: Dull Eliciting factors: N/A Duration: Awake at night and Days Alleviating factors: Mouth wash The following information was reviewed with the patient: Medical history, Dental history, and Radiographs. Clinical exam: white coating on dorsal surface of tongue. Diagnosis: Oral mucosal Lesion Plan Discuss with pt and recommend pt to see her primary care doctor for further evaluation. Oral lesionis not related dental origin. I discussed the Dental findings, Prognosis, Treatment options, Risks and complications associated with procedure, and Billing/Treatment estimate with the patient. All questions answered and they gaveinformed consent to proceed dental treatment/services. Procedural Pause: Patient identity verified: Yes Treatment plan/site verified with the patient: Yes Instruments/equipment verified: Yes Any medication/allergy contraindications: No Completed Procedures: Limited Oral Exam Care was assisted by Vaishali DENNY Next Planned Visit: recall No Medications ordered this encounter Kamilah Brunner DDS 09/08/2023, 6:53 PM documented in this encounter Plan of Treatment Upcoming Encounters Date Type Department Care Team (Late st Contact Info) Description 10/13/2023 3:10 PM CDT Appointment [facility] [address] [address] [address] [address] documented as of this encounter Procedures Procedure Name Priority Date/Time Associated Diagnosis Comments LIMITED ORAL EVALUATION Routine 09/08/19 24 10:20 AM CDT Oral mucosal lesion documented in this encounter Visit Diagnoses Diagnosis Oral mucosal lesion- Primary Other and unspecified diseases of the oral soft tissues documented in this encounter Care Teams Lpn Home Health Relationship Specialty Start Date End Date Heydi Sutton MD [address] [place] [address] PCP - General Family Practice 09/22/11 documented as of this encounter
--- OUTSIDE RECORDS SUMMARY | 2023-10-01 14:42 | XMS_ITS | Encounter Summary ---
Author Name Unknown Organization [facility] Address [address] [address] Care Team Providers Care Patient Access Coordinator Name Role Phone Heydi Sutton MD Primary Care Provider Encounter Details Date Type Department Care Team (Late st Contact Info) Description 07/18/2018 Outside Hospital External to CRISIS SOCIAL WORK ASSESSMENT Social History Tobacco Use Types Packs/Day Years [...] Info) Description 10/13/2023 3:10 PM CDT Appointment [facility] [place] [address] [place] [address] [address] documented as of this encounter Visit Diagnoses Not on filedocumented in this encounter Care Teams Patient Access Coordinator Relationship Specialty Start Date End Date Heydi Sutton MD [address] [place] [address] PCP - General Family Practice 09/22/11 documented as of this encounter
--- OUTSIDE RECORDS SUMMARY | 2023-10-01 14:42 | XMS_ITS | Encounter Summary ---
Author Name Unknown Organization [facility] Address [address], [place] [address] Care Team Providers Care Nuclear Test Technician Name Role Phone Heydi Sutton MD Primary Care Provider [phone] Reason for Visit * Reason Comments THRUSH Encounter Details Date Type Department Care Team (Late Contact Info) Description 09/08/2023 Telephone [facility] [address] [address] Found, No Pcp, [address] [place] [address] THRUSH Social History Tobacco Use Types Packs/Day Years [...] Info) Description 10/13/2023 3:10 PM CDT Appointment [address] [address] Margret Lazar, [address] [address] documented as of this encounter Visit Diagnoses Not on filedocumented in this encounter Care Teams Nuclear Test Technician Relationship Specialty Start Date End Date Heydi Sutton MD [address] [place] [address] PCP - General Family Practice 09/22/11 documented as of this encounter
--- OUTSIDE RECORDS SUMMARY | 2023-10-01 14:42 | XMS_ITS | Encounter Summary ---
Author Name Unknown Organization [facility] Address [address] [address] Care Team Providers Care [employer] Name Role Phone Heydi Sutton MD Primary Care Provider [phone] Encounter Details Date Type Department Care Team (Late st Contact Info) Description 11/07/2018 Refill Order [facility] [address] [place] [address] Yg Cedillo MD [address] [place] [phone] Social History Tobacco Use Types Packs/Day Years [...] Info) Description 10/13/2023 3:10 PM CDT Appointment [facility] [address] [address] Margret Lazar, [address] [address] documented as of this encounter Visit Diagnoses Diagnosis Encounter for long-term (current) use of medications- Primary Encounter for long-term (current) use of other medications documented in this encounter Care Teams [employer] Relationship Specialty Start Date End Date Heydi Sutton MD [address]50 [place] [address] PCP - General Family Practice 09/22/11 documented as of this encounter
--- OUTSIDE RECORDS SUMMARY | 2023-10-01 14:42 | XMS_ITS | Encounter Summary ---
Author Name Unknown Organization [facility] Address [address], [place] [address] Care Team Providers Care Java Mobile Developer Name Role Phone Heydi Sutton MD Primary Care Provider [phone] Encounter Details Date Type Department Care Team (Late st Contact Info) Description 01/21/2016 Emergency Room External to HP [...] CDT Appointment [facility] [place] [address] [place] [address] [facility] [address] [place] [address] documented as of this encounter Visit Diagnoses Not on filedocumented in this encounter Care Teams Java Mobile Developer Relationship Specialty Start Date End Date Heydi Sutton MD [address] [place] [address] PCP - General Family Practice 09/22/11 documented as of this encounter
--- OUTSIDE RECORDS SUMMARY | 2023-10-01 14:42 | XMS_ITS | Encounter Summary ---
Author Name Unknown Organization [facility] Address [address], [place] [address] Care Team Providers Care Storm Sash Maker Name Role Phone Heydi Sutton MD Primary Care Provider [phone] Encounter Details Date Type Department Care Team (Late st Contact Info) Description 04/07/2016 Emergency Room Security Contact - Dimple Gandhi [facility], Provider PINK [place]YE Social History Tobacco Use [...] Info) Description 10/13/2023 3:10 PM CDT Appointment [facility] [place] [address] [place] [address] [facility] [address] [place] [address] documented as of this encounter Visit Diagnoses Not on filedocumented in this encounter Care Teams Storm Sash Maker Relationship Specialty Start Date End Date Heydi Sutton MD [address] [place] [address] PCP - General Family Practice 09/22/11 documented as of this encounter
--- OUTSIDE RECORDS SUMMARY | 2023-10-01 14:42 | XMS_ITS | Encounter Summary ---
Author Name Unknown Organization [facility] Address [address], [place] [address] Care Team Providers Care Geology Technician Name Role Phone Heydi Sutton MD Primary Care Provider [phone] Encounter Details Date Type Department Care Team (Late st Contact Info) Description 12/28/2017 Emergency Room External to HP [...] Info) Description 10/13/2023 3:10 PM CDT Appointment [facility] [place] [address] [place] [address] [facility] [address] [place] [address] documented as of this encounter Visit Diagnoses Not on filedocumented in this encounter Care Teams Geology Technician Relationship Specialty Start Date End Date Heydi Sutton MD [address] [place] [address] PCP - General Family Practice 09/22/11 documented as of this encounter
--- OUTSIDE RECORDS SUMMARY | 2023-10-01 14:42 | XMS_ITS | Encounter Summary ---
Author Name Unknown Organization [facility] Address [address] [address] Care Team Providers Care Clinching Machine Operator Name Role Phone Heydi Sutton MD Primary Care Provider [phone] Encounter Details Date Type Department Care Team (Late st Contact Info) Description 07/23/2016 Emergency Room External to HP [...] 10/13/2023 3:10 PM CDT Appointment [facility] [place] [place] [address] [address] documented as of this encounter Visit Diagnoses Not on filedocumented in this encounter Care Teams Clinching Machine Operator Relationship Specialty Start Date End Date Heydi Sutton MD [address] [place] [address] PCP - General Family Practice 09/22/11 documented as of this encounter
--- OUTSIDE RECORDS SUMMARY | 2023-10-01 14:42 | XMS_ITS | Encounter Summary ---
Author Name Unknown Organization [facility] Address [address] [address] Care Team Providers Care Roofing Applicator Name Role Phone Heydi Sutton MD Primary Care Provider [phone] Encounter Details Date Type Department Care Team (Late st Contact Info) Description 06/17/2018 Correspondence [facility] [address] [place], [place] [phone] Heydi Sutton MD [address] [place], [place] [phone] [facility] ATTENDING PHYSICIANS STATEMENT Social History Tobacco [...] Info) Description 10/13/2023 3:10 PM CDT Appointment [facility] [address] [address] Margret Lazar, [address] [address] documented as of this encounter Visit Diagnoses Not on filedocumented in this encounter Care Teams Roofing Applicator Relationship Specialty Start Date End Date Heydi Sutton MD [address] [place] [address] PCP - General Family Practice 09/22/11 documented as of this encounter
--- OUTSIDE RECORDS SUMMARY | 2023-10-01 14:42 | XMS_ITS | Encounter Summary ---
Author Name Unknown Organization [facility] Address [address] [address] Care Team Providers Care Instructor Industrial Design Name Role Phone Heydi Sutton MD Primary Care Provider Encounter Details Date Type Department Care Team (Late st Contact Info) Description 06/30/2018 Correspondence [facility] [address] [facility] [place] [address] Heydi Sutton MD [address] [place], [place] [phone] SHORT TERM DISABILITY Social History Tobacco Use [...] Info) Description 10/13/2023 3:10 PM CDT Appointment [facility] [address] [address] Margret Lazar, [address] [address] documented as of this encounter Visit Diagnoses Not on filedocumented in this encounter Care Teams Instructor Industrial Design Relationship Specialty Start Date End Date Heydi Sutton MD [address] [place] [address] PCP - General Family Practice 09/22/11 documented as of this encounter
--- OUTSIDE RECORDS SUMMARY | 2023-10-01 14:42 | XMS_ITS | Clinical Summary ---
Author Name Unknown Organization [facility] Address [address] [place] [address] Care Team Providers Care Community Education Specialist Name Role Phone Heydi Sutton MD Primary Care Provider [phone] Source Comments You are receiving this document as you are listed as the primary care provider,follow-up provider, or the patient has been referred to you for consultation.This is in compliance with the Medicare andJ.W. [facility] Hospitalcaid EHR Incentive Program,which states Providers who transition their patient to another setting of careor provider of care or refers their patient to another provider of care shouldprovide summary care record for each transition of care or referral. [facility] Center[facility] Allergies Active Allergy Reactions Criticality Noted Date [...] MG capsule Take 50 mg by mouth. 02/11/2019 Active naltrexone (REVIA) 50 MG tablet Take by mouth. 08/09/2022 Active buPROPion (WELLBUTRIN XL) 150 MG 24 hour release tablet Take 1 Tablet (150 mg) by mouth daily. 10/09/2022 Active Active Problems Problem Noted Date Diagnosed Date Abdominal pannus 11/20/2022 Overview: Added automatically from request for surgery [id number] Other specified circulatory system disorders 04/2019 Overview: [...] Encounters Date Type Department Care Team Description 09/08/2023 10:20 AM CDT Office Visit [place] [address] [place] [address] Kamilah Brunner DDS Problem Focused Exam (White tongue) 09/08/2023 Telephone [place] [address] [place] [address] Found, No Pcp, THRUSH from Last 3 Months Immunizations Name Administration Dates Next Due 4vHPV (Gardasil) 09/18/2010,07/23/2009, 0 DTP 02/19/1987,1986,1986 Flu Vac (3+ yrs) 06/03/2011 HepB Adult (Engerix-B, 20+ y rs, 3 dose series) 12/15/2012,07/16/2011 HepB Ped/Adol (0-18 yrs) 02/12/1999 Influenza IIV4 (Quadrivalent) 0.5mL (80557) 01/2015,05/23/2014 Influenza Vaccine (3+years) ([facility]) 012 MMR 02/12/1999,01/15/1989 OPV, Trivalent [...] Info) Description 10/13/2023 3:10 PM CDT [facility]ment [facility] [address] [address] Margret Lazar, [address] [address] Health Maintenance Due Date Last Done Comments Hep C Screening (Preventive Services) 1986 IPV (Polio) (4 of 4 - 4-dose series) 1990 01/15/1989, 1986, 1986 Cervical Cancer Screening 05/16/20172016, 05/23/2014, 07/16/2011, Additional history exists Careplan Update 06/12/2017 06/12/2016 Prescription Monitoring Program 04/13/2018 04/13/2017, 06/12/2016 Adult Preventive Visit 05/15/2019 7, 05/23/2014, 07/16/2011, Additional history exists Drug Screen 11/26/2019 11/25/2018, 05/19, 02/22/2013 Med Monitoring TSH 11/27/2019 11/26/2018, 0 06/14/2018, 12/24/2017, Additional history exists COVID-19 Vaccine ( season) 2023 07/29/2021, 06/26/2021 Influenza (Season Ended) 2024 022, 02/07/2020, 03/26/2015, Additional history exists DTaP/Tdap/Td (10 - Tdap) 08/29/2029 020, 10/11/2015, 10/11/2015, Additional [...] Associated Diagnosis Comments LIMITED ORAL EVALUATION Routine 09/08/2023 10:20 AM CDT Oral mucosal lesion TSH, SENSITIVE (WITH REFLEX) Add-On 11/26/2018 9:41 AM CDT RAPID DRUG PANEL, URINE STAT 11/25/2018 9:43 PM CDT PAP TEST, ROUTINE Routine 05/15/2017 9:2 3 AM BOAT CLEANER Screening for malignant neoplasm of cervix from Last 3 Months or Most Recently Relevant to Health Maintenance Results * TSH with Free T4 (if TSH Abnormal) (11/26/2018 9:41 AM CDT) TSH, Reflex 0.95 0.30 - 4.50 uIU/mL 11/27/2018 11:36 AM CDT [facility] Blood Venipuncture / Unknown 11/26/2018 9:41 AM CDT 11/26/2018 9:48 AM CDT [facility] - 11/27/2018 11:36 AM CDT Lab will automatically reflex to Free T4 when TSH results are <0.30 uIU/mL or >4.50 mIU/mL. Heydi Mims MD LAB_1 [place] [address], [facility] [phone] * Urine Tox Screen (11/25/2018 9:43 PM CDT) Amphetamines Screen Not Detected Not Detected 11/25/2018 10:09 PM [facility] Barbiturates Screen Not Detected Not Detected 11/25/2018 10:09 PM [facility] Benzodiazepines Screen Not Detected Not Detected 11/25/2018 10:09 PM [facility] Buprenorphine Screen Not Detected Not Detected 11/25/2018 10:09 PM [facility] Cocaine Metabolite Screen Not Detected Not Detected 11/25/2018 10:09 PM [facility] Methadone Screen Not Detected Not Detected 11/25/2018 10:09 PM [facility] Opiates Screen Not Detected Not Detected 11/25/2018 10:09 PM [facility] Oxycodone Screen Not Detected Not Detected 11/25/2018 10:09 PM [facility] Phencyclidine (PCP) Screen Not Detected Not Detected 11/25/2018 10:09 PM [facility] THC (Marijuana) Metab Screen Not Detected Not Detected 11/25/2018 10:09 PM [facility] Creatinine, Urine, Random 92 >20 mg/dL 11/25/2018 10:09 PM [facility] Urine,random Non-blood Collection / Unknown 11/25/2018 9:43 PM CDT 11/25/2018 9:52 PM [facility] - 11/25/2018 10:09 PM CD The absence of expected drug(s) and/or drug metabolite(s) may indicate non-compliance, inappropriate timing of specimen collection relative to drug administration, poor drug absorption, diluted/adulterated urine or limitations of testing. The concentration must be greater than or equal to the cutoff concentration to be reported as positive. For medical purposes only: not valid for forensic, legal, or employment use. Flavia Martin PA-C LAB_[address] [address], [facility] [phone] * Pap Test, Routine (05/15/2017 9:23 AM BOAT CLEANER) Cytology, Pap (NOTE) Service Plumber Cytology Report Patient Name: ÁNGEL NO Taken: 05/15/2017 Received: 05/15/2017 Reported: 05/20/2017 Physician(s): AN HERBERT ?Source of Specimen Pap Test, Routine Cervical/Endocervi ian: ?Specimen Adequacy ?Satisfactory for evaluation. ??Endocervical component present. ? Final Cytologic Interpretation/Res ult NEGATIVE FOR INTRAEPITHELIAL LESION OR MALIGNANCY (NILM) ?Other Cytologic Findings ?Inflammation *Electronically Signed Out By Alicia BRICEÑO (ASCP)* Alicia BRICEÑO (ASCP) ? Pap Smear History Date of Last Menstrual Period: 05/10/2017 ?? Microscopic Description Microscopic examination is performed. [facility] Department of Pathology [address] [place] [address] ??[id number] [facility] 05/15/2017 9:23 AM BOAT CLEANER 05/15/2017 5:11 PM BOAT CLEANER An Herbert BMX RIDER, LABEL REMOVER LAB_1 [facility] [phone] from Last 3 Months or Most Recently Relevant to Health Maintenance Advance Directives * Full Code (Latest Code Status on File) Date Activated Date Inactivated Comments 11/26/2018 12:53 PM 11/28/2018 5:15 PM * Full Code Date Activated Date Inactivated Comments 11/12/2011 11:38 AM 11/12/2011 4:01 PM Care Teams Community Education Specialist Relationship Specialty Start Date End Date Heydi Sutton MD [address] [place] [address] PCP - General Family Practice 09/22/11
--- OUTSIDE RECORDS SUMMARY | 2023-10-01 14:42 | XMS_ITS | Encounter Summary ---
Author Name Unknown Organization [facility] Address [address] [address] Care Team Providers Care Claim Agent Name Role Phone Heydi Sutton MD Primary Care Provider [phone] Encounter Details Date Type Department Care Team (Late st Contact Info) Description 10/20/2018 Emergency Room External to HP ACUTE URI Social History Tobacco Use Types [...] Info) Description 10/13/2023 3:10 PM CDT Appointment [facility] [place] [address] [place] [address] [address] documented as of this encounter Visit Diagnoses Not on filedocumented in this encounter Care Teams Claim Agent Relationship Specialty Start Date End Date Heydi Sutton MD [address] [place] [address] PCP - General Family Practice 09/22/11 documented as of this encounter
--- OUTSIDE RECORDS SUMMARY | 2023-10-01 14:42 | XMS_ITS | Encounter Summary ---
Author Name Unknown Organization [facility] Address [address] [address] Care Team Providers Care Barrel Lathe Operator Name Role Phone Heydi Sutton MD Primary Care Provider [phone] Encounter Details Date Type Department Care Team (Late st Contact Info) Description 12/17/2015 Outside Hospital External to HP [...] 10/13/2023 3:10 PM CDT Appointment [facility] [place] [place] [address] [address] documented as of this encounter Visit Diagnoses Not on filedocumented in this encounter Care Teams Barrel Lathe Operator Relationship Specialty Start Date End Date Heydi Sutton MD [address] [place] [address] PCP - General Family Practice 09/22/11 documented as of this encounter
--- OUTSIDE RECORDS SUMMARY | 2023-10-01 14:42 | XMS_ITS | Encounter Summary ---
Author Name Unknown Organization [facility] Address [address], [place] [address] Care Team Providers Care Digital Print Operator Name Role Phone Heydi Sutton MD Primary Care Provider [phone] Encounter Details Date Type Department Care Team (Late st Contact Info) Description 12/17/2015 Outside Hospital External to HP VAGINAL DELIVERY NOTE Social History Tobacco Use [...] 10/13/2023 3:10 PM CDT Appointment [facility] [place] [address] [place] [address] [address] [address] documented as of this encounter Visit Diagnoses Not on filedocumented in this encounter Care Teams Digital Print Operator Relationship Specialty Start Date End Date Heydi Sutton MD [address] [place] [address] PCP - General Family Practice 09/22/11 documented as of this encounter
--- OUTSIDE RECORDS SUMMARY | 2023-10-01 14:42 | XMS_ITS | Encounter Summary ---
Author Name Unknown Organization [facility] Address [address], [place] [address] Care Team Providers Care Rrt Name Role Phone Heydi Sutton MD Primary Care Provider [phone] Encounter Details Date Type Department Care Team (Late st Contact Info) Description 06/24/2018 Correspondence [facility] [address] [facility] [place] [address] Heydi Sutton MD [address] [place], [place] [phone] MEDICAL STATEMENT Social History Tobacco Use Types [...] 3:10 PM CDT Appointment [facility] [address] [address] Margret Lazar, [address] [address] documented as of this encounter Visit Diagnoses Not on filedocumented in this encounter Care Teams Rrt Relationship Specialty Start Date End Date Heydi Sutton MD [address] [place] [address] PCP - General Family Practice 09/22/11 documented as of this encounter
--- OUTSIDE RECORDS SUMMARY | 2023-10-01 14:42 | XMS_ITS | Encounter Summary ---
Author Name Unknown Organization [facility] Address [address], [place] [address] Care Team Providers Care Mapping Editor Name Role Phone Heydi Sutton MD Primary Care Provider [phone] Encounter Details Date Type Department Care Team (Late st Contact Info) Description 06/17/2018 Correspondence [facility] [address] [facility] [place] [address] Heydi Sutton MD [address] [place], [place] [phone] ATTENDING PHYSICIAN STATEMENT Social History Tobacco Use [...] Info) Description 10/13/2023 3:10 PM CDT Appointment [facility] [address] [address] Margret Lazar, [address] [address] documented as of this encounter Visit Diagnoses Not on filedocumented in this encounter Care Teams Mapping Editor Relationship Specialty Start Date End Date Heydi Sutton MD [address] [place] [address] PCP - General Family Practice 09/22/11 documented as of this encounter
--- OUTSIDE RECORDS SUMMARY | 2023-10-01 14:42 | XMS_ITS | Encounter Summary ---
Author Name Unknown Organization [facility] Address [address] [address] Care Team Providers Care Controls Designer Name Role Phone Heydi Sutton MD Primary Care Provider [phone] Encounter Details Date Type Department Care Team (Late st Contact Info) Description 01/01/2017 Emergency Room External to HP [...] Info) Description 10/13/2023 3:10 PM CDT [facility]ment [facility] [place] [place] [address] [facility] [address] [place] [address] documented as of this encounter Visit Diagnoses Not on filedocumented in this encounter Care Teams Controls Designer Relationship Specialty Start Date End Date Heydi Sutton MD [address] [place] [address] PCP - General Family Practice 09/22/11 documented as of this encounter
--- OUTSIDE RECORDS SUMMARY | 2023-10-01 14:42 | XMS_ITS | Clinical Summary ---
Author Name Unknown Organization [facility] Address [place], [place] [address] Care Team Providers Care Laundry Machine Tender Name Role Phone Flavia Antonio MD Primary Care Provider [phone] Allergies Active Allergy Reactions Criticality Noted Date Comments Fluoxetine Other - Describe In Comment Field 08/23/2018 Makes her very drowsy during the day. Makes her very drowsy during the day. Makes her very drowsy during the day. Medications Medication Sig Dispensed Refills Start Date End Date Status levothyroxine (SYNTHROID) 150 mcg tablet Take 125 mcg by mouth once daily. 01/13/2016 Active vit/iron fum/folic ac ( 1 + 1 ORAL) Take 1 tablet by mouth once daily. Active naltrexone (REVIA) 50 mg tablet Take 1 tablet (50 mg total) by mouth daily. 09/12/2020 Active ondansetron (ZOFRAN) 4 mg tablet Take 1 tablet (4 mg) by mouth daily as needed for nausea 01/07/2021 Active metoclopramide HCl (REGLAN) 5 mg tablet Take 1 tablet by mouth 3 times daily as needed. 12/18/2020 Active Drysol 20 % external solution Apply topically At Bedtime 07/13/2021 Active labetaloL (TRANDATE) 100 mg tablet Take 100 mg by mouth 2 times daily. 05/30/2021 Active omeprazole (PRILOSEC) 40 mg Delayed-Release capsule Take 1 capsule (40 mg) by mouth daily 05/09/2021 Active Levothyroxine 125 mcg cap 1 tablet in the morning on an empty stomach Active ondansetron (ZOFRAN ODT) 4 mg disintegrating tabletIndications:Vomi ting, unspecified vomiting type, unspecified whether nausea present Place 1 Tablet (4 mg) on the tongue every 6 hours if needed for Nausea/Vomiting. 10 Tablet 08/08/2022 Active fluconazole (DIFLUCAN) 150 mg tabletIndications:Acut e vaginitis Take 1 tablet every 72 hours if symptoms for up to 3 doses 3 Tablet 12/30/2022 Active Active Problems Problem Noted Date Diagnosed Date Dichorionic diamniotic twin in second trimester 06/13/2019 Threatened labor, second trimester 06/13 Contraception 10/23/2010 PCOS (polycystic ovarian syndrome) 09/03/2010 Overview: US dated: 08/30/10 showed polycystic ovaries Reports hx of irregular menses Vitamin D deficiency 08/29/2009 Anxiety state, unspecified 06/19/2009 Hypothyroid Cramping affecting , antepartum Immunizations Name Administration Dates Next Due Human [...] 2023 07/29/2021, 06/26/2021 Influenza for age 9-49 01/17/2024 01/18/2009 Tdap Completed 08/28/2009 Pneumococcal series for age 6-64 Aged Out No longer eligible b ased on patient's age to complete this topic Procedures Procedure Name Priority Date/Time Associated Diagnosis Comments REAL ESTATE JOB TITLES THIN PREP PAP DIAGNOSTIC IMAGED Routine 05/08/2010 4:38 PM SENIOR WINDOWS ENGINEER Abnormal glandular Papanicolaou smear of cervix from Last 3 Months or Most Recently Relevant to Health Maintenance Results * REAL ESTATE JOB TITLES THIN PREP PAP DIAGNOSTIC IMAGED (05/08/2010 4:38 PM SENIOR WINDOWS ENGINEER) CYTOLOGY CYTOPATHOLOGY REPORT [facility] Status: Final Status ?[id number] CLINICAL INFORMATION Last Date of LMP ? :Hormonally Suppressed Last Pap Date ?:09/2008 Last Pap Result ?:NIL ABN [place]/Bx Past 5 YRS :None Hormone Usage ?:BCP/OCP/Patch/R ing Menstrual Status ? :Regular Periods [place]/Bx done today ? :No Additional Information :None given HPV Request ?:HPV if ASCUS SPECIMEN SOURCE ?:Cervical/vagina l ThinPrep Vial, diagnostic SPECIMEN ADEQUACY ?:Satisfactory for evaluation Endocervical component ? present. INTERPRETATION/RES ULT Negative for intraepithelial lesion or malignancy (NIL) Cytology 1st Screener ??:cml Cytology 2nd Screener ??:tll Signed by ?:tll This specimen was screened by the FDA approved ThinPrep Imaging System and manually reviewed. NOTE: ??The Pap test is a screening technique, not a diagnostic procedure. ??It is used ??primarily to screen for squamous cancers and precursor lesions. ??Published studies have shown that it is subject to both false negative and false positive results. ??The pap test should not be used as the sole means to diagnose or exclude pre-malignant and malignant lesions. COLLECTED:05/08/10 ? ACCESSIONED: ??05/09/10 ?? SIGNED: ??05/20/10 [facility] PAP [place] CODE NIL [facility] Cervical/Vaginal (Cervical/Vagina l) 05/08/2010 4:38 PM SENIOR WINDOWS ENGINEER 05/08/2010 4:29 PM SENIOR WINDOWS ENGINEER Geovanna More MD PATHOLOGY/CYTOLOG Y [facility] INTERNAL ZIP [address] [address] from Last 3 Months or Most Recently Relevant to Health Maintenance Advance Directives * Full Code (Latest Code Status on File) Date Activated Date Inactivated Comments 08/27/2008 10:53 PM 08/28/2008 3:49 PM * Full Code Date Activated Date Inactivated Comments 08/27/2008 3:00 PM 08/27/2008 7:51 PM Care Teams Laundry Machine Tender Relationship Specialty Start Date End Date Flavia Antonio MD [address] [place] [address] PCP - General 12/30/22
--- OUTSIDE RECORDS SUMMARY | 2023-10-01 14:42 | XMS_ITS | Encounter Summary ---
Author Name Unknown Organization [facility] Address [address] [address] Care Team Providers Care Diesel Service Apprentice Name Role Phone Heydi Sutton MD Primary Care Provider [phone] Encounter Details Date Type Department Care Team (Late st Contact Info) Description 11/02/2017 Emergency Room External to HP [...] Info) Description 10/13/2023 3:10 PM CDT Appointment [facility] [place] [address] [place] [address] [facility] [address] [place] [address] documented as of this encounter Visit Diagnoses Not on filedocumented in this encounter Care Teams Diesel Service Apprentice Relationship Specialty Start Date End Date Heydi Sutton MD [address] [place] [address] PCP - General Family Practice 09/22/11 documented as of this encounter
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
--- OUTSIDE RECORDS SUMMARY | 2023-10-01 14:43 | XMS_ITS | Encounter Summary ---
Author Name Unknown Organization [facility] Address [address], [place] [address] Care Team Providers Care Credit Card Control Clerk Name Role Phone Heydi Sutton MD Primary Care Provider [phone] Encounter Details Date Type Department Care Team (Late st Contact Info) Description 12/17/2012 Emergency Room External to [place] [facility] Social History Tobacco Use Types Packs/Day [...] 10/13/2023 3:10 PM CDT Appointment [facility] Dental [place] [address] [place] [address] Margret Lazar, [address] [address] documented as of this encounter Visit Diagnoses Not on filedocumented in this encounter Care Teams Credit Card Control Clerk Relationship Specialty Start Date End Date Heydi Sutton MD [address] [place] [address] PCP - General Family Practice 09/22/11 documented as of this encounter
--- OUTSIDE RECORDS SUMMARY | 2023-10-01 14:43 | XMS_ITS | Encounter Summary ---
Author Name Unknown Organization [facility] Address [address] [address] Care Team Providers Care Mailroom Courier Name Role Phone Heydi Sutton MD Primary Care Provider [phone] Encounter Details Date Type Department Care Team (Late st Contact Info) Description 03/22/2013 Emergency Room External to URI [...] ROOM, PROVIDER - 03/22/2013 12:00 AM CST IC POLICY ANALYST documented in this encounter Plan of Treatment Upcoming Encounters Date Type Department Care Team (Late st Contact Info) Description 10/13/2023 3:10 PM CDT Appointment [facility] [address] [address] Margret Lazar, [address] [address] documented as of this encounter Visit Diagnoses Not on filedocumented in this encounter Care Teams Mailroom Courier Relationship Specialty Start Date End Date Heydi Sutton MD [address] [facility] [place] [address] PCP - General Family Practice 09/22/11 documented as of this encounter
--- OUTSIDE RECORDS SUMMARY | 2023-10-01 14:43 | XMS_ITS | Encounter Summary ---
Author Name Unknown Organization [facility] Address [address], [place] [address] Care Team Providers Care Sack Maker Name Role Phone Heydi Sutton MD Primary Care Provider [phone] Encounter Details Date Type Department Care Team (Late st Contact Info) Description 04/26/2015 Emergency Room External to [facility], Provider URI Social History Tobacco Use Types [...] Info) Description 10/13/2023 3:10 PM CDT Appointment [facility] Clinic [place] [address] [place] [address] [address] documented as of this encounter Visit Diagnoses Not on filedocumented in this encounter Care Teams Sack Maker Relationship Specialty Start Date End Date Heydi Sutton MD [address] [place] [address] PCP - General Family Practice 09/22/11 documented as of this encounter
--- OUTSIDE RECORDS SUMMARY | 2023-10-01 14:43 | XMS_ITS | Encounter Summary ---
Author Name Unknown Organization [facility] Address [address], [place] [address] Care Team Providers Care Children'S Lunchroom Supervisor Name Role Phone Heydi Sutton MD Primary Care Provider [phone] Encounter Details Date Type Department Care Team (Late st Contact Info) Description 04/29/2015 Emergency Room External to URI [...] CDT Appointment [facility] Dental Clinic [place] [address] [place] [address] [facility] [address] [place] [address] documented as of this encounter Visit Diagnoses Not on filedocumented in this encounter Care Teams Children'S Lunchroom Supervisor Relationship Specialty Start Date End Date Heydi Sutton MD [address] [place] [address] PCP - General Family Practice 09/22/11 documented as of this encounter
--- OUTSIDE RECORDS SUMMARY | 2023-10-01 14:43 | XMS_ITS | Encounter Summary ---
Author Name Unknown Organization [facility] Address [address] [address] Care Team Providers Care Railroad Conductor Name Role Phone Heydi Sutton MD Primary Care Provider [phone] Encounter Details Date Type Department Care Team (Late st Contact Info) Description 05/19/2015 Emergency Room Security Contact - [...] Info) Description 10/13/2023 3:10 PM CDT Appointment [facility] [address] [address] [facility] [address] [place] [address] documented as of this encounter Visit Diagnoses Not on filedocumented in this encounter Care Teams Railroad Conductor Relationship Specialty Start Date End Date Heydi Sutton MD [address] [place] [address] PCP - General Family Practice 09/22/11 documented as of this encounter
--- OUTSIDE RECORDS SUMMARY | 2023-10-01 14:43 | XMS_ITS | Encounter Summary ---
Author Name Unknown Organization [facility] Address [address] [address] Care Team Providers Care Business Liaison Officer Name Role Phone Heydi Sutton MD Primary Care Provider [phone] Encounter Details Date Type Department Care Team (Late st Contact Info) Description 03/20/2015 Emergency Room External to HP [...] Description 10/13/2023 3:10 PM CDT Appointment [facility] Clinic [place] [address] [place] [address] [facility] [address] [place] [address] documented as of this encounter Visit Diagnoses Not on filedocumented in this encounter Care Teams Business Liaison Officer Relationship Specialty Start Date End Date Heydi Sutton MD [address] [place] [address] PCP - General Family Practice 09/22/11 documented as of this encounter
--- OUTSIDE RECORDS SUMMARY | 2023-10-01 14:43 | XMS_ITS | Encounter Summary ---
Author Name Unknown Organization [facility] Address [address], [place] [address] Care Team Providers Care Tool Hardener Name Role Phone Heydi Sutton MD Primary Care Provider [phone] Encounter Details Date Type Department Care Team (Late st Contact Info) Description 08/25/2014 Emergency Room External to Emergency, [...] [facility] [place] [address] [place] [address] [address] documented as of this encounter Visit Diagnoses Not on filedocumented in this encounter Care Teams Tool Hardener Relationship Specialty Start Date End Date Heydi Sutton MD [address] [place] [address] PCP - General Family Practice 09/22/11 documented as of this encounter
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
--- OUTSIDE RECORDS SUMMARY | 2023-10-01 14:43 | XMS_ITS | Encounter Summary ---
Author Name Unknown Organization [facility] Address [address] [address] Care Team Providers Care Orthodontist Name Role Phone Heydi Sutton MD Primary Care Provider [phone] Encounter Details Date Type Department Care Team (Late st Contact Info) Description 06/02/2015 Emergency Room External to RT [...] Info) Description 10/13/2023 3:10 PM CDT Appointment [facility] Clinic [place] [address] [place] [address] [facility] [address] [place] [address] documented as of this encounter Visit Diagnoses Not on filedocumented in this encounter Care Teams Orthodontist Relationship Specialty Start Date End Date Heydi Sutton MD [address] [place] [address] PCP - General Family Practice 09/22/11 documented as of this encounter
--- OUTSIDE RECORDS SUMMARY | 2023-10-01 14:43 | XMS_ITS | Encounter Summary ---
Author Name Unknown Organization [facility] Address [address] [address] Care Team Providers Care Marine Transport Professionals Name Role Phone Heydi Sutton MD Primary Care Provider [phone] Encounter Details Date Type Department Care Team (Late st Contact Info) Description 05/21/2015 Emergency Room Security Contact - [...] 10/13/2023 3:10 PM CDT Appointment [facility] [place] [address] [place] [address] [address] documented as of this encounter Visit Diagnoses Not on filedocumented in this encounter Care Teams Marine Transport Professionals Relationship Specialty Start Date End Date Heydi Sutton MD [address] [place] [address] PCP - General Family Practice 09/22/11 documented as of this encounter
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
--- OUTSIDE RECORDS SUMMARY | 2023-10-01 14:43 | XMS_ITS | Encounter Summary ---
Author Name Unknown Organization [facility] Address [address], [place] [address] Care Team Providers Care Sidehand Name Role Phone Heydi Sutton MD Primary Care Provider [phone] Encounter Details Date Type Department Care Team (Late st Contact Info) Description 08/19/2014 Emergency Room External to [facility], Provider FLU SYMPTOMS Social History Tobacco Use [...] Description 10/13/2023 3:10 PM CDT Appointment [facility] Clinic [address] [address] [address] [address] documented as of this encounter Visit Diagnoses Not on filedocumented in this encounter Care Teams Sidehand Relationship Specialty Start Date End Date Heydi Sutton MD [address] [place] [address] PCP - General Family Practice 09/22/11 documented as of this encounter
--- OUTSIDE RECORDS SUMMARY | 2023-10-01 14:43 | XMS_ITS | Encounter Summary ---
Author Name Unknown Organization [facility] Address [address] [address] Care Team Providers Care Senior Qualitative Researcher Name Role Phone Heydi Sutton MD Primary Care Provider [phone] Encounter Details Date Type Department Care Team (Late st Contact Info) Description 11/07/2014 Emergency Room External to HP [...] 10/13/2023 3:10 PM CDT Appointment [facility] Dental Clinic [place] [address] [place] [address] [facility] [address] [place] [address] documented as of this encounter Visit Diagnoses Not on filedocumented in this encounter Care Teams Senior Qualitative Researcher Relationship Specialty Start Date End Date Heydi Sutton MD [address] [place] [address] PCP - General Family Practice 09/22/11 documented as of this encounter
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
--- OUTSIDE RECORDS SUMMARY | 2023-10-01 14:43 | XMS_ITS | Encounter Summary ---
Author Name Unknown Organization [facility] Address [address], [place] [address] Care Team Providers Care Dry Mixer Name Role Phone Heydi Sutton MD Primary Care Provider [phone] Encounter Details Date Type Department Care Team (Late st Contact Info) Description 11/07/2014 Emergency Room External to [facility], Provider MEDCATION REACTION Social History Tobacco Use [...] CDT Appointment [facility] Clinic [address] [address] documented as of this encounter Visit Diagnoses Not on filedocumented in this encounter Care Teams Dry Mixer Relationship Specialty Start Date End Date Heydi Sutton MD [address] [place] [address] PCP - General Family Practice 09/22/11 documented as of this encounter
--- OUTSIDE RECORDS SUMMARY | 2023-10-01 14:43 | XMS_ITS | Encounter Summary ---
Author Name Unknown Organization [facility] Address [address], [place] [address] Care Team Providers Care Microphone Operator Name Role Phone Heydi Sutton MD Primary Care Provider [phone] Encounter Details Date Type Department Care Team (Late st Contact Info) Description 08/18/2014 Emergency Room External to External, [place] [address] MYALGIAS Social History Tobacco Use Types Packs/Day [...] Info) Description 10/13/2023 3:10 PM CDT Appointment [facility] Dental Clinic [place] [address] [place] [address] [facility] [address] [place] [address] documented as of this encounter Visit Diagnoses Not on filedocumented in this encounter Care Teams Microphone Operator Relationship Specialty Start Date End Date Heydi Sutton MD [address] [place] [address] PCP - General Family Practice 09/22/11 documented as of this encounter
--- OUTSIDE RECORDS SUMMARY | 2023-10-01 14:43 | XMS_ITS | Encounter Summary ---
Author Name Unknown Organization [facility] Address [address] [address] Care Team Providers Care Health Researcher Name Role Phone Heydi Sutton MD Primary Care Provider [phone] Encounter Details Date Type Department Care Team (Late st Contact Info) Description 06/07/2015 Emergency Room External to [facility], Provider HEADACHE, SORE THROAT, VAGINAL DISCHARGE [...] 10/13/2023 3:10 PM CDT Appointment [facility] [place] [address] [place] [address] [address] documented as of this encounter Visit Diagnoses Not on filedocumented in this encounter Care Teams Health Researcher Relationship Specialty Start Date End Date Heydi Sutton MD [address] [place] [address] PCP - General Family Practice 09/22/11 documented as of this encounter
--- OUTSIDE RECORDS SUMMARY | 2023-10-01 14:43 | XMS_ITS | Encounter Summary ---
Author Name Unknown Organization [facility] Address [address] [address] Care Team Providers Care Albacore Fishing Boat Crewman Name Role Phone Heydi Sutton MD Primary Care Provider [phone] Encounter Details Date Type Department Care Team [...] Info) Description 10/13/2023 3:10 PM CDT Appointment [facility] [place] [address] [place] [address] [facility] [address] [place] [address] documented as of this encounter Visit Diagnoses Not on filedocumented in this encounter Care Teams Alb[place]ore Fishing Boat Crewman Relationship Specialty Start Date End Date Heydi Sutton MD [address] [place] [address] PCP - General Family Practice 09/22/11 documented as of this encounter
--- OUTSIDE RECORDS SUMMARY | 2023-10-01 14:43 | XMS_ITS | Encounter Summary ---
Author Name Unknown Organization [facility] Address [address], [place] [address] Care Team Providers Care Nail Feeder Name Role Phone Heydi Sutton MD Primary Care Provider [phone] Encounter Details Date Type Department Care Team (Late st Contact Info) Description 10/09/2015 Emergency Room External to RT [...] 10/13/2023 3:10 PM CDT Appointment [facility] Dental Clinic [place] [address] [place] [address] [address] documented as of this encounter Visit Diagnoses Not on filedocumented in this encounter Care Teams Nail Feeder Relationship Specialty Start Date End Date Heydi Sutton MD [address] [place] [address] PCP - General Family Practice 09/22/11 documented as of this encounter
--- OUTSIDE RECORDS SUMMARY | 2023-10-01 14:43 | XMS_ITS | Encounter Summary ---
Author Name Unknown Organization [facility] Address [address], [place] [address] Care Team Providers Care Second Time Worker Name Role Phone Heydi Sutton MD Primary Care Provider [phone] Encounter Details Date Type Department Care Team (Late st Contact Info) Description 11/07/2014 Emergency Room External to [facility], Provider MEDICATION REACTION Social History Tobacco Use [...] Info) Description 10/13/2023 3:10 PM CDT Appointment [facility] to [facility] [address] [address] [address] [address] documented as of this encounter Visit Diagnoses Not on filedocumented in this encounter Care Teams Second Time Worker Relationship Specialty Start Date End Date Heydi Sutton MD [address] [place] [address] PCP - General Family Practice 09/22/11 documented as of this encounter
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
--- OUTSIDE RECORDS SUMMARY | 2023-10-01 14:43 | XMS_ITS | Encounter Summary ---
Author Name Unknown Organization [facility] Address [address], [place] [address] Care Team Providers Care Principal Electrical Engineer Name Role Phone Heydi Sutton MD Primary Care Provider [phone] Encounter Details Date Type Department Care Team (Late st Contact Info) Description 08/19/2014 Emergency Room External to [facility], Provider FLU SYMPTOMS Social History Tobacco Use [...] 10/13/2023 3:10 PM CDT Appointment [facility] [address] [address] [address] [address] documented as of this encounter Visit Diagnoses Not on filedocumented in this encounter Care Teams Principal Electrical Engineer Relationship Specialty Start Date End Date Heydi Sutton MD [address] [place] [address] PCP - General Family Practice 09/22/11 documented as of this encounter
--- OUTSIDE RECORDS SUMMARY | 2023-10-01 14:43 | XMS_ITS | Encounter Summary ---
Author Name Unknown Organization [facility] Address [address], [place] [address] Care Team Providers Care Paddock Judge Name Role Phone Heydi Sutton MD Primary Care Provider [phone] Encounter Details Date Type Department Care Team (Late st Contact Info) Description 06/07/2015 Emergency Room External to [facility], Provider ED ENCOUNTER SUMMARY Social History Tobacco [...] 10/13/2023 3:10 PM CDT Appointment [facility] [address] [address] [address] [address] documented as of this encounter Visit Diagnoses Not on filedocumented in this encounter Care Teams Paddock Judge Relationship Specialty Start Date End Date Heydi Sutton MD [address] [place] [address] PCP - General Family Practice 09/22/11 documented as of this encounter
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
--- OUTSIDE RECORDS SUMMARY | 2023-10-01 14:43 | XMS_ITS | Encounter Summary ---
Author Name Unknown Organization [facility]ly [facility] Address [address], [place] [address] Care Team Providers Care Looper Operator Name Role Phone Heydi Sutton MD Primary Care Provider [phone] Encounter Details Date Type Department Care Team (Late st Contact Info) Description 03/16/2015 Emergency Room External to [facility] [...] Description 10/13/2023 3:10 PM CDT Appointment [facility] [place] [address] [place] [address] [facility] [address] [place] [address] documented as of this encounter Visit Diagnoses Not on filedocumented in this encounter Care Teams Looper Operator Relationship Specialty Start Date End Date Heydi Sutton MD [address] [place] [address] PCP - General Family Practice 09/22/11 documented as of this encounter
--- OUTSIDE RECORDS SUMMARY | 2023-10-01 14:43 | XMS_ITS | Encounter Summary ---
Author Name Unknown Organization [facility] Address [address], [place] [address] Care Team Providers Care Drill Press Set Up Operator Name Role Phone Heydi Sutton MD Primary Care Provider Encounter Details Date Type Department Care Team (Late st Contact Info) Description 12/11/2012 Emergency Room External to [facility]FI[facility] Social History Tobacco Use Types Packs/Day Years [...] 10/13/2023 3:10 PM CDT Appointment [facility] Dental [place] [address] [place] [address] Margret Lazar, [facility] [address] [place] [address] documented as of this encounter Visit Diagnoses Not on filedocumented in this encounter Care Teams Drill Press Set Up Operator Relationship Specialty Start Date End Date Heydi Sutton MD [address] [place] [address] PCP - General Family Practice 09/22/11 documented as of this encounter
--- OUTSIDE RECORDS SUMMARY | 2023-10-01 14:43 | XMS_ITS | Encounter Summary ---
Author Name Unknown Organization [facility] Address [address] [address] Care Team Providers Care Connie Cleaner Name Role Phone Heydi Sutton MD Primary Care Provider [phone] Encounter Details Date Type Department Care Team (Late st Contact Info) Description 04/30/2014 Emergency Room External to [facility] [...] Info) Description 10/13/2023 3:10 PM CDT Appointment [facility] [place] [address] [place] [address] [facility] [address] [place] [address] documented as of this encounter Visit Diagnoses Not on filedocumented in this encounter Care Teams Connie Cleaner Relationship Specialty Start Date End Date Heydi Sutton MD [address] [place] [address] PCP - General Family Practice 09/22/11 documented as of this encounter
--- OUTSIDE RECORDS SUMMARY | 2023-10-01 14:43 | XMS_ITS | Encounter Summary ---
Author Name Unknown Organization [facility] Address [address], [place] [address] Care Team Providers Care Agent Ticketing Gate Name Role Phone Heydi Sutton MD Primary Care Provider [phone] Encounter Details Date Type Department Care Team (Late st Contact Info) Description 04/16/2015 Emergency Room External to COUGH [...] CDT Appointment [facility] Dental [facility] [place] [address] [place] [address] [address] documented as of this encounter Visit Diagnoses Not on filedocumented in this encounter Care Teams Agent Ticketing Gate Relationship Specialty Start Date End Date Heydi Sutton MD [address] [place] [address] PCP - General Family Practice 09/22/11 documented as of this encounter
--- OUTSIDE RECORDS SUMMARY | 2023-10-01 14:43 | XMS_ITS | Encounter Summary ---
Author Name Unknown Organization [facility] Address [address], [place] [address] Care Team Providers Care Audio Visual Secretary Name Role Phone Heydi Sutton MD Primary Care Provider [phone] Encounter Details Date Type Department Care Team [...] CDT Appointment [facility] [place] [address] [place] [address] [facility] [address] [place] [address] documented as of this encounter Visit Diagnoses Not on filedocumented in this encounter Care Teams Audio Visual Secretary Relationship Specialty Start Date End Date Heydi Sutton MD [address] [place] [address] PCP - General Family Practice 09/22/11 documented as of this encounter
--- OUTSIDE RECORDS SUMMARY | 2023-10-01 14:43 | XMS_ITS | Encounter Summary ---
Author Name Unknown Organization [facility] Address [address], [place] [address] Care Team Providers Care Butter Liquefier Name Role Phone Heydi Sutton MD Primary Care Provider [phone] Encounter Details Date Type Department Care Team [...] Appointment [facility] [place] [address] [place] [address] [address] documented as of this encounter Visit Diagnoses Not on filedocumented in this encounter Care Teams Butter Liquefier Relationship Specialty Start Date End Date Heydi Sutton MD [address] [place] [address] PCP - General Family Practice 09/22/11 documented as of this encounter
--- OUTSIDE RECORDS SUMMARY | 2023-10-01 14:43 | XMS_ITS | Encounter Summary ---
Author Name Unknown Organization [facility] Address [address] [address] Care Team Providers Care Car Pre Cooler Name Role Phone Heydi Sutton MD Primary Care Provider [phone] Encounter Details Date Type Department Care Team (Late st Contact Info) Description 11/25/2013 Emergency Room External to [facility] [...] 10/13/2023 3:10 PM CDT Appointment [facility] [place] [address] [place] [address] [facility] [address] [place] [address] documented as of this encounter Visit Diagnoses Not on filedocumented in this encounter Care Teams Car Pre Cooler Relationship Specialty Start Date End Date Heydi Sutton MD [address] [place] [address] PCP - General Family Practice 09/22/11 documented as of this encounter
--- OUTSIDE RECORDS SUMMARY | 2023-10-01 14:44 | XMS_ITS | Encounter Summary ---
Author Name Unknown Organization [facility] Address [address], [place] [address] Care Team Providers Care Production Support Supervisor Name Role Phone Heydi Sutton MD Primary Care Provider [phone] Encounter Details Date Type Department Care Team (Late Contact Info) Description 04/08/2012 Outside Hospital External to PROGRESS [...] as of this encounter Progress Notes * [facility], PROVIDER - 04/08/2012 12:00 AM CST L MACHINE OPERATOR documented in this encounter Plan of Treatment Upcoming Encounters Date Type Department Care Team (Late Contact Info) Description 10/13/2023 3:10 PM CDT Appointment [facility] Dental [place] [address] [place] [address] Margret Lazar, [address] [address] documented as of this encounter Visit Diagnoses Not on filedocumented in this encounter Care Teams Production Support Supervisor Relationship Specialty Start Date End Date Heydi Sutton MD [address] [place] [address] PCP - General Family Practice 09/22/11 documented as of this encounter
--- OUTSIDE RECORDS SUMMARY | 2023-10-01 14:44 | XMS_ITS | Encounter Summary ---
Author Name Unknown Organization Count includes [facility] Address [address], [place] [address] Care Team Providers Care Vice President Lending Name Role Phone Heydi Sutton MD Primary Care Provider [phone] Encounter Details Date Type Department Care Team (Late Contact Info) Description 04/05/2012 Outside Hospital External to PROGRESS [...] as of this encounter Progress Notes * [facility], PROVIDER - 04/05/2012 12:00 AM CST IESEL PRODUCTION ASSOCIATE documented in this encounter Plan of Treatment Upcoming Encounters Date Type Department Care Team (Late Contact Info) Description 10/13/2023 3:10 PM CDT Appointment Count includes the [facility] Dental [place] [address] [place] [address] Margret Lazar, [address] [address] documented as of this encounter Visit Diagnoses Not on filedocumented in this encounter Care Teams Vice President Lending Relationship Specialty Start Date End Date Heydi Sutton MD [address] [place] [address] PCP - General Family Practice 09/22/11 documented as of this encounter
--- OUTSIDE RECORDS SUMMARY | 2023-10-01 14:44 | XMS_ITS | Encounter Summary ---
Author Name Unknown Organization [facility] Address [address] [address] Care Team Providers Care Color Room Attendant Name Role Phone Heydi Sutton MD Primary Care Provider [phone] Encounter Details Date Type Department Care Team (Late Contact Info) Description 04/13/2012 Outside Hospital External to [facility] DISCHARGE SUMMARY Social History Tobacco Use Types [...] as of this encounter Progress Notes * [facility], PROVIDER - 04/13/2012 12:00 AM CST CTOR UTILIZATION MANAGEMENT documented in this encounter Plan of Treatment Upcoming Encounters Date Type Department Care Team (Late Contact Info) Description 10/13/2023 3:10 PM CDT Appointment [facility] Dental [place] [address] [place] [address] Margret Lazar, [address] [address] documented as of this encounter Visit Diagnoses Not on filedocumented in this encounter Care Teams Color Room Attendant Relationship Specialty Start Date End Date Heydi Sutton MD [address] [place] [address] PCP - General Family Practice 09/22/11 documented as of this encounter
--- OUTSIDE RECORDS SUMMARY | 2023-10-01 14:44 | XMS_ITS | Encounter Summary ---
Author Name Unknown Organization [facility] Address [address] [address] Care Team Providers Care Television Operator Name Role Phone Heydi Sutton MD Primary Care Provider [phone] Encounter Details Date Type Department Care Team (Late st Contact Info) Description 05/07/[address] [facility], Provider HEADACHE AND INTRACRANIAL HEMORRHAGE Social History [...] [facility], Provider - 05/07/2012 12:00 AM CST NT ENGINEER documented in this encounter Plan of Treatment Upcoming Encounters Date Type Department Care Team (Late st Contact Info) Description 10/13/2023 3:10 PM CDT Appointment [facility] [place] [address] [place] [address] Margret Lazar, [address] [address] documented as of this encounter Visit Diagnoses Not on filedocumented in this encounter Care Teams Television Operator Relationship Specialty Start Date End Date Heydi Sutton MD [address] [place] [address] PCP - General Family Practice 09/22/11 documented as of this encounter
--- OUTSIDE RECORDS SUMMARY | 2023-10-01 14:44 | XMS_ITS | Encounter Summary ---
Author Name Unknown Organization [facility] Address [address] [address] Care Team Providers Care Chemical Engraver Name Role Phone Heydi Sutton MD Primary Care Provider [phone] Encounter Details Date Type Department Care Team (Late Contact Info) Description 04/11/2012 Outside Hospital External to [facility] [...] as of this encounter Progress Notes * [facility], PROVIDER - 04/11/2012 12:00 AM CST TY FIRE CHIEF documented in this encounter Plan of Treatment Upcoming Encounters Date Type Department Care Team (Late st Contact Info) Description 10/13/2023 3:10 PM CDT Appointment [facility] [place] [address] [place] [address] Margret Lazar, [address] [address] documented as of this encounter Visit Diagnoses Not on filedocumented in this encounter Care Teams Chemical Engraver Relationship Specialty Start Date End Date Heydi Sutton MD [address] [place] [address] PCP - General Family Practice 09/22/11 documented as of this encounter
--- OUTSIDE RECORDS SUMMARY | 2023-10-01 14:44 | XMS_ITS | Encounter Summary ---
Author Name Unknown Organization [facility] Address [address], [place] [address] Care Team Providers Care Water Treatment Plant Engineer Name Role Phone Heydi Sutton MD Primary Care Provider [phone] Encounter Details Date Type Department Care Team (Late st Contact Info) Description 12/10/2012 Correspondence None No Primary/Referring, Phy [...] [facility] Clinic [place] [address] [place] [address] Margret Lazar, [facility] [address] [place] [address] documented as of this encounter Visit Diagnoses Not on filedocumented in this encounter Care Teams Water Treatment Plant Engineer Relationship Specialty Start Date End Date Heydi Sutton MD [address] [place] [address] PCP - General Family Practice 09/22/11 documented as of this encounter
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
--- OUTSIDE RECORDS SUMMARY | 2023-10-01 14:44 | XMS_ITS | Encounter Summary ---
Author Name Unknown Organization [facility] Address [address], [place] [address] Care Team Providers Care Building Supervisor Name Role Phone Heydi Sutton MD Primary Care Provider [phone] Encounter Details Date Type Department Care Team (Late st Contact Info) Description 04/11/2012 Emergency Room External to [facility] HEADACHEA AND EPIDURAL HEMATOMA Social History Tobacco Use Types Packs/Day Years [...] as of this encounter Progress Notes * [facility], PROVIDER - 04/11/2012 12:00 AM CST RITY INCIDENT RESPONSE SPECIALIST documented in this encounter Plan of Treatment Upcoming Encounters Date Type Department Care Team (Late st Contact Info) Description 10/13/2023 3:10 PM CDT Appointment [facility] Dental [place] [address] [place] [address] Margret Lazar, [address] [address] documented as of this encounter Visit Diagnoses Not on filedocumented in this encounter Care Teams Building Supervisor Relationship Specialty Start Date End Date Heydi Sutton MD [address] [place] [address] PCP - General Family Practice 09/22/11 documented as of this encounter
--- OUTSIDE RECORDS SUMMARY | 2023-10-01 14:44 | XMS_ITS | Encounter Summary ---
Author Name Unknown Organization [facility] Address [address] [address] Care Team Providers Care Cfd Engineer Name Role Phone Heydi Sutton MD Primary Care Provider [phone] Encounter Details Date Type Department Care Team (Late Contact Info) Description 10/01/2012 Emergency Room External to [facility] [...] of this encounter Progress Notes * [facility] PROVID[facility] - 10/01/2012 12:00 AM CDT documented in this encounter Plan of Treatment Upcoming Encounters Date Type Department Care Team (Late Contact Info) Description 10/13/2023 3:10 PM CDT Appointment [facility] Clinic [place] [address] [place] [address] Margret Lazar, [facility] [address] [place] [address] documented as of this encounter Visit Diagnoses Not on filedocumented in this encounter Care Teams Cfd Engineer Relationship Specialty Start Date End Date Heydi Sutton MD [address] [place] [address] PCP - General Family Practice 09/22/11 documented as of this encounter
--- OUTSIDE RECORDS SUMMARY | 2023-10-01 14:44 | XMS_ITS | Encounter Summary ---
Author Name Unknown Organization [facility] Address [address] [address] Care Team Providers Care Ordained Minister Name Role Phone Heydi Sutton MD Primary Care Provider Encounter Details Date Type Department Care Team (Late Contact Info) Description 04/09/2012 Outside Hospital External to [facility] DISCHARGE SUMMARY [...] as of this encounter Progress Notes * [facility], PROVIDER - 04/09/2012 12:00 AM CST TH FACILITIES SURVEYOR documented in this encounter Plan of Treatment Upcoming Encounters Date Type Department Care Team (Late Contact Info) Description 10/13/2023 3:10 PM CDT Appointment [facility] Dental [place] [address] [place] [address] Margret Lazar, [address] [address] documented as of this encounter Visit Diagnoses Not on filedocumented in this encounter Care Teams Ordained Minister Relationship Specialty Start Date End Date Heydi Sutton MD [address] [place] [address] PCP - General Family Practice 09/22/11 documented as of this encounter
--- OUTSIDE RECORDS SUMMARY | 2023-10-01 14:44 | XMS_ITS | Encounter Summary ---
Author Name Unknown Organization [facility] Address [address] [address] Care Team Providers Care Garment Worker Name Role Phone Heydi Sutton MD Primary Care Provider [phone] Encounter Details Date Type Department Care Team (Late Contact Info) Description 04/05/2012 Outside Hospital External to [facility] [...] as of this encounter Progress Notes * [facility], PROVIDER - 04/05/2012 12:00 AM CST E DIMENSIONAL MAP MODELER documented in this encounter Plan of Treatment Upcoming Encounters Date Type Department Care Team (Late Contact Info) Description 10/13/2023 3:10 PM CDT Appointment [facility] [address] [address] Margret Lazar, [address] [address] documented as of this encounter Visit Diagnoses Not on filedocumented in this encounter Care Teams Garment Worker Relationship Specialty Start Date End Date Heydi Sutton MD [address] [facility] [place] [place] [address] PCP - General Family Practice 09/22/11 documented as of this encounter
--- OUTSIDE RECORDS SUMMARY | 2023-10-01 14:44 | XMS_ITS | Encounter Summary ---
Author Name Unknown Organization [facility] Address [address] [address] Care Team Providers Care Applications Engineering Manager Name Role Phone Heydi Sutton MD Primary Care Provider [phone] Encounter Details Date Type Department Care Team (Late Contact Info) Description 04/09/2012 Outside Hospital External to [facility] DISCHARGE INSTRUCTIONS Social History Tobacco Use Types [...] as of this encounter Progress Notes * [facility], PROVIDER - 04/09/2012 12:00 AM CST TAMALE MAN documented in this encounter Plan of Treatment Upcoming Encounters Date Type Department Care Team (Late Contact Info) Description 10/13/2023 3:10 PM CDT Appointment [facility] [place] [address] [place] [address] Margret Lazar, [address] [address] documented as of this encounter Visit Diagnoses Not on filedocumented in this encounter Care Teams Applications Engineering Manager Relationship Specialty Start Date End Date Heydi Sutton MD [address] [address] PCP - General Family Practice 09/22/11 documented as of this encounter
--- OUTSIDE RECORDS SUMMARY | 2023-10-01 14:44 | XMS_ITS | Encounter Summary ---
Author Name Unknown Organization [facility] Address [address], [place] [address] Care Team Providers Care Construction Job Cost Estimator Name Role Phone Heydi Sutton MD Primary Care Provider [phone] Encounter Details Date Type Department Care Team [...] as of this encounter Progress Notes * [facility], PROVIDER - 04/09/2012 12:00 AM CST NE ADVERTISING ANALYST documented in this encounter Plan of Treatment Upcoming Encounters Date Type Department Care Team (Late Contact Info) Description 10/13/2023 3:10 PM CDT Appointment [facility] Dental [address] [address] Margret Lazar, [address] [address] documented as of this encounter Visit Diagnoses Not on filedocumented in this encounter Care Teams Construction Job Cost Estimator Relationship Specialty Start Date End Date Heydi Sutton MD [address] [facility] [place] [address] PCP - General Family Practice 09/22/11 documented as of this encounter
--- OUTSIDE RECORDS SUMMARY | 2023-10-01 14:44 | XMS_ITS | Encounter Summary ---
Author Name Unknown Organization [facility] Address [address], [place] [address] Care Team Providers Care Faculty Research Physician Name Role Phone Heydi Stuton MD Primary Care Provider [phone] Encounter Details Date Type Department Care Team (Late Contact Info) Description 04/09/2012 Outside Hospital External to MEDS [...] as of this encounter Progress Notes * [facility], PROVIDER - 04/09/2012 12:00 AM CST RAL ASSIGNMENT REPORTER documented in this encounter Plan of Treatment Upcoming Encounters Date Type Department Care Team (Late st Contact Info) Description 10/13/2023 3:10 PM CDT Appointment [facility] Dental Clinic [place] [address] [place] [address] Margret Lazar, [address] [address] documented as of this encounter Visit Diagnoses Not on filedocumented in this encounter Care Teams Faculty Research Physician Relationship Specialty Start Date End Date Heydi Sutton MD [address] [place] [address] PCP - General Family Practice 09/22/11 documented as of this encounter
--- OUTSIDE RECORDS SUMMARY | 2023-10-01 14:44 | XMS_ITS | Encounter Summary ---
Author Name Unknown Organization [facility] Address [address], [place] [address] Care Team Providers Care Strategic Analyst Name Role Phone Heydi Sutton MD Primary Care Provider [phone] Encounter Details Date Type Department Care Team (Late Contact Info) Description 04/06/2012 Outside Hospital External to PROGRESS [...] * [facility], PROVIDER - 04/06/2012 12:00 AM CST CTOR ZONE documented in this encounter Plan of Treatment Upcoming Encounters Date Type Department Care Team (Late Contact Info) Description 10/13/2023 3:10 PM CDT Appointment [facility] Dental [place] [address] [place] [address] Margret Lazar, [address] [address] documented as of this encounter Visit Diagnoses Not on filedocumented in this encounter Care Teams Strategic Analyst Relationship Specialty Start Date End Date Heydi Sutton MD [address] [place] [address] PCP - General Family Practice 09/22/11 documented as of this encounter
--- OUTSIDE RECORDS SUMMARY | 2023-10-01 14:44 | XMS_ITS | Encounter Summary ---
Author Name Unknown Organization [facility] Address [address], [place] [address] Care Team Providers Care Windows Vmware Engineer Name Role Phone Heydi Sutton MD Primary Care Provider [phone] Encounter Details Date Type Department Care Team (Late st Contact Info) Description 04/17/2012 Emergency Room External to [facility], Provider GENERALIZED HEADACHE Social History Tobacco [...] as of this encounter Progress Notes * [facility], Provider - 04/17/2012 12:00 AM CST AIN/AIRLINE PILOT documented in this encounter Plan of Treatment Upcoming Encounters Date Type Department Care Team (Late st Contact Info) Description 10/13/2023 3:10 PM CDT Appointment [facility] Dental [place] [address] [place] [address] Margret Lazar, [address] [address] documented as of this encounter Visit Diagnoses Not on filedocumented in this encounter Care Teams Windows Vmware Engineer Relationship Specialty Start Date End Date Heydi Sutton MD [address] [place] [address] PCP - General Family Practice 09/22/11 documented as of this encounter
--- OUTSIDE RECORDS SUMMARY | 2023-10-01 14:45 | XMS_ITS | Encounter Summary ---
Author Name Unknown Organization [place] Address Replaced by [facility] [place] [address] Care Team Providers Care Wool Sorter Name Role Phone Flavia Antonio MD Primary Care Provider [phone] Herlinda Marino IMPROVEMENT ADVISOR BUSINESS ACCOUNT LEADER Unavailable [phone] Hussain Man MD Unavailable Flavia Antonio MD Unavailable Xochitl Smith MD Unavailable Deysi Greenwood IMPROVEMENT ADVISOR BUSINESS ACCOUNT LEADER Unavailable Flavia Antonio MD Primary Care Provider Flavia Antonio MD Unavailable Olga Aguila DNP Unavailable [phone] Arjun Pruitt MD Primary Care Provide r Martin Stevens [facility] Unavailable [phone] Flavia Antonio MD Primary Care Provider [phone] Marlene Bustamante [facility] Unavailable [phone] Encounter Details Date Type Department Care Team (Late st Contact Info) Description 08/24/2021 Jose Villaseñor [facility] Surgery Clinic and Bariatrics Care [address] [place] [address] Hussain Man MD [address] [place] [address] [address] [place] [address] Social History Tobacco Use Types Packs/Day Years Used Date Smoking Tobacco: Former Cigarettes 1 13 1 07/03/2005 - 05/02/2019 Smokeless Tobacco: Never Alcohol Use Standard Drinks/Week Comments Not Currently 0 (1 standard drink = 0.6 oz pure alcohol) Alcoholic Drinks/day: currently on antibuse PHQ-2 Answer Date Recorded PHQ-2 Score 0 08/21/2021 [place] Depression Scale Answer Date Recorded [place] Depression Score 3 07/11/2021 Last EPDS Self [...] Description 03/10/2024 8:00 AM CDT Virtual Visit [facility] Surgery Clinic and Bariatrics Care [place] [address] [place] [address] [address] [place] [address] Deo Wood MD [address] [place] [address] [address] [place] [address] documented as of this encounter Visit Diagnoses Not on filedocumented in this encounter Care Teams Wool Sorter Relationship Specialty Start Date End Date Flavia Antonio MD PCP - General 12/07/18 01/15/22 Herlinda Marino, IMPROVEMENT ADVISOR BUSINESS ACCOUNT LEADER [facility] [address] [place] [address] [address] PCP - Obstetrics/Gynecology 02/03/19 Flavia Antonio MD [address] [address] PCP - General Family Medicine 01/16/22 06/06/22 Arjun Pruitt MD [address] [place] [address] PCP - General airline stewardess 06/25/22 03/11/23 Flavia Antonio MD [address] [address] PCP - General Family Medicine 03/12/23 06/16/23 Hussain Man MD [address] [place] [address] [id number] Assigned Surgical Provider 11/30/20 09/28/21 Flavia Antonio MD [address] [address] Assigned PCP 10/31/20 12/13/21 Xochitl Smith MD [address] [place] [address] Assigned OBGYN Provider 04/14/21 Deysi Greenwood APRN BUSINESS ACCOUNT LEADER [address] [address] Assigned PCP 12/14/21 01/24/22 Flavia Antonio MD [address] 0976224 Assigned PCP 01/25/22 02/21/22 Olga Aguila DNP [address] [place] [address] Assigned PCP 02/22/22 Martin Stevens RPH [address] [place] [address] [phone] Pharmacist Pharmacist 02/20/23 Marlene Bustamante RPH [address] [place] [address] [phone] Pharmacist Pharmacist Bowling Ball Grader 04/30/23 documented as of this encounter
--- OUTSIDE RECORDS SUMMARY | 2023-10-01 14:45 | XMS_ITS | Encounter Summary ---
Author Name Unknown Organization [facility] Address [address] [place] [address]. [place] [address] Care Team Providers Care Burial Needs Salesperson Name Role Phone Flavia Antonio MD Primary Care Provider [phone] Herlinda Marino LADLE FILLER COIL PLACER Unavailable Hussain Man MD Unavailable [phone] Flavia Antonio MD Unavailable Xochitl Smith MD Unavailable Patricia Smiley MD Unavailable Nicko Puga PhD Unavailable Deysi Greenwood LADLE FILLER COIL PLACER Unavailable Flavia Antonio MD Primary Care Provider Flavia Antonio MD Unavailable Olga Aguila DNP Unavailable [phone] Arjun Pruitt MD Primary Care Provide r Martin Stevens [facility] Unavailable [phone] Flavia Antonio MD Primary Care Provider Marlene Bustamante [facility] Unavailable [phone] Encounter Details Date Type Department Care Team (Late st Contact Info) Description 03/04/2021 [facility] [address] [place] [address] Flavia Antonio MD [address] [address] Social History Tobacco Use Types Packs/Day Years [...] Description 03/10/2024 8:00 AM CDT Virtual Visit [facility] Surgery Clinic and Bariatrics Care [address] 200 [place] [address] Deo Wood MD [address] [place] [address] 200 [place] [address] documented as of this encounter Visit Diagnoses Not on filedocumented in this encounter Additional Health Concerns Infection Onset Date Last Indicated Resolved Time Rule Out COVID-19 05/16/2021 05/16/2021 05/17/2021 2:14 PM SIZING MACHINE TENDER documented as of this encounter Care Teams Burial Needs Salesperson Relationship Specialty Start Date End Date Flavia Antonio MD PCP - General 12/07/18 01/15/22 Herlinda Marino, LADLE FILLER COIL PLACER [place] [address] [address] [place] [address] PCP - Obstetrics/Gynecology 02/03/19 Flavia Antonio MD [address] [facility] [address] [place] [address] PCP - General Family Medicine 01/16/22 06/06/22 Arjun Pruitt MD [facility] CANDICE REBOLLAR [facility] 100 [place] [address] PCP - General import/export specialist 06/25/22 03/11/23 Flavia Antonio MD [address] [address] PCP - General Family Medicine 03/12/23 06/16/23 Hussain Man MD [address] [place] [address] Assigned Surgical Provider 11/30/20 09/28/21 Flavia Antonio MD [address] [address] Assigned PCP 10/31/20 12/13/21 Xochitl Smith MD [address] [facility] 100 [place] [address] Assigned OBGYN Provider 04/14/21 Patricia Smiley MD [facility] [address] [facility], [address] [place] [address] Assigned OBGYN Provider 04/07/2104/13 Nicko Puga, PhD [facility] [address] [place] [address] Assigned Behavioral Health Provider 04/07/21 07/06/21 Deysi Greenwood APRN COIL PLACER [address] [place] [address] Assigned PCP 12/14/21 01/24/22 Flavia Antonio MD [address] [address] Assigned PCP 01/25/22 02/21/22 Olga Aguila DNP [address] [place] [address] Assigned PCP 02/22/22 Martin Stevens RPH [address] [place] [address] [phone] Pharmacist Pharmacist 02/20/23 Marlene Bustamante RPH [address] [place] [address] Pharmacist Pharmacist Curing Press Maintainer 04/30/23 documented as of this encounter
--- OUTSIDE RECORDS SUMMARY | 2023-10-01 14:45 | XMS_ITS | Encounter Summary ---
Author Name Unknown Organization [facility] Address [address], [place] [address] Care Team Providers Care Auction Clerk Name Role Phone Heydi Sutton MD Primary Care Provider [phone] Encounter Details Date Type Department Care Team (Late st Contact Info) Description 11/12/2011 Consent for Procedure/Treatme [facility] Department INFORMED CONSENT RECORD Social History Tobacco [...] as of this encounter Progress Notes * [facility], PROVIDER - 11/12/2011 12:00 AM CDT documented in this encounter Plan of Treatment Upcoming Encounters Date Type Department Care Team (Late st Contact Info) Description 10/13/2023 3:10 PM CDT Appointment [facility] Dental [place] [address] [place] [address] Margret Lazar, [address] [address] documented as of this encounter Visit Diagnoses Not on filedocumented in this encounter Care Teams Auction Clerk Relationship Specialty Start Date End Date Heydi Sutton MD [address] [place] [address] PCP - General Family Practice 09/22/11 documented as of this encounter
--- OUTSIDE RECORDS SUMMARY | 2023-10-01 14:45 | XMS_ITS | Encounter Summary ---
Author Name Unknown Organization [place] Address [facility] [place] [address] Care Team Providers Care Materials Research Engineer Name Role Phone Flavia Antonio MD Primary Care Provider [phone] Herlinda Marino DATA PROCESSING CONTROL CLERK PELT DROPPER Unavailable Hussain Man MD Unavailable [phone] Flavia Antonio MD Unavailable Xochitl Smith MD Unavailable Patricia Smiley MD Unavailable Nicko Puga PhD Unavailable Deysi Greenwood DATA PROCESSING CONTROL CLERK PELT DROPPER Unavailable Flavia Antonio MD Primary Care Provider Flavia Antonio MD Unavailable [phone] Olga Aguila DNP Unavailable [phone] Arjun Pruitt MD Primary Care Provide r Martin Stevens [facility] Unavailable [phone] Flavia Antonio MD Primary Care Provider Marlene Bustamante [facility] Unavailable [phone] Encounter Details Date Type Department Care Team (Late st Contact Info) Description 04/02/2021 [facility] Surgery Clinic and Bariatrics Care [address] [address] Deo Wood MD [address] [place] [address] Social History Tobacco Use Types Packs/Day Years [...] COVID-19? No / Unsure 04/05/2021 3:02 PM VENEER MEASURER documented as of this encounter Plan of Treatment Upcoming Encounters Date Type Department Care Team (Late st Contact Info) Description 03/10/2024 8:00 AM CDT Virtual Visit [facility] Surgery [facility] and Bariatrics [address] [address] Deo Wood MD [address] [place] [address] documented as of this encounter Visit Diagnoses Not on filedocumented in this encounter Additional Health Concerns Infection Onset Date Last Indicated Resolved Time Rule Out COVID-19 05/16/2021 05/16/2021 05/17/2021 2:14 PM VENEER MEASURER documented as of this encounter Care Teams Materials Research Engineer Relationship Specialty Start Date End Date Flavia Antonio MD PCP - General 12/07/18 01/15/22 Herlinda Marino, DATA PROCESSING CONTROL CLERK PELT DROPPER [address] [address] [place] [address] PCP - Obstetrics/Gynecology 02/03/19 Flavia Antonio MD [address] [facility] 100 [place] [address] PCP - General Family Medicine 01/16/22 06/06/22 Arjun Pruitt MD [facility] CANDICE REBOLLAR [facility] 100 [place] [address] PCP - General job boss 06/25/22 03/11/23 Flavia Antonio MD [address] [address] PCP - General Family Medicine 03/12/23 06/16/23 Hussain Man MD [address] [place] [address] Assigned Surgical Provider 11/30/20 09/28/21 Flavia Antonio MD [address] [address] Assigned PCP 10/31/20 12/13/21 Xochitl Smith MD [address] [facility] 100 [place] [address] Assigned OBGYN Provider 04/14/21 Patricia Smiley MD [facility] [address] [facility], [address] [place] [address] Assigned OBGYN Provider 04/07/2104/13 Nicko Puga, PhD [facility] 200 [place] [address] Assigned Behavioral Health Provider 04/07/21 07/06/21 Deysi Greenwood APRN PELT DROPPER [address] [facility] 100 [place] [address] Assigned PCP 12/14/21 01/24/22 Flavia Antonio MD [address] [address] Assigned PCP 01/25/22 02/21/22 Olga Aguila DNP [address] [place] [address] Assigned PCP 02/22/22 Martin Stevens RP [address] [place] [address] Pharmacist Pharmacist 02/20/23 Marlene Bustamante RPH [address] [place] [phone] Pharmacist Pharmacist Office Administrative Assistant 04/30/23 documented as of this encounter
--- OUTSIDE RECORDS SUMMARY | 2023-10-01 14:45 | XMS_ITS | Encounter Summary ---
Author Name Unknown Organization [place] Address [facility] [place] [address] Care Team Providers Care Environmental Quality Analyst Name Role Phone Flavia Antonio MD Primary Care Provider [phone] Herlinda Marino REGISTERED RADIOLOGIC TECHNOLOGIST MUSICIAN INSTRUMENTAL Unavailable Flavia Antonio MD Unavailable Xochitl Smith MD Unavailable Deysi Greenwood REGISTERED RADIOLOGIC TECHNOLOGIST MUSICIAN INSTRUMENTAL Unavailable [phone] Flavia Antonio MD Primary Care Provider Flavia Antonio MD Unavailable Olga Aguila [facility] Unavailable Arjun Pruitt MD Primary Care Provide r Martin Stevens [facility] Unavailable [phone] Flavia Antonio MD Primary Care Provider Marlene Bustamante [facility] Unavailable [phone] Reason for Visit * Reason Onset Date Comments appointment request 10/05/2021 Encounter Details Date Type Department Care Team (Late st Contact Info) Description 10/05/2021 My[facility] Medical Advice [facility] [address] [facility] [address] [place] [address] Flavia Antonio MD [address] [address] appointment request Social History Tobacco Use Types Packs/Day Years Used Date Smoking Tobacco: Former Cigarettes 1 13 1 07/03/2005 - 05/02/2019 Smokeless Tobacco: Never Alcohol Use Standard Drinks/Week Comments Not Currently 0 (1 standard drink = 0.6 oz pure alcohol) Alcoholic Drinks/day: currently on antibuse PHQ-2 Answer Date Recorded PHQ-2 Score 2 10/08/2021 [place] Depression Scale Answer Date Recorded [place] Depression Score 3 07/11/2021 Last EPDS Self [...] Description 03/10/2024 8:00 AM CDT Virtual Visit [facility] Surgery Clinic and Bariatrics Care [address] [place] [address] Deo Wood MD [address] [place] [address] documented as of this encounter Visit Diagnoses Not on filedocumented in this encounter Care Teams Environmental Quality Analyst Relationship Specialty Start Date End Date Flavia Antonio MD PCP - General 12/07/18 01/15/22 Herlinda Marino APRN MUSICIAN INSTRUMENTAL [facility] [address] [place] [address] PCP - Obstetrics/Gynecology 02/03/19 Flavia Antonio MD [address] [address] PCP - General Family Medicine 01/16/22 06/06/22 Arjun Pruitt MD [facility] CANDICE REBOLLAR [facility] 100 [place] [address] PCP - General sixth grade teacher 06/25/22 03/11/23 Flavia Antonio MD [address] 5196324 PCP - General Family Medicine 03/12/23 06/16/23 Flavia Antonio MD [address] 7637224 Assigned PCP 10/31/20 12/13/21 Xochitl Smith MD [address] [address] Assigned OBGYN Provider 04/14/21 Deysi Greenwood APRN MUSICIAN INSTRUMENTAL [address] [facility] 100 [place] [address] Assigned PCP 12/14/21 01/24/22 Flavia Antonio MD [address] [address] Assigned PCP 01/25/22 02/21/22 Olga Aguila DNP [facility] [place] [address] Assigned PCP 02/22/22 Martin Stevens [facility] [address] [place] [phone] Pharmacist Pharmacist 02/20/23 Marlene Bustamante Skyler [address] [place] [phone] Pharmacist Pharmacist Crm Architect 04/30/23 documented as of this encounter
--- OUTSIDE RECORDS SUMMARY | 2023-10-01 14:45 | XMS_ITS | Encounter Summary ---
Author Name Unknown Organization [place] Address [facility] [place] [address] Care Team Providers Care Associate Juvenile Court Judge Name Role Phone Flavia Antonio MD Primary Care Provider [phone] Herlinda Marino STEWARD/STEWARDESS BATH DUB ROOM ENGINEER Unavailable Hussain Man MD Unavailable [phone] Flavia Antonio MD Unavailable Xochitl Smith MD Unavailable Nicko Puga PhD Unavailable [phone] Deysi Greenwood STEWARD/STEWARDESS BATH DUB ROOM ENGINEER Unavailable Flavia Antonio MD Primary Care Provider Flavia Antonio MD Unavailable Olga Aguila DNP Unavailable [phone] Arjun Pruitt MD Primary Care Provide r Martin Stevens [facility] Unavailable [phone] Flavia Antonio MD Primary Care Provider Marlene Bustamante [facility] Unavailable [phone] Encounter Details Date Type Department Care Team (Late st Contact Info) Description 07/02/2021 [facility] [address] [facility] [address] [place] [address] Flavia Antonio MD [address] [address] Social History Tobacco Use Types Packs/Day Years Used Date Smoking Tobacco: Former Cigarettes 1 13 1 07/03/2005 - 05/02/2019 Smokeless Tobacco: Never Alcohol Use Standard Drinks/Week Comments Not Currently 0 (1 standard drink = 0.6 oz pure alcohol) Alcoholic Drinks/day: currently on antibuse PHQ-2 Answer Date Recorded PHQ-2 Score 0 02/07/2020 [place] Depression Scale Answer Date Recorded [place] Depression Score 3 05/29/2021 Last EPDS Self [...] AM CDT Virtual Visit [facility] Surgery Clinic and Bariatrics Care [address] [address] Deo Wood MD [address] [place] [address] documented as of this encounter Visit Diagnoses Not on filedocumented in this encounter Care Teams Associate Juvenile Court Judge Relationship Specialty Start Date End Date Flavia Antonio MD PCP - General 12/07/18 01/15/22 Herlinda Marino APRN DUB ROOM ENGINEER [facility] [id number] [place] [address] PCP - Obstetrics/Gynecology 02/03/19 Flavia Antonio MD [address] [facility] 100 [place] [address] PCP - General Family Medicine 01/16/22 06/06/22 Arjun Pruitt MD [address] [place] [address] 100 [place] [address] PCP - General financial reporting analyst 06/25/22 03/11/23 Flavia Antonio MD [address] [address] PCP - General Family Medicine 03/12/23 06/16/23 Hussain Man MD [address] [place] [address] Assigned Surgical Provider 11/30/20 09/28/21 Flavia Antonio MD [address] [address] Assigned PCP 10/31/20 12/13/21 Xochitl Smith MD [address] [place] [address] Assigned OBGYN Provider 04/14/21 Nicko Puga, PhD [facility] [employer] [address] [facility] 200 [place] [address] Assigned Behavioral Health Provider 04/07/21 07/06/21 Deysi Greenwood APRN DUB ROOM ENGINEER [address] [address] Assigned PCP 12/14/21 01/24/22 Flavia Antonio MD [address] [address] Assigned PCP 01/25/22 02/21/22 Olga Aguila DNP [address]1 [place] [address] Assigned PCP 02/22/22 Martin Stevens [facility] [address] [place] [address] Pharmacist Pharmacist 02/20/23 Marlene Bustamante [facility] [address] [place] [phone] Pharmacist Pharmacist Photostatic Copy Maker 04/30/23 documented as of this encounter
--- OUTSIDE RECORDS SUMMARY | 2023-10-01 14:45 | XMS_ITS | Encounter Summary ---
Author Name Unknown Organization [place] Address [facility] [place] [address] Care Team Providers Care Chain Tender Name Role Phone Flavia Antonio MD Primary Care Provider [phone] Herlinda Marino SENIOR WIND ENERGY CONSULTANT DRYLAND FARMER Unavailable Hussain Man MD Unavailable [phone] Flavia Antonio MD Unavailable [phone] Xochitl Smith MD Unavailable Nicko Puga PhD Unavailable [phone] Deysi Greenwood SENIOR WIND ENERGY CONSULTANT [employer]YLAND FARMER Unavailable [phone] Flavia Antonio MD Primary Care Provider Flavia Antonio MD Unavailable [phone] Olga Aguila DNP Unavailable [phone] Arjun Pruitt MD Primary Care Provide r Martin Stevens [facility] Unavailable [phone] Flavia Antonio MD Primary Care Provider Marlene Bustamante [facility] Unavailable [phone] Encounter Details Date Type Department Care Team (Late st Contact Info) Description 06/10/2021 [facility] [place] [facility] [address] [facility] [address] [place] [address] Flavia Antonio MD [address] [address] Social History Tobacco Use Types Packs/Day Years Used Date Smoking Tobacco: Former Cigarettes 1 13 1 07/03/2005 - 05/02/2019 Smokeless Tobacco: Never Alcohol Use Standard Drinks/Week Comments Not Currently 0 (1 standard drink = 0.6 oz pure alcohol) Alcoholic Drinks/day: currently on antibuse PHQ-2 Answer Date Recorded PHQ-2 Score 0 02/07/2020 [place] Depression Scale Answer Date Recorded [place] Depression Score 3 05/29/2021 Last EPDS Self [...] COVID-19? No / Unsure 05/28/2021 7:37 PM DISTRICT CLAIMS MANAGER documented as of this encounter Plan of Treatment Upcoming Encounters Date Type Department Care Team (Late st Contact Info) Description 03/10/2024 8:00 AM CDT Virtual Visit [facility] [address] [phone] Deo Wood MD [address] [place] [address] documented as of this encounter Visit Diagnoses Not on filedocumented in this encounter Care Teams Chain Tender Relationship Specialty Start Date End Date Flavia Antonio MD PCP - General 12/07/18 01/15/22 Herlinda Marino APRN [employer]YLAND FARMER [facility] [place] [id number] [place] [address] PCP - Obstetrics/Gynecology 02/03/19 Flavia Antonio MD [address] Jonathan [address] [address] PCP - General Family Medicine 01/16/22 06/06/22 Arjun Pruitt MD [address] [place] [address] 100 [place] [address] PCP - General palliative care coordinator 06/25/22 03/11/23 Flavia Antonio MD [address] [address] PCP - General Family Medicine 03/12/23 06/16/23 Hussain Man MD [address] [place] [address] Assigned Surgical Provider 11/30/20 09/28/21 Flavia Antonio MD [address] [address] Assigned PCP 10/31/20 12/13/21 Xochitl Smith MD [address] [place] [address] Assigned OBGYN Provider 04/14/21 Nicko Puga, PhD [employer] [facility] [address] [facility] 200 [place] [address] Assigned Behavioral Health Provider 04/07/21 07/06/21 Deysi Greenwood APRN [employer] [address] [place] [address] Assigned PCP 12/14/21 01/24/22 Flavia Antonio MD [address] [address] Assigned PCP 01/25/22 02/21/22 Olga Aguila DNP [address] [place] [address] Assigned PCP 02/22/22 Martin Stevens RP [address] [place] [address] Pharmacist Pharmacist 02/20/23 Marlene Bustamante RPH [address] [place] [address] Pharmacist Pharmacist Seasoning Sprayer 04/30/23 documented as of this encounter
--- OUTSIDE RECORDS SUMMARY | 2023-10-01 14:45 | XMS_ITS | Encounter Summary ---
Author Name Unknown Organization [place] Address [address] [place] [address]. [place] [address] Care Team Providers Care Stallion Keeper Name Role Phone Flavia Antonio MD Primary Care Provider [phone] Herlinda Marino RN PEDIATRIC ICU [employer] Unavailable Flavia Antonio MD Unavailable Xochitl Smith MD Unavailable Deysi Greenwood APRN [employer] Unavailable Flavia Antonio MD Primary Care Provider Flavia Antonio MD Unavailable Olga Aguila DNP Unavailable Arjun Pruitt MD Primary Care Provide r Martin Stevens [facility] Unavailable [phone] Flavia Antonio MD Primary Care Provider Marlene Bustamante [facility] Unavailable [phone] Encounter Details Date Type Department Care Team (Late st Contact Info) Description 10/17/2021 Jose Live [facility] Care [address] [address] Allie Hernandez Social History Tobacco Use Types Packs/Day Years Used Date Smoking Tobacco: Former Cigarettes 1 13 1 07/03/2005 - 05/02/2019 Smokeless Tobacco: Never Alcohol Use Standard Drinks/Week Comments Not Currently 0 (1 standard drink = 0.6 oz pure alcohol) Alcoholic Drinks/day: currently on antibuse PHQ-2 Answer Date Recorded PHQ-2 Score 2 10/08/2021 [place] Depression Scale Answer Date Recorded [place] Depression Score 3 07/11/2021 Last EPDS Self [...] Care Center [facility] [address] [place] [address] Deo Wood MD [address] [place] [address] 200 [place], [place] [id number] documented as of this encounter Visit Diagnoses Not on filedocumented in this encounter Additional Health Concerns Assessment Noted Time PHQ-9 Depression Total Score: 9 10/09/19 22 11:57 AM CDT documented as of this encounter Care Teams Stallion Keeper Relationship Specialty Start Date End Date Flavia Antonio MD PCP - General 12/07/18 01/15/22 Herlinda Marino APRN [employer] [facility] [id number] [place] [address] PCP - Obstetrics/Gynecology 02/03/19 Flavia Antonio MD [address] [facility] 100 [place] [address] PCP - General Family Medicine 01/16/22 06/06/22 Arjun rPuitt MD [address] [place] [address] 100 [place] [address] PCP - General supervisor scrap preparation 06/25/22 03/11/23 Flavia Antonio MD [address] [address] PCP - General Family Medicine 03/12/23 06/16/23 Flavia Antonio MD [address] [address] Assigned PCP 10/31/20 12/13/21 Xochitl Smith MD [address] [address] Assigned OBGYN Provider 04/14/21 Deysi Greenwood APRN [facility] [address] Jessica N [address] [address] Assigned PCP 12/14/21 01/24/22 Flavia Antonio MD [address] [address] Assigned PCP 01/25/22 02/21/22 Olga Aguila DNP [address] [place] [address] Assigned PCP 02/22/22 Martin Stevens, [facility] [address] [place] [address] Pharmacist Pharmacist 02/20/23 Marlene Bustamante RPH [address] [place] [address] Pharmacist Pharmacist Clinical Science Consultant 04/30/23 documented as of this encounter
--- OUTSIDE RECORDS SUMMARY | 2023-10-01 14:45 | XMS_ITS | Encounter Summary ---
Author Name Unknown Organization [facility] Address [address], [place] [address] Care Team Providers Care High School Science Teacher Name Role Phone Heydi Sutton MD Primary Care Provider [phone] Encounter Details Date Type Department Care Team (Late st Contact Info) Description 11/18/2011 Emergency Room External to [facility], Provider DISCHARGE SUMMARY Social History Tobacco Use [...] of this encounter Progress Notes * [facility], Provider - 11/18/2011 12:00 AM CDT documented in this encounter Plan of Treatment Upcoming Encounters Date Type Department Care Team (Late st Contact Info) Description 10/13/2023 3:10 PM CDT Appointment [facility] [place] [address] [place] [address] Margret Lazar, [address] [address] documented as of this encounter Visit Diagnoses Not on filedocumented in this encounter Care Teams High School Science Teacher Relationship Specialty Start Date End Date Heydi Sutton MD [address] [place] [address] PCP - General Family Practice 09/22/11 documented as of this encounter
--- OUTSIDE RECORDS SUMMARY | 2023-10-01 14:45 | XMS_ITS | Encounter Summary ---
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
--- OUTSIDE RECORDS SUMMARY | 2023-10-01 14:45 | XMS_ITS | Encounter Summary ---
Author Name Unknown Organization [place] Address [facility]0 [place] [address] Care Team Providers Care Blind Aide Name Role Phone Flavia Antonio MD Primary Care Provider [phone] Herlinda Marino MOLD LOFT WORKER SCREW MACHINE TENDER Unavailable Hussain Man MD Unavailable [phone] Flavia Antonio MD Unavailable Xochitl Smith MD Unavailable Nicko Puga PhD Unavailable Deysi Greenwood MOLD LOFT WORKER SCREW MACHINE TENDER Unavailable Flavia Antonio MD Primary Care Provider Flavia Antonio MD Unavailable Olga Aguila DNP Unavailable [phone] Arjun Pruitt MD Primary Care Provide r Martin Stevens [facility] Unavailable [phone] Flavia Antonio MD Primary Care Provider Marlene Bustamante [facility] Unavailable [phone] Encounter Details Date Type Department Care Team (Late st Contact Info) Description 05/14/2021 [facility] [address] [facility] [address] [place] [address] Flavia Antonio MD [address] [address] Social History Tobacco Use Types Packs/Day Years [...] Coronavirus / COVID-19? 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 documented as of this encounter Plan of Treatment Upcoming Encounters Date Type Department Care Team (Late st Contact Info) Description 03/10/2024 8:00 AM CDT Virtual Visit [facility] Surgery Clinic and Bariatrics Care [address] [phone] Deo Wood MD [address] [place] [address] documented as of this encounter Visit Diagnoses Not on filedocumented in this encounter Additional Health Concerns Infection Onset Date Last Indicated Resolved Time Rule Out COVID-19 05/16/2021 05/16/2021 05/17/2021 2:14 PM RAILROAD BAGGAGE PORTER documented as of this encounter Care Teams Blind Aide Relationship Specialty Start Date End Date Flavia Antonio MD PCP - General 12/07/18 01/15/22 Herlinda Marino APRN SCREW MACHINE TENDER [facility] [address] [place] [address] [address] [place], [place] [id number] PCP - Obstetrics/Gynecology 02/03/19 Flavia Antonio MD [facility] G[address] Lopez Jonathan [address] [address] PCP - General Family Medicine 01/16/22 06/06/22 Arjun Pruitt MD [address] [place] [address] PCP - General document review attorney 06/25/22 03/11/23 Flavia Antonio MD [address] [address] PCP - General Family Medicine 03/12/23 06/16/23 Hussain Man MD [address] [place] [address] Assigned Surgical Provider 11/30/20 09/28/21 Flavia Antonio MD [address] [address] Assigned PCP 10/31/20 12/13/21 Xochitl Smith MD [address] [place] [address] Assigned OBGYN Provider 04/14/21 Nicko Pgua, PhD [employer] [facility] [address] [facility] 200 [place] [address] Assigned Behavioral Health Provider 04/07/21 07/06/21 Deysi Greenwood APRN SCREW MACHINE TENDER [address] [place] [address] Assigned PCP 12/14/21 01/24/22 Flavia Antonio MD [address] [address] Assigned PCP 01/25/22 02/21/22 Olga Aguila DNP [address] [place] [address] Assigned PCP 02/22/22 Martin Stevens [facility] [address] [place] [address] Pharmacist Pharmacist 02/20/23 Marlene Bustamante [facility] [address] [place] [id number] Pharmacist Pharmacist Wire Repairer 04/30/23 documented as of this encounter
--- OUTSIDE RECORDS SUMMARY | 2023-10-01 14:45 | XMS_ITS | Clinical Summary ---
Author Name Unknown Organization [place] Address [facility] [place] [address] Care Team Providers Care Media Clerk Name Role Phone Herlinda Marino MEDICAL AFFAIRS DIRECTOR SUPERVISOR ROAD ADMINISTRATOR Unavailable Olga Aguila DNP Unavailable Martin Stevens [facility] Unavailable [phone] Marlene Bustamante [facility] Unavailable [phone] Allergies Active Allergy Reactions Criticality Noted [...] UP TO 5 DAYS DURING MONTHLY MENSTRUATION. 02/28/2022 Active traZODone (DESYREL) 50 MG tablet TAKE 1/2 TO 2 TABLETS BY MOUTH ONCE DAILY NEEDED FOR INSOMNIA. 02/22/2022 Active multivitamin, therapeutic (THERA-VIT) TABS tablet Take 2 tablets by mouth daily Active vitamin B-12 (CYANOCOBALAMIN) 2500 MCG sublingual tablet Take 5,000 mcg by mouth once a week Active cholecalciferol (VITAMIN D3) 125 mcg (5000 units) capsule Take 125 mcg by mouth daily Active DRYSOL 20 % external solutionIndications: Generalized hyperhidrosis Apply topically At Bedtime 60 mL 02/22/2023 Active hydrOXYzine (ATARAX) 25 MG tabletIndications:An xiety Take 1 tablet by mouth 3 times daily as needed for itching. 30 tablet 02/22/2023 Active ondansetron (ZOFRAN) 4 MG tabletIndications:Na usea Take 1 tablet (4 mg) by mouth every 8 hours as needed for nausea 30 tablet 02/22/2023 Active Additional Information Patient not taking.Reported on 03/12/2023 amoxicillin (AMOXIL) 500 MG capsule TAKE 2 CAPSULES BY MOUTH THREE TIMES DAILY DIRECTED Active busPIRone (BUSPAR) 10 MG tablet 03/06/2023 Active BINAXNOW COVID-19 AG HOME TEST KIT TEST DIRECTED TODAY 01/30/2023 Active cyclobenzaprine (FLEXERIL) 5 MG tablet Take 5-10 mg by mouth at bedtime 02/16/2023 Active FLUARIX QUADRIVALENT 0.5 ML injection 05/07/2022 Active ondansetron (ZOFRAN ODT) [address] 1 Tablet on the tongue every 6 hours if needed for Nausea/Vomiting. 08/08/2022 Active WEGOVY 1 MG/0.5ML pen INJECT 1 PEN UNDER THE SKIN ONCE WEEKLY 02/18/2023 Active Active Problems Problem Noted Date Diagnosed [...] Overview: Added automatically from request for surgery [id number] Cramping affecting , antepartum 11/14/2019 11/15/2019 Threatened [...] 1 07/03/2005 - 05/02/2019 Smokeless Tobacco: Never Tobacco Cessation:Counseling Given: Not Answered Alcohol Use Standard Drinks/Week Comments Not Currently 0 (1 standard drink = 0.6 oz pure alcohol) Alcoholic Drinks/day: currently on antibuse PHQ-2 Answer Date Recorded PHQ-2 Score 0 10/29/2021 [place] Depression Scale Answer Date Recorded [place] Depression Score 3 07/11/2021 Last EPDS Self [...] Comments Blood Pressure 140/70 07/02/2022 2:00 PM DIRECTOR OF RESOURCE DEVELOPMENT Pulse 92 07/02/2022 3:00 PM DIRECTOR OF RESOURCE DEVELOPMENT Temperature 36.2 ??C (97.1 ??F) 07/02/2022 12:[address] Respiratory Rate 16 07/02/2022 12:29 PM DIRECTOR OF RESOURCE DEVELOPMENT Oxygen Saturation 94% 07/02/2022 3:00 PM DIRECTOR OF RESOURCE DEVELOPMENT Inhaled Oxygen Concentration - - Weight 69.9 kg (154 lb) 03/12/2023 7:55 AM CDT Height 152.4 cm (5') 03/12/2023 7:55 AM CDT Body Mass Index 30.08 03/12/2023 7:55 AM CDT Plan of Treatment Upcoming Encounters Date Type Department Care Team (Late st Contact Info) Description 03/10/2024 8:00 AM CDT Virtual Visit [facility] Care [address] [id number] Deo Wood MD [address] [facility] [address] [place] [address] Health Maintenance Due Date Last Done Comments ASTHMA ACTION PLAN 1986 IPV IMMUNIZATION (4 of 4 - 4-dose series) 1990 01/15/1989, 1986, 1986 Pneumococcal Vaccine: Pediatrics (0 to 5 Years) and At-Risk Patients (6 to 64 Years) (2 of 2 - PCV) 04/07/2013 04/07/2012, 07/16/2011 YEARLY PREVENTIVE VISIT 02/06/2021 02/07/20 20, 02/07/2020, 02/07/2020, Additional history exists ASTHMA CONTROL TEST 06/19/2022 12/17/2021 ANNUAL REVIEW OF HM ORDERS 10/29/2022 10/29/2021 TSH W/FREE T4 REFLEX 10/29/2022 10/29/2021, 10/17/2020, 10/17/2020, Additional history exists COVID-19 Vaccine ( season) 2023 07/29/2021, 06/26/2021 PHQ-2 (once per calendar year) 2023 10/29/2021, 10/08/2021, 10/08/2021, Additional history exists HPV TEST 10/10/2024 10/11/2019, 09/16, 10/11/2019, Additional history exists PAP 10/10/2024 10/11/2019, 09/16, 10/11/2019, Additional history exists ADVANCE CARE PLANNING 02/06/2025 02/07/2020, 019 GLUCOSE 02/18/2026 02/18/2023, 02/15, 01/16/2022, Additional history exists DTAP/TDAP/TD IMMUNIZATION (11 - Td or Tdap) 08/29/2029 08/30/2019, 10/11/2015, 10/11/2015, Additional history exists HPV IMMUNIZATION Completed 09/18/2010, , 05/28/2009 HEPATITIS B IMMUNIZATION Completed 013, 07/16/2011, 02/12/1999 [...] this topic Medical Devices Implanted Type Area Development Spec Device Identifier Shelf Expiration Date Model / Serial / Lot [id number]-11/21 Implanted:Qty : 1 on 11/22/2019 Contraceptive Device Left: Arm 12/21/2021 / / [id number] Procedures Procedure Name Priority Date/Time Associated Diagnosis Comments COMPREHENSIVE METABOLIC PANEL Routine 02/18/2023 7:45 AM CDT 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 TSH WITH FREE T4 REFLEX Routine 10/29/2021 8:57 AM CDT Hypothyroidism, unspecified type HIV ANTIGEN ANTIBODY COMBO Routine 10/26/2020 4:04 PM CDT PAP SMEAR - HIM PATIENT REPORTED Routine 10/11/2019 HPV HIGH RISK TYPES DNA CERVICAL Routine 10/11/2019 ACUTE HEPATITIS PANEL Routine 12/07/2018 8:37 AM CDT from Last 3 Months or Most Recently Relevant to Health Maintenance Results * Comprehensive metabolic panel (02/18/2023 7:45 AM CDT) Sodium 139 135 - 145 mmol/L 02/18/2023 8:10 AM CDT [facility] Comment:Reference intervals for this test were updated on 02/10/2023 to more accurately reflect our healthy population. There may be differences in the flagging of prior results with similar values performed with this method. Interpretation of those prior results can be made in the context of the updated reference intervals. Potassium 3.8 3.4 - 5.3 mmol/L 02/18/2023 8:10 AM [facility] Carbon Dioxide (CO2) 26 22 - 29 mmol/L 02/18/2023 8:10 AM [facility] Anion Gap 8 7 - 15 mmol/L 02/18/2023 8:10 AM [facility] Urea Nitrogen 8.2 6.0 - 20.0 mg/dL 02/18/2023 8:10 AM [facility] Creatinine 0.60 0.51 - 0.95 mg/dL 02/18/2023 8:10 AM [facility] GFR Estimate >90 >60 mL/min/1. 73m2 02/18/2023 8:10 AM [facility] Calcium 9.1 8.6 - 10.0 mg/dL 02/18/2023 8:10 AM [facility] Chloride 105 98 - 107 mmol/L 02/18/2023 8:10 AM [facility] Glucose 83 70 - 99 mg/dL 02/18/2023 8:10 AM [facility] Alkaline Phosphatase 38 35 - 104 U/L 02/18/2023 8:10 AM [facility] AST 21 0 - 45 U/L 02/18/2023 8:10 AM [facility] Comment:Reference intervals for this test were updated on 10/27/2022 to more accurately reflect our healthy population. There may be differences in the flagging of prior results with similar values performed with this method. Interpretation of those prior results can be made in the context of the updated reference intervals. ALT 27 0 - 50 U/L 02/18/2023 8:10 AM [facility] Comment:Reference intervals for this test were updated on 10/27/2022 to more accurately reflect our healthy population. There may be differences in the flagging of prior results with similar values performed with this method. Interpretation of those prior results can be made in the context of the updated reference intervals. Protein Total 6.9 6.4 - 8.3 g/dL 02/18/2023 8:10 AM [facility] Albumin 4.7 3.5 - 5.2 g/dL 02/18/2023 8:10 AM [facility] Bilirubin Total 0.5 <=1.2 mg/dL 02/18/2023 8:10 AM CDT [facility] Blood STRUCTURE OF LEFT UPPER LIMB / Unknown Venipuncture / Unknown 02/18/2023 7:45 AM CDT 02/18/2023 7:47 AM CDT Deo Wood MD LAB - BLOOD ORDERABL ES [facility] [address] [place] [address], [facility] [phone] * TSH with free T4 reflex (10/29/2021 8:57 AM CDT) TSH 0.97 0.30 - 5.00 uIU/mL 10/29/2021 4:47 PM CDT [facility] Blood STRUCTURE OF LEFT UPPER LIMB / Unknown Venipuncture / Unknown 10/29/2021 8:57 AM CDT 10/29/2021 8:57 AM CDT Shirley Mcneal APRN SUPERVISOR ROAD ADMINISTRATOR LAB - BLOO D ORDERABLES Performing Organization Address [facility]/ZIP Co de Phone Number [facility] [address] [place] [address], [facility] [phone] * HIV Antigen Antibody Combo (10/26/2020 4:04 PM CDT) HIV Antigen Antibody Combo Negative Negative 10/26/2020 9:47 PM CDT [facility] Blood specimen (specimen) Venipuncture / Unknown 10/26/2020 4:04 PM CDT 10/26/2020 7:34 PM CDT Narrative [facility] - 10/26/2020 9:47 PM CDT Method is Lino HIV Ag/Ab for the detection of HIV p24 antigen, HIV-1 antibodies and HIV-2 antibodies. Flavia Antonio MD LAB - BLOOD ORDER OFELIA [facility] [address] [place] [address], [facility] [phone] [facility] [address] [place] [address] * PAP Smear - HIM Patient Reported (10/11/2019) Pathologist [facility] PAP Smear - HIM Patient Reported See Scanned Report [facility] 10/11/2019 Narrative 10/14/2019 PAP SMEAR HIM [facility] Historical Provider LABORATORY Performing Organization Address City/[facility]/ZIP Co de Phone Number [facility] [address] [place] [address] * HPV High Risk Types DNA Cervical (10/11/2019) Pathologist [facility] HPV_EXT - HISTORICAL See Scanned Report [facility] Specimen of unknown material (specimen) 10/11/2019 Narrative 10/14/2019 PAP SMEAR HIM [facility] Historical Provider LAB - BLOOD ORDERABL ES Performing Organization Address City/[facility] Co de Phone Number [facility] [address] [place] [address] * Acute hepatitis panel (12/07/2018 8:37 AM CDT) [facility] Hepatitis A Antibody IgM Negative Negative 12/08/2018 9:06 AM CDT [facility] Hepatitis B Core Antibody IgM Negative Negative 12/08/2018 9:06 AM CDT [facility] Hepatitis B Surface Antigen Negative Negative 12/08/2018 9:06 AM CDT [facility] Hepatitis C Antibody Negative Negative 12/08/2018 9:06 AM CDT [facility] Blood specimen (specimen) Venipuncture / Unknown 12/07/2018 8:37 AM CDT 12/07/2018 1:19 PM CDT Flavia Antonio MD LAB - BLOOD ORDER OFELIA Performing Organization Address City/[facility]/ZIP Co de Phone Number [facility] [address] [place] [address], [facility] [address] [place] [phone] from Last 3 Months or Most Recently Relevant to Health Maintenance Advance Directives For more information, please contact: [phone] * Full Code (Latest Code Status on File) Date Activated Date Inactivated Comments 05/28/2021 8:11 PM 05/30/2021 3:57 PM All basic an d advanced life-sustaining interventions are performed as appropriate Question Answer Comments Code status determined by: Discussion with patie nt/ legal decision maker Care Teams Media Clerk Relationship Specialty Start Date End Date Herlinda Marino APRN SUPERVISOR ROAD ADMINISTRATOR [facility] [address] [place] [address] [address] PCP - Obstetrics/Gynecology 02/03/19 Olga Aguila DNP [address] [place] [address] Assigned PCP 02/22/22 Martin Stevens RPH [address] [place] [address] Pharmacist Pharmacist 02/20/23 Marlene Bustamante RPH [address] [place] [address] Pharmacist Pharmacist Nurse Instructor 04/30/23
--- OUTSIDE RECORDS SUMMARY | 2023-10-01 14:45 | XMS_ITS | Encounter Summary ---
Author Name Unknown Organization [place] Address [facility] [place] [address] Care Team Providers Care Railway Switch Operator Name Role Phone Flavia Antonio MD Primary Care Provider [phone] Herlinda Marino IMPREGNATION OPERATOR PROCESS EXCELLENCE MANAGER Unavailable Flavia Antonio MD Unavailable Xochitl Smith MD Unavailable Deysi Greenwood APRN PROCESS EXCELLENCE MANAGER Unavailable Flavia Antonio MD Primary Care Provider Flavia Antonio MD Unavailable Olga Aguila DNP Unavailable Arjun Pruitt MD Primary Care Provide r Martin Stevens [facility] Unavailable [phone] Flavia Antonio MD Primary Care Provider Marlene Bustamante [facility] Unavailable [phone] Encounter Details Date Type Department Care Team (Late st Contact Info) Description 11/15/2021 [facility] [address] [address] Allie Hernandez Social History Tobacco Use Types Packs/Day Years Used Date Smoking Tobacco: Former Cigarettes 1 13 1 07/03/2005 - 05/02/2019 Smokeless Tobacco: Never Alcohol Use Standard Drinks/Week Comments Not Currently 0 (1 standard drink = 0.6 oz pure alcohol) Alcoholic Drinks/day: currently on antibuse PHQ-2 Answer Date Recorded PHQ-2 Score 0 10/29/2021 [place] Depression Scale Answer Date Recorded [place] Depression Score 3 07/11/2021 Last EPDS Self [...] Description 03/10/2024 8:00 AM CDT Virtual Visit [facility] [address] [place] [address] Deo Wood MD [address] [place] [address] 200 [place], [place] [phone] documented as of this encounter Visit Diagnoses Not on filedocumented in this encounter Additional Health Concerns Assessment Noted Time PHQ-9 Depression Total Score: 9 10/09/19 22 11:57 AM CDT documented as of this encounter Care Teams Railway Switch Operator Relationship Specialty Start Date End Date Flavia Antonio MD PCP - General 12/07/18 01/15/22 Herlinda Marino APRN PROCESS EXCELLENCE MANAGER [facility] [address] [place], [place] [address]Lilian REBOLLAR [id number] [place] [address] PCP - Obstetrics/Gynecology 02/03/19 Flavia Antonio MD [address] [facility] 100 [place] [address] PCP - General Family Medicine 01/16/22 06/06/22 Arjun Pruitt MD [address] [place] [address] 100 [place] [address] PCP - General packaging engineer 06/25/22 03/11/23 Flavia Antonio MD [address] [address] PCP - General Family Medicine 03/12/23 06/16/23 Flavia Antonio MD [address] [address] Assigned PCP 10/31/20 12/13/21 Xochitl Smith MD [address] [address] Assigned OBGYN Provider 04/14/21 Deysi Greenwood APRN [facility] [address] [address] Assigned PCP 12/14/21 01/24/22 Flavia Antonio MD [address] [id number] Assigned PCP 01/25/22 02/21/22 Olga Aguila DNP [address] [place] [address] Assigned PCP 02/22/22 Martin Stevens [facility] [address] [place] [address] Pharmacist Pharmacist 02/20/23 Marlene Bustamante [facility] [address] [place] [address] Pharmacist Pharmacist Jig Grinder 04/30/23 documented as of this encounter
--- OUTSIDE RECORDS SUMMARY | 2023-10-01 14:45 | XMS_ITS | Encounter Summary ---
Author Name Unknown Organization [place] Address [address] [place] [address]. [place] [address] Care Team Providers Care Sealing Machine Operator Name Role Phone Ellen Marinomustapha Castillo APRN FINANCIAL HEALTH COUNSELOR Unavailable Olga Aguila DNP Unavailable Martin Stevens [facility] Unavailable [phone] Flavia Antonio MD Primary Care Provider [phone] Marlene Bustamante [facility] Unavailable [phone] Encounter Details Date Type Department Care Team (Late st Contact Info) Description 04/30/2023 MyC Medical Advice M [facility] and Infectious Diseases [facility] [address] [place] [address] Marlene Bustamante, [address] [address] Social History Tobacco Use Types Packs/Day Years Used Date Smoking Tobacco: Former Cigarettes 1 13 1 07/03/2005 - 05/02/2019 Smokeless Tobacco: Never Alcohol Use Standard Drinks/Week Comments Not Currently 0 (1 standard drink = 0.6 oz pure alcohol) Alcoholic Drinks/day: currently on antibuse PHQ-2 Answer Date Recorded PHQ-2 Score 0 10/29/2021 [place] Depression Scale Answer Date Recorded [place] Depression Score 3 07/11/2021 Last EPDS Self [...] 03/10/2024 8:00 AM CDT Virtual Visit [facility] Surgery Clinic and Bariatrics Care [place] [address] [facility] [address] [place] [address] Deo Wood MD [address] [facility] 200 [place] [address] documented as of this encounter Visit Diagnoses Not on filedocumented in this encounter Additional Health Concerns Assessment Noted Time PHQ-9 Depression Total Score: 9 10/09/19 22 11:57 AM CDT documented as of this encounter Care Teams Sealing Machine Operator Relationship Specialty Start Date End Date Herlinda Marino, QUALITY ASSURANCE REPRESENTATIVE FINANCIAL HEALTH COUNSELOR [place] [facility] [address] [place], [place] [address]Lilian REBOLLAR [address] [address] PCP - Obstetrics/Gynecology 02/03/19 Flavia Antonio MD [address] [address] PCP - General Family Medicine 03/12/23 06/16/23 Olga Aguila DNP [address] [place] [address] Assigned PCP 02/22/22 Martin Stevens RPH [address] [place] [phone] Pharmacist Pharmacist 02/20/23 Marlene Bustamante RPH [address] [place] [phone] Pharmacist Pharmacist Chrome Plater 04/30/23 documented as of this encounter
--- OUTSIDE RECORDS SUMMARY | 2023-10-01 14:45 | XMS_ITS | Encounter Summary ---
Author Name Unknown Organization [place] Address [facility] [place] [address] Care Team Providers Care Diagrammer And Seamer Name Role Phone Flavia Antonio MD Primary Care Provider [phone] Herlinda Marino HOOK TENDER SHORT GOODS DRIER Unavailable Hussain Man MD Unavailable [phone] Flavia Antonio MD Unavailable Xochitl Smith MD Unavailable Nicko Puga PhD Unavailable [phone] Deysi Greenwood HOOK TENDER SHORT GOODS DRIER Unavailable Flavia Antonio MD Primary Care Provider Flavia Antonio MD Unavailable Olga Aguila DNP Unavailable [phone] Arjun Pruitt MD Primary Care Provide r Martin Stevens [facility] Unavailable [phone] Flavia Antonio MD Primary Care Provider Marlene Bustamante [facility] Unavailable [phone] Encounter Details Date Type Department Care Team (Late st Contact Info) Description 05/22/2021 [facility] [address] [facility] [address] [place] [address] Flavia Antonio MD [address] [address] Social History Tobacco Use Types Packs/Day Years [...] Coronavirus / COVID-19? Yes 05/24/2021 10:02 AM PROGRAM DIRECTOR documented as of this encounter Plan of Treatment Upcoming Encounters Date Type Department Care Team (Late st Contact Info) Description 03/10/2024 8:00 AM CDT Virtual Visit [facility] and Bariat[facility] Care [address] [phone] Deo Wood MD [address] [place] [address] documented as of this encounter Visit Diagnoses Not on filedocumented in this encounter Care Teams Diagrammer And Seamer Relationship Specialty Start Date End Date Flavia Antonio MD PCP - General 12/07/18 01/15/22 Herlinda Marino APRN SHORT GOODS DRIER [facility] [employer] [address]I [id number] [place] [address] PCP - Obstetrics/Gynecology 02/03/19 Flavia Antonio MD [address] [facility] 100 [place] [address] PCP - General Family Medicine 01/16/22 06/06/22 Arjun Pruitt MD [address] [place] [address] 100 [place] [address] PCP - General print inspector 06/25/22 03/11/23 Flavia Antonio MD [address] [address] PCP - General Family Medicine 03/12/23 06/16/23 Hussain Man MD [address] [place] [address] Assigned Surgical Provider 11/30/20 09/28/21 Flavia Antonio MD [address] [address] Assigned PCP 10/31/20 12/13/21 Xochitl Smith MD [address] [place] [address] Assigned OBGYN Provider 04/14/21 Nicko Puga, PhD [facility] [address] [facility] [address] [facility] [place] [address] Assigned Behavioral Health Provider 04/07/21 07/06/21 Deysi Greenwood HOOK TENDER SHORT GOODS DRIER [address] [facility] 100 [place] [address] Assigned PCP 12/14/21 01/24/22 Flavia Antonio MD [address] [address] Assigned PCP 01/25/22 02/21/22 Olga Aguila DNP [address] [place] [address] Assigned PCP 02/22/22 Martin Stevens [facility] [address] [place] [address] Pharmacist Pharmacist 02/20/23 Marlene Bustamante [facility] [address] [place] [phone] Pharmacist Pharmacist Child Support Agent 04/30/23 documented as of this encounter
--- OUTSIDE RECORDS SUMMARY | 2023-10-01 14:45 | XMS_ITS | Referral Summary ---
Author Name Unknown Organization [place] Address [facility] [place] [address] Care Team Providers Care Machine Sprayer Name Role Phone Herlinda Marino FRAME OPENER ORACLE WEBCENTER CONSULTANT Unavailable Olga Aguila DNP Unavailable [phone] Martin Stevens [facility] Unavailable [phone] Marlene Bustamante [facility] Unavailable [phone] Allergies Active Allergy Reactions Criticality Noted [...] Overview: Added automatically from request for surgery [id number] Cramping affecting , antepartum 11/14/2019 11/15/2019 Threatened [...] Answer Date Recorded PHQ-2 Score 0 10/29/2021 Orlando Depression Scale Answer Date Recorded Orlando Depression Score 3 07/11/2021 Last EPDS Self [...] Comments Blood Pressure 140/70 07/02/2022 2:00 PM STEEL PLATE CAULKER Pulse 92 07/02/2022 3:00 PM STEEL PLATE CAULKER Temperature 36.2 ??C (97.1 ??F) 07/02/2022 12:[address] Respiratory Rate 16 07/02/2022 12:29 PM STEEL PLATE CAULKER Oxygen Saturation 94% 07/02/2022 3:00 PM STEEL PLATE CAULKER Inhaled Oxygen Concentration - - Weight 69.9 kg (154 lb) 03/12/2023 7:55 AM CDT Height 152.4 cm (5') 03/12/2023 7:55 AM CDT Body Mass Index 30.08 03/12/2023 7:55 AM CDT Plan of Treatment Upcoming Encounters Date Type Department Care Team (Late st Contact Info) Description 03/10/2024 8:00 AM CDT Virtual Visit [facility] [address] [place] [phone] Deo Wood MD [address] [place] [address] [id number] Medical Devices Implanted Type Area Blood Typer Device Identifier Shelf Expiration Date Model / Serial / Lot [id number]-11/21 Implanted:Qty : 1 on 11/22/2019 Contraceptive Device Left: Arm 12/21/2021 / / [id number] Procedures Procedure Name Priority Date/Time Associated Diagnosis [...] mmol/L 02/18/2023 8:10 AM CDT [facility] Comment:Reference intervals for this test were updated on 02/10/2023 to more accurately reflect our healthy population. There may be differences in the flagging of prior results with similar values performed with this method. Interpretation of those prior results can be made in the context of the updated reference intervals. Potassium 3.8 3.4 - 5.3 mmol/L 02/18/2023 8:10 AM CDT [facility] Carbon Dioxide (CO2) 26 22 - 29 mmol/L 02/18/2023 8:10 AM CDT [facility] Anion Gap 8 7 - 15 mmol/L 02/18/2023 8:10 AM CDT [facility] Urea Nitrogen 8.2 6.0 - 20.0 mg/dL 02/18/2023 8:10 AM CDT [facility] Creatinine 0.60 0.51 - 0.95 mg/dL 02/18/2023 8:10 AM CDT [facility] GFR Estimate >90 >60 mL/min/1. 73m2 02/18/2023 8:10 AM CDT [facility] Calcium 9.1 8.6 - 10.0 mg/dL 02/18/2023 8:10 AM CDT [facility] Chloride 105 98 - 107 mmol/L 02/18/2023 8:10 AM CDT [facility] Glucose 83 70 - 99 mg/dL 02/18/2023 8:10 AM CDT [facility] Alkaline Phosphatase 38 35 - 104 U/L 02/18/2023 8:10 AM CDT [facility] AST 21 0 - 45 U/L 02/18/2023 8:10 AM CDT [facility] Comment:Reference intervals for this test were updated on 10/27/2022 to more accurately reflect our healthy population. There may be differences in the flagging of prior results with similar values performed with this method. Interpretation of those prior results can be made in the context of the updated reference intervals. ALT 27 0 - 50 U/L 02/18/2023 8:10 AM CDT [facility] Comment:Reference intervals for this test were updated on 10/27/2022 to more accurately reflect our healthy population. There may be differences in the flagging of prior results with similar values performed with this method. Interpretation of those prior results can be made in the context of the updated reference intervals. Protein Total 6.9 6.4 - 8.3 g/dL 02/18/2023 8:10 AM CDT [facility] Albumin 4.7 3.5 - 5.2 g/dL 02/18/2023 8:10 AM CDT [facility] Bilirubin Total 0.5 <=1.2 mg/dL 02/18/2023 8:10 AM CDT [facility] Blood STRUCTURE OF LEFT UPPER LIMB / Unknown Venipuncture / Unknown 02/18/2023 7:45 AM CDT 02/18/2023 7:47 AM CDT Deo Wood MD LAB - BLOOD ORDERABL ES [facility] [address] [place] [address], [facility] [phone] * TSH with free T4 reflex (10/29/2021 8:57 AM CDT) TSH 0.97 0.30 - 5.00 uIU/mL 10/29/2021 4:47 PM CDT [facility] Blood STRUCTURE OF LEFT UPPER LIMB / Unknown Venipuncture / Unknown 10/29/2021 8:57 AM CDT 10/29/2021 8:57 AM CDT Shirley Mei Mcneal [facility] - BLOO D ORDERABLES [facility] [address] [place] [address], [facility] [phone] * HIV Antigen Antibody Combo (10/26/2020 4:04 PM CDT) [facility] HIV Antigen Antibody Combo Negative Negative 10/26/2020 9:47 PM CDT [facility] Blood specimen (specimen) Venipuncture / Unknown 10/26/2020 4:04 PM CDT 10/26/2020 7:34 PM CDT Narrative [facility] - 10/26/2020 9:47 PM CDT Method is TiVUS HIV Ag/Ab for the detection of HIV p24 antigen, HIV-1 antibodies and HIV-2 antibodies. Flavia Antonio MD LAB - BLOOD ORDER OFELIA Performing Organization Address City/[facility] Co de Phone Number [facility] [address] [place] [address], [facility] [phone] [facility] [address] [place] [address] * PAP Smear - HIM Patient Reported (10/11/2019) Pathologist [facility] PAP Smear - HIM Patient Reported See Scanned Report [facility] 10/11/2019 Narrative 10/14/2019 PAP SMEAR HIM SCAN [facility] Historical Provider LABORATORY Performing Organization Address City/[facility]/ZIP Co de Phone Number DANDY JUNITO [address] [place] [address] * HPV High Risk Types DNA Cervical (10/11/2019) HPV_EXT - HISTORICAL See Scanned Report [facility] Specimen of unknown material (specimen) 10/11/2019 Narrative 10/14/2019 PAP SMEAR HIM SCAN [facility] Historical Provider LAB - BLOOD ORDERABL ES Performing Organization Address City/[facility]/ZIP Co de Phone Number [facility] [address] [place] [address] * Acute hepatitis panel (12/07/2018 8:37 AM CDT) Pathologist [facility] Hepatitis A Antibody IgM Negative Negative 12/08/2018 9:06 AM CDT [facility] Hepatitis B Core Antibody IgM Negative Negative 12/08/2018 9:06 AM CDT [facility] Hepatitis B Surface Antigen Negative Negative 12/08/2018 9:06 AM CDT [facility] Hepatitis C Antibody Negative Negative 12/08/2018 9:06 AM CDT [facility] Blood specimen (specimen) Venipuncture / Unknown 12/07/2018 8:37 AM CDT 12/07/2018 1:19 PM CDT Flavia Antonio MD LAB - BLOOD ORDER OFELIA Performing Organization Address City/[facility] Co de Phone Number [facility] [address] [address], [facility] [address] [address] from Last 3 Months or Most Recently Relevant to Health Maintenance Advance Directives For more information, please contact: [phone] * Full Code (Latest Code Status on File) Date Activated Date Inactivated Comments 05/28/2021 8:11 PM 05/30/2021 3:57 PM All basic an d advanced life-sustaining interventions are performed as appropriate Question Answer Comments Code status determined by: Discussion with patie nt/ legal decision maker Care Teams Machine Sprayer Relationship Specialty Start Date End Date Herlinda Marino, FRAME OPENER ORACLE WEBCENTER CONSULTANT [facility] [address] [place], [place] [address]Lilian REBOLLAR [address] [address] PCP - Obstetrics/Gynecology 02/03/19 Olga Aguila DNP [address] [place] [address] Assigned PCP 02/22/22 Martin Stevens RPH [address] [place] [address] Pharmacist Pharmacist 02/20/23 Marlene Bustamante RPH [address] [place] [address] Pharmacist Pharmacist Painter Touch Up 04/30/23
--- OUTSIDE RECORDS SUMMARY | 2023-10-01 14:45 | XMS_ITS | Encounter Summary ---
Author Name Unknown Organization [place] Address [address] [facility] [place] [address] Care Team Providers Care Elevator Builder Name Role Phone Flavia Antonio MD Primary Care Provider [phone] Herlinda Marino CHIEF SAFETY OFFICER ENTRY LEVEL SALES CONSULTANT Unavailable [phone] Xochitl Smith MD Unavailable Deysi Greenwood CHIEF SAFETY OFFICER ENTRY LEVEL SALES CONSULTANT Unavailable Flavia Antonio MD Primary Care Provider [phone] Flavia Antonio MD Unavailable Olga Aguila [facility] Unavailable Arjun Pruitt MD Primary Care Provide r Martin Stevens [facility] Unavailable [phone] Flavia Antonio MD Primary Care Provider [phone] Marlene Bustamante [facility] Unavailable [phone] Encounter Details Date Type Department Care Team (Late st Contact Info) Description 01/03/2022 [facility] [address] [facility] [address] [place] [address] Yoli Manuel, BENIGNO Social History Tobacco Use Types Packs/Day Years Used Date Smoking Tobacco: Former Cigarettes 1 13 1 07/03/2005 - 05/02/2019 Smokeless Tobacco: Never Alcohol Use Standard Drinks/Week Comments Not Currently 0 (1 standard drink = 0.6 oz pure alcohol) Alcoholic Drinks/day: currently on antibuse PHQ-2 Answer Date Recorded PHQ-2 Score 0 10/29/2021 [place] Depression Scale Answer Date Recorded [place] Depression Score 3 07/11/2021 Last EPDS Self [...] Description 03/10/2024 8:00 AM CDT Virtual Visit [facility] [address] [place] [phone] Deo Wood MD [address] [place] [address] 200 [place], [place] [id number] documented as of this encounter Visit Diagnoses Not on filedocumented in this encounter Additional Health Concerns Assessment Noted Time PHQ-9 Depression Total Score: 9 10/09/19 22 11:57 AM CDT documented as of this encounter Care Teams Elevator Builder Relationship Specialty Start Date End Date Flavia Antonio MD PCP - General 12/07/18 01/15/22 Herlinda Marino, CHIEF SAFETY OFFICER ENTRY LEVEL SALES CONSULTANT [facility] [address] [place], [place] [phone] PCP - Obstetrics/Gynecology 02/03/19 Flavia Antonio MD [address] Cast[address] [facility] 100 [place] [address] PCP - General Family Medicine 01/16/22 06/06/22 Arjun Pruitt MD [address] [place] [address] PCP - General rivet spinner 06/25/22 03/11/23 Flavia Antonio MD [address] [address] PCP - General Family Medicine 03/12/23 06/16/23 Xochitl Smith MD [address] [place] [address] Assigned OBGYN Provider 04/14/21 Deysi Greenwood APRN [facility] [address] Cast[address] [address] Assigned PCP 12/14/21 01/24/22 Flavia Antonio MD [address] [address] Assigned PCP 01/25/22 02/21/22 Olga Aguila DNP [address] [place] [address] Assigned PCP 02/22/22 Martin Stevens RPH [address] [place] [phone] Pharmacist Pharmacist 02/20/23 Marlene Bustamante RPH [address] [place] [address] [phone] Pharmacist Pharmacist Dandy Operator 04/30/23 documented as of this encounter
--- OUTSIDE RECORDS SUMMARY | 2023-10-01 14:46 | XMS_ITS | Encounter Summary ---
Author Name Unknown Organization [place] Address [address] [place] [address]. [place] [address] Care Team Providers Care Jewel Hole Cornerer Name Role Phone Flavia Antonio MD Primary Care Provider Herlinda Marino APRN CREDIT SUPPORT COUNSELOR Unavailable Hussain Man MD Unavailable [phone] Cheo Thakkar MD Unavailable [phone] Flavia Antonio MD Unavailable [phone] Xochitl Smith MD Unavailable Patricia Smiley MD Unavailable Nicko Puga PhD Unavailable Deysi Greenwood APRN CREDIT SUPPORT COUNSELOR Unavailable Flavia Antonio MD Primary Care Provider Flavia Antonio MD Unavailable [phone] Olga Aguila DNP Unavailable Arjun Pruitt MD Primary Care Provide r Martin Stevens [facility] Unavailable [phone] Flavia Antonio MD Primary Care Provider Marlene Bustamante [facility] Unavailable [phone] Reason for Referral * Rehab Therapy Physical Therapy (Routine) - Closed Specialty Diagnoses / Procedures Referred By Les cabrera Referred To Contact Physical Therapy Diagnoses Chronic pain of right knee Flavia Antonio MD [facility] AND [address] [address] Helen Velazco, PT [address] [address] Referral ID Status Reason Start Date Expiration Date Visits Re quested Visits Authorized [id number] Closed 11/27/2020 11/27/2021 1 1 Comments Helen Velazco Order-Specific Questions: Location for physical therapy->[facility] Preferred [facility] Location->[place] Reason for Visit * Reason Comments Care Encounter Details Date Type Department Care Team (Late st Contact Info) Description 11/22/2020 Office Visit - [facility] [address] [place] [phone] Flavia Antonio MD [address] [address] Chronic pain of right knee; [...] Body Mass Index 32.81 06/12/2020 9:00 AM SHEET METAL ENGINEER documented in this encounter Progress Notes * Flavia Antonio MD - 11/22/2020 7:50 AM CDT Progress Notes by Flavia Antonio MD at 11/22/2020 7:50 AM Author: Flavia Antonio MD Service: -- Author Type: Physician Filed: 11/22/2020 12:33 PM Encounter Date: 11/22/2020 Status: Signed Truck Farmer: Flavia Antonio MD (Physician) Patient is a 35 y.o. [...] Description 03/10/2024 8:00 AM CDT Virtual Visit [facility] [address] 200 [place] [address] Deo Wood MD [address] [place] [phone] Scheduled Referrals Name Type Priority Associated Diagnoses Orde r Schedule Physical Therapy Referral Referral Routine Chronic pain of right knee Ordered: 11/22/2020 documented as of this encounter Procedures Procedure Name Priority Date/Time Associated Diagnosis Comments LABORATORY MISCELLANEOUS ORDER Routine 11/22/2020 8:31 AM CDT documented in this encounter Results * (Laboratory Miscellaneous Order) (11/22/2020 8:31 AM CDT) [facility] Miscellaneous Test Dept. Chemistry Reference Test 12/06/2020 8:01 AM CDT [facility] Test Name NIPS to [facility] 12/06/2020 8:01 AM CDT [facility] Performing Lab [facility] [address] [place] [address] 12/06/2020 8:01 AM CDT [facility] See Scanned Result See Scanned Report 12/06/2020 8:01 AM CDT MISCELLANEOUS TESTING LAB Blood specimen (specimen) Venipuncture / Unknown 11/22/2020 8:31 AM CDT 11/23/2020 12:53 PM CDT Flavia Antonio MD LAB - BLOOD ORDER OFELIA MISCELLANEOUS TESTING [facility] [address] [place] [address] MISCELLANEOUS TESTING LAB documented in this encounter Visit Diagnoses Diagnosis Chronic pain of right knee Supervision of high risk in first trimester Unspecified high-risk documented in this encounter Additional Health Concerns Infection Onset Date Last Indicated Resolved Time Rule Out COVID-19 05/16/2021 05/16/2021 05/17/2021 2:14 PM SHEET METAL ENGINEER documented as of this encounter Care Teams Jewel Hole Cornerer Relationship Specialty Start Date End Date Flavia Antonio MD PCP - General 12/07/18 01/15/22 Herlinda Marino APRN CREDIT SUPPORT COUNSELOR [facility] [address] [address] PCP - Obstetrics/Gynecology 02/03/19 Flavia Antonio MD [address] [facility] Jessica [address] [address] PCP - General Family Medicine 01/16/22 06/06/22 Arjun Pruitt MD [facility] CANDICE REBOLLAR [address] [address] PCP - General cutting and splicing supervisor 06/25/22 03/11/23 Flavia Antonio MD [address] [address] PCP - General Family Medicine 03/12/23 06/16/23 Hussain Man MD [address] [place] [address] Assigned Surgical Provider 11/30/20 09/28/21 Cheo Thakkar MD [address] [address] Assigned OBGYN Provider 11/30/20 Flavia Antonio MD [address] [address] Assigned PCP 10/31/20 12/13/21 Xochitl Smith MD [address] [place] [address] Assigned OBGYN Provider 04/14/21 Patricia Smiley MD [facility] [address] [facility] [address] [place] [address] Assigned OBGYN Provider 04/07/2104/13 Nicko Puga, PhD [employer] [address] [place] [address] Assigned Behavioral Health Provider 04/07/21 07/06/21 Deysi Greenwood APRN CREDIT SUPPORT COUNSELOR [address] [facility] 100 [place] [address] Assigned PCP 12/14/21 01/24/22 Flavia Antonio MD [facility] AND [address] [address] Assigned PCP 01/25/22 02/21/22 Olga Aguila DNP [address] [place] [address] Assigned PCP 02/22/22 Martin Stevens [facility] [address] [place] [phone] Pharmacist Pharmacist 02/20/23 Marlene Bustamante [facility] [address] [place] [phone] Pharmacist Pharmacist Forming Machine Upkeep Mechanic Helper 04/30/23 documented as of this encounter
--- OUTSIDE RECORDS SUMMARY | 2023-10-01 14:46 | XMS_ITS | Encounter Summary ---
Author Name Unknown Organization [place] Address [facility] [place] [address] Care Team Providers Care Sales Operations Director Name Role Phone Cross, Marsha Chappell MD Unavailable Unavaila ble Flavia Antonio MD Primary Care Provider Herlinda Marino APRN FREELANCE RECRUITER Unavailable Hussain Man MD Unavailable [phone] Cheo Thakkar MD Unavailable [phone] Flavia Antonio MD Unavailable [phone] Xochitl Smith MD Unavailable Patricia Smiley MD Unavailable Nicko Puga PhD Unavailable Deysi Greenwood TUNA PURSE SEINER FREELANCE RECRUITER Unavailable Flavia Antonio MD Primary Care Provider Flavia Antonio MD Unavailable [phone] Olga Aguila DNP Unavailable Arjun Pruitt MD Primary Care Provide r Martin Stevens [facility] Unavailable [phone] Flavia Antonio MD Primary Care Provider Marlene Bustamante [facility] Unavailable [phone] Encounter Details Date Type Department Care Team (Late st Contact Info) Description 09/05/2019 Records - [facility] Ani Tyler, RN Social History Tobacco Use [...] was copied from a baby's chart. This curriculum writer met with Ángel to observe Twin A at the breast. By the time this curriculum writer entered the room, Ángel had latched infant onto the breast in the cradle hold. Infant was sucking actively and occasional swallows heard. Ángel had softened the areolar tissue prior to latching. became sleepy after 10 minutes at the breast and Ángel states she will bottle feed now. We discussed that most premature infants need a supplement after until they are approximately 38-39 weeks gestation and in the 6# 8 oz range. We discussed that when infant is transferring well at the breast she will hear swallowing with every suck or two for several minutes and will be satisfied. Frequent weight checks can also help to determine that infant is transferring well. She was instructed to follow up at the outpatient clinic prn. Ángel verbalizes understanding of all education given. She denies any further questions. documented in this encounter Plan of Treatment Upcoming Encounters Date Type Department Care Team (Late st Contact Info) Description 03/10/2024 8:00 AM CDT Virtual Visit [facility] [place] [address] [place] [address] 200 [place] [phone] Deo Wood MD [address] [place] [phone] documented as of this encounter Visit Diagnoses Not on filedocumented in this encounter Additional Health Concerns Infection Onset Date Last Indicated Resolved Time Rule Out COVID-19 05/16/2021 05/16/2021 05/17/2021 2:14 PM PRESS OPERATOR PRINTING documented as of this encounter Care Teams Sales Operations Director Relationship Specialty Start Date End Date Flavia Antonio MD PCP - General 12/07/18 01/15/22 Herlinda Marino, TUNA PURSE SEINER FREELANCE RECRUITER [facility] [address] [facility] [address] [place] [address] PCP - Obstetrics/Gynecology 02/03/19 Flavia Antonio MD 1099 [facility] Jessica Castillo [facility] 100 [place] [address] PCP - General Family Medicine 01/16/22 06/06/22 Arjun Pruitt MD [address] [place], [place] [address]YOEL REBOLLAR [facility] 100 [place] [address] PCP - General supply chain engineer 06/25/22 03/11/23 Flavia Antonio MD [address] [address] PCP - General Family Medicine 03/12/23 06/16/23 Marsha Gonzalez MD Assigned OBGYN Provider 03/09/20 11/17/20 Hussain Man MD [facility] [id number] Assigned Surgical Provider 11/30/20 09/28/21 Cheo Thakkar MD [address] [facility] 400 [place] [address] Assigned OBGYN Provider 11/30/20 Flavia Antonio MD [address] [address] Assigned PCP 10/31/20 12/13/21 Xochitl Smith MD [address] [facility] [address] [place] [address] Assigned OBGYN Provider 04/14/21 Patricia Smiley MD [facility] [address] [facility] [address] [place] [address] Assigned OBGYN Provider 04/07/2104/13 Nicko Puga, PhD [employer] Solutions[employer]IL[employer] AND [employer] [facility] [address] [facility] 200 [place] [address] Assigned Behavioral Health Provider 04/07/21 07/06/21 Deysi Greenwood APRN FREELANCE RECRUITER 1099 [facility] 100 [place] [address] Assigned PCP 12/14/21 01/24/22 Flavia Antonio MD [address] [address] Assigned PCP 01/25/22 02/21/22 Olga Aguila DNP 1151 [place] [address] Assigned PCP 02/22/22 Martin Stevens, [facility] 909 [place] [address] Pharmacist Pharmacist 02/20/23 Marlene Bustamante [facility] [address] [place] [phone] Pharmacist Pharmacist Inspector Returned Materials 04/30/23 documented as of this encounter
--- OUTSIDE RECORDS SUMMARY | 2023-10-01 14:46 | XMS_ITS | Encounter Summary ---
Author Name Unknown Organization [place] Address [address] [place] [address]. [place] [address] Care Team Providers Care Line Maintainer Name Role Phone Flavia Antonio MD Primary Care Provider [phone] Herlinda Marino WORKFORCE DEVELOPMENT PROGRAM DIRECTOR STOREPERSON Unavailable Hussain Man MD Unavailable [phone] Flavia Antonio MD Unavailable Xochitl Smith MD Unavailable Patricia Smiley MD Unavailable Nicko Puga PhD Unavailable [phone] Deysi Greenwood WORKFORCE DEVELOPMENT PROGRAM DIRECTOR STOREPERSON Unavailable Flavia Antonio MD Primary Care Provider Flavia Antonio MD Unavailable [phone] Olga Aguila DNP Unavailable [phone] Arjun Pruitt MD Primary Care Provide r [place] Stevens [facility] Unavailable [phone] Flavia Antonio MD Primary Care Provider Marlene Bustamante [facility] Unavailable [phone] Encounter Details Date Type Department Care Team (Late st Contact Info) Description 12/29/2020 [facility] [address] [place] [address] Flavia Antonio MD [address] [address] Social History Tobacco Use Types Packs/Day Years [...] Description 03/10/2024 8:00 AM CDT Virtual Visit [facility] [address] 200 [place] [address] Deo Wood MD [address] [place] [address] 200 [place] [address] documented as of this encounter Visit Diagnoses Not on filedocumented in this encounter Additional Health Concerns Infection Onset Date Last Indicated Resolved Time Rule Out COVID-19 05/16/2021 05/16/2021 05/17/2021 2:14 PM HEAD SHIPPER documented as of this encounter Care Teams Line Maintainer Relationship Specialty Start Date End Date Flavia Antonio MD PCP - General 12/07/18 01/15/22 Herlinda Marino, WORKFORCE DEVELOPMENT PROGRAM DIRECTOR STOREPERSON [place] [address] [id number] [place] [address] PCP - Obstetrics/Gynecology 02/03/19 Flavia Antonio MD [address] [facility] 100 [place] [address] PCP - General Family Medicine 01/16/22 06/06/22 Arjun Pruitt MD [facility] CANDICE REBOLLAR [facility] 100 [place] [address] PCP - General foam caster 06/25/22 03/11/23 Flavia Antonio MD [address] [address] PCP - General Family Medicine 03/12/23 06/16/23 Hussain Man MD [address] [place] [address] Assigned Surgical Provider 11/30/20 09/28/21 Flavia Antonio MD [address] [address] Assigned PCP 10/31/20 12/13/21 Xochitl Smith MD 2945 [facility] 100 [place] [address] Assigned OBGYN Provider 04/14/21 Patricia Smiley MD [facility] 2635 [facility], [address] [place] [address] Assigned OBGYN Provider 04/07/2104/13 Nicko Puga, PhD [facility] [address] [place] [address] Assigned Behavioral Health Provider 04/07/21 07/06/21 Deysi Greenwood APRN STOREPERSON [address] 100 [place] [address] Assigned PCP 12/14/21 01/24/22 Flavia Antonio MD [address] [address] Assigned PCP 01/25/22 02/21/22 Olga Aguila DNP 1151 [place] [address] Assigned PCP 02/22/22 [place] Stevens RPH [address] [place] [address] [phone] Pharmacist Pharmacist 02/20/23 Marlene Bustamante RPH [address] [place] [phone] Pharmacist Pharmacist Physician/Ophthalmologist 04/30/23 documented as of this encounter
--- OUTSIDE RECORDS SUMMARY | 2023-10-01 14:46 | XMS_ITS | Encounter Summary ---
Author Name Unknown Organization [place] Address [facility] [place] [address] Care Team Providers Care Special Procedure Technologist Name Role Phone Cross, Marsha Chappell MD Unavailable Unavaila ble Flavia Antonio MD Primary Care Provider Herlinda Marino APRN OTHER SPATIAL SCIENTIST Unavailable Hussain Man MD Unavailable [phone] Cheo Thakkar MD Unavailable Flavia Antonio MD Unavailable Xochitl Smith MD Unavailable Patricia Smiley MD Unavailable Nicko Puga PhD Unavailable Deysi Greenwood PAINTER DECORATOR OTHER SPATIAL SCIENTIST Unavailable Flavia Antonio MD Primary Care Provider Flavia Antonio MD Unavailable Olga Aguila DNP Unavailable [phone] Arjun Pruitt MD Primary Care Provide r [place] [facility] Unavailable [phone] Flavia Antonio MD Primary Care Provider Marlene Bustamante [facility] Unavailable [phone] Encounter Details Date Type Department Care Team (Late st Contact Info) Description 09/03/2019 Records - [facility] Ani Tyler, RN Social History Tobacco Use [...] was copied from a baby's chart. This junior underwriter met with Ángel to observe twin B at the breast. She has infant in the cradle hold with a shallow latch. We discussed hand expressing prior to latching will soften the areolar tissue, allowing to obtain/sustain a deep latch. Hand expression taught. She was also instructedto place infant in the football hold to allow Ángel's free hand to sandwich /shape the breast tissue, allowing twin B to transfer more milk at the breast with less suction pressures. We also discussed using breast compression to assist with milk transfer, prn, and to watch infant's cues so does not become too overwhelmed by the [...] recommended dosage for recurrent plugged ducts is 0767-3306 mg lecithin per day, or 1 capsule [...] of lecithin - the lecithin sold in [employer] stores is about 1-2% choline.Rarely, people who [...] people should be monitored by a physician. Https://[employer]/nutrition/vitamins/lecithin/ Www.ibconline.ca-Information Sheets-Plugged ducts (Dr. Dave Cole's website) documented in this encounter Plan of Treatment Upcoming Encounters Date Type Department Care Team (Late st Contact Info) Description 03/10/2024 8:00 AM CDT Virtual Visit [facility] [address] [address] Deo Wood MD 2945 [facility] 200 [place], [place] [address] documented as of this encounter Visit Diagnoses Not on filedocumented in this encounter Additional Health Concerns Infection Onset Date Last Indicated Resolved Time Rule Out COVID-19 05/16/2021 05/16/2021 05/17/2021 2:14 PM CUSTOMER EXPERIENCE SPECIALIST documented as of this encounter Care Teams Special Procedure Technologist Relationship Specialty Start Date End Date Flavia Antonio MD PCP - General 12/07/18 01/15/22 Herlinda Marino APRN OTHER SPATIAL SCIENTIST [facility] [address] [place] [address] PCP - Obstetrics/Gynecology 02/03/19 Flavia Antonio MD 1099 [facility] 100 [place] [address] PCP - General Family Medicine 01/16/22 06/06/22 Arjun Pruitt MD [address] [place], [place] [address] 100 [place] [address] PCP - General infrastructure solutions architect 06/25/22 03/11/23 Flavia Antonio MD [address] [address] PCP - General Family Medicine 03/12/23 06/16/23 Marsha Gonzalez MD Assigned OBGYN Provider 03/09/20 11/17/20 Hussain Man MD [address] [address] Assigned Surgical Provider 11/30/20 09/28/21 Cheo Thakkar MD [address] [facility] [address] 400 [place] [address] Assigned OBGYN Provider 11/30/20 Flavia Antonio MD [address] [address] Assigned PCP 10/31/20 12/13/21 Xochitl Smith MD 2945 [facility] [address] [place] [address] Assigned OBGYN Provider 04/14/21 Patricia Smiley MD [facility] 2635 [facility], [address] [place] [address] Assigned OBGYN Provider 04/07/2104/13 Nicko Puga, PhD [facility] [address] 200 [place], [place] [address] Assigned Behavioral Health Provider 04/07/21 07/06/21 Deysi Greenwood, PAINTER DECORATOR OTHER SPATIAL SCIENTIST 1099 [facility] 100 [place] [address] Assigned PCP 12/14/21 01/24/22 Flavia Antonio MD [address] 1845324 Assigned PCP 01/25/22 02/21/22 Olga Aguila, RHODA 1151 [place] [address] Assigned PCP 02/22/22 [place] Stevens RPH [address] [place] [phone] Pharmacist Pharmacist 02/20/23 Marlene Bustamante [facility] [address] [place] [phone] Pharmacist Pharmacist Knitting Tester 04/30/23 documented as of this encounter
--- OUTSIDE RECORDS SUMMARY | 2023-10-01 14:46 | XMS_ITS | Encounter Summary ---
Author Name Unknown Organization [place] Address [facility] [place] [address] Care Team Providers Care Grove Worker Name Role Phone Flavia Antonio MD Primary Care Provider [phone] Herlinda Marino CANAL STRUCTURE OPERATOR MARKETING DIRECTOR ASSISTED LIVING Unavailable Hussain Man MD Unavailable [phone] Flavia Antonio MD Unavailable Xochitl Smith MD Unavailable Patricia Smiley MD Unavailable Nicko Puga PhD Unavailable Deysi Greenwood CANAL STRUCTURE OPERATOR MARKETING DIRECTOR ASSISTED LIVING Unavailable [phone] Flavia Antonio MD Primary Care Provider Flavia Antonio MD Unavailable [phone] Olga Aguila DNP Unavailable [phone] Arjun Pruitt MD Primary Care Provide r [place] Stevens [facility] Unavailable [phone] Flavia Antonio MD Primary Care Provider Marlene Bustamante [facility] Unavailable [phone] Encounter Details Date Type Department Care Team (Late st Contact Info) Description 01/26/2021 [facility] Care [address] [address] Deo Wood MD [address] [place] [place] [address] Social History Tobacco Use Types Packs/Day Years [...] Description 03/10/2024 8:00 AM CDT Virtual Visit [facility] and Bariatrics [address] [address] Deo Wood MD [address] [place] [address] documented as of this encounter Visit Diagnoses Not on filedocumented in this encounter Additional Health Concerns Infection Onset Date Last Indicated Resolved Time Rule Out COVID-19 05/16/2021 05/16/2021 05/17/2021 2:14 PM FISH PROCESSING SUPERVISOR documented as of this encounter Care Teams Grove Worker Relationship Specialty Start Date End Date Flavia Antonio MD PCP - General 12/07/18 01/15/22 Herlinda Marino, CANAL STRUCTURE OPERATOR MARKETING DIRECTOR ASSISTED LIVING [facility] [address] [place] [address] PCP - Obstetrics/Gynecology 02/03/19 Flavia Antonio MD [address] [facility] 100 [place] [address] PCP - General Family Medicine 01/16/22 06/06/22 Arjun Pruitt MD [facility] [address] [place] [place] [address] PCP - General practice nurse 06/25/22 03/11/23 Flavia Antonio MD [address] [address] PCP - General Family Medicine 03/12/23 06/16/23 Hussain Man MD [address] [place] [address] Assigned Surgical Provider 11/30/20 09/28/21 Flavia Antonio MD [address] [address] Assigned PCP 10/31/20 12/13/21 Xochitl Smith MD [address] [address] Assigned OBGYN Provider 04/14/21 Patricia Smiley MD [facility] 2635 [facility], [address] [place] [address] Assigned OBGYN Provider 04/07/2104/13 Nicko Puga, PhD [facility] 200 [place] [address] Assigned Behavioral Health Provider 04/07/21 07/06/21 Deysi Greenwood APRN MARKETING DIRECTOR ASSISTED LIVING [address] 100 [place] [address] Assigned PCP 12/14/21 01/24/22 Flavia Antonio MD [address] [address] Assigned PCP 01/25/22 02/21/22 Olga Aguila, RHODA 1151 [place] [address] Assigned PCP 02/22/22 [place] Stevens RP [address] [place] [phone] Pharmacist Pharmacist 02/20/23 Marlene Bustamante RPH [address] [place] [address] [phone] Pharmacist Pharmacist Auto Body Repairman 04/30/23 documented as of this encounter
--- OUTSIDE RECORDS SUMMARY | 2023-10-01 14:46 | XMS_ITS | Encounter Summary ---
Author Name Unknown Organization [place] Address [facility] [place] [address] Care Team Providers Care Sales Operations Analyst Name Role Phone Cross, Marsha Chappell MD Unavailable Unavaila ble Flavia Antonio MD Primary Care Provider Herlinda Marino APRN MANAGER DRIVE Unavailable Hussain Man MD Unavailable [phone] Cheo Thakkar MD Unavailable Flavia Antonio MD Unavailable [phone] Xochitl Smith MD Unavailable Patricia Smiley MD Unavailable Nicko Puga PhD Unavailable Deysi Greenwood CAR PARK ATTENDANT MANAGER DRIVE Unavailable Flavia Antonio MD Primary Care Provider Flavia Antonio MD Unavailable [phone] Olga Aguila DNP Unavailable Arjun Pruitt MD Primary Care Provide r [place] Stevens [facility] Unavailable [phone] Flavia Antonio MD Primary Care Provider Marlene Bustamante [facility] Unavailable [phone] Encounter Details Date Type Department Care [...] Description 03/10/2024 8:00 AM CDT Virtual Visit [facility] Surgery Clinic and Bariatrics Care [address] 200 [place] [phone] Deo Wood MD [facility] 200 [place], [place] [address] documented as of this encounter Visit Diagnoses Not on filedocumented in this encounter Additional Health Concerns Infection Onset Date Last Indicated Resolved Time Rule Out COVID-19 05/16/2021 05/16/2021 05/17/2021 2:14 PM DATA INTEGRATION ARCHITECT documented as of this encounter Care Teams Sales Operations Analyst Relationship Specialty Start Date End Date Flavia Antonio MD PCP - General 12/07/18 01/15/22 Herlinda Marino APRN MANAGER DRIVE [facility] [address] [id number] PCP - Obstetrics/Gynecology 02/03/19 Flavia Antonio MD [address] Cast[address] [facility] 100 [place] [address] PCP - General Family Medicine 01/16/22 06/06/22 [facility] [address] [facility] 100 [place], [place] [address] PCP - General combination man 06/25/22 03/11/23 Flavia Antonio MD [address] [address] PCP - General Family Medicine 03/12/23 06/16/23 Marsha Gonzalez MD Assigned OBGYN Provider 03/09/20 11/17/20 Hussain Man MD [address] [place] [address] 300 [place] [address] Assigned Surgical Provider 11/30/20 09/28/21 Cheo Thakkar MD [address] [place] [address] 400 [place] [address] Assigned OBGYN Provider 11/30/20 Falvia Antonio MD [address] [address] Assigned PCP 10/31/20 12/13/21 Xochitl Smith MD [address] [place] [address] 100 [place] [address] Assigned OBGYN Provider 04/14/21 Patricia Smiley MD [facility] 2635 [facility], [address] [place], [place] [address] Assigned OBGYN Provider 04/07/2104/13 Nicko Puga, PhD [facility] [facility] 500 [facility] [address] 200 [place] [address] Assigned Behavioral Health Provider 04/07/21 07/06/21 Deysi Greenwood APRN MANAGER DRIVE [address] [facility] 100 [place] [address] Assigned PCP 12/14/21 01/24/22 Flavia Antonio MD [address] [address] Assigned PCP 01/25/22 02/21/22 Olga Aguila DNP [address] [place] [address] Assigned PCP 02/22/22 [place] Stevens RP [address] [place] [address] [phone] Pharmacist Pharmacist 02/20/23 Marlene Bustamante RPH [address] [place] [phone] Pharmacist Pharmacist Steam Turbine Assembler 04/30/23 documented as of this encounter
--- OUTSIDE RECORDS SUMMARY | 2023-10-01 14:46 | XMS_ITS | Encounter Summary ---
Author Name Unknown Organization [place] Address [facility] [place] [address] Care Team Providers Care Sharepoint Application Developer Name Role Phone Cross, Marsha Chappell MD Unavailable Unavaila ble Flavia Antonio MD Primary Care Provider Herlinda Marino APRN NETWORK CONSULTANT Unavailable Hussain Man MD Unavailable [phone] Cheo Thakkar MD Unavailable [phone] Flavia Antonio MD Unavailable Xochitl Smith MD Unavailable Patricia Smiley MD Unavailable Nicko Puga PhD Unavailable [phone] Deysi Greenwood BLOCKER AND POLISHER GOLD WHEEL NETWORK CONSULTANT Unavailable Flavia Antonio MD Primary Care Provider Flavia Antonio MD Unavailable Olga Aguila DNP Unavailable [phone] Arjun Pruitt MD Primary Care Provide r [place] Stevens [facility] Unavailable [phone] Flavia Antonio MD Primary Care Provider Marlene Bustamante [facility] Unavailable [phone] Encounter Details Date Type Department Care [...] 8:00 AM CDT Virtual Visit [facility] Care [address] 200 [place] [address] Deo Wood MD [facility]5 [facility] 200 [place], [place] [address] documented as of this encounter Visit Diagnoses Not on filedocumented in this encounter Additional Health Concerns Infection Onset Date Last Indicated Resolved Time Rule Out COVID-19 05/16/2021 05/16/2021 05/17/2021 2:14 PM REFINERY OPERATOR HELPER CRUDE UNIT documented as of this encounter Care Teams Sharepoint Application Developer Relationship Specialty Start Date End Date Flavia Antonio MD PCP - General 12/07/18 01/15/22 Herlinda Marino APRN NETWORK CONSULTANT [facility] [address] [id number] PCP - Obstetrics/Gynecology 02/03/19 Flavia Antonio MD [address] Castillo [facility] 100 [place] [address] PCP - General Family Medicine 01/16/22 06/06/22 [facility] [address] 100 [place], [place] [phone] PCP - General stone cutter 06/25/22 03/11/23 Flavia Antonio MD [address] [address] PCP - General Family Medicine 03/12/23 06/16/23 Marsha Gonzalez MD Assigned OBGYN Provider 03/09/20 11/17/20 Hussain Man MD [address] [place] [address] 300 [place] [address] Assigned Surgical Provider 11/30/20 09/28/21 Cheo Thakkar MD [address] [place] [address] 400 [place] [address] Assigned OBGYN Provider 11/30/20 Flavia Antonio MD [address] [address] Assigned PCP 10/31/20 12/13/21 Xochitl Smith MD [address] [place] [address] [address] [place] [address] Assigned OBGYN Provider 04/14/21 Patricia Smiley MD [facility] 2635 [facility], [address] [place], [place] [address] Assigned OBGYN Provider 04/07/2104/13 Nicko Puga, PhD [facility] 500 [facility] [address]HEL 200 [place] [address] Assigned Behavioral Health Provider 04/07/21 07/06/21 Deysi Greenwood APRN NETWORK CONSULTANT [address] Jonathan [facility] 100 [place] [address] Assigned PCP 12/14/21 01/24/22 Flavia Antonio MD [address] [address] Assigned PCP 01/25/22 02/21/22 Olga Aguila DNP [address] [place] [address] Assigned PCP 02/22/22 [place] Stevens RP [address] [place] [phone] Pharmacist Pharmacist 02/20/23 Marlene Bustamante RPH [address] [place] [phone] Pharmacist Pharmacist Clam Shucking Machine Tender 04/30/23 documented as of this encounter
--- OUTSIDE RECORDS SUMMARY | 2023-10-01 14:46 | XMS_ITS | Encounter Summary ---
Author Name Unknown Organization [place] Address [address] [place] [address]. [place] [address] Care Team Providers Care Installer Helper Name Role Phone Flavia Antonio MD Primary Care Provider [phone] Herlinda Marino AIRCRAFT POWERPLANT REPAIRER PALLET RECTIFIER Unavailable [phone] Hussain Man MD Unavailable [phone] Flavia Antonio MD Unavailable Xochitl Smith MD Unavailable Patricia Smiley MD Unavailable Nicko Puga PhD Unavailable Deysi Greenwood AIRCRAFT POWERPLANT REPAIRER PALLET RECTIFIER Unavailable Flavia Antonio MD Primary Care Provider Flavia Antonio MD Unavailable [phone] Olga Aguila DNP Unavailable Arjun Pruitt MD Primary Care Provide r [place] Stevens [facility] Unavailable [phone] Flavia Antonio MD Primary Care Provider Marlene Bustamante [facility] Unavailable [phone] Encounter Details Date Type Department Care Team (Late st Contact Info) Description 02/14/2021 [facility] [address] [place] [address] Flavia Antonio MD [address] [address] Social History Tobacco Use Types Packs/Day Years [...] [facility] [address] 200 [place] [address] Deo Wood MD [address] [place] [address] 200 [place] [address] documented as of this encounter Visit Diagnoses Not on filedocumented in this encounter Additional Health Concerns Infection Onset Date Last Indicated Resolved Time Rule Out COVID-19 05/16/2021 05/16/2021 05/17/2021 2:14 PM DELIVERY HELPER documented as of this encounter Care Teams Installer Helper Relationship Specialty Start Date End Date Flavia Antonio MD PCP - General 12/07/18 01/15/22 Herlinda Mairno, AIRCRAFT POWERPLANT REPAIRER PALLET RECTIFIER [place] [address] [id number] [place] [address] PCP - Obstetrics/Gynecology 02/03/19 Flavia Antonio MD [address] Castillo [facility] 100 [place] [address] PCP - General Family Medicine 01/16/22 06/06/22 Arjun Pruitt MD [facility] [address] [facility] 100 [place] [address] PCP - General piano case maker 06/25/22 03/11/23 Flavia Antonio MD [address] [address] PCP - General Family Medicine 03/12/23 06/16/23 Hussain Man MD [address] [place] [address] Assigned Surgical Provider 11/30/20 09/28/21 Flavia Antonio MD [address] [address] Assigned PCP 10/31/20 12/13/21 Xochitl Smith MD 2945 [facility] 100 [place] [address] Assigned OBGYN Provider 04/14/21 Patricia Smiley MD [facility] 2635 [facility], [address] [place] [address] Assigned OBGYN Provider 04/07/2104/13 Nicko Puga, PhD [facility] [address] [place] [address] Assigned Behavioral Health Provider 04/07/21 07/06/21 Deysi Greenwood APRN PALLET RECTIFIER [address] 100 [place] [address] Assigned PCP 12/14/21 01/24/22 Flavia Antonio MD [address] [address] Assigned PCP 01/25/22 02/21/22 Olga Aguila DNP 1151 [place] [address] Assigned PCP 02/22/22 [place] Stevens RPH [address] [place] [phone] Pharmacist Pharmacist 02/20/23 Marlene Bustamante RPH [address] [place] [phone] Pharmacist Pharmacist Flight Operations Manager 04/30/23 documented as of this encounter
--- OUTSIDE RECORDS SUMMARY | 2023-10-01 14:46 | XMS_ITS | Encounter Summary ---
Author Name Unknown Organization [place] Address [facility] [place] [address] Care Team Providers Care Brancher Name Role Phone Flavia Antonio MD Primary Care Provider Herlinda Marino APRN FIELD PROFESSIONAL Unavailable [phone] Hussain Man MD Unavailable [phone] Cheo Thakkar MD Unavailable [phone] Flavia [place] MD Unavailable [phone] Xochitl Smith MD Unavailable Patricia Smiley MD Unavailable Nicko Puga PhD Unavailable [phone] Deysi Greenwood APRN FIELD PROFESSIONAL Unavailable [phone] Flavia Antonio MD Primary Care Provider Flavia Antonio MD Unavailable [phone] Olga Aguila DNP Unavailable Arjun Pruitt MD Primary Care Provide r Martin Stevens [facility] Unavailable [phone] Flavia [place] MD Primary Care Provider Marlene Bustamante [facility] Unavailable [phone] Encounter Details Date Type Department Care Team (Late st Contact Info) Description 12/05/2020 MyC Medical Advice [facility] [address] [facility] 100 [place] [address] Flavia [place] MD [address] [address] Social History Tobacco Use Types Packs/Day Years [...] Description 03/10/2024 8:00 AM CDT Virtual Visit [facility] Surgery [facility] and [facility] Care [address] [address] Deo Wood MD [address] [place] [address] 200 [place] [address] documented as of this encounter Visit Diagnoses Not on filedocumented in this encounter Additional Health Concerns Infection Onset Date Last Indicated Resolved Time Rule Out COVID-19 05/16/2021 05/16/2021 05/17/2021 2:14 PM BOILER HELPER documented as of this encounter Care Teams Brancher Relationship Specialty Start Date End Date Flavia [place] MD PCP - General 12/07/18 01/15/22 Herlinda Marino, HOSPITAL CLEANER FIELD PROFESSIONAL [facility] [id number] [place] [address] PCP - Obstetrics/Gynecology 02/03/19 Flavia [place] MD 1099 [facility] Jessica Castillo [facility] 100 [place] [address] PCP - General Family Medicine 01/16/22 06/06/22 Arjun Pruitt MD [facility]5 [address] [facility] 100 [place] [address] PCP - General seed core operator 06/25/22 03/11/23 Flavia [place] MD [address] [address] PCP - General Family Medicine 03/12/23 06/16/23 Hussain Man MD [address] [place] [address] Assigned Surgical Provider 11/30/20 09/28/21 Cheo Thakkar MD 606 [facility] 400 [place] [address] Assigned OBGYN Provider 11/30/20 Flavia [place] MD [address] [id number] Assigned PCP 10/31/20 12/13/21 Xochitl Smith MD [address] [place] [address] [id number] Assigned OBGYN Provider 04/14/21 Patricia Smiley MD [facility] 2635 [facility], [address] [place] [address] Assigned OBGYN Provider 04/07/2104/13 Nicko Puga, PhD [facility] [employer] [address] [place] [address] Assigned Behavioral Health Provider 04/07/21 07/06/21 Deysi Greenwood APRN FIELD PROFESSIONAL 1099 [facility] [address] 100 [place] [address] Assigned PCP 12/14/21 01/24/22 Flavia [place] MD [facility] AND [address] [address] Assigned PCP 01/25/22 02/21/22 Olga Aguila DNP 1151 [place] [address] Assigned PCP 02/22/22 Martin Stevens [facility] [address] [place] [address] Pharmacist Pharmacist 02/20/23 Marlene Bustamante RP [address] [place] [address] Pharmacist Pharmacist Boring Mill Set Up Operator Vertical 04/30/23 documented as of this encounter
--- OUTSIDE RECORDS SUMMARY | 2023-10-01 14:46 | XMS_ITS | Encounter Summary ---
Author Name Unknown Organization [place] Address [address] [place] [address]. [place] [address] Care Team Providers Care Senior Systems Developer Name Role Phone Flavia [place] MD Primary Care Provider [phone] Herlinda Marino EKG TECHNICIAN CEMENT FINISHER APPRENTICE Unavailable [phone] Hussain Man MD Unavailable [phone] Flavia [place] MD Unavailable Xochitl Smith MD Unavailable Patricia Smiley MD Unavailable Nicko Puga PhD Unavailable Deysi Greenwood EKG TECHNICIAN CEMENT FINISHER APPRENTICE Unavailable Flavia [place] MD Primary Care Provider Flavia [place] MD Unavailable [phone] Olga Aguila DNP Unavailable Arjun Pruitt MD Primary Care Provide r Martin Stevens [facility] Unavailable [phone] Flavia [place] MD Primary Care Provider Marlene Bustamante [facility] Unavailable [phone] Encounter Details Date Type Department Care Team (Late st Contact Info) Description 02/25/2021 [facility] [address] 100 [place] [address] Flavia [place] MD [address] [address] Social History Tobacco Use Types Packs/Day Years [...] Description 03/10/2024 8:00 AM CDT Virtual Visit [facility] and [facility] [address] 200 [place] [address] Deo Wood MD [address] [place] [address] 200 [place] [address] documented as of this encounter Visit Diagnoses Not on filedocumented in this encounter Additional Health Concerns Infection Onset Date Last Indicated Resolved Time Rule Out COVID-19 05/16/2021 05/16/2021 05/17/2021 2:14 PM PAPER CUP MACHINE TENDER documented as of this encounter Care Teams Senior Systems Developer Relationship Specialty Start Date End Date Flavia [place] MD PCP - General 12/07/18 01/15/22 Herlinda Marino, EKG TECHNICIAN CEMENT FINISHER APPRENTICE [place] [address] [place] [address] PCP - Obstetrics/Gynecology 02/03/19 Flavia [place] MD [address] Castillo [facility] 100 [place] [address] PCP - General Family Medicine 01/16/22 06/06/22 Arjun Pruitt MD [facility] [address] [facility] 100 [place] [address] PCP - General sales engineer 06/25/22 03/11/23 Flavia [place] MD [address] [address] PCP - General Family Medicine 03/12/23 06/16/23 Hussain Man MD [address] [place] [address] Assigned Surgical Provider 11/30/20 09/28/21 Flavia [place] MD [address] [address] Assigned PCP 10/31/20 12/13/21 Xochitl Smith MD 2945 [facility] 100 [place] [address] Assigned OBGYN Provider 04/14/21 Patricia Smiley MD [facility] 2635 [facility], [address] [place] [address] Assigned OBGYN Provider 04/07/2104/13 Nicko Puga, PhD [facility] [address] 200 [place] [address] Assigned Behavioral Health Provider 04/07/21 07/06/21 Deysi Greenwood APRN CEMENT FINISHER APPRENTICE [address] 100 [place] [address] Assigned PCP 12/14/21 01/24/22 Flavia [place] MD [address] [address] Assigned PCP 01/25/22 02/21/22 Olga Aguila DNP 1151 [place] [address] Assigned PCP 02/22/22 Martin Stevens RPH [address] [place] [phone] Pharmacist Pharmacist 02/20/23 Marlene Bustamante RPH [address] [place] [phone] Pharmacist Pharmacist Pen Tender 04/30/23 documented as of this encounter
--- OUTSIDE RECORDS SUMMARY | 2023-10-01 14:46 | XMS_ITS | Encounter Summary ---
Author Name Unknown Organization [place] Address [facility] [place] [address] Care Team Providers Care Moveman Name Role Phone Flavia [place] MD Primary Care Provider Herlinda Marino APRN SHOTBLASTER Unavailable [phone] Hussain Man MD Unavailable Cheo Thakkar MD Unavailable [phone] Flavia [place] MD Unavailable [phone] Xochitl Smith MD Unavailable Patricia Smiley MD Unavailable Nicko Puga PhD Unavailable Deysi Greenwood APRN SHOTBLASTER Unavailable [phone] Flavia [place] MD Primary Care Provider Flavia [place] MD Unavailable [phone] Olga Aguila DNP Unavailable Arjun Pruitt MD Primary Care Provide r Martin Stevens [facility] Unavailable [phone] Flavia [place] MD Primary Care Provider Marlene Bustamante [facility] Unavailable [phone] Encounter Details Date Type Department Care Team (Late st Contact Info) Description 12/14/2020 MyC Medical Advice [facility] [address] [facility] 100 [place] [address] Flavia [place] MD [address] [address] Social History Tobacco Use Types Packs/Day Years [...] Virtual Visit [facility] Surgery [facility] and Bariatrics Care [address] [address] Deo Wood MD [address] [place] [address] 200 [place] [address] documented as of this encounter Visit Diagnoses Not on filedocumented in this encounter Additional Health Concerns Infection Onset Date Last Indicated Resolved Time Rule Out COVID-19 05/16/2021 05/16/2021 05/17/2021 2:14 PM EQUITY STRUCTURER documented as of this encounter Care Teams Moveman Relationship Specialty Start Date End Date Flavia [place] MD PCP - General 12/07/18 01/15/22 Herlinda Marino, LAP CUTTER SHOTBLASTER [facility] [id number] [place] [address] PCP - Obstetrics/Gynecology 02/03/19 Flavia [place] MD 1099 [facility] Jessica Castillo [facility] 100 [place] [address] PCP - General Family Medicine 01/16/22 06/06/22 Arjun Pruitt MD [facility]5 [address]AR [facility] 100 [place] [address] PCP - General efficiency miner 06/25/22 03/11/23 Flavia Antonio MD [address] [address] PCP - General Family Medicine 03/12/23 06/16/23 Hussain Man MD [address] [place] [address] Assigned Surgical Provider 11/30/20 09/28/21 Cheo Thakkar MD 606 [facility] 400 [place] [address] Assigned OBGYN Provider 11/30/20 Flavia Antonio MD [address] [id number] Assigned PCP 10/31/20 12/13/21 Xochitl Smith MD [address] [place] [id number] Assigned OBGYN Provider 04/14/21 Patricia Smiley MD [facility] [address] [facility], [address] [place] [address] Assigned OBGYN Provider 04/07/2104/13 Nicko Puga, PhD [facility] [employer] [address] 200 [place] [address] Assigned Behavioral Health Provider 04/07/21 07/06/21 Deysi Greenwood APRN SHOTBLASTER 1099 [facility] [address] 100 [place] [address] Assigned PCP 12/14/21 01/24/[address] [facility] [address] [address] Assigned PCP 01/25/22 02/21/22 Olga Aguila DNP 1151 [place] [address] Assigned PCP 02/22/22 Martin Stevens [facility] [address] [place] [address] Pharmacist Pharmacist 02/20/23 Marlene Bustamante RP [address] [place] [address] Pharmacist Pharmacist Bobbin Fixer 04/30/23 documented as of this encounter
--- OUTSIDE RECORDS SUMMARY | 2023-10-01 14:46 | XMS_ITS | Encounter Summary ---
Author Name Unknown Organization [place] Address [facility] [place] [address] Care Team Providers Care Claims Adjuster Crop Name Role Phone Flavia Antonio MD Primary Care Provider Herlinda Marino APRN MANAGER COSMETICS Unavailable [phone] Hussain Man MD Unavailable [phone] Cheo Thakkar MD Unavailable [phone] Flavia Antonio MD Unavailable [phone] Xochitl Smith MD Unavailable Patricia Smiley MD Unavailable Nicko Puga PhD Unavailable Deysi Greenwood APRN MANAGER COSMETICS Unavailable [phone] Flavia Antonio MD Primary Care Provider Flavia Antonio MD Unavailable [phone] Olga Aguila DNP Unavailable Arjun Pruitt MD Primary Care Provide r Martin Stevens [facility] Unavailable [phone] Flavia Antonio MD Primary Care Provider Marlene Bustamante [facility] Unavailable [phone] Encounter Details Date Type Department Care Team (Late st Contact Info) Description 12/14/2020 MyC Medical Advice [facility] Surgery [facility] and [facility] Care [address] [phone] Deo Wood MD [address] [place] [address] Social History Tobacco Use Types Packs/Day Years [...] AM CDT Virtual Visit [facility] and Bariatrics [address] [address] Deo Wood MD [address] [place] [address] documented as of this encounter Visit Diagnoses Not on filedocumented in this encounter Additional Health Concerns Infection Onset Date Last Indicated Resolved Time Rule Out COVID-19 05/16/2021 05/16/2021 05/17/2021 2:14 PM MOVIE THEATER MANAGER documented as of this encounter Care Teams Claims Adjuster Crop Relationship Specialty Start Date End Date Flavia Antonio MD PCP - General 12/07/18 01/15/22 Herlinda Marino APRN MANAGER COSMETICS [facility] [id number] [place] [address] PCP - Obstetrics/Gynecology 02/03/19 Flavia Antonio MD 1099 [facility] Jessica Castillo [facility] 100 [place] [address] PCP - General Family Medicine 01/16/22 06/06/22 Arjun Pruitt MD [address] [facility] 100 [place] [address] PCP - General associate professor of psychology 06/25/22 03/11/23 Flavia Antonio MD [address] [address] PCP - General Family Medicine 03/12/23 06/16/23 Hussain Man MD [address] [place] [address] Assigned Surgical Provider 11/30/20 09/28/21 Cheo Thakkar MD [address] [address] Assigned OBGYN Provider 11/30/20 Flavia Antonio MD [address] 6501624 Assigned PCP 10/31/20 12/13/21 Xochitl Smith MD [address] [place] [id number] Assigned OBGYN Provider 04/14/21 Patricia Smiley MD [facility] [address] [facility], [address] [place] [address] Assigned OBGYN Provider 04/07/2104/13 Nicko Puga, PhD [facility] APR [address] [place] [address] Assigned Behavioral Health Provider 04/07/21 07/06/21 Deysi Greenwood APRN [facility] 1099 [facility] [address] 100 [place], [place] [address] Assigned PCP 12/14/21 01/24/22 Flavia Antonio MD [facility] [address] [place] [address] Assigned PCP 01/25/22 02/21/22 Olga Aguila DNP 1151 [place] [address] Assigned PCP 02/22/22 Martin Stevens [facility] [address] [place] [address]11225 Pharmacist Pharmacist 02/20/23 Marlene Bustamante RP [address] [place] [phone] Pharmacist Pharmacist Security Control Room Officer 04/30/23 documented as of this encounter
--- OUTSIDE RECORDS SUMMARY | 2023-10-01 14:46 | XMS_ITS | Encounter Summary ---
Author Name Unknown Organization [place] Address [facility] [place] [address] Care Team Providers Care Meteorologist Liaison Name Role Phone Cross, Marsha Chappell MD Unavailable Unavaila ble Flavia Antonio MD Primary Care Provider Herlinda Marino APRN PRESCHOOL TEACHER'S ASSISTANT Unavailable Hussain Man MD Unavailable [phone] Cheo Thakkar MD Unavailable Flavia Antonio MD Unavailable Xochitl Smith MD Unavailable Patricia Smiley MD Unavailable Nicko Puga PhD Unavailable Deysi Greenwood VARNISH MELTER HELPER PRESCHOOL TEACHER'S ASSISTANT Unavailable Flavia Antonio MD Primary Care Provider Flavia Antonio MD Unavailable Olga Aguila DNP Unavailable Arjun Pruitt MD Primary Care Provide r Martin Stevens [facility] Unavailable [phone] Flavia Antonio MD Primary Care Provider Marlene Bustamante [facility] Unavailable [phone] Encounter Details Date Type Department Care [...] Mynormary jane this afternoon. Ángel reports that infant are well, she plans on following up with a bottle after each feeding until infant are able to transfer whatthey need from [...] Description 03/10/2024 8:00 AM CDT Virtual Visit [facility] and Bariatrics Care [address] [address] Deo Wood MD [address] [place] [address] documented as of this encounter Visit Diagnoses Not on filedocumented in this encounter Additional Health Concerns Infection Onset Date Last Indicated Resolved Time Rule Out COVID-19 05/16/2021 05/16/2021 05/17/2021 2:14 PM BUNDLE WRAPPER documented as of this encounter Care Teams Meteorologist Liaison Relationship Specialty Start Date End Date Flavia Antonio MD PCP - General 12/07/18 01/15/22 Herlinda Marino APRN PRESCHOOL TEACHER'S ASSISTANT [facility] [id number] [place] [address] PCP - Obstetrics/Gynecology 02/03/19 Flavia Antonio MD 1099 [facility] Jessica N [facility] 100 [place] [address] PCP - General Family Medicine 01/16/22 06/06/22 Arjun Pruitt MD [employer] [facility] 100 [place] [address] PCP - General family resource coordinator 06/25/22 03/11/23 Flavia Antonio MD [address] [address] PCP - General Family Medicine 03/12/23 06/16/23 Marsha Gonzalez MD Assigned OBGYN Provider 03/09/20 11/17/20 Hussain Man MD [address] [place] [address] Assigned Surgical Provider 11/30/20 09/28/21 Cheo Thakkar MD [address] [facility] 400 [place] [address] Assigned OBGYN Provider 11/30/20 Flavia Antonio MD [address] [address] Assigned PCP 10/31/20 12/13/21 Xochitl Smith MD [address] [facility] [address] [place] [address] Assigned OBGYN Provider 04/14/21 Patricia Smiley MD [facility] 2635 [facility], [address] [place] [address] Assigned OBGYN Provider 04/07/2104/13 Nicko Puga, PhD [facility] [employer] [facility] [address] [place] [address] Assigned Behavioral Health Provider 04/07/21 07/06/21 Deysi Greenwood APRN [facility] 1099 [facility] [address] 100 [place] [address] Assigned PCP 12/14/21 01/24/22 Flavia Antonio MD [address] [address] Assigned PCP 01/25/22 02/21/22 Olga Aguila DNP 1151 [place] [address] Assigned PCP 02/22/22 Martin Stevens [facility] [address] [place] [address] Pharmacist Pharmacist 02/20/23 Marlene Bustamante RPH [address] [place] [address] Pharmacist Pharmacist Paper Production Engineer 04/30/23 documented as of this encounter
== END 2023-10-01 14:40 | disposition home or self-care (01) ==
PROVIDERS: PCP Family Medicine; Visit Provider Family Medicine
DX: E03.9 Hypothyroidism, unspecified (principal); F32.A Depression, unspecified; Z90.3 Acquired absence of stomach [part of]; Z98.84 Bariatric surgery status
CPT/HCPCS: 80053; 82306; 82607; 82728; 83970; 84425; 84443; 84630

== ENCOUNTER 2024-06-17 14:29 | Outpatient (CLI) | payer MEDICAID, SELFPAY | END 2024-06-17 14:30 | disposition home or self-care (01) | LOC: FRMREF 14:36 | PROVIDERS: PCP Family Medicine; Visit Provider Family Medicine | DX: E03.9 Hypothyroidism, unspecified (principal) | CPT/HCPCS: 84443 ==